=== PATIENT | male | born 1940 | race Caucasian/White ===

== ENCOUNTER 2018-11-14 01:22 | Outpatient (CLI) | payer MEDICARE, SELFPAY ==
--- NOTE | 2018-11-14 09:01 | DI.RAD_ITS ---
EXAM: XR SHOULDER RT COMPLETE 2+V INDICATION: PAIN M25.511. COMPARISON: No exams were available for comparison TECHNIQUE: 2D digital imaging was performed. FINDINGS: Images of the right shoulder reveal mild DJD involving the glenohumeral joint and moderate DJD involv ing the AC joint. There is no evidence of a fracture or dislocation. IMPRESSION:
--- NOTE | 2018-11-14 09:02 | DI.RAD_ITS ---
EXAM: XR SHOULDER LT COMPLETE 2+V INDICATION: PAIN M25.512. COMPARISON: XR SHOULDER RT COMPLETE 2+V from 11/14/2018 TECHNIQUE: 2D digital imaging was performed. FINDINGS: Bony structures are normally mineralized. There are mild degenerative changes involving the glenohume ral joint and moderate DJD involving the AC joint.
== END 2018-11-14 01:42 ==
PROVIDERS: PCP Family Medicine; Visit Provider Family Medicine
DX: M25.512 Pain in left shoulder (principal); M19.012 Primary osteoarthritis, left shoulder; M25.511 Pain in right shoulder; M19.011 Primary osteoarthritis, right shoulder
CPT/HCPCS: 73030

== ENCOUNTER → 2018-11-16 10:32 | Outpatient (BNVA) | payer MEDICARE, SELFPAY | PROVIDERS: PCP Family Medicine; Referring Provider Family Medicine; Visit Provider Student in an Organized Health Care Education/Training Program | DX: M75.51 Bursitis of right shoulder (principal); M75.52 Bursitis of left shoulder; M75.01 Adhesive capsulitis of right shoulder; M75.02 Adhesive capsulitis of left shoulder; M75.41 Impingement syndrome of right shoulder; M75.42 Impingement syndrome of left shoulder; M75.21 Bicipital tendinitis, right shoulder; M75.22 Bicipital tendinitis, left shoulder; M75.101 Unspecified rotator cuff tear or rupture of right shoulder, not specified as traumatic; M75.102 Unspecified rotator cuff tear or rupture of left shoulder, not specified as traumatic; G25.89 Other specified extrapyramidal and movement disorders | CPT/HCPCS: 20610; 99204; J1040 ==

== ENCOUNTER 2018-11-21 10:59 | Outpatient (REF) | payer MEDICARE, SELFPAY ==
[2018-11-21 21:47] LABS: BUN 37 mg/dL (7-18); CREATININE 1.35 mg/dL (0.70-1.30); Calcium 9.6 mg/dL (8.5-10.1); Chloride 102 mmol/L (98-107); Estimated GFR 50.98 (mL/min/1.73m2); Glucose 95 mg/dL (70-100); Magnesium 2.2 mg/dL (1.8-2.4); Potassium 5.3 mmol/L (3.5-5.1); Sodium 137 mmol/L (136-145); TSH (W/Ref FT4) 0.94 uIU/mL (0.36-3.74); Vitamin B12 357 pg/mL (193-986)
[2018-11-24 17:11] LABS: Anaplasma phagocytophilum Negative (Negative); B. miyamotoi PCR Negative (Negative); Babesia divergens/MO-1 Negative (Negative); Babesia duncani Negative (Negative); Babesia microti Negative (Negative); Ehrlichia chaffeensis Negative (Negative); Ehrlichia ewingii/canis Negative (Negative); Ehrlichia muris eauclairensis Negative (Negative)
== END 2018-11-21 11:19 ==
LOC: NCHCN 10:59
PROVIDERS: PCP Family Medicine; Visit Provider Family Medicine
DX: E03.9 Hypothyroidism, unspecified (principal); N28.9 Disorder of kidney and ureter, unspecified; E78.5 Hyperlipidemia, unspecified; G25.81 Restless legs syndrome; R53.83 Other fatigue
CPT/HCPCS: 80048; 87798; 82607; 83735; 84443

== ENCOUNTER 2019-02-28 13:24 | Outpatient (REF) | payer MEDICARE, SELFPAY ==
[2019-03-02 13:26] LABS: Lyme Ab w Rflx to Lyme Confirm Negative (Negative)
[2019-03-03 16:13] LABS: Anaplasma phagocytophilum Negative (Negative); B. miyamotoi PCR Negative (Negative); Babesia divergens/MO-1 Negative (Negative); Babesia duncani Negative (Negative); Babesia microti Negative (Negative); Ehrlichia chaffeensis Negative (Negative); Ehrlichia ewingii/canis Negative (Negative); Ehrlichia muris eauclairensis Negative (Negative)
== END 2019-02-28 13:44 ==
LOC: NCHCN 13:24
PROVIDERS: PCP Family Medicine; Visit Provider Family Medicine
DX: R53.83 Other fatigue (principal); M25.512 Pain in left shoulder; M25.511 Pain in right shoulder
CPT/HCPCS: 87798; 86618

== ENCOUNTER 2019-03-14 08:57 | Outpatient (CLI) | payer MEDICARE, SELFPAY ==
--- NOTE | 2019-03-14 09:00 | DI.RAD_ITS ---
EXAM: XR CERVICAL SPINE 1V INDICATION: PAIN. COMPARISON: No exams were available for comparison TECHNIQUE: 2D digital imaging was performed. FINDINGS: This is a suboptimal examination due to patient positioning. There is 2 millimeters of retrolisthesi s of C3 on C4. There is disc space narrowing at C3-C4 and C5-C6. There are endplate osteophytes at multiple levels of the cervical spine. There are degenerative changes of the facets throughout the c ervical spine. No acute fracture or subluxation is seen on the images provided. Prevertebral soft t issues are unremarkable. IMPRESSION: 1. Limited examination. 2. Moderate degenerative changes in the cervical spine.
--- NOTE | 2019-03-14 09:21 | DI.RAD_ITS ---
EXAM: XR HIP RT 1V INDICATION: PAIN. COMPARISON: No previous for comparison. TECHNIQUE: 2D digital imaging was performed. FINDINGS: The hip joints are well maintained. The bones are intact. No acute fracture or dislocation is prese nt. The sacroiliac joints and symphysis pubis are intact. There are surgical clips overlying the ri ght iliac bone. The soft tissues are otherwise unremarkable. There is atherosclerosis present. IMPRESSION: No acute abnormality.
--- NOTE | 2019-03-14 09:24 | DI.RAD_ITS ---
EXAM: XR LUMBAR SPINE AP, LAT INDICATION: PAIN. COMPARISON: No exams were available for comparison TECHNIQUE: 2D digital imaging was performed. FINDINGS: There is normal alignment. There is disc space narrowing at T12-L1, L1-L2 and L2-L3. Endplate osteo phytes are present at all levels of the lumbar spine. No acute fracture or subluxation is seen. The re is atherosclerosis of the abdominal aorta. IMPRESSION: Moderate degenerative changes of the lumbar spine.
== END 2019-03-14 09:17 ==
PROVIDERS: PCP Family Medicine; Referring Provider Family Medicine; Visit Provider Student in an Organized Health Care Education/Training Program
DX: M25.551 Pain in right hip (principal); M25.552 Pain in left hip; M54.2 Cervicalgia; M50.31 Other cervical disc degeneration, high cervical region; M50.322 Other cervical disc degeneration at C5-C6 level; M54.5 Low back pain; M51.35 Other intervertebral disc degeneration, thoracolumbar region; M75.01 Adhesive capsulitis of right shoulder; M75.02 Adhesive capsulitis of left shoulder; M25.811 Other specified joint disorders, right shoulder; M25.812 Other specified joint disorders, left shoulder; M75.51 Bursitis of right shoulder; M75.52 Bursitis of left shoulder; M75.41 Impingement syndrome of right shoulder; M75.42 Impingement syndrome of left shoulder; M67.813 Other specified disorders of tendon, right shoulder; M67.814 Other specified disorders of tendon, left shoulder; M75.101 Unspecified rotator cuff tear or rupture of right shoulder, not specified as traumatic; M75.102 Unspecified rotator cuff tear or rupture of left shoulder, not specified as traumatic; G56.03 Carpal tunnel syndrome, bilateral upper limbs; M47.12 Other spondylosis with myelopathy, cervical region; G62.9 Polyneuropathy, unspecified; M47.816 Spondylosis without myelopathy or radiculopathy, lumbar region; M16.0 Bilateral primary osteoarthritis of hip
CPT/HCPCS: 20610; 99215; 72020; 72100; 73501; 73502; J1040

== ENCOUNTER 2019-03-21 01:01 | Outpatient (CLI) | payer MEDICARE, SELFPAY ==
--- NOTE | 2019-03-21 14:09 | DI.MRI_ITS ---
EXAM: MR CERVICAL SPINE WO CLINICAL HISTORY: CERVICAL SPONDYLOSIS WITH MYELOPATHY,M47.12. TECHNIQUE: Multiplanar multisequence MRI was performed. COMPARISON: XR CERVICAL SPINE 1V from 03/14/2019 FINDINGS: Exam is mildly limited by patient motion. Calcification around the dens. The C2-3 level is unremark able. There is moderate to severe loss of disc height at C3-4 and broad-based disc osteophytes. The re is narrowing of the AP dimension of the central canal at 8.5 millimeters. There is mild loss of di sc height and smaller endplate osteophytes at C4-5. Moderate broad-based disc osteophytes are seen a t C5-6, causing severe bilateral neural foraminal narrowing. There is also mild narrowing of the AP dimension of the central canal. At C6-7, there are small to moderate broad-based disc osteophytes an d loss of disc height. There is mild neural foraminal narrowing. There is also loss of disc height, endplate osteophytes at C7-T1. There is mild neural foraminal narrowing but no significant central c anal stenosis. T1-2 and T2-3 levels are unremarkable. Facet joint degenerative changes are also see n, which contribute to the neural foraminal narrowing. Marrow signal shows degenerative changes in t he endplates. The cord signal appears normal. IMPRESSION: Degenerative disc changes and facet degenerative changes cause severe bilateral neural foraminal narr owing at C5-6. Neural foraminal narrowing is seen to a lesser extent at the other levels. There is also narrowing of the AP dimension of the central canal, greatest at C3-4 and C5-6.
== END 2019-03-21 01:21 ==
PROVIDERS: PCP Family Medicine; Visit Provider Student in an Organized Health Care Education/Training Program
DX: M47.12 Other spondylosis with myelopathy, cervical region (principal); M50.222 Other cervical disc displacement at C5-C6 level; M50.022 Cervical disc disorder at C5-C6 level with myelopathy
CPT/HCPCS: 72141

== ENCOUNTER → 2019-04-04 13:50 | Outpatient (BNVA) | payer MEDICARE, SELFPAY | PROVIDERS: PCP Family Medicine; Referring Provider Family Medicine; Visit Provider Student in an Organized Health Care Education/Training Program | DX: G25.89 Other specified extrapyramidal and movement disorders (principal); M75.101 Unspecified rotator cuff tear or rupture of right shoulder, not specified as traumatic; M75.102 Unspecified rotator cuff tear or rupture of left shoulder, not specified as traumatic; M75.21 Bicipital tendinitis, right shoulder; M75.22 Bicipital tendinitis, left shoulder; M75.01 Adhesive capsulitis of right shoulder; M75.02 Adhesive capsulitis of left shoulder; M75.41 Impingement syndrome of right shoulder; M75.42 Impingement syndrome of left shoulder; M75.51 Bursitis of right shoulder; M75.52 Bursitis of left shoulder; G56.03 Carpal tunnel syndrome, bilateral upper limbs; G62.9 Polyneuropathy, unspecified; M47.12 Other spondylosis with myelopathy, cervical region | CPT/HCPCS: 99213 ==

== ENCOUNTER → 2019-04-06 09:43 | Outpatient (BNVA) | payer MEDICARE, SELFPAY | PROVIDERS: PCP Family Medicine; Referring Provider Family Medicine; Visit Provider Student in an Organized Health Care Education/Training Program | DX: G56.01 Carpal tunnel syndrome, right upper limb (principal) | CPT/HCPCS: 99213 ==

== ENCOUNTER 2019-04-18 10:04 | Outpatient (REF) | payer MEDICARE, SELFPAY ==
[2019-04-18 21:00] LABS: Calcium 9.1 mg/dL (8.5-10.1); Chloride 102 mmol/L (98-107); Glucose 105 mg/dL (74-106); Potassium 4.9 mmol/L (3.5-5.1); Sodium 137 mmol/L (136-145)
[2019-04-18 21:43] LABS: Anion Gap 10.3 mmol/L (3-11); BUN 30 mg/dL (7-18); CO2 24.7 mmol/L (21.0-32.0); CREATININE 1.42 mg/dL (0.70-1.30); Estimated GFR 48.09 (mL/min/1.73m2); TSH (W/Ref FT4) 0.56 uIU/mL (0.36-3.74); Vitamin B12 696 pg/mL (193-986)
[2019-04-19 17:43] LABS: Rheumatoid Factor <8.6 IU/mL (<12.0)
[2019-04-20 14:22] LABS: ANA Interpretation Positive (Negative); ANA Titer Pattern 1:320 Homogeneous
== END 2019-04-18 10:24 ==
LOC: NCHCN 10:04
PROVIDERS: PCP Family Medicine; Visit Provider Family Medicine
DX: R53.83 Other fatigue (principal); N28.9 Disorder of kidney and ureter, unspecified; I10 Essential (primary) hypertension; G25.81 Restless legs syndrome; G62.9 Polyneuropathy, unspecified
CPT/HCPCS: 80048; 82607; 84443; 86038; 86431

== ENCOUNTER 2019-06-20 10:49 | Outpatient (REF) | payer MEDICARE, SELFPAY ==
[2019-06-20 23:09] LABS: ESR 45 mm/hr (1-20)
[2019-06-21 16:31] LABS: CRP, High Sensitivity 9.69 mg/L (See Note)
[2019-06-27 13:13] LABS: dsDNA Ab, IgG <12.3 IU/mL (<30.0)
[2019-06-27 15:09] LABS: RNP Ab, IgG 2.1 Units (<20.0); SS-A Antibody 1.7 Units (<20.0); SS-B (La) Ab, IgG 4.3 Units (<20.0)
== END 2019-06-20 11:09 ==
LOC: NCHCN 10:49
PROVIDERS: PCP Family Medicine; Visit Provider Family Medicine
DX: R76.0 Raised antibody titer (principal)
CPT/HCPCS: 85652; 86141; 86225; 86235

== ENCOUNTER → 2019-07-25 08:06 | Outpatient (BNVA) | payer MEDICARE, SELFPAY | PROVIDERS: PCP Family Medicine; Visit Provider Student in an Organized Health Care Education/Training Program | DX: M75.51 Bursitis of right shoulder (principal); M75.52 Bursitis of left shoulder; M75.101 Unspecified rotator cuff tear or rupture of right shoulder, not specified as traumatic; M75.102 Unspecified rotator cuff tear or rupture of left shoulder, not specified as traumatic; M75.21 Bicipital tendinitis, right shoulder; M75.22 Bicipital tendinitis, left shoulder; M75.01 Adhesive capsulitis of right shoulder; M75.02 Adhesive capsulitis of left shoulder; M75.41 Impingement syndrome of right shoulder; M75.42 Impingement syndrome of left shoulder; G56.03 Carpal tunnel syndrome, bilateral upper limbs; G62.9 Polyneuropathy, unspecified; M16.0 Bilateral primary osteoarthritis of hip | CPT/HCPCS: 99214 ==

== ENCOUNTER → 2019-08-17 09:44 | Outpatient (BNVA) | payer MEDICARE, SELFPAY | PROVIDERS: PCP Family Medicine; Referring Provider Family Medicine; Visit Provider Student in an Organized Health Care Education/Training Program | DX: G56.01 Carpal tunnel syndrome, right upper limb (principal) | CPT/HCPCS: 99213 ==

== ENCOUNTER 2019-09-01 08:03 | Outpatient (CLI) | payer MEDICARE, SELFPAY ==
[2019-09-02 23:43] LABS: COVID-19 RT-PCR Result NEGATIVE (Negative)
== END 2019-09-01 08:23 ==
PROVIDERS: PCP Family Medicine; Visit Provider Student in an Organized Health Care Education/Training Program
DX: G56.01 Carpal tunnel syndrome, right upper limb (principal)
CPT/HCPCS: U0003

== ENCOUNTER 2019-09-05 06:06 | Day surgery (SDC) | payer MEDICARE, SELFPAY ==
[2019-09-05 06:35] VITALS: BP 147/80; PULSE 74; RESP 18; TEMP 36.6; O2SAT 97
[2019-09-05] MEDS: Lactated Ringers 1,000 ML 80 ML IV (07:00)
--- NOTE | 2019-09-05 07:12 | PDOC.DSDIS_ITS ---
Discharge Plan Disposition Patient Disposition: HOME Condition: Good Discharge Details Reason For Visit: R CTS Attending Provider: Scar Zhou Primary Care Provider: Khadijah Henriquez V Home Meds and New Rx's Prescriptions: New acetaminophen 500 mg tablet 1,000 mg PO Q8H PRN (Reason: pain) Qty: 30 RF: 3 ibuprofen 600 mg tablet 600 mg PO TID PRNQty: 30 RF: 3 Continued gemfibrozil [Lopid] 600 mg tablet 600 mg PO BID RF: 0 lisinopril 10 mg tablet 10 mg PO DAILY RF: 0 levothyroxine 125 mcg capsule 125 mcg PO DAILY RF: 0 diltiazem HCl [DILT-XR] 240 mg capsule,ext.rel 24h degradable 240 mg PO DAILY RF: 0 aspirin [Adult Aspirin Regimen] 81 mg tablet,delayed release (DR/EC) 81 mg PO DAILY RF: 0 metoprolol succinate 100 mg tablet extended release 24 hr 100 mg PO DAILY RF: 0 prednisone 10 mg tablet 10 mg PO DAILY RF: 0 cyanocobalamin (vitamin B-12) [Vitamin B-12] 1,000 mcg Tablet 1,000 mcg PO DAILY RF: 0 tramadol 50 mg Tablet 50 mg PO BID PRNRF: 0 ibuprofen-diphenhydramine cit [Advil PM] 200-38 mg Tablet 3 cap PO QHS RF: 0 oxycodone-acetaminophen [Percocet] 5-325 mg Tablet 1 tab PO Q4H PRNRF: 0 Discharge Instructions Stand Alone Forms: Abelardo Barboza Tunnel Release Referrals: Scar Zhou MD [ [facility] STAFF PHYSICIAN] - Activity:: Elevate Remove Dressings/Wound Care:: 48 hours Shower/Bathe:: 48 hours Diet:: As Tolerated Discharge Orders Discharge Orders: Discharge Order (Routine); Ordered 09/05/19 Ordered By: Scar Zhou DS: Diagnosis Discharge Diagnosis (1) Right carpal tunnel syndrome: Status: Acute
[2019-09-05] MEDS: ceFAZolin 2 GM/50 ML BAG IVPB (07:23)
--- NOTE | 2019-09-05 07:49 | ROE_ITS ---
Date of service: 09/05/19 Time of Service: 07:49 Operative Note Operative Note DATE OF PROCEDURE: 09/05/19 PRE-OP DIAGNOSIS: Right Carpal Tunnel Syndrome POST-OP DIAGNOSIS: same PROCEDURE: Right Endoscopic Carpal Tunnel Release SURGEON: Scar Zhou ANESTHESIA: GETGustavo ESTIMATED BLOOD LOSS: 0 PATHOLOGY: none sent TOURNIQUET TIME: 4 COMPLICATIONS: None Patient was transported to: same day Patient's condition: stable Indications: I have seen Lance in clinic for symptoms of carpal tunnel syndrome. The numbness, tingling, and pain limited function. Clinical exam findings confirmed the diagnosis of carpal tunnel syndrome, although complicated by peripheral neuropathy and likely cervical impingement. Nonoperative measures such as bracing, time, activity modifications had been tried but disability and pain persisted. I discussed carpal tunnel release with the patient. I reviewed the risks of the procedure to include, but not limited to, bleeding, infection, pain, stiffness, incomplete release, damage to nerves or vessels, persistent numbness, recurrence. Despite these risks, the patient elected to proceed. Findings: There was tightened carpal tunnel. This was dilated and released successfully with the endoscopic with increased space within the tunnel. The antebrachial fascia was released proximally freeing the median nerve at the wrist. Procedure Description: Lance was greeted in the preoperative holding area where the correct side was identified and marked. The consent was reviewed with the patient and signed. The history and physical was updated. All questions were answered. He was taken back to the operating room. The patient was placed into the supine position on the operating room table with the right arm on an arm board. A nonsterile tourniquet was placed high onto the arm. All bony prominences were w ell padded. Prophylactic antibiotics in the form of Cefazolin were administered. The right arm was then prepped with Chloraprep and draped in a standard fashion with stockinette and extremity drape. A timeout to confirm correct identity, side and site, procedure, allergies, anesthesia, and medical concerns was performed. The surgical site was marked in the volar wrist creases in line with the radial border of the fourth ray. This area was anesthetized with approximately 6cc of 1% Lidocaine. The limb was then exsanguinated with an Esmarch. The skin was incised with a 15 blade, approximately 1cm. The skin only was cut and the deeper tissue was dissected bluntly with a tenotomy scissor, avoiding passing nerve and venous structures. The fascia was penetrated and opened bluntly. A two-prong skin hook was placed under this proximal fascial edge. A series of hamate finders were used to identify and dilate the carpal tunnel. Synovial elevator was used to free synovial attachments to the underside of the transverse carpal ligament. My thumb was kept in the palm to janina the distal extent of the carpal tunnel and correctly position the hand. The Microaire endoscope was inserted without difficulty and without resistance. Excellent visualization showed horizontally running fibers of the transverse carpal ligament (TCL). The distal extent of the TCL was visualized and the end of the scope palpated with the thumb. The blade was elevated and withdrawn from distal to proximal. The TCL was split into two flaps. The endoscope was reinserted to confirm complete release and any remnant ligament was incised. The scope was withdrawn and the proximal aspect of the carpal tunnel was grossly inspected and appeared release with the median nerve visible. The antebrachial fascia at the level of the wrist was then freed from the overlying skin and then the underlying median nerve with blunt dissection. This was transected longitudinally for about 3cm proximal to the wrist incision. The wound was then irrigated with easy flow of irrigant distally and proximally. The incision was closed with a single 4-0 Nylon suture. The wound was dressed with Xeroform, Gauze, Kerlix and Jewel. The tourniquet was deflated with the initial dressing and held with some pressure. Blood flow returned easily to all digits with capillary refill less than 2 seconds. The patient tolerated the procedure well and was returned to the Same Day Surgery area in a stable condition suffering no known complication.
[2019-09-05] MEDS: Sodium Bicarbonate 50 MEQ/50 ML VIAL (07:50)
[2019-09-05 08:25] VITALS: BP 143/77; PULSE 75; RESP 18; TEMP 36.3; O2SAT 95
== END 2019-09-05 08:55 | disposition home or self-care (01) ==
PROVIDERS: PCP Family Medicine; Visit Provider Student in an Organized Health Care Education/Training Program
PROC: 01N54ZZ Release Median Nerve, Percutaneous Endoscopic Approach (ICD-10-PCS; CPT 29848; principal; 2019-09-05 07:30)
DX: G56.01 Carpal tunnel syndrome, right upper limb (principal)
CPT/HCPCS: 29848; J0690; J2704; L3650

== ENCOUNTER → 2019-10-31 07:51 | Outpatient (BNVA) | payer MEDICARE, SELFPAY | PROVIDERS: PCP Family Medicine; Visit Provider Student in an Organized Health Care Education/Training Program | DX: M75.51 Bursitis of right shoulder (principal); M75.52 Bursitis of left shoulder; G25.89 Other specified extrapyramidal and movement disorders; M75.101 Unspecified rotator cuff tear or rupture of right shoulder, not specified as traumatic; M75.102 Unspecified rotator cuff tear or rupture of left shoulder, not specified as traumatic; M75.21 Bicipital tendinitis, right shoulder; M75.22 Bicipital tendinitis, left shoulder; M75.01 Adhesive capsulitis of right shoulder; M75.02 Adhesive capsulitis of left shoulder; M75.41 Impingement syndrome of right shoulder; M75.42 Impingement syndrome of left shoulder; G62.9 Polyneuropathy, unspecified; M54.16 Radiculopathy, lumbar region; M16.0 Bilateral primary osteoarthritis of hip; M47.12 Other spondylosis with myelopathy, cervical region; Z47.89 Encounter for other orthopedic aftercare | CPT/HCPCS: 99213 ==

== ENCOUNTER 2019-11-21 21:00 | Outpatient (REF) | payer MEDICARE, SELFPAY ==
[2019-11-21 19:34] LABS: HCT 32.1 % (40.0-50.0); HGB 9.9 g/dL (13.5-17.5); MCHC 30.8 % (32.0-36.0); MCV 97.3 fL (80-95); MPV 9.9 fL (8.0-11.0); Platelet Count 332 10^3/uL (130-400); RDW 16.8 % (11.8-14.1); RDW-SD 59.4 fL; WBC 6.83 10^3/uL (4.4-10.8)
[2019-11-21 19:51] LABS: ALT 10 U/L (16-63); AST 9 U/L (15-37); Albumin 3.4 g/dL (3.4-5.0); Alkaline Phosphatase 96 U/L (46-116); BUN 23 mg/dL (7-18); Bilirubin, Total 0.5 mg/dL (0.2-1.0); CREATININE 1.33 mg/dL (0.70-1.30); Calcium 9.5 mg/dL (8.5-10.1); Chloride 100 mmol/L (98-107); Estimated GFR 51.73 (mL/min/1.73m2); Glucose 109 mg/dL (74-106); Potassium 5.2 mmol/L (3.5-5.1); Sodium 135 mmol/L (136-145); TSH (W/Ref FT4) 1.37 uIU/mL (0.36-3.74); Total Protein 7.4 g/dL (6.4-8.2)
[2019-11-22 11:26] LABS: C-Reactive Protein 11.82 mg/dL (0.0-0.3)
[2019-11-22 17:29] LABS: Vitamin B12 651 pg/mL (211-911)
[2019-11-22 17:38] LABS: Folate >24.0 ng/mL (See Note)
== END 2019-11-21 21:20 ==
LOC: NCHCN 21:00
PROVIDERS: PCP Family Medicine; Visit Provider Family Medicine
DX: E03.9 Hypothyroidism, unspecified (principal); I10 Essential (primary) hypertension; N28.9 Disorder of kidney and ureter, unspecified; M25.561 Pain in right knee; R76.0 Raised antibody titer; R53.83 Other fatigue
CPT/HCPCS: 80053; 85027; 82607; 82746; 84443; 86140

== ENCOUNTER 2019-12-19 13:05 | Outpatient (REF) | payer MEDICARE, SELFPAY ==
[2019-12-19 19:46] LABS: Abs Immature Grans 0.01 10^3/uL (0.0-0.06); Absolute Basophil Count 0.05 10^3/uL (0.0-0.2); Absolute Eosinophil Count 0.08 10^3/uL (0.0-0.7); Absolute Lymphocyte Count 0.67 10^3/uL (1.2-3.4); Absolute Monocyte Count 0.23 10^3/uL (0.1-0.8); Absolute Neutrophil Count 3.04 10^3/uL (1.2-6.7); Basophils % 1.2; HCT 31.5 % (40.0-50.0); HGB 9.9 g/dL (13.5-17.5); Immature Grans % 0.2; Lymphocytes % 16.4; MCH 30.9 pg (27.0-33.0); MCHC 31.4 % (32.0-36.0); MCV 98.4 fL (80-95); Monocytes % 5.6; Neutrophils % 74.6; Nucleated RBC 0 %; Platelet Count 306 10^3/uL (130-400); RDW 16.6 % (11.8-14.1); RDW-SD 60.7 fL; WBC 4.08 10^3/uL (4.4-10.8)
[2019-12-19 19:56] LABS: C-Reactive Protein 4.73 mg/dL (0.0-0.3)
[2019-12-19 20:15] LABS: Iron 68 ug/dL (65-175)
[2019-12-19 20:28] LABS: Ferritin 212 ng/mL (26-388)
[2019-12-19 20:35] LABS: ESR 85 mm/hr (1-20)
[2019-12-22 16:09] LABS: PSA, Screening 3.6 ng/mL (0-6.5)
== END 2019-12-19 13:25 ==
LOC: NCHCN 13:05
PROVIDERS: PCP Family Medicine; Visit Provider Family Medicine
DX: R53.83 Other fatigue (principal); M25.561 Pain in right knee
CPT/HCPCS: 84153; 85652; 82728; 83540; 85025; 86140

== ENCOUNTER 2019-12-19 15:28 | Outpatient (CLI) | payer MEDICARE, SELFPAY ==
--- NOTE | 2019-12-19 14:10 | DI.RAD_ITS ---
EXAM: XR KNEE RT 3V AP,LAT,STEFANIA CLINICAL HISTORY: Right knee pain. TECHNIQUE: 2D digital imaging was performed. COMPARISON: None. FINDINGS: BONES: No acute fracture is present. No bony destructive lesion is seen. Enthesophyte is seen at the superior patella. JOINTS: The knee is normally aligned. There is a small joint effusion. Small spurs are seen at the p osterior patella. SOFT TISSUE: Vascular calcifications are present. IMPRESSION: Mild degenerative changes of the knee. DATA REPOSITORY: RADIATION DOSE DELIVERED:
== END 2019-12-19 15:48 ==
PROVIDERS: PCP Family Medicine; Referring Provider Family Medicine; Visit Provider Student in an Organized Health Care Education/Training Program
DX: M17.11 Unilateral primary osteoarthritis, right knee (principal); M25.561 Pain in right knee; M25.551 Pain in right hip
CPT/HCPCS: 20610; 73562; 99213; J1030

== ENCOUNTER 2019-12-28 01:14 | Outpatient (CLI) | payer MEDICARE, SELFPAY ==
--- NOTE | 2019-12-28 09:00 | DI.RAD_ITS ---
EXAM: RF JOINT INJECTION FLUORO GUID CLINICAL HISTORY: R HIP INJ UNDER FLUORO,RT HIP PAIN,M25.551 TECHNIQUE: 2D and realtime digital imaging was performed. CONTRAST MATERIAL: Water soluble contrast was administered. COMPARISON: No exams were available for comparison FINDINGS: Fluoroscopy was provided for Dr. Zhou during the performance of a right hip injection. Please r efer to the procedure report for complete details. Fluoro time: 7 seconds
--- NOTE | 2019-12-28 15:07 | W.PROCNOTE ---
Date of service: 12/28/19 Time of Service: 15:08 Procedure Note Date of procedure: 12/28/19 Procedure: Right Hip Injection with Fluoroscopic Guidance Surgeon/Proceduralist/Physician: Scar Zhou Procedure Diagnosis: Right Hip Pain Procedure Indications: Lance has had persistent pain of the RIGHT hip and groin. Noninvasive measures have been tried. To serve as both diagnostic and therapeutic, an injection under fluoroscopy was recommended. I had discussed the risks of the procedure and the patient elected to proceed. Procedure Description: Lance was greeted in the flouroscopy room. The correct side was identified and the consent was reviewed with the patient and signed. The patient was then placed in the supine position on the fluoroscopy table. The RIGHT hip was then prepped with Chloraprep. The anterolateral injection starting point was identiifed by bony landmarks and fluoroscopy. The skin and soft tissue in the tract of the injection was anesthetized with 1% Lidocaine. A spinal needle was then inserted deep into the hip joint at the level of the lateral femoral neck under fluoroscopic guidance. A small amount of Omnipaque solution was injected to confirm intraarticular placement. Once confirmed, the hip was injected with 6cc of 0.5% Bupivicaine and 80mg of Depo-Medrol. A bandaid was placed on the injection site. The patient tolerated the procedure well and noted improvement in pre-injection pain.
[2019-12-28] MEDS: Omnipaque 300 MG/ML 10 ML BTL IJ (15:43)
[2019-12-28] MEDS: methylPREDNISolone ACETATE 80 MG/ML VIAL IM (15:44)
[2019-12-28] MEDS: Bupivacaine 0.5% Pres-Free 10 ML VIAL 5 ML IJ (15:44)
== END 2019-12-28 01:34 ==
PROVIDERS: PCP Family Medicine; Visit Provider Student in an Organized Health Care Education/Training Program
DX: M25.551 Pain in right hip (principal)
CPT/HCPCS: 20610; 77002; J1040

== ENCOUNTER → 2020-03-05 13:04 | Outpatient (BNVA) | payer MEDICARE, SELFPAY | PROVIDERS: PCP Family Medicine; Referring Provider Family Medicine; Visit Provider Student in an Organized Health Care Education/Training Program | DX: M25.561 Pain in right knee (principal); M17.11 Unilateral primary osteoarthritis, right knee; M75.51 Bursitis of right shoulder; M75.52 Bursitis of left shoulder; M75.41 Impingement syndrome of right shoulder; M75.42 Impingement syndrome of left shoulder; M75.01 Adhesive capsulitis of right shoulder; M75.02 Adhesive capsulitis of left shoulder; M75.21 Bicipital tendinitis, right shoulder; M75.22 Bicipital tendinitis, left shoulder | CPT/HCPCS: 99212 ==

== ENCOUNTER 2020-03-08 16:01 | Outpatient (REF) | payer MEDICARE, SELFPAY ==
[2020-03-09 15:15] LABS: COVID-19 RT-PCR UVMMC Result Positive (Negative)
== END 2020-03-08 16:21 ==
LOC: NCHCN 16:01
PROVIDERS: PCP Family Medicine; Visit Provider Family Medicine
DX: Z20.822 Contact with and (suspected) exposure to COVID-19 (principal)
CPT/HCPCS: U0003

== ENCOUNTER 2020-03-11 16:23 | Outpatient (CLI) | payer MEDICARE, SELFPAY ==
[2020-03-12 10:46] VITALS: BP 130/82; PULSE 74; RESP 22; TEMP 37.3; O2SAT 99
[2020-03-12] MEDS: Normal Saline Flush 10 ML SYR IVP (10:55)
[2020-03-12] MEDS: Normal Saline 500 ML 30 ML IV (10:55)
[2020-03-12 11:01] VITALS: BP 129/78; PULSE 73; RESP 20; TEMP 36.9; O2SAT 98
[2020-03-12 11:19] VITALS: BP 130/82; PULSE 74; RESP 22; TEMP 37.3; O2SAT 99
[2020-03-12 11:48] VITALS: BP 105/65; PULSE 68; RESP 20; TEMP 36.9; O2SAT 96
[2020-03-12 12:20] VITALS: BP 118/66; PULSE 83; RESP 18; TEMP 36.8; O2SAT 94
== END 2020-03-11 16:43 ==
PROVIDERS: PCP Family Medicine; Visit Provider Family Medicine
DX: U07.1 COVID-19 (principal)
CPT/HCPCS: 96365

== ENCOUNTER 2020-04-16 15:37 | Outpatient (REF) | payer MEDICARE, SELFPAY ==
[2020-04-16 16:32] LABS: Abs Immature Grans 0.03 10^3/uL (0.0-0.06); Absolute Basophil Count 0.06 10^3/uL (0.0-0.2); Absolute Eosinophil Count 0.21 10^3/uL (0.0-0.7); Absolute Lymphocyte Count 1.16 10^3/uL (1.2-3.4); Absolute Monocyte Count 0.35 10^3/uL (0.1-0.8); Absolute Neutrophil Count 5.32 10^3/uL (1.2-6.7); Basophils % 0.8; Eosinophils % 2.9; HCT 34.1 % (40.0-50.0); Immature Grans % 0.4; Lymphocytes % 16.3; MCH 30.1 pg (27.0-33.0); MCHC 32.3 % (32.0-36.0); MCV 93.2 fL (80-95); MPV 10.9 fL (8.0-11.0); Monocytes % 4.9; Neutrophils % 74.7; Nucleated RBC 0 %; Platelet Count 257 10^3/uL (130-400); RBC 3.66 10^6/uL (4.36-5.78); RDW 14.8 % (11.8-14.1); RDW-SD 50.6 fL; WBC 7.13 10^3/uL (4.4-10.8)
[2020-04-16 17:02] LABS: ALT 19 U/L (16-63); AST 16 U/L (15-37); Albumin 3.1 g/dL (3.4-5.0); Alkaline Phosphatase 124 U/L (46-116); Anion Gap 10.5 mmol/L (3-11); BUN 19 mg/dL (7-18); Bilirubin, Total 0.4 mg/dL (0.2-1.0); C-Reactive Protein 11.24 mg/dL (0.0-0.3); CO2 24.5 mmol/L (21.0-32.0); CREATININE 1.3 mg/dL (0.70-1.30); Chloride 101 mmol/L (98-107); Creatine Kinase 66 U/L (39-308); Estimated GFR 53.12 (mL/min/1.73m2); Glucose 122 mg/dL (74-106); Potassium 4.6 mmol/L (3.5-5.1); Sodium 136 mmol/L (136-145); TSH (W/Ref FT4) 2.28 uIU/mL (0.36-3.74); Total Protein 7.3 g/dL (6.4-8.2)
[2020-04-16 17:26] LABS: Hemoglobin A1C 5.8 % (<5.7)
[2020-04-17 09:27] LABS: ESR 96 mm/hr (<or=20)
== END 2020-04-16 15:38 | disposition home or self-care (01) ==
LOC: NCHCN 15:37
PROVIDERS: PCP Family Medicine; Visit Provider Family Medicine
DX: E03.9 Hypothyroidism, unspecified (principal); D64.9 Anemia, unspecified; R73.03 Prediabetes; R79.82 Elevated C-reactive protein (CRP); N28.9 Disorder of kidney and ureter, unspecified
CPT/HCPCS: 80053; 82550; 85652; 83036; 84443; 85025; 86140

== ENCOUNTER 2020-07-02 14:51 | Outpatient (REF) | payer MEDICARE, SELFPAY ==
[2020-07-02 16:01] LABS: ESR 46 mm/hr (0-20)
[2020-07-02 16:12] LABS: C-Reactive Protein 3.87 mg/dL (0.0-0.3)
== END 2020-07-02 14:52 | disposition home or self-care (01) ==
LOC: NCHCN 14:51
PROVIDERS: PCP Family Medicine; Visit Provider Family Medicine
DX: M35.3 Polymyalgia rheumatica (principal)
CPT/HCPCS: 85652; 86140

== ENCOUNTER 2020-11-29 09:16 | Outpatient (REF) | payer MEDICARE, SELFPAY ==
[2020-11-29 14:18] LABS: HCT 38.9 % (40.0-50.0); HGB 12.5 g/dL (13.5-17.5); MCHC 32.1 % (32.0-36.0); MCV 96.5 fL (80-95); MPV 10.6 fL (8.0-11.0); Platelet Count 224 10^3/uL (130-400); RBC 4.03 10^6/uL (4.36-5.78); RDW 13.5 % (11.8-14.1); RDW-SD 48.1 fL; WBC 9.82 10^3/uL (4.4-10.8)
[2020-11-29 14:29] LABS: ALT 24 U/L (16-63); AST 16 U/L (15-37); Albumin 3.5 g/dL (3.4-5.0); Alkaline Phosphatase 94 U/L (46-116); Anion Gap 9.3 mmol/L (3-11); BUN 26 mg/dL (7-18); Bilirubin, Total 0.3 mg/dL (0.2-1.0); C-Reactive Protein 2.94 mg/dL (0.0-0.3); CO2 26.7 mmol/L (21.0-32.0); CREATININE 1.4 mg/dL (0.70-1.30); Calcium 9.4 mg/dL (8.5-10.1); Chloride 104 mmol/L (98-107); Estimated GFR 48.64 (mL/min/1.73m2); Glucose 120 mg/dL (74-106); Sodium 140 mmol/L (136-145)
[2020-11-29 16:13] LABS: ESR 36 mm/hr (0-20)
[2020-11-29 17:15] LABS: Hemoglobin A1C 5.6 % (<5.7)
== END 2020-11-29 09:17 | disposition home or self-care (01) ==
LOC: NCHCN 09:16
PROVIDERS: PCP Family Medicine; Visit Provider Family Medicine
DX: M25.561 Pain in right knee (principal); D64.9 Anemia, unspecified; I10 Essential (primary) hypertension; E03.9 Hypothyroidism, unspecified
CPT/HCPCS: 80053; 85027; 85652; 83036; 84443; 86140

== ENCOUNTER 2021-03-28 03:57 | Outpatient (CLI) | payer MEDICARE, SELFPAY ==
[2021-03-28 12:39] LABS: HCT 39.9 % (40.0-50.0); MCH 32.1 pg (27.0-33.0); MCHC 32.6 % (32.0-36.0); MCV 98.5 fL (80-95); MPV 9.7 fL (8.0-11.0); Platelet Count 198 10^3/uL (130-400); RBC 4.05 10^6/uL (4.36-5.78); RDW 13.5 % (11.8-14.1); RDW-SD 49.1 fL; WBC 7.07 10^3/uL (4.4-10.8)
[2021-03-28 12:48] LABS: ESR 25 mm/hr (0-20)
[2021-03-28 13:23] LABS: D-Dimer 2051 ng/mlFEU (<500)
[2021-03-28 13:49] LABS: Anion Gap 7.5 mmol/L (3-11); BUN 22 mg/dL (7-18); C-Reactive Protein 2.81 mg/dL (0.0-0.3); CO2 26.5 mmol/L (21.0-32.0); CREATININE 1.4 mg/dL (0.70-1.30); Calcium 9.3 mg/dL (8.5-10.1); Chloride 102 mmol/L (98-107); Estimated GFR 48.64 (mL/min/1.73m2); Glucose 104 mg/dL (74-106); Potassium 4.3 mmol/L (3.5-5.1); Sodium 136 mmol/L (136-145); TSH (W/Ref FT4) 2.91 uIU/mL (0.36-3.74)
== END 2021-03-28 03:58 | disposition home or self-care (01) ==
PROVIDERS: PCP Family Medicine; Visit Provider Family Medicine
DX: E03.9 Hypothyroidism, unspecified (principal); M35.3 Polymyalgia rheumatica; M25.562 Pain in left knee; D64.9 Anemia, unspecified
CPT/HCPCS: 36415; 80048; 85027; 85652; 83880; 84443; 85379; 86140; 93970

== ENCOUNTER 2021-04-17 10:14 | Outpatient (CLI) | payer MEDICARE, SELFPAY ==
--- NOTE | 2021-04-17 09:45 | DI.RAD_ITS ---
Exam(s) XR KNEE LT 3V AP,LAT,STEFANIA EXAM: XR KNEE LT 3V AP,LAT,STEFANIA CLINICAL HISTORY: left knee pain TECHNIQUE: COMPARISON: CR XR KNEE RT 3V AP,LAT,STEFANIA from 12/19/2019 FINDINGS: Three views were obtained. There appears to be mild narrowing of medial tibiofemoral cartilaginous j oint space. Otherwise cartilaginous joint spaces appear well maintained. There may be a small joint effusion. There is a small enthesophyte of the superior patella. No other significant bony abnormality seen. IMPRESSION: Mild DJD of the knee. RADIATION DOSE DELIVERED: Total DLP
== END 2021-04-17 10:15 | disposition home or self-care (01) ==
LOC: DIORS 10:14
PROVIDERS: PCP Family Medicine; Referring Provider Family Medicine; Visit Provider Student in an Organized Health Care Education/Training Program
DX: M25.562 Pain in left knee (principal); M17.12 Unilateral primary osteoarthritis, left knee; M23.92 Unspecified internal derangement of left knee
CPT/HCPCS: 20610; 73562; 99213; J1040

== ENCOUNTER → 2021-05-19 08:48 | Outpatient (BNVA) | payer MEDICARE, SELFPAY | PROVIDERS: PCP Family Medicine; Referring Provider Family Medicine; Visit Provider Student in an Organized Health Care Education/Training Program | DX: M23.92 Unspecified internal derangement of left knee (principal) | CPT/HCPCS: 99212 ==

== ENCOUNTER 2021-12-11 15:35 | Outpatient (REF) | payer MEDICARE, SELFPAY ==
[2021-12-11 15:13] LABS: HGB 13.8 g/dL (13.5-17.5); MCH 32.6 pg (27.0-33.0); MCHC 32.9 % (32.0-36.0); MCV 99 fL (80-95); MPV 10.5 fL (8.0-11.0); Platelet Count 220 10^3/uL (130-400); RBC 4.23 10^6/uL (4.36-5.78); RDW 13.3 % (11.8-14.1); RDW-SD 49.1 fL; WBC 9.29 10^3/uL (4.4-10.8)
[2021-12-11 15:22] LABS: ESR 31 mm/hr (0-20)
--- OUTSIDE RECORDS SUMMARY | 2021-12-11 15:37 | XMS_ITS | Encounter Summary ---
:1940 Author Organization [facility] Address [address] [place] [address] Care Team Providers Name Role Phone Unknown, Provider Primary Care Provider Encounter Details Date Type Department Care Team Description 11/22/2019 Lab Requisition [facility] Outr Resulting Lab, Pathology & Laboratory Provider [facility] [address], [place] [id number] Social History Tobacco Use Types Packs/Day Years Used Date Never Assessed Sex Assigned at Date Recorded Not on file documented as of this encounter Plan of Treatment Not on filedocumented as of this encounter Procedures Procedure Name Priority Date/Time Associated Diagnosis Comme nts FOLATE Routine 11/21/2019 11:15 EDT Results for this procedure are i n the results section . VITAMIN B12 Routine 11/21/2019 11:15 EDT Results for this procedure are i n the results section . documented in this encounter Results FOLATE (11/21/2019 11:15 EDT) Folate >24.0 See Note ng/mL [facility] Comment: LABORATORY SERVICES Reference Ranges for Folate: Deficient: ?< 3.4 ng/mL Indeterminate: ??3.4 - 5.4 ng/mL Normal: ? > 5.4 ng/mL The results of this assay ca n be falsely elevated due to the consumption of Biotin. Specimen Blood - Venous blood (substance) Performing Organization Address City/State/ZIP Code Phon e Number [facility] [address] [place] [address] SERVICES VITAMIN B12 (11/21/2019 11:15 EDT) Pathologist [facility] nature Vitamin B12 [phone] 441 pg/mL [facility] TORY SERVICES Specimen Blood - Venous blood (substance) Performing Organization Address City/State/ZIP Code Phon e Number [facility] [address] [place] [address] SERVICES documented in this encounter Visit Diagnoses Not on filedocumented in this encounter Additional Health Concerns Infection Onset Date Last Indicated Resolved Time COVID-19 03/08/2020 03/08/2020 04/07/2020 22:15 EST documented as of this encounter Care Teams Bundle Helper Relationship Specialty Start Date End Date Unknown, Provider, PCP - General 12/17/14 documented as of this encounter
--- OUTSIDE RECORDS SUMMARY | 2021-12-11 15:37 | XMS_ITS | Encounter Summary ---
:1940 Author Organization [facility] Address [address] [place] [address] Care Team Providers Name Role Phone Unknown, Provider Primary Care Provider Encounter Details Date Type Department Care Team Description 03/01/2019 Lab Requisition [facility] Unknown, Provider, Pathology & Laboratory [facility] [address] [facility] [place] [address] Social History Tobacco Use Types Packs/Day Years Used Date Never Assessed Sex Assigned at Date Recorded Not on file documented as of this encounter Plan of Treatment Not on filedocumented as of this encounter Procedures Procedure Name Priority Date/Time Associated Diagnosis Comme nts LYME AB Routine 02/28/2019 14:23 EST Results for this procedure are i n the results section . documented in this encounter Results LYME AB (02/28/2019 14:23 EST) Pathologist Sig nature Lyme Ab Negative Negative [facility] Specimen Blood - Venous blood (substance) Performing Organization Address City/State/ZIP Code Phon e Number [facility] [address] [place] [address] SERVICES documented in this encounter Visit Diagnoses Not on filedocumented in this encounter Additional Health Concerns Infection Onset Date Last Indicated Resolved Time COVID-19 03/08/2020 03/08/2020 04/07/2020 22:15 EST documented as of this encounter Care Teams Dairy Farm Operator Relationship Specialty Start Date End Date Unknown, Provider, PCP - General 12/17/14 documented as of this encounter
--- OUTSIDE RECORDS SUMMARY | 2021-12-11 15:37 | XMS_ITS | Encounter Summary ---
:1940 Author Organization [facility] Address [address] [place] [address] Care Team Providers Name Role Phone Unavailable Primary Care Provider Unavailable Encounter Details Date Type Department Care Team Description 03/01/2006 Results Only [facility] Silvino Cutler MD conversion [address] [place] [address] [place] [address] [phone] Social History Tobacco Use Types Packs/Day Years Used Date Never Assessed Sex Assigned at Date Recorded Not on file documented as of this encounter Plan of Treatment Not on filedocumented as of this encounter Procedures Procedure Name Priority Date/Time Associated Diagnosis Comme [facility] SURGICAL PATHOLOGY Routine 03/01/2006 0:00 EST Re sults for this procedure are i n the results section. documented in this encounter Results SURGICAL PATHOLOGY (03/01/2006 0:00 EST) Pathology Report: SURGICAL PATHOLOGY REPORT [facility] Reports generated via electronic interface contain isela ginal data; LAB however they are lacking the format of the original re port. Caution should be taken when reading/interpreting unfo rmatted reports. Name: ? MOHAN SMITH ? Accession #: ? [id number] ? : ? 1940 (Age: 65) ??M ? Collect Date: ? 03/01/2006 ? Location: ? [facility] ? Receive Date: ? 007 ? Provider: SILVINO STORM MD Copy to: STELLA PYLE MD ? Final Pathologic Diagnosis: ? A. ??Sigmoid, 35 cm, biopsy: ?1. ??No significant pathologic features, surface hyperplastic changes. B. ??Colon, 25 cm, biopsy: ? 1. ?? Features consistent with pseudopneumatosi s intestinalis. Document reviewed and electronically signed by: TERI GOODMAN MD Report ??Date: 03/04/2006 12:54 By the signature above, the attending physician certif ies that he/she has personally conducted a gross and/or microscopic examin ation of the described specimens and rendered or confirmed the above diagnosi s. Specimen(s) Received: A. ?Sigmoid bx mucosa 35 cm B. ? lipoma @ 25 cm Clinical History: ? Polypectomy 1 yr ago Gross Description: ? Received in [facility] fixative labelled Lew and bx sigmoid mucosa 35 cm is an irregular 0.3 x 0.3 x 0.1 cm portion of foreman-pink soft tissue. ??The specimen is submitted intact as (A). Received in [facility]e's fixat martin labelled Lew and ? lipoma at 25 cm is an irregular 0.3 x 0.3 x 0.2 cm portion of foreman-pink soft tissue. ??The specimen is submitted intact as (B). ??(Dimitri Traore)/keegan End of Report Specimen Performing Organization Address City/State/ZIP Code Phon e Number [facility] [address] [place] [address] SERVICES [facility] [address] [place] [address] documented in this encounter Visit Diagnoses Not on filedocumented in this encounter
--- OUTSIDE RECORDS SUMMARY | 2021-12-11 15:37 | XMS_ITS | Encounter Summary ---
:1940 Author Organization [facility] Address [address] [place] [address] Care Team Providers Name Role Phone Unknown, Provider Primary Care Provider Encounter Details Date Type Department Care Team Description 09/01/2019 Lab Requisition [facility] Outr Resulting Lab, Pathology & Laboratory Provider [facility] [address], [place] [id number] Social History Tobacco Use Types Packs/Day Years Used Date Never Assessed Sex Assigned at Date Recorded Not on file documented as of this encounter Plan of Treatment Not on filedocumented as of this encounter Procedures Procedure Name Priority Date/Time Associated Comments Diagnosis DO NOT ORDER Today 09/01/2019 10:08 Results for this STANDALONE - BROAD EDT procedure are in COVID TEST the results section. COVID-19 TESTING Routine 09/01/2019 10:08 Results for this EDT procedure are i n the results section. documented in this encounter Results DO NOT ORDER STANDALONE - BROAD COVID TEST (09/01/2019 10:08 EDT) COVID-19 rt-PCR NEGATIVE Negative [facility] Result Comment: LABORATORY 2019-novel Coronavirus (2019 -nCoV) not detected by the qRT-PCR assay. Consider testing for other respiratory viruses or re-collecting for 2019-nCoV testing. Note: Optimum timing for peak viral levels du ring infections caused by 20 -nCoV have not been determined. Collection of multiple specimens from the same patient may be necessary to detect the virus. Limitations Positive results are indicat martin of active infection with SARS-CoV-2 but do not rule out bacterial infection or co-infection with other viruses. The agent detected may not be the definite cause of diseas e. In addition, detection of viral RNA may not indicate the presence of infectious virus or that SARS-CoV-2 is the causative agent for clinical symptoms. Negative results do not prec lude SARS-CoV-2 infection and should not be used as the sole basis for patient management decisions. Negative results must be combined with clinical observations, patient his tory, and epidemiological in formation. False negative results may also occur if amplification inhibitors are present in the specimen or if inadequate numbers of organisms are present in the specimen. Op timum specimen types and nigel ing for peak viral levels during infections caused by SARS-CoV-2 have not been fully determined. Collection of multiple specimens (types and time points) from the same patient may be necessary to detect the virus. The test was validated for u se with upper respiratory specimens obtained via nasopharyngeal or oropharyngeal swabs in VTM, UTM, M4, M5, M6, saline, and MTM media. The performance of this test has not be en established for other spe cimens. Specimens collected using other FDA recommended Specimen Collection Materials listed in the FDA COVID-19 [employer] communication (May 04, 2019) are pr ocessed with the caveat that they were not all validated for use with this test and the result must be interpreted in this context. Furthermore, a false negative results may occur if a specimen is improperly collected, transported or handled. If the virus mutates in the RT-PCR target region, SARS-CoV-2 may not be detected or may be detected less predictably. Inhibitors or other types of interference may produce a false negative result. An interference study evaluating the effect of common cold medications was not performed. This test is not FDA-cleared but its performance characteristics were established by our CLIA-certified, CAP-accredited, high complexity laboratory in accordance with CLIA regulations, [employer] (CAP) guidel marcos (Apr 27, 2019), and FDA guidance (Apr 08, 2019). This test is only for use un marilyn the Food and Drug Administration's Emergency Use Authorization. Specimen Swab - Entire nasopharynx (body structur e) Performing Organization Address City/State/ZIP Code Phon e Number [employer] [facility] [place] [place] COVID-19 TESTING (09/01/2019 10:08 EDT) COVID-19 rt-PCR NEGATIVE Negative [facility] Result Comment: LABORATORY 2019-novel Coronavirus (2019 -nCoV) not detected by the qRT-PCR assay. Consider testing for other respiratory viruses or re-collecting for 2019-nCoV testing. Note: Optimum timing for peak viral levels du ring infections caused by 20 -nCoV have not been determined. Collection of multiple specimens from the same patient may be necessary to detect the virus. Limitations Positive results are indicat martin of active infection with SARS-CoV-2 but do not rule out bacterial infection or co-infection with other viruses. The agent detected may not be the definite cause of diseas e. In addition, detection of viral RNA may not indicate the presence of infectious virus or that SARS-CoV-2 is the causative agent for clinical symptoms. Negative results do not prec lude SARS-CoV-2 infection and should not be used as the sole basis for patient management decisions. Negative results must be combined with clinical observations, patient his tory, and epidemiological in formation. False negative results may also occur if amplification inhibitors are present in the specimen or if inadequate numbers of organisms are present in the specimen. Op timum specimen types and nigel ing for peak viral levels during infections caused by SARS-CoV-2 have not been fully determined. Collection of multiple specimens (types and time points) from the same patient may be necessary to detect the virus. The test was validated for u with upper respiratory specimens obtained via nasopharyngeal or oropharyngeal swabs in VTM, UTM, M4, M5, M6, saline, and MTM media. The performance of this test has not be en established for other spe cimens. Specimens collected using other FDA recommended Specimen Collection Materials listed in the FDA COVID-19 [employer] communication (May 04, 2019) are pr ocessed with the caveat that they were not all validated for use with this test and the result must be interpreted in this context. Furthermore, a false negative results may occur if a specimen is improperly collected, transported or handled. If the virus mutates in the RT-PCR target region, SARS-CoV-2 may not be detected or may be detected less predictably. Inhibitors or other types of interference may produce a false negative result. An interference study evaluating the effect of common cold medications was not performed. This test is not FDA-cleared but its performance characteristics were established by our CLIA-certified, CAP-accredited, high complexity laboratory in accordance with CLIA regulations, [employer] of [employer] (CAP) guidel marcos (Apr 27, 2019), and FDA guidance (Apr 08, 2019). This test is only for use un marilyn the Food and Drug Administration's Emergency Use Authorization. Performing Lab [facility] LABORATORY SERVICES Specimen Swab Performing Organization Address City/State/ZIP Code Phon e Number [facility] [address] [place] [address] SERVICES [facility] [place], [place] documented in this encounter Visit Diagnoses Not on filedocumented in this encounter Additional Health Concerns Infection Onset Date Last Indicated Resolved Time COVID-19 03/08/2020 03/08/2020 04/07/2020 22:15 EST documented as of this encounter Care Teams Sweet Potato Disintegrator Relationship Specialty Start Date End Date Unknown, Provider, PCP - General 12/17/14 documented as of this encounter
--- OUTSIDE RECORDS SUMMARY | 2021-12-11 15:37 | XMS_ITS | Encounter Summary ---
:[address] [facility] Address [address] [place] [address] Care Team Providers Name Role Phone Unavailable Primary Care Provider Unavailable Encounter Details Date Type Department Care Team Description 02/11/2005 Results Only [facility] Lonnie aCstañeda MD conversion [address] [place] [id number] Social History Tobacco Use Types Packs/Day Years Used Date Never Assessed Sex Assigned at Date Recorded Not on file documented as of this encounter Plan of Treatment Not on filedocumented as of this encounter Procedures Procedure Name Priority Date/Time Associated Diagnosis Comme nts SURGICAL PATHOLOGY Routine 02/11/2005 0:00 EST Re sults for this procedure are i n the results section. documented in this encounter Results SURGICAL PATHOLOGY (02/11/2005 0:00 EST) Pathology Report: SURGICAL PATHOLOGY REPORT SALAZAR A YENYCLARA Reports generated via electronic interface contain isela ginal data; LAB however they are lacking the format of the original re port. Caution should be taken when reading/interpreting unfo rmatted reports. Name: ? MOHAN SMITH ? Accession #: ? [id number] ? : ? 1940 (Age: 64) ??M ? Collect Date: ? 02/11/2005 ? Location: ? [facility] ? Receive Date: ? 006 ? Provider: RADHA LOPEZ MD Copy to: ANGEL LI ? Final Pathologic Diagnosis: A. ?Colon, 33 cm, polypectomy: 1. 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 ??See comment. 2. ?Cauterized resection margin negative for dysplasia. B. ?Colon, ascending, polyp, biopsy: ? 1. ??Tubular adenoma. Comment: ? Dr. Sampson Navarro has reviewed (A) in consulta tion. (Dr. Faith) Document reviewed and electronically signed by: SILVIO FAITH MD Report ??Date: 02/13/2005 10:32 By the signature above, the attending physician certif ies that he/she has personally conducted a gross and/or microscopic examin ation of the described specimens and rendered or confirmed the above diagnosi s. Specimen(s) Received: A. ?Polyp @ 33 cm B. ?Polyp ascending colon Clinical History: ? Screening, polyp at 33 cm, asc colon Gross Description: ? Received in Hollande' s fixative labeled Lew and polyp at 33 cm is a 1.2 x 0.6 x 0.5 cm polyp. ??The specimen is serially s ectioned into seven sections with four sections submitted as (A1) and the remaining three sections as (A2). Received in Hollande's fixat martin labeled Lew and polyp ascending colon is a 0.4 x 0.3 x 0.3 cm tissue fragment. ??The specimen is bisected and is entirely submitted as (B). ??(Delia Mar)/[facility] End of Report Specimen Performing Organization Address City/State/ZIP Code Phon e Number [facility] [address] [place] [id number] SERVICES [facility] [address] [place] [address] documented in this encounter Visit Diagnoses Not on filedocumented in this encounter
--- OUTSIDE RECORDS SUMMARY | 2021-12-11 15:37 | XMS_ITS | Encounter Summary ---
:1940 Author Organization [facility] Address [address] [place] [address] Care Team Providers Name Role Phone Unknown, Provider Primary Care Provider Encounter Details Date Type Department Care Team Description 03/08/2020 Lab Requisition [facility] Outr Resulting Lab, Pathology & Laboratory Provider [facility] [address] [place], [place] [id number] Social History Tobacco Use Types Packs/Day Years Used Date Never Assessed Sex Assigned at Date Recorded Not on file documented as of this encounter Plan of Treatment Not on filedocumented as of this encounter Procedures Procedure Name Priority Date/Time Associated Diagnosis Comme nts COVID-19 TEST [facility] Today 03/08/2020 11:00 LAB PCR EST COVID-19 TESTING Routine 03/08/2020 11:00 Results for this EST procedure are i n the results section. documented in this encounter Results COVID-19 TEST [facility] LAB PCR (03/08/2020 11:00 EST) Specimen Swab - Entire nasopharynx (body structur e) Performing Organization Address City/State/ZIP Code Phon e Number [facility] [address] [place] [address] SERVICES (ABNORMAL) COVID-19 TESTING (03/08/2020 11:00 EST) COVID-19 rt-PCR Positive (AA) Negative [facility] Result Comment: LABORATORY This test has not been FDA c leared or approved. This test has been authorized by FDA under an EUA for use by authorized laboratories. This test has been authorized only for detection of nucleic acid fro SERVICES m 2019-nCoV, not for any oth er viruses or pathogens. This test is only authorized for the duration of the declaration that circumstances exist justifying the authorization of emergency use of in vitro d iagnostic tests for detectio n and/or diagnosis of 2019-nCoV under section 564(b)(1) of Act, 21 U.S.C ?? 360bbb-3(b) (1), unless the authorization is terminated or revoked sooner. Performed on the [employer] Fusion instrument Performing Lab [facility] Lab [facility] LABORATORY SERVICES Specimen Swab Performing Organization Address City/State/[facility] Code Phon e Number [facility] [address] [place] [address] SERVICES documented in this encounter Visit Diagnoses Not on filedocumented in this encounter Additional Health Concerns Infection Onset Date Last Indicated Resolved Time COVID-19 03/08/2020 03/08/2020 04/07/2020 22:15 EST documented as of this encounter Care Teams Engineering Secretary Relationship Specialty Start Date End Date Unknown, Provider, PCP - General 12/17/14 documented as of this encounter
--- OUTSIDE RECORDS SUMMARY | 2021-12-11 15:37 | XMS_ITS | Clinical Summary ---
:1940 Author Organization [facility] Address [address] [place] [address] Care Team Providers Name Role Phone Unknown, Provider Primary Care Provider Social History Tobacco Use Types Packs/Day Years Used Date Never Assessed Sex Assigned at Date Recorded Not on file Plan of Treatment Health Maintenance Due Date Last Done Comments COVID-19 Vaccine (1) 11/07/1945 Fall Risk Screening 11/07/2004 Insurance Payer Benefit Plan / Subscriber ID Effective Dates Phone Addre ss Type Group MEDICARE MEDICARE A/B [id number] 2004-Present [id number] [place] [phone] Care Teams Resident Associate Relationship Specialty Start Date End Date Unknown, Provider, PCP - General 12/17/14
--- OUTSIDE RECORDS SUMMARY | 2021-12-11 15:37 | XMS_ITS | Encounter Summary ---
:1940 Author Organization [facility] Address [address] [place] [address] Care Team Providers Name Role Phone Unavailable Primary Care Provider Unavailable Encounter Details Date Type Department Care Team Description 02/03/2007 Results Only [facility] - Jackie Zamora, Chr istopher, conversion DO [address] [facility] [address] [facility] MERYL HUBER [address] [place] [address] [place] [address] (Wo rk) Social History Tobacco Use Types Packs/Day Years Used Date Never Assessed Sex Assigned at Date Recorded Not on file documented as of this encounter Plan of Treatment Not on filedocumented as of this encounter Procedures Procedure Name Priority Date/Time Associated Diagnosis Comme [facility] SURGICAL PATHOLOGY Routine 02/03/2007 0:00 EST Re sults for this procedure are i n the results section. documented in this encounter Results SURGICAL PATHOLOGY (02/03/2007 0:00 EST) Pathology Report: SURGICAL PATHOLOGY REPORT [facility] Reports generated via electronic interface contain isela ginal data; LAB however they are lacking the format of the original re port. Caution should be taken when reading/interpreting unfo rmatted reports. Name: ? MOHAN SMITH ? Accession #: ? [id number] ? : ? 1940 (Age: 66) ??M ? Collect Date: ? 02/03/2007 ? Location: ? [facility] ? Receive Date: ? 007 ? Provider: SLY ZAMORA DO Copy to: STELLA PYLE MD ? Final Pathologic Diagnosis: A. ?Portion of sigmoid colon, resection: 1. ?Diverticulo sis with acute diverticulitis and pericolic abscess formation. 2. ? Acute and organizing serositis. 3. ? Margins of resection appear viable. B. ?Appendix, appendectomy: 1. ?Focal surface hyperplastic changes. 2. ?Acute and organizing serositis. Document reviewed and electronically signed by: Hilda Valdez MD Report ??Date: 02/07/2007 10:52 By the signature above, the attending physician certif ies that he/she has personally conducted a gross and/or microscopic examin ation of the described specimens and rendered or confirmed the above diagnosi s. Specimen(s) Received: A. ?Sigmoid colon opened for formalin cov erage per surgeon B. ? Appendix Clinical History: ? Recurrent severe diverticulitis episodes over p ast few years, now for resection Gross Description: ? Received in formalin labelled Lew and sigmoid colon is a partially incised 12.0 cm in length segment of colon received cl osed with two stapled ends. ??The luminal circumfe rence averages 3.5 cm. ??Located 4.0 cm from one end is a 3.5 cm in greatest dime nsion area of serosal exudate. ??The cut surfaces in this region are remarkable f or a diverticulum that traverses the thickened wall and extends into the mesentery, walled of thin fibrous tissue. ??A current communication is not identified. ??The r emaining cut surfaces are comprised of intact diverticula, many of which contain fecal material and abscess formation. These diverticula extend nearly the entire segment isabel gth. ??The bowel wall ranges from 0.5 to 1.6 cm in thickness. ??Oil Well Driller sections are submitted as follows: BLOCK KIM A1 ?Representat martin section of each end (one inked blue, the other black, and en face) A2, A3 ?Full-th ickness section to include diverticulum in region of serosal exudate A4 ?Additional section of diverticulum in region of exudate A5 ?Diverticulum to include abscess forma tion Received in formalin bertha Smith and appendix is a 5.5 cm in length by 0.8 cm in diameter vermiform appendix. ??Hemorrhagic r ed fibrous tissue is adherent to the proximal ser larry. ??The lumen contains a moderate amount of fecal material. ??The mucosa is ta n-pink and the intact wall averages 0.1 cm thick. ??A minimal amount of hemorrhage is identified within the wall. ??Oil Well Driller sections to include the distal tip, proximal cross sec tion of adherent hemorrhagic fibrous tissue, and proximal margin (inked and en face) are submitted as (B). ??(Dimitri Traore)/[facility] End of Report Specimen Performing Organization Address City/State/ZIP Code Phon e Number [facility] [address] [place] [phone] SERVICES [facility] [address] [place] [address] documented in this encounter Visit Diagnoses Not on filedocumented in this encounter
--- OUTSIDE RECORDS SUMMARY | 2021-12-11 15:37 | XMS_ITS | Encounter Summary ---
:[address] [facility] Address [address] [place] [address] Care Team Providers Name Role Phone Unknown, Provider Primary Care Provider Encounter Details Date Type Department Care Team Description 06/21/2019 Lab Requisition [facility] Outr Resulting Lab, Pathology & Laboratory Provider [facility] [address] [place] [address] Social History Tobacco Use Types Packs/Day Years Used Date Never Assessed Sex Assigned at Date Recorded Not on file documented as of this encounter Plan of Treatment Not on filedocumented as of this encounter Procedures Procedure Name Priority Date/Time Associated Comments Diagnosis EXTRACTABLE NUCLEAR Routine 06/20/2019 9:20 Resul ts for this ANTIGEN PANEL EDT procedure are in the results section. ANTI DNA (DOUBLE Routine 06/20/2019 9:20 Results for this STRANDED) EDT procedure are i n the results section. HIGH SENSITIVITY Routine 06/20/2019 9:20 Results for this C-REACTIVE PROTEIN EDT procedure are in (CARDIOVASCULAR the results DISEASE) section. documented in this encounter Results ANTI DNA (DOUBLE STRANDED) (06/20/2019 9:20 EDT) Anti-DNA (Double <12.3 <30.0 IU/mL [facility] Stranded) Comment: LABORATORY ? SERV ICES ? Negative: ??<30.0 IU/mL ? Borderline Positive: ??30.0 - 75.0 IU/mL ? Positive: ??>75.0 IU/mL Results were obtained with [employer] dsDNA SC BRANDY assay on the Tradyo DSX. Specimen Blood - Venous blood (substance) Performing Organization Address City/State/ZIP Code Phon e Nik [facility] [address] [place] [address] SERVICES EXTRACTABLE NUCLEAR ANTIGEN PANEL (06/20/2019 9:20 EDT) SSA Antibody 1.7 <20.0 Units [facility] Comment: LABORATORY SERVICES ? Negative: <20.0 Units ? Weak Positive: 20.0 - 39.9 Units ? Moderate Positive: 40.0 - 80.0 Unit s ? Strong Positive: >80.0 Units Results were obtained with [employer] QUANTA Lite SS-A BRNADY. ??SS-A values obtained with different manufacturers' assay methods may not be used interchangeably. ??The magnitude of the reported IgG levels cannot be correlated to an endpoint titer. SSB Antibody 4.3 <20.0 Units [facility] Comment: LABORATORY ? Negative: <20.0 Units SERVICES ? Weak Positive: 20.0 - 39.9 Units ? Moderate Positive: 40.0 - 80.0 Unit s ? Strong Positive: >80.0 Units Results were obtained with [employer] QUANTA Lite SS-B BRANDY. ??SS-B values obtained with different manufacturers' assay methods may not be used interchangeably. ??The magnitude of the reported IgG levels cannot be correlated to an endpoint titer. SM (Reynolds) 2.0 <20.0 Units [facility] Antibody Comment: LABORATORY ? Negative: <20.0 Units SERVICES ? Weak Positive: 20.0 - 39.9 Units ? Moderate Positive: 40.0 - 80.0 Unit s ? Strong Positive: >80.0 Units Results were obtained with [employer] Sm BRANDY. ??Sm values obtained with different manufacturers' assay methods may not be used interchangeably. ??The magnitude of the reported IgG levels cannot be correlated to an endpoint titer. CIGAR BRANDER Antibody 2.1 <20.0 Units [facility] Comment: LABORATORY SERVICES ? Negative: <20.0 Units ? Weak Positive: 20.0 - 39.9 Units ? Moderate Positive: 40.0 - 80.0 Unit s ? Strong Positive: >80.0 Units Results were obtained with [employer] MDa Lite CIGAR BRANDER BRANDY. CIGAR BRANDER values obtained with different sound tester's assay methods may not be used interchangeaby. ??The magnitude of the reported IgG levels cannot be be correlated to an endpoint titer. A positive result in the Bill Master Route Lite CIGAR BRANDER BRANDY indicates the presence of antibodies reactive with the CIGAR BRANDER/Sm complex but cannot distinguish between anti- Sm and anti-CIGAR BRANDER activity. Specimen Blood - Venous blood (substance) Performing Organization Address City/[facility]/ZIP Code Phon e Number [facility] [address] [place] [address] SERVICES HIGH SENSITIVITY C-REACTIVE PROTEIN (CARDIOVASCULAR DISEASE) (06/20/2019 9:20 EDT) [facility] High Sensitivity 9.69 See Note [facility] CRP Comment: mg/L [facility] LAB[facility]ATORY SERVICES Reference Range: ??Source: [employer] Clinical Practice Recommendations, 2003 ??Low Risk: ? <1.0 mg/L ??Average Risk: ?? 1.0 - 3.0 mg/L ??High Risk: ?>3.0 mg/L ??Indeterminate*: >10.0 mg/L ??*May be an indication of another source of inflamma tion or infection Specimen Blood - Venous blood (substance) Performing Organization Address City/[facility]/ZIP Code Phon e Number [facility] [address] [place] [address] SERVICES documented in this encounter Visit Diagnoses Not on filedocumented in this encounter Additional Health Concerns Infection Onset Date Last Indicated Resolved Time COVID-19 03/08/2020 03/08/2020 04/07/2020 22:15 EST documented as of this encounter Care Teams Trial Management Associate Relationship Specialty Start Date End Date Unknown, Provider, PCP - General 12/17/14 documented as of this encounter
[2021-12-11 15:41] LABS: Hemoglobin A1C 5.7 % (<5.7)
[2021-12-11 15:42] LABS: ALT 20 U/L (16-63); AST 19 U/L (15-37); Albumin 3.8 g/dL (3.4-5.0); Alkaline Phosphatase 98 U/L (46-116); Anion Gap 10.4 mmol/L (3-11); BUN 31 mg/dL (7-18); Bilirubin, Total 0.6 mg/dL (0.2-1.0); C-Reactive Protein 1.39 mg/dL (0.0-0.3); CO2 24.6 mmol/L (21.0-32.0); CREATININE 1.5 mg/dL (0.70-1.30); Calcium 9.4 mg/dL (8.5-10.1); Chloride 102 mmol/L (98-107); Estimated GFR 46.19 (mL/min/1.73m2); Glucose 129 mg/dL (74-106); Potassium 4.8 mmol/L (3.5-5.1); Sodium 137 mmol/L (136-145); TSH (W/Ref FT4) 5.33 uIU/mL (0.36-3.74); Total Protein 7.6 g/dL (6.4-8.2)
[2021-12-11 16:02] LABS: FREE T4 1.33 ng/dL (0.76-1.46)
== END 2021-12-11 15:36 | disposition home or self-care (01) ==
LOC: NCHCN 15:35
PROVIDERS: PCP Family Medicine; Visit Provider Family Medicine
DX: R73.03 Prediabetes (principal); M79.10 Myalgia, unspecified site; M35.3 Polymyalgia rheumatica; D64.9 Anemia, unspecified; R79.82 Elevated C-reactive protein (CRP); E03.9 Hypothyroidism, unspecified; I10 Essential (primary) hypertension; E78.5 Hyperlipidemia, unspecified
CPT/HCPCS: 80053; 85027; 85652; 83036; 84439; 84443; 86140

== ENCOUNTER 2022-01-22 16:25 | Outpatient (REF) | payer MEDICARE, SELFPAY ==
[2022-01-22 19:28] LABS: ALT 20 U/L (16-63); AST 18 U/L (15-37); Albumin 3.4 g/dL (3.4-5.0); Alkaline Phosphatase 112 U/L (46-116); Anion Gap 5.8 mmol/L (3-11); BUN 32 mg/dL (7-18); Bilirubin, Total 0.3 mg/dL (0.2-1.0); CO2 28.2 mmol/L (21.0-32.0); CREATININE 1.5 mg/dL (0.70-1.30); Calcium 9.5 mg/dL (8.5-10.1); Chloride 101 mmol/L (98-107); Estimated GFR 46.19 (mL/min/1.73m2); Glucose 109 mg/dL (74-106); Potassium 5.3 mmol/L (3.5-5.1); Sodium 135 mmol/L (136-145); Total Protein 7.3 g/dL (6.4-8.2)
== END 2022-01-22 16:26 | disposition home or self-care (01) ==
LOC: NCHCN 16:25
PROVIDERS: PCP Family Medicine; Visit Provider Nurse Practitioner Family
DX: R10.11 Right upper quadrant pain (principal)
CPT/HCPCS: 80053

== ENCOUNTER 2022-01-27 02:24 | Outpatient (CLI) | payer MEDICARE, SELFPAY ==
[2022-01-27] MEDS: Albuterol HFA 18 GM 200 PUFF INH IH (09:18)
[2022-01-27] MEDS: Inhaler, Assist Device 1 EACH MC (09:19)
--- NOTE | 2022-02-10 10:36 | W.PFT ---
Date of service: 01/27/22 Time of Service: 08:01 Pulmonary Function Test Result Requesting Provider Vonda Rivero Indications: MARISCAL Interpretation Spirometry: There is mild airflow limitation. There is no significant bronchodilator effect. Lung Volumes: There is evidence of air trapping. Diffusion Capacity: Diffusion is normal. Airway Pressure: There is increased airway resistance. Impression Mild airflow obstruction with air trapping and a normal diffusion. In the correct clinical setting this could represent chronic bronchitis (COPD) or uncontrolled asthma. Clinical Correlation therefore is recommended.
== END 2022-01-27 02:25 | disposition home or self-care (01) ==
LOC: RT 02:24
PROVIDERS: PCP Family Medicine; Visit Provider Nurse Practitioner Family
DX: R06.09 Other forms of dyspnea (principal); R06.2 Wheezing; Z77.090 Contact with and (suspected) exposure to asbestos; Z87.891 Personal history of nicotine dependence; R94.2 Abnormal results of pulmonary function studies
CPT/HCPCS: 94060; 94726; 94729

== ENCOUNTER 2022-02-11 03:36 | Outpatient (CLI) | payer MEDICARE, SELFPAY ==
--- NOTE | 2022-02-11 | DI.US_ITS ---
Exam(s) US ABDOMEN LIMITED EXAM: US ABDOMEN LIMITED CLINICAL HISTORY: RUQ PAIN, R10.11 TECHNIQUE: Ultrasound abdomen performed using standard protocol. COMPARISON: No exams were available for comparison FINDINGS: LIVER: Normal size and echogenicity. Several liver cysts are seen, the largest measuring 4.2 cm. No suspicious mass is visible... GALLBLADDER: Multiple stones. No evidence of wall thickening. No pericholecystic fluid identified. ZULUAGA'S SIGN: Negative. BILIARY SYSTEM: No intrahepatic or extrahepatic biliary ductal dilation. KIDNEYS: Kidneys are symmetric in size. No evidence of renal calculi. No evidence of hydronephrosis. No renal mass or cyst identified. PANCREAS: Normal where visualized. SPLEEN: Not enlarged. ABDOMINAL AORTA AND IVC: Visualized portions normal caliber. ASCITES: None seen. IMPRESSION: Cholelithiasis and liver cysts. DATA REPOSITORY:
--- NOTE | 2022-02-11 07:31 | DI.CT_ITS ---
Exam(s) CT CHEST HIGH RESOLUTION EXAM: CT CHEST HIGH RESOLUTION CLINICAL HISTORY: ASBESTOS EXPOSURE, Z77.090,DYSPNEA ON EXERTION, R06.09. TECHNIQUE: Imaging protocol: Axial computed tomography images were obtained and coronal and sagittal reformatted images were created and reviewed. 1 millimeter high-resolution images were performed at 10 millimeter intervals during inspiration and expiration. CONTRAST MATERIAL: Noncontrast COMPARISON: No exams were available for comparison FINDINGS: The exam is somewhat limited by respiratory motion on all series.. Pulmonary parenchyma: No consolidation. No nodules. Emphysema: None visible. Tracheobronchial tree: No mucous plugging. No bronchiectasis . Interstitial changes: None visible. Pleura: No effusion or pneumothorax. No visible pleural plaques. Heart: The heart is mildly dilated. The coronary arteries show mildcalcifications. Aorta: Thoracic aorta non-dilated. Mildatherosclerotic changes. Lymph nodes: No enlarged lymph nodes. Bones: Degenerative changes are seen. Mild T9 compression fracture. Upper abdomen: Low-density lesions in liver seen on ultrasound to represent cysts. Cholelithiasis n oted. IMPRESSION: No acute abnormality. RADIATION DOSE DELIVERED: 706.38mGy.cm Total DLP 706.38mGy.cm Total DLP DATA REPOSITORY: All CT scans at this facility are submitted to the National Radiology Data Registry (NRDR) Dose Index Registry (DIR) with the [employer] (ACR). RADIATION OPTIMIZATION: All CT scans at this facility use at least one of these dose optimization te chniques: automated exposure control; mA and/or kV adjustment per patient size (includes targeted exa ms where dose is matched to clinical indication); or iterative reconstruction.
== END 2022-02-11 03:56 ==
LOC: DI 03:36
PROVIDERS: PCP Family Medicine; Visit Provider Nurse Practitioner Family
DX: R06.09 Other forms of dyspnea (principal); Z77.090 Contact with and (suspected) exposure to asbestos; R10.11 Right upper quadrant pain; K76.89 Other specified diseases of liver; K80.20 Calculus of gallbladder without cholecystitis without obstruction
CPT/HCPCS: 71250; 76705

== ENCOUNTER 2022-04-02 10:47 | Outpatient (REF) | payer MEDICARE, SELFPAY ==
[2022-04-02 15:12] LABS: HCT 38.8 % (40.0-50.0); HGB 12.4 g/dL (13.5-17.5); MCH 30.3 pg (27.0-33.0); MCV 95 fL (80-95); MPV 10.1 fL (8.0-11.0); Platelet Count 245 10^3/uL (130-400); RBC 4.09 10^6/uL (4.36-5.78); RDW 14.6 % (11.8-14.1); WBC 8.35 10^3/uL (4.4-10.8)
[2022-04-02 15:15] LABS: ESR 58 mm/hr (0-20)
[2022-04-02 15:22] LABS: Anion Gap 7.6 mmol/L (3-11); BUN 30 mg/dL (7-18); C-Reactive Protein 2.13 mg/dL (0.0-0.3); CO2 26.4 mmol/L (21.0-32.0); CREATININE 1.5 mg/dL (0.70-1.30); Calcium 9.5 mg/dL (8.5-10.1); Chloride 101 mmol/L (98-107); Creatine Kinase 94 U/L (39-308); Estimated GFR 46.19 (mL/min/1.73m2); Glucose 104 mg/dL (74-106); Sodium 135 mmol/L (136-145)
[2022-04-02 15:56] LABS: Hemoglobin A1C 5.6 % (<5.7)
== END 2022-04-02 10:48 | disposition home or self-care (01) ==
LOC: NCHCN 10:47
PROVIDERS: PCP Family Medicine; Visit Provider Family Medicine
DX: R73.03 Prediabetes (principal); M35.3 Polymyalgia rheumatica; I10 Essential (primary) hypertension; D64.9 Anemia, unspecified
CPT/HCPCS: 80048; 82550; 85027; 85652; 83036; 86140

== ENCOUNTER 2022-05-19 00:42 | Outpatient (CLI) | payer MEDICARE, SELFPAY ==
--- NOTE | 2022-05-19 07:30 | DI.US_ITS ---
APPROVED REPORT EXAM: Comprehensive 2D, Doppler, and color-flow Echocardiogram Patient Location: Out-Patient Indications: systolic heart murmur Other Information Study Quality: Adequate. Technically limited study due to body habitus, subcostal imaging.. Conclusion Normal left ventricular wall thickness and chamber size. Estimated ejection fraction is 55%. There are no segmental wall motion abnormalities Normal right ventricular size and systolic function Both atria are normal in size Aortic valve is calcified. Number of aortic valve leaflets could not be accurately determined. Ther e is moderate aortic stenosis. Peak gradient is 57, mean 33. Calculated aortic valve area is 1.15 c m??. There is no aortic regurgitation Mild mitral annular calcification, trace mitral regurgitation Wall motion Left Ventricle The left ventricle is normal size. The left ventricular systolic function is normal. The left ventric ular ejection fraction is within the normal range. There is normal left ventricular wall thickness. T here are no segmental wall motion abnormalities There is no ventricular septal defect visualized. LVE F is 55%. Right Ventricle The right ventricle is normal size. Right ventricular systolic function is grossly normal. The RVSP i s 31.1 mmHg. Atria The left atrium size is normal. The right atrium size is normal. The interatrial septum is intact wit h no evidence for an atrial septal defect. Aortic Valve Aortic valve is calcified. Number of aortic valve leaflets could not be assessed. Moderate aortic justin nosis. Peak aortic valve gradient is 57.6 mmHg. Highest mean aortic valve gradient is 32.6 mmHg. Calc ulated CHUY by the continuity equation is 1.15 cm2. No aortic regurgitation is present. Mitral Valve Mild mitral annular calcification. No evidence of mitral valve stenosis. Trivial mitral regurgitatio n. Tricuspid Valve The tricuspid valve is normal in structure. There is no tricuspid valve stenosis. Trace tricuspid reg urgitation. Pulmonic Valve The pulmonary valve is normal in structure. There is no pulmonic valvular stenosis. There is no pulmo charles valvular regurgitation. Great Vessels The aortic root is normal in size. Ascending aorta is normal in caliber. Aortic arch is not well visu alized. IVC is normal in size and collapses >50% with inspiration. Pericardium There is no pericardial effusion. Subcostal imaging technically limited due to body habitus. 2D Dimensions IVSD d PLAX 0.70 cm M: 0.6-1.2 LV Vol A2C d MOD 92.5 mL LVPW d PLAX 0.72 cm M: 0.6 - 1.2 LV Vol A4C d MOD 121.5 mL LVID d PLAX 4.28 cm M: 4.2 - 5.8 LA vol/ BSA A4C s A-L 17.8 mL/m2 LVDs 2.65 cm M: 2.5 - 4.0 LA Area A4C s MOD 14.84 cm2 Ao Root d 3.26 cm M: 3.1 - 3.7 LV EF A4C MOD 52.0 % Ao Asc Diam d 3.25 cm M: 2.6 - 3.4 LV EF A2C MOD 50.9 % LV EF Teichholz 67.9 % LV EF Biplane MOD 50.6 % LVEF (Cerna's) 50.65 % M: 52 - 72 SV 55.77 mL LV Volume 79.69 mL M: 62 - 150 SV Index 24.95 mL/m2 LV Volume Index 35.57 mL/m2 M: 34 - 74 LV Vol Biplane MOD 110.1 mL FS 37.50 % M-Mode TAPSE 2.19 cm (M/F) >1.7 LV Diastology MV E' medial 0.081 (>0.07 m/s) E/A Ratio 0.7 LV E/e MED 8.85 (<14) MV E Vmax 0.72 (0.4-1.3 m/s) MV E' lateral 0.092 (>0.1 m/s) MV A Vmax 1.10 (0.4-1.3 m/s) LV E/e LAT 7.80 (<14) MV E/A Ratio 0.64 MV E/E' medial 8.86 MV E/E' lateral 7.80 Aortic Valve LVOT Area 3.86 cm2 AoV Area Vmax 1.15 cm2 LVOT Vmax 1.13 m/s AoV Area/ BSA (Vmax) 0.51 cm2/m2 LVOT Mean Eber. 0.84 m/s CHUY Mean Eber. 1.19 cm2 LVOT Peak Grad 5.1 mmHg CHUY Mean Eber. Index 0.53 cm2/m2 LVOT Mean Grad 3.1 mmHg LVOT VTI 0.253 m LVOT Diam s 2.20 cm AoV Vmax 3.79 m/s Velocity Ratio 0.30 AoV Mean Eber. 2.71 m/s AoV Peak Grad 57.6 mmHg LVOT SV 97.72 mL AoV Mean Grad 32.6 mmHg AoV VTI 0.852 m AoV Area VTI 1.15 cm2 AoV Area/ BSA (VTI) 0.51 cm/m2 Mitral Valve MV DT 257 (160-240 msec) MV PHT 74 msec MV Area PHT 2.96 cm2 MV VTI 0.343 m MV Area VTI 2.85 (4.0-6.0 cm2) Pulmonary Valve PV Vmax 1.22 (0.5-1.5 m/s) RVOT Peak Gr. 1.55 mmHg PV Peak Grad 6.0 mmHg RVOT Mean Gr. 1.05 mmHg PV Mean Grad 4.6 mmHg RVOT VTI 0.104 m PV VTI 0.243 m RVOT Vmax 0.62 m/s Tricuspid Valve TR Peak Grad 28.1 mmHg TR Vmax 2.65 m/s RA Pressure 3.00 mmHg RVSP (TR) 31.1 mmHg
== END 2022-05-19 01:02 ==
LOC: DI 00:42
PROVIDERS: PCP Family Medicine; Visit Provider Family Medicine
DX: R01.1 Cardiac murmur, unspecified (principal)
CPT/HCPCS: 93306

== ENCOUNTER 2022-06-17 15:11 | Inpatient (IN) | payer MEDICARE, SELFPAY ==
[2022-06-17] VITALS (38 sets, daily range): BP systolic 106–182; BP diastolic 45–161; PULSE 65–111; RESP 14–28; TEMP 36.3–36.4; O2SAT 95–100
--- NOTE | 2022-06-17 15:15 | RT.EKG_ITS ---
APPROVED REPORT Exam: Resting ECG Reason for Exam: syncope Patient Location: E HR:64 bpm ECG Measurements Heart Rate 64 AXIS ID 229 P 44 QRSd 78 QRS -22 QT 395 T 25 QTc 407 Conclusion Sinus rhythm...normal P axis, V-rate 60- 99 Atrial premature complex...SV complex w/ short R-R interval Prolonged ID interval...ID >220, V-rate 50- 90
--- NOTE | 2022-06-17 15:30 | DI.RAD_ITS ---
Exam(s) XR PORTABLE CHEST AP EXAM: XR PORTABLE CHEST AP CLINICAL HISTORY: shortness of breath TECHNIQUE: 2D digital imaging was performed. COMPARISON: CT CT CHEST HIGH RESOLUTION from 02/11/2022 FINDINGS: LUNGS: Clear. No pleural abnormality seen. HEART: Normal size. AORTA: Normal diameter. BONES: Unremarkable for age. Soft tissues: Unremarkable. IMPRESSION: No acute findings. DATA REPOSITORY: RADIATION DOSE DELIVERED:
[2022-06-17 15:40] LABS: Abs Immature Grans 0.05 10^3/uL (0.0-0.06); Absolute Basophil Count 0.03 10^3/uL (0.0-0.2); Absolute Eosinophil Count 0.02 10^3/uL (0.0-0.7); Absolute Lymphocyte Count 0.76 10^3/uL (1.2-3.4); Absolute Monocyte Count 0.39 10^3/uL (0.1-0.8); Absolute Neutrophil Count 7.28 10^3/uL (1.2-6.7); Basophils % 0.4; Eosinophils % 0.2; HCT 36.9 % (40.0-50.0); HGB 12.4 g/dL (13.5-17.5); Immature Grans % 0.6; Lymphocytes % 8.9; MCH 32.3 pg (27.0-33.0); MCHC 33.6 % (32.0-36.0); MCV 96 fL (80-95); MPV 9.4 fL (8.0-11.0); Monocytes % 4.6; Neutrophils % 85.3; Platelet Count 175 10^3/uL (130-400); RBC 3.84 10^6/uL (4.36-5.78); RDW 14.7 % (11.8-14.1); RDW-SD 52.1 fL; WBC 8.53 10^3/uL (4.4-10.8)
--- NOTE | 2022-06-17 15:45 | ED.GENADUL_ITS ---
Discharge Plan Disposition Condition: Stable Discharge Details Chief Complaint: [id number] Clinical Impression: Syncope, Dyspnea on exertion, [id number] kidney injury Admit Date/Time: 06/17/22 17:23 Admit Provider: Ca Alcantara Attending Provider: Ca Alcantara Primary Care Provider: Khadijah Henriquez V ED Provider: Juan Alberto Tomas Discharge Instructions Activity:: Activity as Tolerated Equipment/Supplies:: No Equipment Needed Diet:: As Tolerated Discharge Data Discharge Date/Time-TO BE ENTERED AT DEPARTURE: 06/17/22 18:45 Medical Decision Making 06/17/2022 1545 --81-year-old male with history of paroxysmal supraventricular tachycardia, on metoprolol, renal insufficiency, hypertension, hyperlipidemia, here with dizziness for the past few days, worse today with syncopal episode and associated shortness of breath. Consider atypical presentation of ACS. EKG was reviewed and interpreted by me: Please report, first-degree AV block with WV interval of 229, otherwise nondiagnostic. Plan to check troponin. Consider acute CHF. Plan to check BNP and chest x-ray. 1700 -- Considered acute pulmonary embolism -patient does have tachypnea, saturating well in no respiratory distress. He has no chest pain. Unable to obtain CT of the chest given KIA and poor GFR. Labs reviewed and mild hyperkalemia noted. Creatinine is elevated at 2.3 from baseline 1.5. BUN is also elevated. Suspect prerenal. BNP is mildly elevated. Chest x-ray interpreted by radiology as no acute process. -- I spoke with the hospitalist, we discussed ED presentation and course. She requests anticoagulant not be initiated at this time. She will evaluate patient and make determination regarding anticoagulant. Impression: shortness of breath, dyspnea on exertion, KIA, syncope Dispo: admit to hospitalist service Condition: serious Lab Data Lab results reviewed: Yes I reviewed the patient's lab results. Labs: Laboratory Tests Range/Units 06/17/22 06/17/22 06/17/22 15:32 15:32 15:32 WBC (4.4-10.8) 10^3/uL 8.53 RBC (4.36-5.78) 10^6/uL 3.84 L Hgb (13.5-17.5) g/dL 12.4 L Hct (40.0-50.0) % 36.9 L MCV (80-95) fL 96 H MCH (27.0-33.0) pg 32.3 MCHC (32.0-36.0) % 33.6 RDW (11.8-14.1) % 14.7 H Plt Count (130-400) 10^3/uL 175 MPV (8.0-11.0) fL 9.4 Immature Gran % 0.6 Neutrophils % 85.3 Lymphocytes % 8.9 Monocytes % 4.6 Eosinophils % 0.2 Basophils % 0.4 Nucleated RBC % (0.0-0.3) % 0.0 Absolute Neutrophils (1.2-6.7) 10^3/uL 7.28 H Absolute Lymphocytes (1.2-3.4) 10^3/uL 0.76 L Absolute Monocytes (0.1-0.8) 10^3/uL 0.39 Absolute Eosinophils (0.0-0.7) 10^3/uL 0.02 Absolute Basophils (0.0-0.2) 10^3/uL 0.03 Sodium (136-145) mmol/L 138 Potassium (3.5-5.1) mmol/L 5.2 H Chloride (98-107) mmol/L 104 Carbon Dioxide (21.0-32.0) mmol/L 24.9 Anion Gap (3-11) mmol/L 9.1 BUN (7-18) mg/dL 44 H Creatinine (0.70-1.30) mg/dL 2.3 H Est GFR (CKD-EPI 2020) (mL/min/1.73m2) 27.66 Glucose (74-106) mg/dL 152 H Calcium (8.5-10.1) mg/dL 10.3 H Magnesium (1.8-2.4) mg/dL 2.2 Total Bilirubin (0.2-1.0) mg/dL 0.6 AST (15-37) U/L 14 L ALT (16-63) U/L 26 Alkaline Phosphatase (46-116) U/L 77 Troponin I (<or=60) ng/L < 50 NT-Pro-B Natriuret Pep (<300) pg/mL Total Protein (6.4-8.2) g/dL 7.3 Albumin (3.4-5.0) g/dL 3.6 TSH (0.36-3.74) uIU/mL 1.47 Range/Units 06/17/22 15:32 WBC (4.4-10.8) 10^3/uL RBC (4.36-5.78) 10^6/uL Hgb (13.5-17.5) g/dL Hct (40.0-50.0) % MCV (80-95) fL MCH (27.0-33.0) pg MCHC (32.0-36.0) % RDW (11.8-14.1) % Plt Count (130-400) 10^3/uL MPV (8.0-11.0) fL Immature Gran % Neutrophils % Lymphocytes % Monocytes % Eosinophils % Basophils % Nucleated RBC % (0.0-0.3) % Absolute Neutrophils (1.2-6.7) 10^3/uL Absolute Lymphocytes (1.2-3.4) 10^3/uL Absolute Monocytes (0.1-0.8) 10^3/uL Absolute Eosinophils (0.0-0.7) 10^3/uL Absolute Basophils (0.0-0.2) 10^3/uL Sodium (136-145) mmol/L Potassium (3.5-5.1) mmol/L Chloride (98-107) mmol/L Carbon Dioxide (21.0-32.0) mmol/L Anion Gap (3-11) mmol/L BUN (7-18) mg/dL Creatinine (0.70-1.30) mg/dL Est GFR (CKD-EPI 2020) (mL/min/1.73m2) Glucose (74-106) mg/dL Calcium (8.5-10.1) mg/dL Magnesium (1.8-2.4) mg/dL Total Bilirubin (0.2-1.0) mg/dL AST (15-37) U/L ALT (16-63) U/L Alkaline Phosphatase (46-116) U/L Troponin I (<or=60) ng/L NT-Pro-B Natriuret Pep (<300) pg/mL 583 H Total Protein (6.4-8.2) g/dL Albumin (3.4-5.0) g/dL TSH (0.36-3.74) uIU/mL HPI General Mode of arrival: ambulatory . Date/Time Provider Initiated Documentation: 06/17/22 15:19 . Limitations to Documentation: no limitations . Information obtained by: patient . HPI Narrative: 81-year-old male with history of arthritis, on chronic prednisone, peripheral neuropathy, hypothyroidism, renal insufficiency, hypertension, hyperlipidemia, paroxysmal SVT, presents today after syncopal episode. Patient notes over the past 3 to 4 days he has been feeling generally unwell. He notes initially he was having dizziness anytime he bent over. Symptoms would improve after sitting down. Dizziness has become more frequent and severe and today symptoms occurring with even minimal exertion. He has associated shortness of breath. He did have an episode of vomiting here on arrival to the emergency department. He denies associated chest pain. No leg pain but does note chronic peripheral neuropathy. He does have chronic bilateral lower extremity edema. Related Data Home Medications Medication Instructions Recorded Confirmed aspirin 81 mg tablet,delayed 81 mg PO DAILY 11/16/18 06/17/22 release (Adult Aspirin Regimen) diltiazem HCl 240 mg 240 mg PO DAILY 11/16/18 06/17/22 capsule,extended release 24 hr, controlled (DILT-XR) levothyroxine 125 mcg capsule 125 mcg PO DAILY 11/16/18 06/17/22 lisinopril 10 mg tablet 10 mg PO DAILY 11/16/18 06/17/22 metoprolol succinate 100 mg 100 mg PO DAILY 11/16/18 06/17/22 tablet,extended release 24 hr cyanocobalamin (vitamin B-12) 1,000 mcg PO DAILY 09/04/19 06/17/22 1,000 mcg tablet (Vitamin B-12) ibuprofen-diphenhydramine citrate 3 cap PO QHS 09/05/19 05/19/21 200 mg-38 mg tablet (Advil PM) methotrexate sodium 2.5 mg tablet 10 mg PO QWEEK 12/19/19 05/19/21 tamsulosin 0.4 mg capsule 0.4 mg PO DAILY 12/19/19 06/17/22 docusate sodium 100 mg capsule 100 mg PO DAILY 03/18/21 05/19/21 (Colace) prednisone 5 mg tablet 5 mg PO DAILY 03/18/21 06/17/22 Allergies Allergy/AdvReac Type Severity Reaction Status Date / Time No Known Allergies Allergy Verified 06/17/22 15:25 General Stated Complaint: [id number] SANDRA: 3 Review of Systems All systems reviewed & are unremarkable except as noted in HPI and below Constitutional Constitutional: Denies fever(s) Cardiovascular Cardiovascular: Denies chest pain and Reports dyspnea Respiratory Respiratory: Reports dyspnea Gastrointestinal Gastrointestinal: Reports as per HPI and Denies abdominal pain PFSH All Active Problems (Updated 06/22/22 @ 14:14 by Juan Alberto Tomas MD) Urinary tract infection (Acute) Errrr-vu-blelliw kidney injury (Acute) Syncope (Chronic) Internal derangement of left knee (Acute) Depo-Medrol: 04/17/21 Osteoarthritis of right knee (Acute) Steroid injection: 12/19/2019 (40mg) Bilateral shoulder bursitis (Acute) Impingement syndrome of both shoulders (Acute) Adhesive capsulitis of both shoulders (Acute) Tendinitis of long head of biceps brachii of both shoulders (Acute) Nontraumatic tear of muscle or tendon of rotator cuff of both shoulders (Acute) Scapular dyskinesis (Acute) Peripheral neuropathy (Acute) Cervical spondylosis with myelopathy (Acute) Bilateral hip joint arthritis (Acute) Renal insufficiency (Chronic) Hypothyroidism (Chronic) Restless leg (Acute) Dyspnea on exertion (Acute) Asbestos exposure (Acute) Diverticulitis (Chronic) Cholelithiasis (Acute) Hyperlipidemia (Acute) Hypertension (Chronic) PSVT (paroxysmal supraventricular tachycardia) (Acute) Right carpal tunnel syndrome (Acute) S/P ECTR: 09/05/2019 Spondylolisthesis, cervical region (Acute) Surgical History History of back surgery History of bowel resection sigmoid resection Hx of colonoscopy S/P appendectomy Social History Smoking/Tobacco Use Status: Former Tobacco Use Smoking risk assessment performed?: Yes Alcohol Intake: current Alcohol Intake frequency: a few times a month Alcohol type: beer Drug use: Never Substance use type: does not use Details: ALCOHOL: T-2, BEER. PT. STATES HE DOES NOT REMEMBER WHEN HE QUIT SMOKING, 40 YEARS AGO Current gender identity: male Do you feel safe at home: Yes Do you feel safe in your relationship?: Yes Exam Const General: cooperative and no acute distress HENMT Head: normocephalic and atraumatic Mouth: moist mucous membranes Eyes Conjunctivae: normal conjunctivae Sclera: normal sclerae Neck Neck: trachea midline and supple Resp Auscultation: clear to auscultation bilaterally, no rales, no rhonchi and no wheezes Cardio Rate: regular rate and not tachycardic Rhythm: regular rhythm Heart Sounds: murmur systolic III/ GI Palpation: soft, not firm, no guarding, no masses, not rigid and nontender Skin General skin exam: no rashes or lesions noted Neuro General: patient alert, patient awake, patient oriented x3 and tone normal Cognition: normal cognition Other: Diminished sensation bilateral lower extremities the patient notes is chronic and unchanged Extrem General: edema (Trace edema bilateral lower extremities distal to the knees) Psych Appearance: grossly normal Mental Status: mental status grossly normal Speech and Movement: speech and movement normal Course Vital Signs Vital signs: Vital Signs Temperature 36.4 C L 06/17/22 15:14 Pulse 70 06/17/22 15:14 Respiratory Rate 16 06/17/22 15:14 Blood Pressure 106/64 06/17/22 15:14 Pulse Oximetry 96 06/17/22 15:14 Temperature 36.4 C L 06/17/22 15:14 Temperature Source Temporal Artery Scan 06/17/22 15:14 Pulse 70 06/17/22 15:14 Respiratory Rate 16 06/17/22 15:14 Respiratory Effort Normal 06/17/22 15:20 Blood Pressure 106/64 06/17/22 15:14 Blood Pressure Position Sitting 06/17/22 15:14 Pulse Oximetry 96 06/17/22 15:14 Oxygen Delivery Method Room Air 06/17/22 15:14 Oxygen Flow Rate 0 06/17/22 15:14 Pain Level 0 06/17/22 15:14 Lab/Test Results Lab/Test Results: Laboratory Tests Range/Units 06/17/22 15:32 WBC (4.4-10.8) 10^3/uL 8.53 RBC (4.36-5.78) 10^6/uL 3.84 L Hgb (13.5-17.5) g/dL 12.4 L Hct (40.0-50.0) % 36.9 L MCV (80-95) fL 96 H MCH (27.0-33.0) pg 32.3 MCHC (32.0-36.0) % 33.6 RDW (11.8-14.1) % 14.7 H Plt Count (130-400) 10^3/uL 175 MPV (8.0-11.0) fL 9.4 Immature Gran % 0.6 Neutrophils % 85.3 Lymphocytes % 8.9 Monocytes % 4.6 Eosinophils % 0.2 Basophils % 0.4 Nucleated RBC % (0.0-0.3) % 0.0 Absolute Neutrophils (1.2-6.7) 10^3/uL 7.28 H Absolute Lymphocytes (1.2-3.4) 10^3/uL 0.76 L Absolute Monocytes (0.1-0.8) 10^3/uL 0.39 Absolute Eosinophils (0.0-0.7) 10^3/uL 0.02 Absolute Basophils (0.0-0.2) 10^3/uL 0.03
[2022-06-17 15:57] LABS: ALT 26 U/L (16-63); AST 14 U/L (15-37); Albumin 3.6 g/dL (3.4-5.0); Alkaline Phosphatase 77 U/L (46-116); Anion Gap 9.1 mmol/L (3-11); BUN 44 mg/dL (7-18); Bilirubin, Total 0.6 mg/dL (0.2-1.0); CO2 24.9 mmol/L (21.0-32.0); CREATININE 2.3 mg/dL (0.70-1.30); Calcium 10.3 mg/dL (8.5-10.1); Chloride 104 mmol/L (98-107); Estimated GFR 27.66 (mL/min/1.73m2); Glucose 152 mg/dL (74-106); Magnesium 2.2 mg/dL (1.8-2.4); Potassium 5.2 mmol/L (3.5-5.1); Sodium 138 mmol/L (136-145); Total Protein 7.3 g/dL (6.4-8.2); Troponin I < 50 ng/L (<or=60)
[2022-06-17 16:18] LABS: NT-proBNP 583 pg/mL (<300)
[2022-06-17 16:19] LABS: TSH (W/Ref FT4) 1.47 uIU/mL (0.36-3.74)
--- NOTE | 2022-06-17 17:42 | HPE_ITS ---
Date of service: 06/17/22 Time of Service: 17:42 Assessment and Plan Assessment and plan (1) Syncope: Status: Chronic Assessment and plan: admit to med/surg on telemetry unable to r/o PE by CT scan in setting of Acute on chronic renal failure plan on echo, dopplers bilateral lower Extremities, VQ scan in a.m. (2) Cyymf-zi-frtentw kidney injury: Status: Acute Assessment and plan: FENA 0.45, suggesting pre-renal hold lisinopril gentle fluids overnight avoid nephrotoxic drugs (3) PSVT (paroxysmal supraventricular tachycardia): Status: Acute Assessment and plan: rate controlled continue diltiazem (4) Hypothyroidism: Status: Chronic Assessment and plan: tsh 1.47 continue levothyroxine discussed with DR Alcantara History of Present Illness History of Present Illness Chief Complaint: syncope Narrative: This is an 81-year-old male patient with past medical history of PSVT hypothyroidism chronic kidney disease known murmur who presents to the emergency department after a syncopal episode. He states that over the past several months has been experiencing more shortness of breath with activity. He denies any chest pain or pressure. He states that he has been needing to rest more frequently. Over the previous few days he states that he has noticed that in addition to the increased shortness of breath and fatigue with activity that he has been experiencing dizziness and today actually lost consciousness. There was no injury. Review of Systems All systems reviewed & are unremarkable except as noted in HPI and below Constitutional Constitutional: Denies fever(s) Cardiovascular Cardiovascular: Denies chest pain and Reports dyspnea Respiratory Respiratory: Reports dyspnea Gastrointestinal Gastrointestinal: Reports as per HPI and Denies abdominal pain PFSH All Active Problems (Updated 06/18/22 @ 11:01 by Neetu Mcfadden NP) Urinary tract infection (Acute) Mtqbi-lm-qodgloc kidney injury (Acute) Syncope (Chronic) Internal derangement of left knee (Acute) Depo-Medrol: 04/17/21 Osteoarthritis of right knee (Acute) Steroid injection: 12/19/2019 (40mg) Bilateral shoulder bursitis (Acute) Impingement syndrome of both shoulders (Acute) Adhesive capsulitis of both shoulders (Acute) Tendinitis of long head of biceps brachii of both shoulders (Acute) Nontraumatic tear of muscle or tendon of rotator cuff of both shoulders (Acute) Scapular dyskinesis (Acute) Peripheral neuropathy (Acute) Cervical spondylosis with myelopathy (Acute) Bilateral hip joint arthritis (Acute) Renal insufficiency (Chronic) Hypothyroidism (Chronic) Restless leg (Acute) Dyspnea on exertion (Acute) Asbestos exposure (Acute) Diverticulitis (Chronic) Cholelithiasis (Acute) Hyperlipidemia (Acute) Hypertension (Chronic) PSVT (paroxysmal supraventricular tachycardia) (Acute) Right carpal tunnel syndrome (Acute) S/P ECTR: 09/05/2019 Spondylolisthesis, cervical region (Acute) Surgical History History of back surgery History of bowel resection sigmoid resection Hx of colonoscopy S/P appendectomy Social History Smoking/Tobacco Use Status: Former Tobacco Use Smoking risk assessment performed?: Yes Alcohol Intake: current Alcohol Intake frequency: a few times a month Alcohol type: beer Drug use: Never Substance use type: does not use Details: ALCOHOL: T-2, BEER. PT. STATES HE DOES NOT REMEMBER WHEN HE QUIT SMOKING, 40 YEARS AGO Current gender identity: male Do you feel safe at home: Yes Do you feel safe in your relationship?: Yes Meds Allergies and Home Medications Allergies Allergy/AdvReac Type Severity Reaction Status Date / Time No Known Allergies Allergy Verified 06/17/22 15:25 Home Medications Medication Instructions Recorded Confirmed Type aspirin 81 mg tablet,delayed 81 mg PO DAILY 11/16/18 06/17/22 History release (Adult Aspirin Regimen) diltiazem HCl 240 mg 240 mg PO DAILY 11/16/18 06/17/22 History capsule,extended release 24 hr, controlled (DILT-XR) levothyroxine 125 mcg capsule 125 mcg PO DAILY 11/16/18 06/17/22 History lisinopril 10 mg tablet 10 mg PO DAILY 11/16/18 06/17/22 History metoprolol succinate 100 mg 100 mg PO DAILY 11/16/18 06/17/22 History tablet,extended release 24 hr cyanocobalamin (vitamin B-12) 1,000 mcg PO DAILY 09/04/19 06/17/22 History 1,000 mcg tablet (Vitamin B-12) ibuprofen-diphenhydramine citrate 3 cap PO QHS 09/05/19 05/19/21 History 200 mg-38 mg tablet (Advil PM) methotrexate sodium 2.5 mg tablet 10 mg PO QWEEK 12/19/19 05/19/21 History tamsulosin 0.4 mg capsule 0.4 mg PO DAILY 12/19/19 06/17/22 History docusate sodium 100 mg capsule 100 mg PO DAILY 03/18/21 05/19/21 History (Colace) prednisone 5 mg tablet 5 mg PO DAILY 03/18/21 06/17/22 History Exam Const General: cooperative, healthy appearing, comfortable and no acute distress Nutritional Appearance: average body habitus Orientation: alert, awake and oriented x3 HENMT Head: normal to inspection, normocephalic and atraumatic Mouth: oral mucosae normal and moist mucous membranes Eyes Conjunctivae: normal conjunctivae Sclera: normal sclerae Neck Neck: trachea midline and supple Chest Chest: normal inspection of the chest Resp Effort & Inspection: normal respiratory effort Auscultation: clear to auscultation bilaterally, no rales, no rhonchi and no wheezes Cardio Rate: regular rate Rhythm: regular rhythm Heart Sounds: murmur systolic IV/ GI Inspection: normal to inspection Palpation: soft and nontender Auscultation: normal bowel sounds Skin General skin exam: no rashes or lesions noted Neuro General: patient alert, patient awake and patient oriented x3 Cognition: normal cognition Other: Diminished sensation bilateral lower extremities the patient notes is chronic and unchanged Extrem General: edema (Trace edema bilateral lower extremities distal to the knees) Psych Appearance: grossly normal Mental Status: mental status grossly normal Speech and Movement: speech and movement normal Results Labs 06/18/22 06:25 06/18/22 06:25 Labs: Laboratory Results - last 24 hr 06/17/22 06/17/22 06/17/22 15:32 15:32 15:32 WBC 8.53 RBC 3.84 L Hgb 12.4 L Hct 36.9 L MCV 96 H MCH 32.3 MCHC 33.6 RDW 14.7 H Plt Count 175 MPV 9.4 Immature Gran % 0.6 Neutrophils % 85.3 Lymphocytes % 8.9 Monocytes % 4.6 Eosinophils % 0.2 Basophils % 0.4 Nucleated RBC % 0.0 Absolute Neutrophils 7.28 H Absolute Lymphocytes 0.76 L Absolute Monocytes 0.39 Absolute Eosinophils 0.02 Absolute Basophils 0.03 Sodium 138 Potassium 5.2 H Chloride 104 Carbon Dioxide 24.9 Anion Gap 9.1 BUN 44 H Creatinine 2.3 H Est GFR (CKD-EPI 2020) 27.66 Glucose 152 H Calcium 10.3 H Magnesium 2.2 Total Bilirubin 0.6 AST 14 L ALT 26 Alkaline Phosphatase 77 Troponin I < 50 NT-Pro-B Natriuret Pep Total Protein 7.3 Albumin 3.6 TSH 1.47 06/17/22 15:32 WBC RBC Hgb Hct MCV MCH MCHC RDW Plt Count MPV Immature Gran % Neutrophils % Lymphocytes % Monocytes % Eosinophils % Basophils % Nucleated RBC % Absolute Neutrophils Absolute Lymphocytes Absolute Monocytes Absolute Eosinophils Absolute Basophils Sodium Potassium Chloride Carbon Dioxide Anion Gap BUN Creatinine Est GFR (CKD-EPI 2020) Glucose Calcium Magnesium Total Bilirubin AST ALT Alkaline Phosphatase Troponin I NT-Pro-B Natriuret Pep 583 H Total Protein Albumin TSH Last Vital Signs Temp 36.4 C L 06/17/22 15:14 Pulse 71 06/17/22 16:32 Resp 17 06/17/22 16:32 BP 117/67 06/17/22 16:32 Pulse Ox 99 06/17/22 16:32 Time Spent Time spent with Patient: 40-54 minutes Time was spent: preparing to see the patient(eg.review tests), obtaining and/or reviewing separately otained hiistory, ordering medications,tests, procedures, referring, communicating with other health progressive care unit registered nurse, indepentently interpreting results and counseling the patient
[2022-06-17 18:13] LABS: D-Dimer 2044 ng/mlFEU (<500)
[2022-06-17 18:51] LABS: Troponin I < 50 ng/L (<or=60)
[2022-06-17] MEDS: Normal Saline 1,000 ML 100 ML IV (19:53)
[2022-06-17] MEDS: Normal Saline Flush 10 ML SYR IVP (19:54)
[2022-06-17 20:20] LABS: Creatinine,Urine 221.52 mg/dL; Sodium, Urine 60 mmol/L
--- NOTE | 2022-06-18 | DI.US_ITS ---
Exam(s) US RENAL EXAM: US RENAL CLINICAL HISTORY: KIA on CKD, UTI TECHNIQUE: Ultrasound of both kidneys performed using standard protocol. COMPARISON: FINDINGS: KIDNEYS: Both kidneys measure approximately 10 cm length both kidneys exhibit normal cortical thickne ss and corticomedullary differentiation. No significant focal findings in the right kidney. In the left kidney appears to be abnormal density in the region of the superior infundibulum-pelvis. Difficult to determine if this is a hemorrhagic parapelvic cysts or possible significant mass at this level. URINARY BLADDER: Prevoid volume is 760 cc Postvoid volume is 208 cc No evidence of obvious bladder mass nor diverticuli. Ureterovesical jets: Not identified on this study IMPRESSION: 1. Subtle suggestion of possible abnormal finding in the left kidney renal pelvis upper infundibulum . Difficult to determine whether this is related to mass at this level or hemorrhagic parapelvic cyst s. Recommend follow-up CT urogram if clinically feasible. 2. Significant postvoid residual urine in the bladder of 208 cc Prostate was not able to be identified on this study. DATA REPOSITORY:
[2022-06-18 00:34] VITALS: BP 94/63; PULSE 73; RESP 18; TEMP 37; O2SAT 96
[2022-06-18 00:53] LABS: Bilirubin Small (Negative); Blood Trace-intact (Negative); Clarity Sl Cloudy (Clear); Glucose Negative (Negative); Ketones 15 mg/dL (Negative); Leukocyte Esterase Moderate (Negative); Nitrite Negative (Negative); Specific Gravity 1.025 (1.005-1.025)
[2022-06-18 01:02] LABS: Bacteria Moderate HPF (Negative); C & S Indicated? Yes; Crystals Negative HPF (Negative); Epithelial Cells Rare HPF (Negative); Mucus Negative (Negative); Other Cells Rare Transitional (Negative); WBC >50 HPF (0-5)
[2022-06-18 04:24] VITALS: BP 101/63; PULSE 78; RESP 18; TEMP 37; O2SAT 96
[2022-06-18] MEDS: Levothyroxine 125 MCG TAB PO (06:04)
[2022-06-18] MEDS: Normal Saline 1,000 ML 100 ML IV (06:07)
[2022-06-18 06:15] VITALS: BP 119/74; PULSE 78; RESP 18; TEMP 36.6; O2SAT 96
[2022-06-18 06:52] LABS: Abs Immature Grans 0.02 10^3/uL (0.0-0.06); Absolute Basophil Count 0.04 10^3/uL (0.0-0.2); Absolute Eosinophil Count 0.12 10^3/uL (0.0-0.7); Absolute Lymphocyte Count 0.82 10^3/uL (1.2-3.4); Absolute Monocyte Count 0.39 10^3/uL (0.1-0.8); Absolute Neutrophil Count 4.41 10^3/uL (1.2-6.7); Basophils % 0.7; Eosinophils % 2.1; HCT 33.4 % (40.0-50.0); HGB 11.1 g/dL (13.5-17.5); Immature Grans % 0.3; Lymphocytes % 14.1; MCH 32.2 pg (27.0-33.0); MCHC 33.2 % (32.0-36.0); MCV 97 fL (80-95); MPV 9.6 fL (8.0-11.0); Monocytes % 6.7; Neutrophils % 76.1; Platelet Count 155 10^3/uL (130-400); RBC 3.45 10^6/uL (4.36-5.78); RDW 14.9 % (11.8-14.1); RDW-SD 52.7 fL
[2022-06-18 07:00] VITALS: PULSE 82
[2022-06-18 07:12] LABS: Anion Gap 8.5 mmol/L (3-11); BUN 40 mg/dL (7-18); CO2 22.5 mmol/L (21.0-32.0); CREATININE 1.7 mg/dL (0.70-1.30); Calcium 9.4 mg/dL (8.5-10.1); Chloride 108 mmol/L (98-107); Estimated GFR 39.75 (mL/min/1.73m2); Glucose 94 mg/dL (74-106); Potassium 4.5 mmol/L (3.5-5.1); Sodium 139 mmol/L (136-145)
--- NOTE | 2022-06-18 08:00 | DI.US_ITS ---
APPROVED REPORT EXAM: Comprehensive 2D, Doppler, and color-flow Echocardiogram Patient Location: In-Patient Room/Bed: 211 Executive Consultant: Gianni Billingsley RDMS, RVT Indications: syncope Other Information Study Quality: Adequate Conclusion Normal left ventricular wall thickness and chamber size. Ejection fraction is 55%. Wall motion is n ormal Right ventricle is grossly normal in size and function Both atria are normal in size Aortic valve is sclerotic. There is moderate to severe aortic stenosis. Peak gradient is 55, mean i s 30 mmHg. Calculated aortic valve area 0.94 cm??. There is no aortic regurgitation Mild mitral annular calcification, mild mitral regurgitation Normal tricuspid valve with mild regurgitation. Estimated right ventricular systolic pressure is 30 mmHg Wall motion Left Ventricle The left ventricle is normal size. The left ventricular systolic function is normal. The left ventric ular ejection fraction is within the normal range. There is normal left ventricular wall thickness. T here is normal LV segmental wall motion. There is no ventricular septal defect visualized. LVEF is 55 %. Right Ventricle The right ventricle is normal size. Right ventricular systolic function is grossly normal. The RVSP i s 29.8 mmHg. Atria The left atrium size is normal. The right atrium size is normal. The interatrial septum is intact wit h no evidence for an atrial septal defect. Aortic Valve The Aortic valve is sclerotic. Aortic valve is calcified. Number of aortic valve leaflets could not b e assessed. Moderate to severe aortic stenosis. Peak aortic valve gradient is 55.7 mmHg. Highest mean aortic valve gradient is 30 mmHg. Calculated CHUY by the continuity equation is .94cm2. No aortic reg urgitation is present. Mitral Valve Mild mitral annular calcification. No evidence of mitral valve stenosis. Mild mitral regurgitation. Tricuspid Valve The tricuspid valve is normal in structure. There is no tricuspid valve stenosis. Mild tricuspid regu rgitation. Pulmonic Valve The pulmonary valve is normal in structure. There is no pulmonic valvular stenosis. There is no pulmo charles valvular regurgitation. Great Vessels The aortic root is normal in size. The ascending aorta is normal in size. IVC is normal in size and c ollapses >50% with inspiration. Pericardium There is no pericardial effusion. 2D Dimensions IVSD d PLAX 0.69 cm M: 0.6-1.2 LV Vol A2C d MOD 96.5 mL LVPW d PLAX 0.70 cm M: 0.6 - 1.2 LV Vol A4C d MOD 149.5 mL LVID d PLAX 5.30 cm M: 4.2 - 5.8 LA vol/ BSA A2C s A-L 18.2 mL/m2 LVDs 3.75 cm M: 2.5 - 4.0 LA vol/ BSA A4C s A-L 25.5 mL/m2 Ao Root d 2.78 cm M: 3.1 - 3.7 LA Vol/ BSA Biplane s A-L 22.3 mL/m2 Ao Asc Diam d 3.22 cm M: 2.6 - 3.4 LA Area A4C s MOD 18.20 cm2 LV EF Teichholz 54.7 % LA Area A2C s MOD 15.60 cm2 LVEF (Cerna's) 52.68 % M: 52 - 72 LV EF A4C MOD 55.0 % LV Volume 91.01 mL M: 62 - 150 LV EF A2C MOD 52.8 % LV Volume Index 41.36 mL/m2 M: 34 - 74 LV EF Biplane MOD 52.7 % LV Vol Biplane MOD 125.1 mL SV 65.92 mL FS 28.60 % SV Index 29.98 mL/m2 M-Mode TAPSE 1.89 cm (M/F) >1.7 LV Diastology MV E' medial 0.073 (>0.07 m/s) E/A Ratio 0.6 LV E/e MED 9.65 (<14) MV E Vmax 0.71 (0.4-1.3 m/s) MV E' lateral 0.086 (>0.1 m/s) MV A Vmax 1.10 (0.4-1.3 m/s) LV E/e LAT 8.25 (<14) MV E/A Ratio 0.62 MV E/E' medial 9.67 MV E/E' lateral 8.29 Aortic Valve LVOT Area 3.39 cm2 AoV Area Vmax 0.94 cm2 LVOT Vmax 1.04 m/s AoV Area/ BSA (Vmax) 0.43 cm2/m2 LVOT Mean Eber. 0.68 m/s CHUY Mean Eber. 1.09 cm2 LVOT Peak Grad 4.3 mmHg CHUY Mean Eber. Index 0.50 cm2/m2 LVOT Mean Grad 2.2 mmHg LVOT VTI 0.193 m LVOT Diam s 2.05 cm AoV Vmax 3.32 m/s Velocity Ratio 0.31 AoV Mean Eber. 2.10 m/s AoV Peak Grad 44.9 mmHg LVOT SV 65.52 mL AoV Mean Grad 22.7 mmHg AoV VTI 0.534 m AoV Area VTI 1.23 cm2 AoV Area/ BSA (VTI) 0.56 cm/m2 Mitral Valve MV DT 249 (160-240 msec) MV PHT 72 msec MV Area PHT 3.05 cm2 Pulmonary Valve PV Vmax 1.03 (0.5-1.5 m/s) RVOT Peak Gr. 1.20 mmHg PV Peak Grad 4.2 mmHg RVOT Mean Gr. 0.60 mmHg PV Mean Grad 2.0 mmHg RVOT VTI 0.099 m PV VTI 0.143 m RVOT Vmax 0.55 m/s Tricuspid Valve TR Peak Grad 26.6 mmHg TR Vmax 2.58 m/s RA Pressure 3.00 mmHg RVSP (TR) 29.8 mmHg
--- NOTE | 2022-06-18 08:00 | DI.NM_ITS ---
Exam(s) NM LUNG SCAN VENT PERF AEROS EXAM: NM LUNG SCAN VENT PERF AEROS CLINICAL HISTORY: syncope. TECHNIQUE: Performed with IV 4.6 millicuries technetium 99 MAA and aerosol DTPA 26.5 millicuries COMPARISON: CR XR PORTABLE CHEST AP from 06/17/2022 FINDINGS: Yesterday's chest x-ray reveals clear lung corrales bilaterally. Today's nuclear scan reveals no prominent segmental perfusion defects and no significant V/Q mismatch es IMPRESSION: By the PIOPED criteria this scan is low probability for the presence of recent hemodynamically signif icant pulmonary emboli. Modified PIOPED II criteria Probability Criteria High Two or more segments of V/Q mismatch Low Normal Perfusion, Non segmental perfusion abnormalitie s, pleural effusion in at least 1/3 of pleural cavity with no other defect Radiograph/perfusion matched defect in mid to upper lung confined to segment, one to three small segmental perfusion defects (<25% of segment) Perfusion defect smaller than corresponding radiogra phic lesion. Intermediate All other findings DATA REPOSITORY:
--- NOTE | 2022-06-18 08:00 | DI.US_ITS ---
Exam(s) US EXTREMITY VENOUS BI EXAM: US EXTREMITY VENOUS BI CLINICAL HISTORY: syncope, TECHNIQUE: Grayscale, color, and doppler imaging of the deep venous system of both lower extremities was performed. COMPARISON: No exams were available for comparison FINDINGS: There is no evidence of intraluminal thrombus and there is normal compression and augmentation demons trated within the common femoral veins, femoral veins, and popliteal veins of both lower extremities. In the calves the interrogated veins also exhibit normal compression/ augmentation properties. The greater saphenous veins also appear patent as do the saphenofemoral junctions bilaterally.. IMPRESSION: 1. No ultrasound evidence of DVT in either lower extremity. DATA REPOSITORY:
[2022-06-18] MEDS: predniSONE 5 MG TAB PO (08:23)
[2022-06-18] MEDS: cefTRIAXone 1 GM/50 ML BAG IVPB (08:23)
[2022-06-18] MEDS: dilTIAZem CD 120 MG CAPCR 240 MG PO (08:23)
[2022-06-18] MEDS: Tamsulosin 0.4 MG CAPCR PO (08:23)
[2022-06-18] MEDS: Cyanocobalamin 500 MCG TAB 1000 MCG PO (08:23)
[2022-06-18] MEDS: Aspirin E.C. 81 MG TABEC PO (08:23)
[2022-06-18] MEDS: Metoprolol CR 100 MG TABCR PO (08:23)
--- NOTE | 2022-06-18 11:01 | PGE_ITS ---
Date of Service Date of service: 06/18/22 Time of Service: 11:01 Assessment and Plan Assessment and plan (1) Syncope: Status: Chronic Assessment and plan: admit to med/surg on telemetry unable to r/o PE by CT scan in setting of Acute on chronic renal failure plan on echo, dopplers bilateral lower Extremities, VQ scan in a.m. (2) Umaag-ar-xfjhojc kidney injury: Status: Acute Assessment and plan: FENA 0.45, suggesting pre-renal hold lisinopril gentle fluids overnight avoid nephrotoxic drugs (3) PSVT (paroxysmal supraventricular tachycardia): Status: Acute Assessment and plan: rate controlled continue diltiazem (4) Hypothyroidism: Status: Chronic Assessment and plan: tsh 1.47 continue levothyroxine (5) Urinary tract infection: Status: Acute Assessment and plan: awaiting culture started on ceftriaxone discussed with DR Alcantara Subjective Subjective Patient reports: no new complaints, feels better, tolerating liquids well, tolerating a regular diet, voiding w/o difficulty and afebrile Exam Const General: cooperative, healthy appearing, comfortable and no acute distress Nutritional Appearance: average body habitus Orientation: alert, awake and oriented x3 HENCT Head: normal to inspection, normocephalic and atraumatic Mouth: oral mucosae normal and moist mucous membranes Eyes Conjunctivae: normal conjunctivae Sclera: normal sclerae Neck Neck: trachea midline and supple Chest Chest: normal inspection of the chest Resp Effort & Inspection: normal respiratory effort Auscultation: clear to auscultation bilaterally, no rales, no rhonchi and no wheezes Cardio Rate: regular rate Rhythm: regular rhythm Heart Sounds: murmur systolic IV/ GI Inspection: normal to inspection Palpation: soft and nontender Auscultation: normal bowel sounds Skin General skin exam: no rashes or lesions noted Neuro General: patient alert, patient awake and patient oriented x3 Cognition: normal cognition Other: Diminished sensation bilateral lower extremities the patient notes is chronic and unchanged Extrem General: edema (Trace edema bilateral lower extremities distal to the knees) Psych Appearance: grossly normal Mental Status: mental status grossly normal Speech and Movement: speech and movement normal Objective Last Vital Signs Temp 36.6 C 06/18/22 06:15 Pulse 82 06/18/22 07:00 Resp 18 06/18/22 06:15 BP 119/74 06/18/22 06:15 Pulse Ox 96 06/18/22 06:15 Laboratory Results - last 24 hr 06/17/22 06/17/22 06/17/22 15:32 15:32 15:32 WBC 8.53 RBC 3.84 L Hgb 12.4 L Hct 36.9 L MCV 96 H MCH 32.3 MCHC 33.6 RDW 14.7 H Plt Count 175 MPV 9.4 Immature Gran % 0.6 Neutrophils % 85.3 Lymphocytes % 8.9 Monocytes % 4.6 Eosinophils % 0.2 Basophils % 0.4 Nucleated RBC % 0.0 Absolute Neutrophils 7.28 H Absolute Lymphocytes 0.76 L Absolute Monocytes 0.39 Absolute Eosinophils 0.02 Absolute Basophils 0.03 D-Dimer Sodium 138 Potassium 5.2 H Chloride 104 Carbon Dioxide 24.9 Anion Gap 9.1 BUN 44 H Creatinine 2.3 H Est GFR (CKD-EPI 2020) 27.66 Glucose 152 H Calcium 10.3 H Magnesium 2.2 Total Bilirubin 0.6 AST 14 L ALT 26 Alkaline Phosphatase 77 Troponin I < 50 NT-Pro-B Natriuret Pep Total Protein 7.3 Albumin 3.6 TSH 1.47 Urine Color Urine Clarity Urine pH Ur Specific [place] Urine Protein Urine Ketones Urine Blood Urine Nitrite Urine Bilirubin Urine Urobilinogen Ur Leukocyte Esterase Urine RBC Urine WBC Ur Epithelial Cells Urine Crystals Urine Bacteria Urine Mucus Urine Other Ur Culture Indicated? Ur Random Creatinine Ur Random Sodium Urine Glucose 06/17/22 06/17/22 06/17/22 15:32 17:18 18:20 WBC RBC Hgb Hct MCV MCH MCHC RDW Plt Count MPV Immature Gran % Neutrophils % Lymphocytes % Monocytes % Eosinophils % Basophils % Nucleated RBC % Absolute Neutrophils Absolute Lymphocytes Absolute Monocytes Absolute Eosinophils Absolute Basophils D-Dimer 2044 H Sodium Potassium Chloride Carbon Dioxide Anion Gap BUN Creatinine Est GFR (CKD-EPI 2020) Glucose Calcium Magnesium Total Bilirubin AST ALT Alkaline Phosphatase Troponin I < 50 NT-Pro-B Natriuret Pep 583 H Total Protein Albumin TSH Urine Color Urine Clarity Urine pH Ur Specific [place] Urine Protein Urine Ketones Urine Blood Urine Nitrite Urine Bilirubin Urine Urobilinogen Ur Leukocyte Esterase Urine RBC Urine WBC Ur Epithelial Cells Urine Crystals Urine Bacteria Urine Mucus Urine Other Ur Culture Indicated? Ur Random Creatinine Ur Random Sodium Urine Glucose 06/17/22 06/17/22 06/18/22 20:00 20:00 06:25 WBC RBC Hgb Hct MCV MCH MCHC RDW Plt Count MPV Immature Gran % Neutrophils % Lymphocytes % Monocytes % Eosinophils % Basophils % Nucleated RBC % Absolute Neutrophils Absolute Lymphocytes Absolute Monocytes Absolute Eosinophils Absolute Basophils D-Dimer Sodium 139 Potassium 4.5 Chloride 108 H Carbon Dioxide 22.5 Anion Gap 8.5 BUN 40 H Creatinine 1.7 H Est GFR (CKD-EPI 2020) 39.75 Glucose 94 Calcium 9.4 Magnesium Total Bilirubin AST ALT Alkaline Phosphatase Troponin I NT-Pro-B Natriuret Pep Total Protein Albumin TSH Urine Color Yellow Urine Clarity Sl Cloudy Urine pH 5.0 Ur Specific [place] 1.025 Urine Protein Negative Urine Ketones 15 H Urine Blood Trace-intact H Urine Nitrite Negative Urine Bilirubin Small H Urine Urobilinogen 1.0 H Ur Leukocyte Esterase Moderate H Urine RBC 3-5 H Urine WBC >50 H Ur Epithelial Cells Rare Urine Crystals Negative Urine Bacteria Moderate Urine Mucus Negative Urine Other Rare Transitional Ur Culture Indicated? Yes Ur Random Creatinine 221.52 Ur Random Sodium 60 Urine Glucose Negative 06/18/22 06:25 WBC 5.80 RBC 3.45 L Hgb 11.1 L Hct 33.4 L MCV 97 H MCH 32.2 MCHC 33.2 RDW 14.9 H Plt Count 155 MPV 9.6 Immature Gran % 0.3 Neutrophils % 76.1 Lymphocytes % 14.1 Monocytes % 6.7 Eosinophils % 2.1 Basophils % 0.7 Nucleated RBC % 0.0 Absolute Neutrophils 4.41 Absolute Lymphocytes 0.82 L Absolute Monocytes 0.39 Absolute Eosinophils 0.12 Absolute Basophils 0.04 D-Dimer Sodium Potassium Chloride Carbon Dioxide Anion Gap BUN Creatinine Est GFR (CKD-EPI 2020) Glucose Calcium Magnesium Total Bilirubin AST ALT Alkaline Phosphatase Troponin I NT-Pro-B Natriuret Pep Total Protein Albumin TSH Urine Color Urine Clarity Urine pH Ur Specific [place] Urine Protein Urine Ketones Urine Blood Urine Nitrite Urine Bilirubin Urine Urobilinogen Ur Leukocyte Esterase Urine RBC Urine WBC Ur Epithelial Cells Urine Crystals Urine Bacteria Urine Mucus Urine Other Ur Culture Indicated? Ur Random Creatinine Ur Random Sodium Urine Glucose PAWSS Have you Been Recently Intoxicated or Drunk Within the Last 30 days?: No Have you Ever Experienced Previous Episodes of Alcohol Withdrawal?: No Have you ever Experienced Withdrawal Seizures?: No Have you ever Experienced Delirium Tremens(DT)s?: No Have you ever undergone Alcohol Rehabilitation Treatment (i.e, inpt ot outpatient treatment programs)?: No Have you ever Experienced Blackouts?: No Have you ever Combined Alcohol with other Downers within the last 90 days?: No Have you ever Combined Alcohol with any other Substance of Abuse during the last 90 days?: No Positive Blood Alcohol level on Presentation? [PCS.BAL]: No Evidence of Increased Autonomic Activity (i.e. HR>120, tremor, sweating, agitation, nausea)?: No Result: 0 Time Spent with Patient Time Spent with Patient: 35-49 minutes Time was spent: preparing to see the patient(eg.review tests), obtaining and/or reviewing separately otained hiistory, ordering medications,tests, procedures, referring, communicating with other health associate director career services, indepentently interpreting results and counseling the patient
[2022-06-18 14:59] VITALS: PULSE 68
--- NOTE | 2022-06-18 15:21 | PDOC.CMIN ---
Date of service: 06/18/22 Time of Service: 15:21 Care Management Initial Assmt Initial Assessment REASON FOR HOSPITALIZATION:: Syncope PREVIOUS FUNCTIONAL STATUS/SOCIAL/FAMILY SUPPORTS:: Resides in [place], his son and daughter reside nearby. Independent at baseline. CURRENT FUNCTIONAL STATUS:: Pleasant in interaction, no concerns noted at this time. ADVANCE DIRECTIVES:: None on file. Has patient been provided with info about the portal/API?: No Did the patient sign up for the portal?: No CODE STATUS:: DNR/DNI INSURANCE COVERAGE / FINANCIAL ISSUES:: Medicare PRIMARY CARE PHYSICIAN:: Khadijah Henriquez POTENTIAL DISCHARGE NEEDS:: ECHO, follow up appointments PATIENT/FAMILY EDUCATION NEEDS:: Review discharge instructions, discuss Ask Me Three. ANTICIPATED BARRIERS TO DISCHARGE:: None identified. TRANSPORTATION:: Via private vehicle with family. PLAN:: Undetermined plan at this time. CM continues to follow. PFSH All Active Problems (Updated 06/18/22 @ 11:01 by Neetu Mcfadden NP) Urinary tract infection (Acute) Kltkn-xc-uapjokj kidney injury (Acute) Syncope (Chronic) Internal derangement of left knee (Acute) Depo-Medrol: 04/17/21 Osteoarthritis of right knee (Acute) Steroid injection: 12/19/2019 (40mg) Bilateral shoulder bursitis (Acute) Impingement syndrome of both shoulders (Acute) Adhesive capsulitis of both shoulders (Acute) Tendinitis of long head of biceps brachii of both shoulders (Acute) Nontraumatic tear of muscle or tendon of rotator cuff of both shoulders (Acute) Scapular dyskinesis (Acute) Peripheral neuropathy (Acute) Cervical spondylosis with myelopathy (Acute) Bilateral hip joint arthritis (Acute) Renal insufficiency (Chronic) Hypothyroidism (Chronic) Restless leg (Acute) Dyspnea on exertion (Acute) Asbestos exposure (Acute) Diverticulitis (Chronic) Cholelithiasis (Acute) Hyperlipidemia (Acute) Hypertension (Chronic) PSVT (paroxysmal supraventricular tachycardia) (Acute) Right carpal tunnel syndrome (Acute) S/P ECTR: 09/05/2019 Spondylolisthesis, cervical region (Acute) Surgical History History of back surgery History of bowel resection sigmoid resection Hx of colonoscopy S/P appendectomy Social History Smoking/Tobacco Use Status: Former Tobacco Use Smoking risk assessment performed?: Yes Alcohol Intake: current Alcohol Intake frequency: a few times a month Alcohol type: beer Drug use: Never Substance use type: does not use Details: ALCOHOL: T-2, BEER. PT. STATES HE DOES NOT REMEMBER WHEN HE QUIT SMOKING, 40 YEARS AGO Current gender identity: male Do you feel safe at home: Yes Do you feel safe in your relationship?: Yes
--- NOTE | 2022-06-18 16:27 | PT.INIE ---
Date of service: 06/18/22 Time of Service: 15:17 PT Notes Visit Reasons: Syncope Physical Therapy Inpatient Initial Evaluation Date: 06/18/2022 Referring Doctor: Neetu Mcfadden NP PT Orders: PT CONSULT: Eval/treat Precautions: Fall. Standard. Activity as tolerated. Patient Profile/Admitting Diagnosis: Lance is an 81-year-old male who presented to the ED on 06/17/2022 due to shortness of breath and a syncopal episode. Patient was admitted to the ED for management of syncope, acute on chronic kidney injury, PSVT, and hypothyroidism. PMHX: All Active Problems?(Updated 06/17/22 @ 17:44 by Neetu Mcfadden NP) Ytgnz-jk-rcifgxa kidney injury (Acute) Syncope (Chronic) Internal derangement of left knee (Acute) Depo-Medrol: 04/17/21 Osteoarthritis of right knee (Acute) Steroid injection: 12/19/2019 (40mg) Bilateral shoulder bursitis (Acute) Impingement syndrome of both shoulders (Acute) Adhesive capsulitis of both shoulders (Acute) Tendinitis of long head of biceps brachii of both shoulders (Acute) Nontraumatic tear of muscle or tendon of rotator cuff of both shoulders (Acute) Scapular dyskinesis (Acute) Peripheral neuropathy (Acute) Cervical spondylosis with myelopathy (Acute) Bilateral hip joint arthritis (Acute) Renal insufficiency (Chronic) Hypothyroidism (Chronic) Restless leg (Acute) Dyspnea on exertion (Acute) Asbestos exposure (Acute) Diverticulitis (Chronic) Cholelithiasis (Acute) Hyperlipidemia (Acute) Hypertension (Chronic) PSVT (paroxysmal supraventricular tachycardia) (Acute) Right carpal tunnel syndrome (Acute) S/P ECTR: 09/05/2019 Spondylolisthesis, cervical region (Acute) Surgical History? History of back surgery History of bowel resection sigmoid resection Hx of colonoscopy S/P appendectomy Social History/Home Situation: Lives alone in a private home with 3-4 steps to enter. Son and daughter live close by and has been very good support. Equipment Owned/DME: FWW, SPC Subjective: Feels much improved since yesterday. Denies headache, chest pain, and lightheadedness throughout session. Moderately out of ambulation activity but oxygen saturation stayed above 92% on room air. Objective: General Observation: Seated at edge of bed. Son Edmund present during evaluation. Telemetry monitoring in place. Mental Status: Alert and oriented as to person, place, time, and purpose. Able to pay attention, focus, and respond appropriately. Pain: Denies Vital Signs: BP before ambulation 131/71 mmHg with oxygen saturation at 92% on room air. ROM: Right Upper Extremity: Shoulder Flexion lacks the last 25% of AROM. Shoulder abduction lacks the last 25% of AROM. Elbow flexion WFL. Wrist flexion WFL. Functional opening and closing of hand WFL. Left Upper Extremity: Shoulder Flexion lacks the last 25% of AROM. Shoulder abduction lacks the last 25% of AROM. Elbow flexion WFL. Wrist flexion WFL. Functional opening and closing of hand WFL. Right Lower Extremity: Hip flexion lacks the last 25% of AROM. Hip abduction lacks the last 25% of AROM. Knee flexion WFL. Ankle dorsiflexion to neutral only. Ankle plantarflexion WFL. Left Lower Extremity: Hip flexion lacks the last 25% of AROM. Hip abduction lacks the last 25% of AROM. Knee flexion WFL. Ankle dorsiflexion to neutral only. Ankle plantarflexion WFL. Strength: Right Upper Extremity: Shoulder flexors 3-/5. Shoulder abductors 3-/5. Elbow flexors 4-/5. Elbow extensors 4-/5. Accounting Reconciliation Clerk strong. Left Upper Extremity: Shoulder flexors 3-/5. Shoulder abductors 3-/5. Elbow flexors 4-/5. Elbow extensors 4-/5. Accounting Reconciliation Clerk strong. Right Lower Extremity: Hip flexors 3-/5. Hip abductors 3_/5. Knee flexors 4-/5. Knee extensors 4-/5. Ankle dorsiflexors 3-/5. Ankle plantarflexors 4-/5. Left Lower Extremity: Hip flexors 3-/5. Hip abductors 3_/5. Knee flexors 4-/5. Knee extensors 4-/5. Ankle dorsiflexors 3-/5. Ankle plantarflexors 4-/5. Bed Mobility/Transfers: Supine to sit with standby assist Sit to stand with standby assist Stand to sit with standby assist Bed to reclining chair with standby assist Reclining chair to bed with standby assist Gait: Instructed patient with level surface ambulation of 250 feet requiring stand by assist using FWW. Moderate shortness of breath with oxygen saturation staying above 90% on room air. BP up to 130/100 mmHg but has been asymptomatic. Balance: Static Sitting: Normal Dynamic Sitting: Normal Static Standing: Good Dynamic Standing: Fair Special Tests: Mobility Limitations Standardized Measure [facility] AM-PAC 6 clicks Basic Mobility Inpatient Short Form: Raw Score: 23 CMS Score: 11%% deficit 4-stage balance test: Able to maintain feet together for 10 seconds but is unable to maintain semi-tandem, full tandem, and one-legged stance. Informed Consent/Education: Patient was instructed in purpose of PT consult and plan of care. Agreeable to proceed with established PT POC to achieve personal goals. Assessment: Patient presents with clinical signs and symptoms consistent with current/admitting diagnoses that have resulted to mobility limitations, gait instability, generalized weakness, and overall ADL decline as demonstrated by the following impairment level findings: 1. Decreased strength to [] [] major muscle groups 2. Impaired standing balance 3. Impaired activity tolerance 4. Limitation of joint range of motion in B shoudlers, hips, china ankles (chroinic) 5. Shortness of breath Impairments are contributing to the following functional limitations: 1. Difficulty with ambulation without assistive device 2. Increased completion time for mobility ADL performance 3. Increased risk for falls 4. Difficulty with managing steps alone safely Patient is assessed as a 37797 moderate complexity based on the following: History: 81-year-old male with past medical history as indicated above Examination: Demonstrable impairment in strength, balance, and mobility level with underlying impairments and functional limitations as exhibited above as well as deficit score of 11% utilizing the [facility] Mobility Inpatient Short Form Presentation: Evolving Decision Makin moderate complexity Goals: Goals X1 week 1. Supine-Sit independent 2. Sit-Supine independent 3. Sit-Stand independent 4. Stand-Sit independent with FWW 5. Bed-Chair independent with FWW 6. Chair-Bed independent with FWW 7. Independent gait on level surface with use of FWW for at least 300 feet without report of pain nor dyspnea 8. Independent stair negotiation while holding onto B rails for at least 5 steps without report of pain nor dyspnea 9. Independent with home exercise program 10. Good static and dynamic standing balance/tolerance PLAN OF CARE/TREATMENT PLAN: 1-2x/day, 7 days/week x 1 week. Plan of care has been reviewed with the PRIVATE EQU[employer] ASSOCIATE providing the service under Physical Therapy direction. Monitor vital signs during and after session. Initiate Physical Therapy intervention for pain management as needed, strengthening, bed mobility, transfers, gait, stairs, balance training, and use of assistive device. DISCHARGE RECOMMENDATIONS: [] Home with no services [] [X] Home with services. Patient will benefit from home health PT services in order to progress mobility level using least restrictive assistive ambulatory device, assess home safety, identify additional equipment needs, and establish a functional maintenance program that will increase ability of patient to remain at home. [] Home with outpatient PT [] [] SNF for continued rehabilitation [] [] [facility] [] [] SNF versus LTC based on ability to participate and progress [] TREATMENT CODE/TIME: 50801 x 24 minutes beginning at 15:17 PM. Thank you for the opportunity to participate in the care of this patient. Odilia Jones PT, DPT, CLT [facility] [place], [place]
[2022-06-18 21:49] VITALS: BP 128/56; PULSE 68; RESP 18; TEMP 36.6; O2SAT 95
[2022-06-19 00:30] VITALS: BP 127/63; PULSE 58; RESP 18; TEMP 36.5; O2SAT 100
[2022-06-19 00:32] VITALS: PULSE 53
[2022-06-19] MEDS: Normal Saline 1,000 ML 100 ML IV ×2 (01:37→11:46)
[2022-06-19] MEDS: Levothyroxine 125 MCG TAB PO (05:17)
[2022-06-19 08:13] VITALS: PULSE 58
[2022-06-19] MEDS: cefTRIAXone 1 GM/50 ML BAG IVPB (08:33)
[2022-06-19] MEDS: predniSONE 5 MG TAB PO (08:34)
[2022-06-19] MEDS: Cyanocobalamin 500 MCG TAB 1000 MCG PO (08:34)
[2022-06-19] MEDS: Aspirin E.C. 81 MG TABEC PO (08:34)
[2022-06-19] MEDS: Tamsulosin 0.4 MG CAPCR PO (08:34)
[2022-06-19] MEDS: Metoprolol CR 100 MG TABCR PO (08:34)
[2022-06-19] MEDS: dilTIAZem CD 120 MG CAPCR 240 MG PO (08:34)
--- NOTE | 2022-06-19 10:42 | CHAPLAIN ---
Lance was resting in bed when I visited. He was pleasant and engaged in a conversation telling me that he needs a valve repaired and he's waiting to find out if he's going to [facility] for that. He said there's no wong involved, that he's needed this done for a while. His son will be coming in later today. Both his son and daughter live within a few miles of him in [place], [place].
--- NOTE | 2022-06-19 11:40 | DSE_ITS ---
Date of service: 06/19/22 Time of Service: 11:40 DS: Diagnosis Discharge Diagnosis (1) Syncope: Status: Chronic (2) Pgcrm-ce-yjbuwcl kidney injury: Status: Acute (3) PSVT (paroxysmal supraventricular tachycardia): Status: Acute (4) Hypothyroidism: Status: Chronic (5) Urinary tract infection: Status: Acute Discharge Plan Disposition Patient Disposition: Transfer-Acute Inpatient Care Specific Acute Inpt Facility: [facility] Condition: Stable Discharge Details Reason For Visit: Syncope Admit Date/Time: 06/17/22 17:23 Admit Provider: Ca Alcantara Attending Provider: Ca Alcantara Primary Care Provider: Khadijah Henriquez V Hospital Course Hospital Course: This is an 81-year-old male patient with past medical history of PSVT hypothyroidism chronic kidney disease known murmur who presents to the emergency department after a syncopal episode.? He states that over the past several months has been experiencing more shortness of breath with activity.? He denies any chest pain or pressure.? He states that he has been needing to rest more frequently.? Over the previous few days he states that he has noticed that in addition to the increased shortness of breath and fatigue with activity that he has been experiencing dizziness and actually lost consciousness.? There was no injury. He was admitted to the medical surgical unit for further monitoring and evaluation. He did undergo a VQ scan which ruled out a PE bilateral lower extremity Dopplers with no evidence of DVT, and echo however did show worsening aortic stenosis with documented moderate aortic stenosis a month ago and now moderate to severe. He remained on telemetry with no dysrhythmia. He received fluids for dehydration with improvement in his creatinine. His case was discussed with CT surgery at [facility] nurse practitioner Fawad who accepts the patient on behalf of Dr. Johnson. He is being transported by EMS ground to [facility] for further cardiac evaluation and management. discussed with DR Alcantara Home Meds and New Rx's Prescriptions: No Action lisinopril 10 mg tablet 10 mg PO DAILY levothyroxine 125 mcg capsule 125 mcg PO DAILY diltiazem HCl [DILT-XR] 240 mg capsule,ext.rel 24h degradable 240 mg PO DAILY aspirin [Adult Aspirin Regimen] 81 mg tablet,delayed release (DR/EC) 81 mg PO DAILY metoprolol succinate 100 mg tablet extended release 24 hr 100 mg PO DAILY methotrexate sodium 2.5 mg tablet 10 mg PO QWEEK Patient Comments: not on med list tamsulosin 0.4 mg capsule 0.4 mg PO DAILY prednisone 5 mg tablet 5 mg PO DAILY docusate sodium [Colace] 100 mg capsule 100 mg PO DAILY Patient Comments: not on PT med list cyanocobalamin (vitamin B-12) [Vitamin B-12] 1,000 mcg Tablet 1,000 mcg PO DAILY Advil PM 200-38 mg Tablet 3 cap PO QHS Patient Comments: not on med list Discharge Instructions Instructions: Aortic Stenosis (DC), Syncope (DC) Activity:: Activity as Tolerated Equipment/Supplies:: No Equipment Needed Diet:: As Tolerated DS: Summary Time Spent with Patient providing and/or coordinating discharge services: Greater than 30 minutes Status at Discharge Functional status at discharge: independent ambulation Overall status at discharge: patient is not back to baseline Mental Status: mental status grossly normal Speech and Movement: speech and movement normal Mood: congruent mood Affect: normal affect Exam Const General: cooperative, healthy appearing, comfortable and no acute distress Nutritional Appearance: average body habitus Orientation: alert, awake and oriented x3 HENMT Head: normal to inspection, normocephalic and atraumatic Mouth: oral mucosae normal and moist mucous membranes Eyes Conjunctivae: normal conjunctivae Sclera: normal sclerae Neck Neck: supple Chest Chest: normal inspection of the chest Resp Effort & Inspection: normal respiratory effort Auscultation: clear to auscultation bilaterally Cardio Rate: regular rate Rhythm: regular rhythm Heart Sounds: murmur systolic IV/ GI Inspection: normal to inspection Palpation: soft and nontender Auscultation: normal bowel sounds Skin General skin exam: no rashes or lesions noted Neuro General: patient alert, patient awake and patient oriented x3 Cognition: normal cognition Extrem General: edema (Trace edema bilateral lower extremities distal to the knees) Psych Appearance: grossly normal Mental Status: mental status grossly normal Speech and Movement: speech and movement normal Mood: congruent mood Affect: normal affect DS: Data Vitals/I&O Vitals and I&O: Vital Signs Temperature 36.5 C 06/19/22 00:30 Temperature Source Tympanic 06/19/22 00:30 Pulse 58 L 06/19/22 08:13 Pulse Rhythm Regular 06/19/22 00:30 Pulse 80 06/17/22 18:10 Respiratory Rate 18 06/19/22 00:30 Respiratory Effort Normal, Non-Labored 06/19/22 00:30 Respiratory Depth Normal 06/19/22 00:30 Respiratory Pattern Normal 06/19/22 00:30 Blood Pressure 127/63 06/19/22 00:30 Blood Pressure Mean 82 06/17/22 18:01 Blood Pressure Position Sitting 06/17/22 15:14 Pulse Oximetry 100 06/19/22 00:30 Oxygen Delivery Method Room Air 06/19/22 00:30 Oxygen Flow Rate 0 06/19/22 00:30 Pain Level 0 06/19/22 00:30 Intake & Output 06/18/22 06/18/22 06/19/22 11:59 23:59 11:59 Intake Total 1050 / 1410 360 / 1410 1000 / 1000 Output Total 475 / 875 400 / 875 700 / 700 Balance 575 / 535 -40 / 535 300 / 300 Weight 102.6 kg Intake: IV 1050 / 1050 0 / 1050 1000 / 1000 Oral 360 / 360 Output: Urine 475 / 875 400 / 875 700 / 700 Other: Urine Color Pale Yellow Yellow Urine Appearance Clear Clear Cloudy Urine Odor Normal Normal Comment pt states thst he does not want a straight cath. Pt was encouraged to stand to attempt urinating which he did with nil results PVR 200 after voiding 250ml in urinal Voiding Methods Urinal Urinal Data Completed and Pending Labs on day of discharge: 06/17/22 20:00 Urine - Reflex from Ua Urine Culture - Pending Preliminary micro results at discharge 06/17/22 20:00 Urine Culture - Pending Urine - Reflex from Ua [facility] All Active Problems (Updated 06/18/22 @ 11:01 by Neetu Mcfadden NP) Urinary tract infection (Acute) Zvbyx-mh-oatgkye kidney injury (Acute) Syncope (Chronic) Internal derangement of left knee (Acute) Depo-Medrol: 04/17/21 Osteoarthritis of right knee (Acute) Steroid injection: 12/19/2019 (40mg) Bilateral shoulder bursitis (Acute) Impingement syndrome of both shoulders (Acute) Adhesive capsulitis of both shoulders (Acute) Tendinitis of long head of biceps brachii of both shoulders (Acute) Nontraumatic tear of muscle or tendon of rotator cuff of both shoulders (Acute) Scapular dyskinesis (Acute) Peripheral neuropathy (Acute) Cervical spondylosis with myelopathy (Acute) Bilateral hip joint arthritis (Acute) Renal insufficiency (Chronic) Hypothyroidism (Chronic) Restless leg (Acute) Dyspnea on exertion (Acute) Asbestos exposure (Acute) Diverticulitis (Chronic) Cholelithiasis (Acute) Hyperlipidemia (Acute) Hypertension (Chronic) PSVT (paroxysmal supraventricular tachycardia) (Acute) Right carpal tunnel syndrome (Acute) S/P ECTR: 09/05/2019 Spondylolisthesis, cervical region (Acute) Surgical History History of back surgery History of bowel resection sigmoid resection Hx of colonoscopy S/P appendectomy Social History Smoking/Tobacco Use Status: Former Tobacco Use Smoking risk assessment performed?: Yes Alcohol Intake: current Alcohol Intake frequency: a few times a month Alcohol type: beer Drug use: Never Substance use type: does not use Details: ALCOHOL: T-2, BEER. PT. STATES HE DOES NOT REMEMBER WHEN HE QUIT SMOKING, 40 YEARS AGO Current gender identity: male Do you feel safe at home: Yes Do you feel safe in your relationship?: Yes Time Spent with Patient Time Spent with Patient: 45-69 minutes Time was spent: preparing to see the patient(eg.review tests), obtaining and/or reviewing separately otained hiistory, ordering medications,tests, procedures, referring, communicating with other health care process manager, indepentently interpreting results, counseling the patient and care coordination
--- NOTE | 2022-06-19 12:46 | INDS_ITS ---
PT Notes Visit Reasons: Syncope Patient seen for initial evaluation only. No additional treatment provided, as patient was discharged to [facility] for further care. Please see initial evaluation dated 06/18/22 for most current functional status. Discharge from PT services in acute care setting. Alexa Stevens, PT, DPT [facility]
[2022-06-19 14:34] VITALS: BP 104/47; PULSE 78; RESP 16; TEMP 37; O2SAT 94
[2022-06-19 14:42] VITALS: PULSE 63
[2022-06-19 14:49] VITALS: O2SAT 98
--- NOTE | 2022-06-19 15:36 | NUR.NOTE ---
[facility] called x3 to give report, last call was @ 1530 ; was informed pt not going to [address] , got transfer to another unit, transfer occured , waiting to give report, phone got hung up. Informed evening charge account authorizerBERRY Benitez Note:
== END 2022-06-19 15:11 | disposition short-term general hospital (02) | DRG 309 ==
LOC: ER 17:41 → MS 18:22
PROVIDERS: Nurse Practitioner Acute Care; Admitting Provider Internal Medicine; Emergency Provider Student in an Organized Health Care Education/Training Program; PCP Family Medicine; Visit Provider Internal Medicine
DX: I47.1 Supraventricular tachycardia (principal); M47.12 Other spondylosis with myelopathy, cervical region; N39.0 Urinary tract infection, site not specified; N17.9 Acute kidney failure, unspecified; R55 Syncope and collapse; R47.1 Dysarthria and anarthria; E03.9 Hypothyroidism, unspecified; N18.9 Chronic kidney disease, unspecified; I35.0 Nonrheumatic aortic (valve) stenosis; E86.0 Dehydration; M17.11 Unilateral primary osteoarthritis, right knee; G62.9 Polyneuropathy, unspecified; M16.0 Bilateral primary osteoarthritis of hip; E78.5 Hyperlipidemia, unspecified; Z87.891 Personal history of nicotine dependence; Z90.49 Acquired absence of other specified parts of digestive tract; I12.9 Hypertensive chronic kidney disease with stage 1 through stage 4 chronic kidney disease, or unspecified chronic kidney disease
CPT/HCPCS: 36415; 76770; 80048; 80053; 93005; 93306; 97162; 99285; 71045; 78582; 81003; 81015; 82565; 83735; 83880; 84300; 84443; 84484; 85025; 85379; 87086; 93010; 93970; 99223; 99233; 99239; J0696; J7512

== ENCOUNTER 2022-07-03 10:28 | Outpatient (REF) | payer MEDICARE, SELFPAY ==
[2022-07-03 15:33] LABS: HCT 34.2 % (40.0-50.0); HGB 11.4 g/dL (13.5-17.5)
[2022-07-03 15:40] LABS: ESR 33 mm/hr (0-20)
[2022-07-03 17:04] LABS: Calculated LDL 69 mg/dL (<100); Cholesterol 145 mg/dL (<200); HDL Cholesterol 57 mg/dL (40-60); Triglyceride 98 mg/dL (<150); Vitamin B12 819 pg/mL (193-986)
[2022-07-03 18:31] LABS: Hemoglobin A1C 5.3 % (<5.7)
[2022-07-04 21:39] LABS: CRP, High Sensitivity >15.00 mg/L (See Note)
== END 2022-07-03 10:29 | disposition home or self-care (01) ==
LOC: NCHCN 10:28
PROVIDERS: PCP Family Medicine; Visit Provider Family Medicine
DX: M35.3 Polymyalgia rheumatica (principal); I35.0 Nonrheumatic aortic (valve) stenosis; D64.9 Anemia, unspecified; I10 Essential (primary) hypertension; Z79.899 Other long term (current) drug therapy
CPT/HCPCS: 80061; 85652; 86141; 82607; 83036; 85014; 85018

== ENCOUNTER 2022-08-07 12:14 | Outpatient (REF) | payer MEDICARE, SELFPAY ==
[2022-08-07 16:03] LABS: HCT 37.8 % (40.0-50.0); HGB 12.3 g/dL (13.5-17.5)
[2022-08-07 16:06] LABS: ESR 45 mm/hr (0-20)
[2022-08-07 16:25] LABS: Anion Gap 11.7 mmol/L (3-11); BUN 24 mg/dL (7-18); C-Reactive Protein 3.18 mg/dL (0.0-0.3); CO2 24.3 mmol/L (21.0-32.0); CREATININE 1.2 mg/dL (0.70-1.30); Calcium 9.4 mg/dL (8.5-10.1); Chloride 101 mmol/L (98-107); Estimated GFR 60.38 (mL/min/1.73m2); Glucose 116 mg/dL (74-106); Potassium 4.2 mmol/L (3.5-5.1); Sodium 137 mmol/L (136-145)
== END 2022-08-07 12:15 | disposition home or self-care (01) ==
LOC: NCHCN 12:14
PROVIDERS: PCP Family Medicine; Visit Provider Family Medicine
DX: D64.9 Anemia, unspecified (principal); Z00.00 Encounter for general adult medical examination without abnormal findings; M35.3 Polymyalgia rheumatica; M79.10 Myalgia, unspecified site; N28.9 Disorder of kidney and ureter, unspecified; I10 Essential (primary) hypertension
CPT/HCPCS: 80048; 85652; 85014; 85018; 86140

== ENCOUNTER 2022-09-25 08:55 | Outpatient (REF) | payer MEDICARE, SELFPAY ==
[2022-09-25 15:58] LABS: ESR 49 mm/hr (0-20)
[2022-09-25 16:00] LABS: HCT 40.6 % (40.0-50.0)
[2022-09-25 16:34] LABS: C-Reactive Protein 2.66 mg/dL (0.0-0.3)
== END 2022-09-25 08:56 | disposition home or self-care (01) ==
LOC: NCHCN 08:55
PROVIDERS: PCP Family Medicine; Visit Provider Family Medicine
DX: D64.9 Anemia, unspecified (principal); M35.3 Polymyalgia rheumatica
CPT/HCPCS: 85652; 85014; 85018; 86140

== ENCOUNTER 2022-10-23 10:26 | Outpatient (REF) | payer MEDICARE, SELFPAY ==
[2022-10-23 15:27] LABS: HCT 39.2 % (40.0-50.0); HGB 12.5 g/dL (13.5-17.5); MCH 30.1 pg (27.0-33.0); MCHC 31.9 % (32.0-36.0); MCV 95 fL (80-95); MPV 10.5 fL (8.0-11.0); Platelet Count 189 10^3/uL (130-400); RBC 4.15 10^6/uL (4.36-5.78); RDW-SD 51.9 fL; WBC 6.12 10^3/uL (4.4-10.8)
[2022-10-23 15:37] LABS: ESR 37 mm/hr (0-20)
[2022-10-23 16:00] LABS: ALT 25 U/L (16-63); AST 18 U/L (15-37); Albumin 3.4 g/dL (3.4-5.0); Alkaline Phosphatase 93 U/L (46-116); Anion Gap 8.9 mmol/L (3-11); BUN 16 mg/dL (7-18); Bilirubin, Total 0.4 mg/dL (0.2-1.0); C-Reactive Protein 4.54 mg/dL (0.0-0.3); CO2 26.1 mmol/L (21.0-32.0); CREATININE 1.1 mg/dL (0.70-1.30); Calcium 9.4 mg/dL (8.5-10.1); Chloride 103 mmol/L (98-107); Estimated GFR 67.02 (mL/min/1.73m2); Glucose 98 mg/dL (74-106); Potassium 4.3 mmol/L (3.5-5.1); Sodium 138 mmol/L (136-145); TSH (W/Ref FT4) 0.85 uIU/mL (0.36-3.74)
[2022-10-23 16:04] LABS: Vitamin D 25 Total 32.3 ng/mL (30-100)
== END 2022-10-23 10:27 | disposition home or self-care (01) ==
LOC: NCHCN 10:26
PROVIDERS: PCP Family Medicine; Visit Provider Family Medicine
DX: I10 Essential (primary) hypertension (principal); M35.3 Polymyalgia rheumatica; D64.9 Anemia, unspecified; M79.10 Myalgia, unspecified site; E03.9 Hypothyroidism, unspecified; R79.82 Elevated C-reactive protein (CRP); N18.4 Chronic kidney disease, stage 4 (severe)
CPT/HCPCS: 80053; 82306; 85027; 85652; 84443; 86140

== ENCOUNTER 2023-02-19 10:56 | Outpatient (REF) | payer MEDICARE, SELFPAY ==
[2023-02-19 16:25] LABS: ESR 20 mm/hr (0-20)
[2023-02-19 16:28] LABS: HCT 41.2 % (40.0-50.0); HGB 13.3 g/dL (13.5-17.5)
[2023-02-19 16:44] LABS: Anion Gap 5.3 mmol/L (3-11); BUN 22 mg/dL (7-18); C-Reactive Protein 0.92 mg/dL (0.0-0.3); CO2 27.7 mmol/L (21.0-32.0); CREATININE 1.2 mg/dL (0.70-1.30); Calcium 9.5 mg/dL (8.5-10.1); Chloride 104 mmol/L (98-107); Glucose 114 mg/dL (74-106); Potassium 4.9 mmol/L (3.5-5.1); Sodium 137 mmol/L (136-145)
== END 2023-02-19 10:57 | disposition home or self-care (01) ==
LOC: NCHCN 10:56
PROVIDERS: PCP Family Medicine; Visit Provider Family Medicine
DX: M35.3 Polymyalgia rheumatica (principal); I10 Essential (primary) hypertension; D64.9 Anemia, unspecified; R79.82 Elevated C-reactive protein (CRP)
CPT/HCPCS: 80048; 85652; 85014; 85018; 86140

== ENCOUNTER 2023-03-09 08:30 | Outpatient (CLI) | payer MEDICARE, SELFPAY ==
--- NOTE | 2023-03-09 08:30 | RT.EKG_ITS ---
APPROVED REPORT Exam: Resting ECG Reason for Exam: , syncope Patient Location: O HR:72 bpm ECG Measurements Heart Rate 72 AXIS [place] [id number] P [id number] QRSd 84 QRS -25 QT 405 T 14 QTc 444 Conclusion Atrial fibrillation...? atrial activity Ventricular premature complex...V complex w/ short R-R interval Left ventricular hypertrophy...multiple voltage criteria Baseline wander in lead(s) V3,V4,V5,V6 SINUS ARRHYTHMIA, VARIED RATE OCCASIONAL PREMATURE VENTRICULAR CONTRACTIONS
== END 2023-03-09 08:31 | disposition home or self-care (01) ==
LOC: DI.CARD 08:30
PROVIDERS: PCP Family Medicine; Visit Provider Internal Medicine Interventional Cardiology
DX: I35.0 Nonrheumatic aortic (valve) stenosis (principal); R55 Syncope and collapse
CPT/HCPCS: 93010

== ENCOUNTER → 2023-03-09 13:21 | Outpatient (BNVA) | payer MEDICARE, SELFPAY | PROVIDERS: PCP Family Medicine; Referring Provider Family Medicine; Visit Provider Internal Medicine Interventional Cardiology | DX: I50.33 Acute on chronic diastolic (congestive) heart failure (principal); I10 Essential (primary) hypertension; R55 Syncope and collapse; I35.0 Nonrheumatic aortic (valve) stenosis | CPT/HCPCS: 93005; 99213 ==

== ENCOUNTER → 2023-04-06 09:14 | Outpatient (BNVA) | payer MEDICARE, SELFPAY | PROVIDERS: PCP Family Medicine; Referring Provider Family Medicine; Visit Provider Internal Medicine Cardiovascular Disease ==

== ENCOUNTER 2023-04-06 10:47 | Outpatient (CLI) | payer MEDICARE, SELFPAY ==
[2023-04-06 11:04] LABS: HCT 40.9 % (40.0-50.0); HGB 13.8 g/dL (13.5-17.5); MCH 32.3 pg (27.0-33.0); MCHC 33.7 % (32.0-36.0); MCV 96 fL (80-95); MPV 9.9 fL (8.0-11.0); Platelet Count 173 10^3/uL (130-400); RBC 4.27 10^6/uL (4.36-5.78); RDW 13.3 % (11.8-14.1); RDW-SD 47.2 fL; WBC 8.42 10^3/uL (4.4-10.8)
[2023-04-06 11:18] LABS: PTT Activated 26.3 sec (23.6-32.8); Prothrombin Time 10.1 sec (9.1-11.1)
[2023-04-06 11:41] LABS: Anion Gap 10.1 mmol/L (3-11); BUN 35 mg/dL (7-18); CO2 27.9 mmol/L (21.0-32.0); CREATININE 1.6 mg/dL (0.70-1.30); Calcium 9.6 mg/dL (8.5-10.1); Chloride 102 mmol/L (98-107); Estimated GFR 42.49 (mL/min/1.73m2); Glucose 115 mg/dL (74-106); Potassium 4.5 mmol/L (3.5-5.1); Sodium 140 mmol/L (136-145)
== END 2023-04-06 10:48 | disposition home or self-care (01) ==
PROVIDERS: PCP Family Medicine; Visit Provider Internal Medicine Cardiovascular Disease
DX: I35.0 Nonrheumatic aortic (valve) stenosis (principal); I50.33 Acute on chronic diastolic (congestive) heart failure
CPT/HCPCS: 36415; 80048; 85027; 99214; 85610; 85730

== ENCOUNTER → 2023-04-08 04:37 | Outpatient (CLI) | payer MEDICARE, SELFPAY ==
--- NOTE | 2023-04-08 15:40 | DI.US_ITS ---
APPROVED REPORT EXAM: Comprehensive 2D, Doppler, and color-flow Echocardiogram Patient Location: Out-Patient Sealing Machine Operator: Donna Clarke RDCS (AE) Indications: Severe Aortic stenosis, TAVR evaluation Other Information Study Quality: Adequate. Technically limited study due to body habitus subcostal imaging is limited.. Conclusion Left ventricular wall thickness and chamber size appear within the range of normal. Ejection fracti on is 55 to60%. Wall motion appears normal. Diastolic function is normal for age Normal right ventricular size and function Both atria are normal in size Aortic valve is calcified and probably trileaflet. There is moderate to severe aortic stenosis. Pea k gradient is 52, mean is 30. Calculated aortic valve area 0.9 cm2. There is no aortic regurgitatio n Mildly dilated ascending aorta 3.54 cm Wall motion Left Ventricle The left ventricle is normal size. The left ventricular systolic function is normal. The left ventric ular ejection fraction is within the normal range. There is normal left ventricular wall thickness. T here is normal LV segmental wall motion. Technically limited imaging. LVEF is 56%. Right Ventricle The right ventricle is normal size. The right ventricular systolic function is normal. Atria The left atrium size is normal. The right atrium size is normal. Technically limited imaging. Aortic Valve Aortic valve is calcified. Aortic valve is probably trileaflet. Moderate aortic stenosis. Peak aortic valve gradient is 52.05mmHg. Highest mean aortic valve gradient is 35.16 Calculated CHUY by the nancy nuity equation is .9cm2.mmHg. No aortic regurgitation is present. Mitral Valve Mild mitral annular calcification. No evidence of mitral valve stenosis. Trace mitral regurgitation. Tricuspid Valve The tricuspid valve is normal in structure. There is no tricuspid valve stenosis. Trace tricuspid reg urgitation. Pulmonic Valve The pulmonary valve is normal in structure. There is no pulmonic valvular stenosis. Trace pulmonic re gurgitation. Great Vessels The aortic root is normal in size. The ascending aorta is mildly dilated. Aortic arch is not well vis ualized. The IVC was not visualized, technically limited subcostal imaging. Pericardium Technically limited subcostal imaging 2D Dimensions IVSD d PLAX 0.87 cm M: 0.6-1.2 Ao Root d 3.52 cm M: 3.1 - 3.7 LVPW d PLAX 0.91 cm M: 0.6 - 1.2 Ao Asc Diam d 3.54 cm M: 2.6 - 3.4 LVID d PLAX 5.06 cm M: 4.2 - 5.8 LVDs 3.57 cm M: 2.5 - 4.0 LV EF Teichholz 56.0 % FS 29.39 % LV EDV (Teich) 121.4 mL LV ESV (Teich) 53.4 mL M-Mode TAPSE 2.70 cm (M/F) >1.7 Auto EF LV EDV A4C 109.2 mL LV EDV A2C 146.6 mL LV EDV BP 126.5 mL LV ESV A4C 52.8 mL LV ESV A2C 64.1 mL LV ESV BP 58.0 mL LVEF(%) A4C 51.7 % LVEF(%) A2C 56.3 % LVEF(%) BP 54.1 % LV SV A4C 56.5 ml LV SV A2C 82.5 ml LV SV BP 68.4 ml LV CO A4C 3.2 L/min LV CO A2C 4.7 L/min LV CO BP 4.0 L/min HR A4C 57.14 BPM HR A2C 56.68 BPM LV EDV Index (BP) LV Strain Long Pk Overal Avg (s) 15.99 LA Volume LA Length A4C 4.8 cm LA Length A2C 5.2 cm LA Area A4C s 17.31 cm2 LA Area A2C s 17.78 cm2 LA Vol A4C A-L 52.99 mL LA Vol A2C A-L 51.90 mL LA Vol Biplane A-L 54.4 mL LA Vol/BSA A4C A-L LA Vol/BSA A2C A-L LA Vol/BSA BP A-L 24.0 mL/m2 LA Vol A4C MOD 49.5 mL LA Vol A2C MOD 47.0 mL LA Vol BP MOD 49.7 mL RA Volume RA Area A4C 11.7 cm2 RA ESV A4C (A-L) 25.3mL RA Vol/BSA A4C A-L RA Length A4C 4.5 cm RA ESV A4C (MOD) 24.5mL LV Diastology MV E' medial 0.043 (>0.07 m/s) MV E Vmax 0.75 (0.4-1.3 m/s) MV E/E' MED 17.36 (<14) MV A Vmax 1.00 (0.4-1.3 m/s) MV E' lateral 0.072 (>0.1 m/s) E/A Ratio 0.8 MV E/E' LAT 10.46 (<14) MV E' Average 0.058 m/s MV E/E'(average) 13.05 Aortic Valve AoV Vmax 3.61 m/s LVOT Vmax 0.95 m/s AoV Peak Grad 52.0 mmHg LVOT Peak Grad 3.6 mmHg AoV Area (Vmax) 0.91 cm2 LVOT VTI 0.255 m AoV VTI 0.942 m LVOT Mean Grad 2.0 mmHg AoV Mean Eber. 2.81 m/s LVOT SV 87.57 mL AoV Mean Grad 35.2 mmHg LVOT Diam s 2.05 cm AoV Area (VTI) 0.93 cm2 Velocity Ratio 0.26 Mitral Valve MV DT 248 (160-240 msec) MV Vmax TIPS 0.93 m/s MV Mean Grad 1.1 (<2mmHg) MV VTI 0.371 m Pulmonary Valve PV Vmax 0.89 (0.5-1.5 m/s) RVOT Vmax 0.66 m/s PV Peak Grad 3.2 mmHg RVOT Peak Gr. 1.7 mmHg PV Mean Eber 0.59 m/s RVOT VTI 0.145 m PV Mean Grad 1.6 mmHg RVOT Mean Gr. 1.0 mmHg Tricuspid Valve TV S' 0.14 m/s TR Vmax 2.52 m/s TR Peak Grad 25.4 mmHg
== END ==
PROVIDERS: PCP Family Medicine; Visit Provider Internal Medicine Cardiovascular Disease
DX: I35.0 Nonrheumatic aortic (valve) stenosis (principal)
CPT/HCPCS: 93306

== ENCOUNTER → 2023-06-15 08:01 | Outpatient (BNVA) | payer MEDICARE, SELFPAY | PROVIDERS: PCP Family Medicine; Referring Provider Family Medicine; Visit Provider Podiatrist | DX: L60.0 Ingrowing nail (principal); I70.203 Unspecified atherosclerosis of native arteries of extremities, bilateral legs; G62.9 Polyneuropathy, unspecified; B35.1 Tinea unguium; L60.3 Nail dystrophy; M79.672 Pain in left foot; M79.671 Pain in right foot | CPT/HCPCS: 11721; 99214 ==

== ENCOUNTER 2023-09-07 13:14 | Outpatient (REF) | payer MEDICARE, SELFPAY ==
[2023-09-07 15:18] LABS: HCT 31.8 % (40.0-50.0); HGB 10.2 g/dL (13.5-17.5)
[2023-09-07 15:41] LABS: Anion Gap 6.8 mmol/L (3-11); BUN 32 mg/dL (7-18); CO2 29.2 mmol/L (21.0-32.0); CREATININE 1.7 mg/dL (0.70-1.30); Calcium 8.9 mg/dL (8.5-10.1); Chloride 102 mmol/L (98-107); Estimated GFR 39.51 (mL/min/1.73m2); Glucose 149 mg/dL (74-106); Potassium 4.4 mmol/L (3.5-5.1); Sodium 138 mmol/L (136-145); TSH (W/Ref FT4) 1.68 uIU/mL (0.36-3.74)
== END 2023-09-07 13:15 | disposition home or self-care (01) ==
LOC: NCHCN 13:14
PROVIDERS: PCP Family Medicine; Visit Provider Family Medicine
DX: I10 Essential (primary) hypertension (principal); E03.9 Hypothyroidism, unspecified; K92.89 Other specified diseases of the digestive system
CPT/HCPCS: 80048; 84443; 85014; 85018

== ENCOUNTER 2023-11-09 14:42 | Outpatient (REF) | payer MEDICARE, SELFPAY ==
[2023-11-09 15:47] LABS: HCT 34.1 % (40.0-50.0); HGB 11.2 g/dL (13.5-17.5); MCH 32.2 pg (27.0-33.0); MCHC 32.8 % (32.0-36.0); MCV 98 fL (80-95); MPV 11.1 fL (8.0-11.0); Platelet Count 136 10^3/uL (130-400); RBC 3.48 10^6/uL (4.36-5.78); RDW 13.6 % (11.8-14.1); RDW-SD 48.4 fL
[2023-11-09 16:04] LABS: ALT 38 U/L (16-63); AST 22 U/L (15-37); Albumin 3.6 g/dL (3.4-5.0); Alkaline Phosphatase 109 U/L (46-116); Anion Gap 6.2 mmol/L (3-11); BUN 29 mg/dL (7-18); Bilirubin, Total 0.36 mg/dL (0.2-1.0); C-Reactive Protein 1.23 mg/dL (<or=0.5); CO2 28.8 mmol/L (21.0-32.0); CREATININE 1.5 mg/dL (0.70-1.30); Calcium 9.1 mg/dL (8.5-10.1); Chloride 101 mmol/L (98-107); Estimated GFR 45.62 (mL/min/1.73m2); Glucose 109 mg/dL (74-106); Potassium 4.4 mmol/L (3.5-5.1); Sodium 136 mmol/L (136-145)
[2023-11-09 16:18] LABS: ESR 17 mm/hr (0-20)
[2023-11-10 09:58] LABS: Vitamin B12 1080 pg/mL (193-986)
[2023-11-10 19:26] LABS: Folate 9.9 ng/mL (See Note)
== END 2023-11-09 14:43 | disposition home or self-care (01) ==
LOC: NCHCN 14:42
PROVIDERS: PCP Family Medicine; Visit Provider Family Medicine
DX: I10 Essential (primary) hypertension (principal); M79.18 Myalgia, other site
CPT/HCPCS: 80053; 85027; 85652; 82607; 82746; 86140

== ENCOUNTER 2023-12-16 08:54 | Outpatient (REF) | payer MEDICARE, SELFPAY ==
[2023-12-16 15:33] LABS: HCT 36.3 % (40.0-50.0); HGB 11.7 g/dL (13.5-17.5)
[2023-12-16 15:50] LABS: Anion Gap 10.6 mmol/L (3-11); BUN 29 mg/dL (7-18); C-Reactive Protein 2.29 mg/dL (<or=0.5); CO2 27.4 mmol/L (21.0-32.0); CREATININE 1.6 mg/dL (0.70-1.30); Calcium 9.4 mg/dL (8.5-10.1); Chloride 104 mmol/L (98-107); Estimated GFR 42.22 (mL/min/1.73m2); Glucose 99 mg/dL (74-106); Potassium 4.4 mmol/L (3.5-5.1); Sodium 142 mmol/L (136-145)
[2023-12-17 17:02] LABS: Iron 75 ug/dL (65-175)
== END 2023-12-16 08:55 | disposition home or self-care (01) ==
LOC: NCHCN 08:54
PROVIDERS: PCP Family Medicine; Visit Provider Family Medicine
DX: N28.9 Disorder of kidney and ureter, unspecified (principal)
CPT/HCPCS: 80048; 83540; 85014; 85018; 86140

== ENCOUNTER 2024-03-14 10:37 | Outpatient (REF) | payer MEDICARE, SELFPAY ==
[2024-03-14 15:27] LABS: HCT 32.8 % (40.0-50.0); HGB 10.3 g/dL (13.5-17.5); MCH 30.3 pg (27.0-33.0); MCHC 31.4 % (32.0-36.0); MCV 97 fL (80-95); MPV 10.8 fL (8.0-11.0); Platelet Count 155 10^3/uL (130-400); RDW 14.2 % (11.8-14.1); WBC 7.31 10^3/uL (4.4-10.8)
[2024-03-14 15:39] LABS: ESR 30 mm/hr (0-20)
[2024-03-14 16:18] LABS: ALT 20 U/L (16-63); AST 14 U/L (15-37); Albumin 3.2 g/dL (3.4-5.0); Alkaline Phosphatase 99 U/L (46-116); BUN 17 mg/dL (7-18); Bilirubin, Total 0.39 mg/dL (0.2-1.0); C-Reactive Protein 3.28 mg/dL (<or=0.5); CREATININE 1.2 mg/dL (0.70-1.30); Calcium 9.4 mg/dL (8.5-10.1); Chloride 107 mmol/L (98-107); Creatine Kinase 65 U/L (39-308); Estimated GFR 59.63 (mL/min/1.73m2); Glucose 106 mg/dL (74-106); Potassium 4.4 mmol/L (3.5-5.1); Sodium 141 mmol/L (136-145); TSH (W/Ref FT4) 0.64 uIU/mL (0.36-3.74)
[2024-03-14 20:11] LABS: Hemoglobin A1C 5.9 % (<5.7)
[2024-03-16 10:16] LABS: IgA 194 mg/dL (85-499); IgG 1188 mg/dL (610-1616); IgM 93 mg/dL (35-242)
[2024-03-16 11:45] LABS: Albumin 52.2 % (55.8-66.1); Albumin g/dL 3.4 g/dL (3.6-5.2); Total Protein 6.6 g/dL (6.3-8.2)
== END 2024-03-14 10:38 | disposition home or self-care (01) ==
LOC: NCHCN 10:37
PROVIDERS: PCP Family Medicine; Visit Provider Family Medicine
DX: R73.03 Prediabetes (principal); I10 Essential (primary) hypertension
CPT/HCPCS: 80053; 82550; 82784; 85027; 85652; 83036; 84165; 84443; 86140

== ENCOUNTER 2024-05-23 14:06 | Outpatient (REF) | payer MEDICARE, SELFPAY ==
[2024-05-23 15:06] LABS: Abs Immature Grans 0.07 10^3/uL (0.0-0.06); Absolute Basophil Count 0.02 10^3/uL (0.0-0.2); Absolute Eosinophil Count 0.01 10^3/uL (0.0-0.7); Absolute Lymphocyte Count 0.47 10^3/uL (1.2-3.4); Absolute Monocyte Count 0.27 10^3/uL (0.1-0.8); Absolute Neutrophil Count 6.63 10^3/uL (1.2-6.7); Basophils % 0.3 %; Eosinophils % 0.1 %; HCT 40.9 % (40.0-50.0); Immature Grans % 0.9 %; Lymphocytes % 6.3 %; MCH 31.9 pg (27.0-33.0); MCHC 31.8 % (32.0-36.0); MCV 100 fL (80-95); MPV 11.1 fL (8.0-11.0); Monocytes % 3.6 %; Neutrophils % 88.8 %; Platelet Count 119 10^3/uL (130-400); RBC 4.08 10^6/uL (4.36-5.78); RDW 15.4 % (11.8-14.1); RDW-SD 56.6 fL; WBC 7.47 10^3/uL (4.4-10.8)
[2024-05-23 15:38] LABS: Vitamin B12 1223 pg/mL (193-986)
[2024-05-23 16:03] LABS: Diff Comment RBC Morph Reviewed; Macrocytosis 1+
[2024-05-23 16:08] LABS: C-Reactive Protein < 0.50 mg/dL (<or=0.5)
== END 2024-05-23 14:07 | disposition home or self-care (01) ==
LOC: NCHCN 14:06
PROVIDERS: PCP Family Medicine; Visit Provider Family Medicine
DX: D64.9 Anemia, unspecified (principal); R79.82 Elevated C-reactive protein (CRP)
CPT/HCPCS: 82607; 85025; 86140

== ENCOUNTER 2024-08-29 08:33 | Emergency (ER) | payer MEDICARE, SELFPAY ==
[2024-08-29] VITALS (29 sets, daily range): BP systolic 105–153; BP diastolic 43–76; PULSE 67–102; RESP 10–27; TEMP 36.4–36.9; O2SAT 88–100
--- NOTE | 2024-08-29 08:45 | DI.RAD_ITS ---
Exam(s) XR PORTABLE CHEST AP EXAM: XR PORTABLE CHEST AP CLINICAL HISTORY: SOB TECHNIQUE: 2D digital imaging was performed. COMPARISON: CR XR PORTABLE CHEST AP from 06/17/2022 FINDINGS: LUNGS: Clear. No pleural abnormality seen. HEART: mildly enlarged. AORTA: Mildly tortuous. Calcification at arch. BONES: Unremarkable for age. Soft tissues: Unremarkable. IMPRESSION: No acute findings. DATA REPOSITORY: RADIATION DOSE DELIVERED:
--- NOTE | 2024-08-29 08:45 | RT.EKG_ITS ---
APPROVED REPORT Exam: Resting ECG Reason for Exam: SOB Patient Location: E HR:82 bpm ECG Measurements Heart Rate 82 AXIS ME 237 P 70 QRSd 139 QRS 39 QT 409 T 38 QTc 478 Conclusion Sinus rhythm 82 1st degree block LBBB
--- NOTE | 2024-08-29 09:06 | W.ED.GENAD ---
Discharge Plan Disposition Patient Disposition: Home Condition: Stable Discharge Details Clinical Impression: Acute exacerbation of chronic obstructive pulmonary disease Primary Care Provider: Khadijah Henriquez V ED Provider: Anastacia Barrow Home Meds and New Rx's Prescriptions: New prednisone 20 mg tablet 60 mg PO DAILY 12 Days Qty: 14 0RF Rx Instructions: Take 3 tabs daily x 3 days, Take 2 tabs daily x 3 days, Take one tab daily x 6 days. No Action levothyroxine 125 mcg capsule 125 mcg PO DAILY aspirin [Adult Aspirin Regimen] 81 mg tablet,delayed release (DR/EC) 81 mg PO DAILY metoprolol succinate 100 mg tablet extended release 24 hr 100 mg PO DAILY tamsulosin 0.4 mg capsule 0.4 mg PO DAILY rosuvastatin 5 mg tablet 5 mg PO DAILY albuterol sulfate [Ventolin HFA] 90 mcg/actuation HFA aerosol inhaler 2 inh inhalation Q4H PRN cholecalciferol (vitamin D3) 50 mcg (2,000 unit) capsule 50 mcg PO DAILY furosemide [Lasix] 40 mg tablet 40 mg PO DAILY Qty: 90 3RF cyanocobalamin (vitamin B-12) 1,000 mcg tablet 1,000 mcg PO DAILY furosemide [Lasix] 40 mg tablet 40 mg PO DAILY lisinopril 20 mg tablet 20 mg PO DAILY cyanocobalamin (vitamin B-12) [Vitamin B-12] 1,000 mcg Tablet 1,000 mcg PO DAILY Discharge Instructions Instructions: Risk Factors for COPD, COPD Exacerbation, Adult ED, How to Use a Metered Dose Inhaler ED Additional Instructions: Please call the pulmonology clinic for a follow-up. You are also placed on the care management list to assist you with getting a appointment within the next 3 to 5 days if possible. Please use your albuterol inhaler 1 or 2 puffs every 4-6 hours as needed for shortness of breath or wheezing. No evidence of heart attack today. No evidence of pneumonia no evidence of COVID flu or RSV. You were given an additional dose of 20 mg of furosemide or Lasix today. Please follow-up closely with pulmonology and your PCP. If you begin to have any chest pain please follow-up with cardiology or return to the emergency department. Thank you for allowing us to care for you today. Referrals: [facility] [Provider Group] - 3 days Referral Note: ER follow up/ new patient Clinical Impression: Acute exacerbation of chronic obstructive pulmonary disease Khadijah Henriquez MD [Primary Care Provider, Medicine] - 1 week HPI General Mode of arrival: wheelchair. Date/Time Provider Initiated Documentation: 08/29/24 08:41. Limitations to Documentation: physical limitation (Hard of hearing). Information obtained by: patient, family, RN notes reviewed and old records reviewed. HPI Narrative: 83-year-old male presents to the ER with increased shortness of breath worsening over the last 3 to 4 days. This has been an ongoing problem and was recently taken off of a prednisone taper per his family's report and patient's report 2 to 3 weeks ago. He states that last night he did have some chest discomfort along with the increased shortness of breath worse with his exertion. He does have chronic edema to his bilateral lower extremities, 1+ pitting edema noted to his calves and shins. He does have a history of peripheral vascular disease. Other past medical history include aortic stenosis, valve replacement at [facility], diastolic heart failure, acute on chronic kidney injury, PSVT, hypertension hyperlipidemia polymyalgia rheumatica atherosclerosis of both lower extremities. Former smoker quit 40 years ago occasional alcohol Related Data Home Medications ?Medication ?Instructions ?Recorded ?Confirmed aspirin 81 mg tablet,delayed 81 mg PO DAILY 11/16/18 08/29/24 release (Adult Aspirin Regimen) levothyroxine 125 mcg capsule 125 mcg PO DAILY 11/16/18 08/29/24 metoprolol succinate 100 mg 100 mg PO DAILY 11/16/18 08/29/24 tablet,extended release 24 hr Held on 08/29/24. Instructions: Pt Stopped/Never Started cyanocobalamin (vitamin B-12) 1,000 mcg PO DAILY 09/04/19 08/29/24 1,000 mcg tablet (Vitamin B-12) tamsulosin 0.4 mg capsule 0.4 mg PO DAILY 12/19/19 08/29/24 albuterol sulfate 90 mcg/actuation 2 inh inhalation Q4H PRN 03/09/23 08/29/24 aerosol inhaler (Ventolin HFA) cholecalciferol (vitamin D3) 50 50 mcg PO DAILY 03/09/23 08/29/24 mcg (2,000 unit) capsule furosemide 40 mg tablet (Lasix) 40 mg PO DAILY #90 tabs 03/09/23 08/29/24 rosuvastatin 5 mg tablet 5 mg PO DAILY 03/09/23 08/29/24 cyanocobalamin (vitamin B-12) 1,000 mcg PO DAILY 06/11/23 08/29/24 1,000 mcg tablet furosemide 40 mg tablet (Lasix) 40 mg PO DAILY 06/11/23 08/29/24 Held on 08/29/24. Instructions: Pt Stopped/Never Started lisinopril 20 mg tablet 20 mg PO DAILY 06/11/23 08/29/24 prednisone 20 mg tablet 60 mg (3 x 20 mg) PO DAILY COPD 08/29/24 exacerbation 12 days #14 tabs Previous Rx's ?Medication ?Instructions ?Recorded furosemide 40 mg tablet (Lasix) 40 mg PO DAILY #90 tabs 03/09/23 prednisone 20 mg tablet 60 mg (3 x 20 mg) PO DAILY COPD 08/29/24 exacerbation 12 days #14 tabs Allergies Allergy/AdvReac Type Severity Reaction Status Date / Time No Known Allergies Allergy Verified 04/06/23 09:45 General Stated Complaint: SOB SANDRA: 3 Review of Systems All systems reviewed & are unremarkable except as noted in HPI and below Cardiovascular Cardiovascular: Denies chest pain, Reports dyspnea and Reports dyspnea on exertion Respiratory Respiratory: Reports as per HPI, Reports dyspnea, Reports dyspnea on exertion and Reports wheezing Allergic/Immunologic Allergic/Immunologic: Reports wheezing Exam Narrative Exam Narrative: Constitutional: Alert and oriented x3. Appears stated age. Obese. Appears chronically ill. Head: Normocephalic, no trauma. Eyes: Pupils PERRL, Red reflex noted, EOM's intact. Eyelids symmetrical without lesions, discharge, or swelling. ENT: Bilateral TM's WNL, External ear normal to inspection, no mastoid TTP, swelling, or erythema, Nasal turbinates WNL, no nasal discharge. Normal dentition, Posterior pharynx WNL, no exudate. Chest: RRR, Normal S1, S2, distal pulses intact. Resp: Expiratory wheezes noted bilaterally, Increased work of breathing. Abdomen: Soft, non-distended, Normoactive bowel sounds all 4 quads. Musculoskeletal: Unable to assess gait, Moves all 4 extremities without difficulty. Skin: No suspicious rashes or lesions. Capillary refill less than 2 sec. Neurologic: Cranial nerves II-XII intact. Alert and oriented x 3. Motor: No deficits noted. Hematologic/Lymphatic: No ecchymosis, no lymphadenopathy. Course Reevaluation(s) Reevaluation: On reevaluation patient has received his first albuterol/ipratropium nebulizer he reports feeling better wheezing has decreased. He still has some expiratory wheezes noted in the upper lobes. Denies any chest pain. He does have frequent PVCs on the monitor irregular wide-complex QRS left bundle branch block probably, and additional DuoNeb ordered. Time: 09:46 Vital Signs Vital signs: Vital Signs Temperature 36.4 C L 08/29/24 08:48 Pulse 87 08/29/24 08:48 Respiratory Rate 22 08/29/24 08:48 Blood Pressure 140/67 08/29/24 08:48 Pulse Oximetry 88 L 08/29/24 08:48 Temperature 36.4 C L 08/29/24 08:48 Pulse 87 08/29/24 08:48 Respiratory Rate 22 08/29/24 08:48 Blood Pressure 140/67 08/29/24 08:48 Pulse Oximetry 88 L 08/29/24 08:48 Oxygen Delivery Method Room Air 08/29/24 08:48 Oxygen Flow Rate 0 08/29/24 08:48 Medical Decision Making 83-year-old male presents to the ER with increased shortness of breath worsening over the last 3 to 4 days. This has been an ongoing problem and was recently taken off of a prednisone taper per his family's report and patient's report 2 to 3 weeks ago. He states that last night he did have some chest discomfort along with the increased shortness of breath worse with his exertion. He does have chronic edema to his bilateral lower extremities, 1+ pitting edema noted to his calves and shins. He does have a history of peripheral vascular disease. Other past medical history include aortic stenosis, valve replacement at [facility], diastolic heart failure, acute on chronic kidney injury, PSVT, hypertension hyperlipidemia polymyalgia rheumatica atherosclerosis of both lower extremities. Former smoker quit 40 years ago occasional alcohol EKG was reviewed by Dr. Harrell ER attending, old EKG available for review. Please see official report. Cardiopulmonary workup ordered including CBC CMP proBNP, D-dimer, VBG serial troponins EKG Fluvid chest x-ray DuoNeb and 125 mg of Solu-Medrol IV. Differential diagnosis includes but not limited to COPD exacerbation, CO, CAD, CHF exacerbation, PE, pneumonia, viral illness. Bedside echocardiogram ordered, will consider furosemide pending echocardiogram results. No leukocytosis hemoglobin 10.8 hematocrit 34.0 which is at patient's baseline, VBG shows no CO2 21 which is low base excess -3, BUN 20 creatinine 1.4 GFR is 49 which is slightly lower than his previous visits but at his baseline. Glucose 115 proBNP is elevated at 1013 in 2022 was 583, albumin 3.1 Fluvid is pending. Patient reevaluated echocardiogram in progress, he is satting 100% on 2 L, oxygen turned off he is currently satting 97% at rest. Will give 20 mg of Lasix IV and recheck a O2 sat with exertion. And after Lasix. Wheezing is less in the upper lobes. Pending serial troponins. Patient is now in a sinus rhythm. Troponins are downtrending, canceled the 3-hour troponin at this time the patient has no complaints of chest pain. Echocardiogram does not show any significant change from previous last year. Do suspect that this is more respiratory in COPD exacerbation. After speaking with medical staff coordinator patient was having difficulty standing up and walking, not due to the shortness of breath but to weakness. He has maintained an oxygen saturations above 93% this entire time on room air. The wheezing has decreased. I will place him back on the prednisone taper and refer him to pulmonology and have him follow-up with cardiology. Patient discharged in hemodynamically stable condition O2 sat 96% on room air. Patient discharged into the care of his family. Placed on the care management list for close follow-up. This text was generated using [employer] system, please disregard any oddities of phrase or misspellings. Medical Records Medical records reviewed: Yes I reviewed the patient's medical records. Lab Data Lab results reviewed: Yes I reviewed the patient's lab results. Labs: Laboratory Tests Range/Units 08/29/24 08/29/24 08/29/24 09:07 09:49 10:30 WBC (4.4-10.8) 10^3/uL 6.24 RBC (4.36-5.78) 10^6/uL 3.52 L Hgb (13.5-17.5) g/dL 10.8 L Hct (40.0-50.0) % 34.0 L MCV (80-95) fL 97 H MCH (27.0-33.0) pg 30.7 MCHC (32.0-36.0) % 31.8 L RDW (11.8-14.1) % 13.7 Plt Count (130-400) 10^3/uL 224 MPV (8.0-11.0) fL 9.6 Immature Gran % % 0.3 Neutrophils % % 70.0 Lymphocytes % % 15.7 Monocytes % % 7.4 Eosinophils % % 5.3 Basophils % % 1.3 Nucleated RBC % (0.0-0.3) % 0.0 Absolute Neutrophils (1.2-6.7) 10^3/uL 4.37 Absolute Lymphocytes (1.2-3.4) 10^3/uL 0.98 L Absolute Monocytes (0.1-0.8) 10^3/uL 0.46 Absolute Eosinophils (0.0-0.7) 10^3/uL 0.33 Absolute Basophils (0.0-0.2) 10^3/uL 0.08 PT (9.1-11.1) sec 10.8 INR (0.9-1.1) 1.1 APTT (20.6-30.2) sec 30.4 H VBG pH (7.31-7.41) 7.35 VBG pCO2 (41-51) mmHg 41 VBG pO2 mmHg 26 VBG HCO3 (23-28) mmol/L 23 VBG Total CO2 (24-29) mmol/L 21 L VBG O2 Saturation % 44 VBG Base Excess (-2-3) mmol/L -3 L Sodium (136-145) mmol/L 138 Potassium (3.5-5.1) mmol/L 4.6 Chloride (98-107) mmol/L 103 Carbon Dioxide (21.0-32.0) mmol/L 23.9 Anion Gap (3-11) mmol/L 11.1 H BUN (7-18) mg/dL 20 H Creatinine (0.70-1.30) mg/dL 1.4 H Est GFR (CKD-EPI 2020) (mL/min/1.73m2) 49.56 Glucose (74-106) mg/dL 115 H Calcium (8.5-10.1) mg/dL 9.3 Magnesium (1.8-2.4) mg/dL 2.1 Total Bilirubin (0.2-1.0) mg/dL 0.5 AST (15-37) U/L 14 L ALT (16-63) U/L 17 Alkaline Phosphatase (46-116) U/L 94 Troponin I (<or=76) ng/L 21 18 NT-Pro-B Natriuret Pep (<300) pg/mL 1013 H Total Protein (6.4-8.2) g/dL 7.1 Albumin (3.4-5.0) g/dL 3.1 L COVID-19 Source Nasopharynx SARS-CoV-2 (PCR) (Negative) Negative Influenza Type A (PCR) (Negative) Negative Influenza Type B (PCR) (Negative) Negative RSV (PCR) (Negative) Negative Range/Units 08/29/24 11:58 WBC (4.4-10.8) 10^3/uL RBC (4.36-5.78) 10^6/uL Hgb (13.5-17.5) g/dL Hct (40.0-50.0) % MCV (80-95) fL MCH (27.0-33.0) pg MCHC (32.0-36.0) % RDW (11.8-14.1) % Plt Count (130-400) 10^3/uL MPV (8.0-11.0) fL Immature Gran % % Neutrophils % % Lymphocytes % % Monocytes % % Eosinophils % % Basophils % % Nucleated RBC % (0.0-0.3) % Absolute Neutrophils (1.2-6.7) 10^3/uL Absolute Lymphocytes (1.2-3.4) 10^3/uL Absolute Monocytes (0.1-0.8) 10^3/uL Absolute Eosinophils (0.0-0.7) 10^3/uL Absolute Basophils (0.0-0.2) 10^3/uL PT (9.1-11.1) sec INR (0.9-1.1) APTT (20.6-30.2) sec VBG pH (7.31-7.41) VBG pCO2 (41-51) mmHg VBG pO2 mmHg VBG HCO3 (23-28) mmol/L VBG Total CO2 (24-29) mmol/L VBG O2 Saturation % VBG Base Excess (-2-3) mmol/L Sodium (136-145) mmol/L Potassium (3.5-5.1) mmol/L Chloride (98-107) mmol/L Carbon Dioxide (21.0-32.0) mmol/L Anion Gap (3-11) mmol/L BUN (7-18) mg/dL Creatinine (0.70-1.30) mg/dL Est GFR (CKD-EPI 2020) (mL/min/1.73m2) Glucose (74-106) mg/dL Calcium (8.5-10.1) mg/dL Magnesium (1.8-2.4) mg/dL Total Bilirubin (0.2-1.0) mg/dL AST (15-37) U/L ALT (16-63) U/L Alkaline Phosphatase (46-116) U/L Troponin I (<or=76) ng/L Cancelled NT-Pro-B Natriuret Pep (<300) pg/mL Total Protein (6.4-8.2) g/dL Albumin (3.4-5.0) g/dL COVID-19 Source SARS-CoV-2 (PCR) (Negative) Influenza Type A (PCR) (Negative) Influenza Type B (PCR) (Negative) RSV (PCR) (Negative) PFSH All Active Problems (Updated 08/29/24 @ 12:44 by Anastacia Barrow NP) Acute exacerbation of chronic obstructive pulmonary disease (Acute) Pain in right foot (Acute) Pain in left foot (Acute) Dystrophy of nail due to trauma (Acute) Onychomycosis (Acute) Neuropathy (Acute) Atherosclerosis of artery of both lower extremities (Acute) Disorder of kidney (Acute) Polyneuropathy (Acute) (HFpEF) heart failure with preserved ejection fraction (Acute) Aortic stenosis (Chronic) PMR (polymyalgia rheumatica) (Acute) 03/01/23 on chronic prednisone RH Urinary tract infection (Acute) Tmpic-af-bbenvdn kidney injury (Acute) Syncope (Chronic) Internal derangement of left knee (Acute) Depo-Medrol: 04/17/21 Osteoarthritis of right knee (Acute) Steroid injection: 12/19/2019 (40mg) Bilateral shoulder bursitis (Acute) Impingement syndrome of both shoulders (Acute) Adhesive capsulitis of both shoulders (Acute) Tendinitis of long head of biceps brachii of both shoulders (Acute) Nontraumatic tear of muscle or tendon of rotator cuff of both shoulders (Acute) Scapular dyskinesis (Acute) Peripheral neuropathy (Acute) Cervical spondylosis with myelopathy (Acute) Bilateral hip joint arthritis (Acute) Renal insufficiency (Chronic) Hypothyroidism (Chronic) Restless leg (Acute) Dyspnea on exertion (Acute) Asbestos exposure (Acute) Diverticulitis (Chronic) Cholelithiasis (Acute) Hyperlipidemia (Acute) Hypertension (Chronic) PSVT (paroxysmal supraventricular tachycardia) (Acute) Right carpal tunnel syndrome (Acute) S/P ECTR: 09/05/2019 Spondylolisthesis, cervical region (Acute) Medical History H/O polymyalgia rheumatica Localized edema Anemia Surgical History Hx of colonoscopy History of back surgery History of bowel resection sigmoid resection S/P appendectomy Social History Smoking/Tobacco Use Status: Former Tobacco Use Smoking risk assessment performed?: Yes Alcohol Intake: current Alcohol Intake frequency: a few times a month Alcohol type: beer Drug use: Never Substance use type: does not use Details: ALCOHOL: T-2, BEER. PT. STATES HE DOES NOT REMEMBER WHEN HE QUIT SMOKING, 40 YEARS AGO Housing: house Current gender identity: male Do you feel safe at home: Yes Do you feel safe in your relationship?: Yes
[2024-08-29 09:14] LABS: BE (Venous) -3 mmol/L (-2-3); HCO3 (Venous) 23 mmol/L (23-28); O2 Sat (Venous) 44 %; TCO2 (Venous) 21 mmol/L (24-29); pCO2 (Venous) 41 mmHg (41-51); pO2 (Venous) 26 mmHg
[2024-08-29 09:15] LABS: Abs Immature Grans 0.02 10^3/uL (0.0-0.06); HCT 34.0 % (40.0-50.0); HGB 10.8 g/dL (13.5-17.5); Immature Grans % 0.3 %; MCH 30.7 pg (27.0-33.0); MCHC 31.8 % (32.0-36.0); MCV 97 fL (80-95); MPV 9.6 fL (8.0-11.0); Platelet Count 224 10^3/uL (130-400); RBC 3.52 10^6/uL (4.36-5.78); RDW 13.7 % (11.8-14.1); RDW-SD 48.7 fL; WBC 6.24 10^3/uL (4.4-10.8)
[2024-08-29] MEDS: methylPREDNISolone SUCC 125 MG VIAL IVP (09:20)
[2024-08-29] MEDS: Albuterol/Ipratropium 3 ML UPD VIAL UPD ×2 (09:20→10:22)
[2024-08-29 09:34] LABS: INR 1.1 (0.9-1.1); PTT Activated 30.4 sec (20.6-30.2); Prothrombin Time 10.8 sec (9.1-11.1)
[2024-08-29 09:55] LABS: ALT 17 U/L (16-63); AST 14 U/L (15-37); Albumin 3.1 g/dL (3.4-5.0); Alkaline Phosphatase 94 U/L (46-116); Anion Gap 11.1 mmol/L (3-11); BUN 20 mg/dL (7-18); Bilirubin, Total 0.5 mg/dL (0.2-1.0); CO2 23.9 mmol/L (21.0-32.0); Calcium 9.3 mg/dL (8.5-10.1); Chloride 103 mmol/L (98-107); Estimated GFR 49.56 (mL/min/1.73m2); Glucose 115 mg/dL (74-106); Magnesium 2.1 mg/dL (1.8-2.4); NT-proBNP 1013 pg/mL (<300); Potassium 4.6 mmol/L (3.5-5.1); Sodium 138 mmol/L (136-145); Total Protein 7.1 g/dL (6.4-8.2); Troponin I 21 ng/L (<or=76)
[2024-08-29] MEDS: Aspirin 81 MG CHEW 243 MG CH (10:21)
[2024-08-29 10:31] LABS: COVID-19 PCR Negative (Negative); RSV PCR Negative (Negative)
--- NOTE | 2024-08-29 10:31 | DI.US_ITS ---
APPROVED REPORT EXAM: Comprehensive 2D, Doppler, and color-flow Echocardiogram Patient Location: ER Room/Bed: 7 Water Pipe Installer: Donna Clarke RDCS (AE) Indications: SOB, TAVR, CHF Other Information Study Quality: Fair. Technically limited study due to body habitus, exam done bedside er, supiine and seated position.. Conclusion Normal left ventricular wall thickness and chamber size. Ejection fraction is 55 to 60%. No segmental wall motion abnormalities are appreciated Normal right ventricular size and function Both atria are normal in size There is a transcatheter aortic valve replacement. Mean gradient is 10 mmHg. There is trace aortic regurgitation Mild mitral annular calcification, trace regurgitation Ascending aorta measures 3.6 cm Wall motion Left Ventricle The left ventricle is normal size. The overall left ventricular systolic function appears normal. There is normal left ventricular wall thickness. Regional wall motion is not well visualized but grossly normal. LVEF is 55%. Right Ventricle The right ventricle is normal size. The right ventricular systolic function is normal. Atria The left atrium size is normal. The right atrium size is normal. Aortic Valve There is no aortic valvular stenosis. Mean gradient is 10 mmHg Trace aortic regurgitation. TAVR aortic valve is present. Mitral Valve Mild mitral annular calcification. No evidence of mitral valve stenosis. Trace mitral regurgitation. Tricuspid Valve The tricuspid valve is normal in structure. There is no tricuspid valve stenosis. Trace tricuspid regurgitation. Pulmonic Valve The pulmonary valve is normal in structure. There is no pulmonic valvular stenosis. There is no pulmonic valvular regurgitation. Great Vessels The aortic root is normal in size. The ascending aorta is mildly dilated. Aortic arch is not well visualized. The IVC was not visualized. Pericardium Technically limited subcostal imaging. 2D Dimensions IVSD d PLAX 1.10 cm M: 0.6-1.2 Ao Root d 3.21 cm M: 3.1 - 3.7 LVPW d PLAX 1.10 cm M: 0.6 - 1.2 Ao Asc Diam d 3.60 cm M: 2.6 - 3.4 LVID d PLAX 4.53 cm M: 4.2 - 5.8 LVDs 3.30 cm M: 2.5 - 4.0 LV EF Teichholz 53.4 % FS 27.40 % LV EDV (Teich) 94.1 mL LV ESV (Teich) 43.9 mL M-Mode TAPSE 2.37 cm (M/F) >1.7 Auto EF LV EDV A4C 168.8 mL LV EDV A2C 117.5 mL LV EDV BP 142.6 mL LV ESV A4C 76.7 mL LV ESV A2C 52.2 mL LV ESV BP 62.6 mL LVEF(%) A4C 54.5 % LVEF(%) A2C 55.6 % LVEF(%) BP 56.1 % LV SV A4C 92.0 ml LV SV A2C 65.3 ml LV SV BP 80.0 ml LV CO A4C 7.9 L/min LV CO A2C 5.2 L/min LV CO BP 6.5 L/min HR A4C 85.47 BPM HR A2C 80.00 BPM LV EDV Index (BP) LA Volume LA Length A4C 6.0 cm LA Length A2C 5.5 cm LA Area A4C s 20.52 cm2 LA Area A2C s 21.31 cm2 LA Vol A4C A-L 59.55 mL LA Vol A2C A-L 69.66 mL LA Vol Biplane A-L 67.1 mL LA Vol/BSA A4C A-L LA Vol/BSA A2C A-L LA Vol/BSA BP A-L 29.4 mL/m2 LA Vol A4C MOD 52.8 mL LA Vol A2C MOD 65.2 mL LA Vol BP MOD 60.8 mL RA Volume RA Area A4C 15.6 cm2 RA ESV A4C (A-L) 39.2mL RA Vol/BSA A4C A-L RA Length A4C 5.3 cm RA ESV A4C (MOD) 36.7mL LV Diastology MV E' medial 0.067 (>0.07 m/s) MV E Vmax 0.92 (0.4-1.3 m/s) MV E/E' MED 13.79 (<14) MV A Vmax 0.90 (0.4-1.3 m/s) MV E' lateral 0.098 (>0.1 m/s) E/A Ratio 1.0 MV E/E' LAT 9.39 (<14) MV E' Average 0.082 m/s MV E/E'(average) 11.17 Aortic Valve AoV Vmax 2.34 m/s LVOT Vmax 1.10 m/s AoV Peak Grad 22.1 mmHg LVOT Peak Grad 4.9 mmHg AoV Area (Vmax) 1.65 cm2 LVOT VTI 0.254 m AoV VTI 0.425 m LVOT Mean Grad 2.9 mmHg AoV Mean Eber. 1.44 m/s LVOT SV 89.29 mL AoV Mean Grad 10.0 mmHg LVOT Diam s 2.10 cm AoV Area (VTI) 2.10 cm2 Velocity Ratio 0.47 Mitral Valve MV DT 278 (160-240 msec) MV Vmax TIPS 0.90 m/s MV Mean Grad 1.4 (<2mmHg) MV VTI 0.285 m Pulmonary Valve PV Vmax 1.01 (0.5-1.5 m/s) RVOT Vmax 0.83 m/s PV Peak Grad 4.1 mmHg RVOT Peak Gr. 2.8 mmHg PV Mean Eber 0.73 m/s RVOT VTI 0.173 m PV Mean Grad 2.4 mmHg RVOT Mean Gr. 1.6 mmHg Tricuspid Valve TV S' 0.20 m/s
[2024-08-29 11:18] LABS: Troponin I 18 ng/L (<or=76)
[2024-08-29] MEDS: Furosemide 20 MG/2 ML VIAL IVP (11:19)
== END 2024-08-29 13:38 | disposition home or self-care (01) ==
PROVIDERS: Emergency Provider Registered Nurse Emergency; PCP Family Medicine
DX: J44.1 Chronic obstructive pulmonary disease with (acute) exacerbation (principal)
CPT/HCPCS: 99284 ×2; 96374; 96375; 94640; 36415; 80053; 82805; 87637; 93005; 93306; 71045; 83735; 83880; 84484; 85025; 85610; 85730; 93010; J1938; J2919; J7620

== ENCOUNTER 2024-09-12 13:02 | Emergency (ER) | payer MEDICARE, SELFPAY ==
[2024-09-12 13:16] VITALS: BP 110/60; PULSE 77; RESP 20; TEMP 36.4; O2SAT 95
--- NOTE | 2024-09-12 13:30 | DI.RAD_ITS ---
Exam(s) XR CHEST 2V PA LATERAL EXAM: XR CHEST 2V PA LATERAL CLINICAL HISTORY: SOB. TECHNIQUE: 2D digital imaging was performed. COMPARISON: CR XR PORTABLE CHEST AP from 08/29/2024 FINDINGS: 2 views: There is an aortic valve TAVR evident. Heart size is normal. The mediastinum is not widened. Lungs are clear. No infiltrates nor pleural effusions. IMPRESSION: No acute pulmonary findings.Aortic valve TAVR. No evidence of pulmonary edema. DATA REPOSITORY: RADIATION DOSE DELIVERED:
--- NOTE | 2024-09-12 13:30 | RT.EKG_ITS ---
APPROVED REPORT Exam: Resting ECG Reason for Exam: shortness of breath Patient Location: E HR:85 bpm ECG Measurements Heart Rate 85 AXIS NC 253 P 29 QRSd 137 QRS 6 QT 418 T 174 QTc 499 Conclusion Unknown rhythm, irregular rate...V-rate 83-125, variation>10% Prolonged NC interval...NC >220, V-rate 50- 90 Left bundle branch block...QRSd>120, broad/notched R No Occlusion WA
--- NOTE | 2024-09-12 13:41 | DI.CT_ITS ---
Exam(s) CT ABDOMEN PELVIS W EXAM: CT ABDOMEN PELVIS W s CLINICAL HISTORY: RLQ tenderness. TECHNIQUE: Imaging Protocol: Axial computed tomography images with coronal and sagittal reformatted images were created and reviewed CONTRAST MATERIAL: Intravenous: Omnipaque-350 100cc Oral: None COMPARISON: CR XR LUMBAR SPINE AP, LAT from 03/14/2019 FINDINGS: VISUALIZED LUNG BASES: No nodules nor pleural effusions evident. There is an aortic valve TAVR. Normal heart size. No pericardial effusion. ABDOMEN: There is no ascites. LIVER: There are multiple benign cysts in both lobes of the liver. The largest measures 5.3 by 4.2 cm. There are no neoplastic appearing liver lesions and there are no dilated intrahepatic ducts. GALLBLADDER/BILIARY: There are multiple gallstones in the gallbladder lumen. Gallbladder is mildly distended but not edematous and there is no pericholecystic fluid. There are no calculi in the cystic duct nor in the nondilated CBD. PANCREAS: No evidence of pancreatic mass nor dilatation of the pancreatic duct. SPLEEN: Spleen is not enlarged. No obvious intrasplenic lesions. Splenic and portal veins are patent. ADRENALS: There are no significant adrenal masses. KIDNEYS:Right kidney unremarkable. Parapelvic cysts noted in left kidney. No other significant left kidney findings. No calculi nor hydronephrosis on either side. No solid renal masses.. ABDOMINAL AORTA: Calcified but not enlarged. Iliac arteries also calcified but not enlarged. LYMPH NODES:There is no retroperitoneal nor paraaortic adenopathy. ABDOMINAL WALL: No evidence of significant anterior abdominal wall nor inguinal hernia. GI: There is no evidence of bowel obstruction, free air, nor abscess. PELVIS: GI: Appendix appears to be surgically absent.There are diverticuli in the descending-left colon and in the sigmoid. No evidence of acute diverticulitis. There has been partial sigmoid resection.There is diverticulum off the medial wall of the colon at the level the anastomosis but no obvious acute in flammatory-type finding seen at this level at this time. LYMPH NODES: There is no intrapelvic nor inguinal adenopathy. REPRODUCTIVE: Prostate size upper normal normal. However, there appears to be an enhancing nodule in the superior aspect of the prostate gland. Seminal vesicles unremarkable. URINARY BLADDER: No calculi nor obvious masses evident OSSEOUS: There is a wedge compression fracture of T12, chronic. There also multilevel Schmorl's node invagination XXXX in endplates of all of the vertebral bodies in the lumbar spine, most prominent at the superior endplate of L4 which is probably an element of nonacute compression fracture at superior endplate level of L4. Also inferior endplate level of L3.. Prior right-sided lumbar laminectomies. No hardware. No significant spinal canal stenosis. No fractures. No significant osseous lesions. IMPRESSION: 1. Cholelithiasis. There multiple gallstones but without gallbladder wall edema nor pericholecystic fluid. CBD is not dilated. 2. Appendix appears to be surgically absent. 3. There has been partial sigmoid resection. 4. There is an enhancing nodule in the upper aspect of the prostate gland. Recommend appropriate testing to rule out of prostate malignancy. There is no intrapelvic adenopathy. 5. Nonacute appearing compression fractures and Schmorl's node invagination as described above. Report called by myself to ER provider on 09/12/2024 at 3:55 p.m. RADIATION DOSE DELIVERED: 783.12mGy.cm Total DLP DATA REPOSITORY: All CT scans at this facility are submitted to the National Radiology Data Registry (NRDR) Dose Index Registry (DIR) with the [employer] (A[employer]). RADIATION OPTIMIZATION: All CT scans at this facility use at least one of these dose optimization techniques: automated exposure control; mA and/or kV adjustment per patient size (includes targeted exams where dose is matched to clinical indication); or iterative reconstruction.
--- NOTE | 2024-09-12 13:44 | W.ED.GENAD ---
Discharge Plan Discharge Details Chief Complaint: GenMedical Primary Care Provider: Khadijah Henriquez V ED Provider: Mike Smyth Home Meds and New Rx's Prescriptions: No Action levothyroxine 125 mcg capsule 125 mcg PO DAILY aspirin [Adult Aspirin Regimen] 81 mg tablet,delayed release (DR/EC) 81 mg PO DAILY metoprolol succinate 100 mg tablet extended release 24 hr 100 mg PO DAILY tamsulosin 0.4 mg capsule 0.4 mg PO DAILY rosuvastatin 5 mg tablet 5 mg PO DAILY albuterol sulfate [Ventolin HFA] 90 mcg/actuation HFA aerosol inhaler 2 inh inhalation Q4H PRN cholecalciferol (vitamin D3) 50 mcg (2,000 unit) capsule 50 mcg PO DAILY furosemide [Lasix] 40 mg tablet 40 mg PO DAILY Qty: 90 3RF cyanocobalamin (vitamin B-12) 1,000 mcg tablet 1,000 mcg PO DAILY furosemide [Lasix] 40 mg tablet 40 mg PO DAILY lisinopril 20 mg tablet 20 mg PO DAILY cyanocobalamin (vitamin B-12) [Vitamin B-12] 1,000 mcg Tablet 1,000 mcg PO DAILY pantoprazole 40 mg tablet,delayed release (DR/EC) 40 mg PO DAILY metoprolol succinate 50 mg tablet extended release 24 hr 50 mg PO DAILY Patient Comments: TAKE ONE TABLET BY MOUTH EVERY DAY HPI General Date/Time Provider Initiated Documentation: 09/12/24 13:32. HPI Narrative: 83 year-old male presents to ED today by POV/ambulating with his family with a chief complaint of weakness, fatigue, shortness of breath, body aches with onset over the past 2 weeks. Patient has chronic RA, and was weaned off of long-term prednisone about a month ago- reporting joint pains. Patients' son also reports he has had ticks on him that the son has removed this summer, wants Lyme/tick-borne illness testing. Quality described as body aches, poor appetite, shortness of breath, no radiation to chest pain, vomiting, black/bloody stools, fever, dysuria, near syncope. Severity is described as severe. Palliating factors include takes pain medicine before bed which improves symptoms. Provoking factors include nothing specific. Events leading up to the incident/Associated Symptoms: Patient has a question of COPD with recent ER visit diagnosing exacerbation of COPD- very poor air quality today. Patient not anticoagulated. Related Data Home Medications ?Medication ?Instructions ?Recorded ?Confirmed aspirin 81 mg tablet,delayed 81 mg PO DAILY 11/16/18 09/12/24 release (Adult Aspirin Regimen) levothyroxine 125 mcg capsule 125 mcg PO DAILY 11/16/18 09/12/24 metoprolol succinate 100 mg 100 mg PO DAILY 11/16/18 09/12/24 tablet,extended release 24 hr Held on 08/29/24. Instructions: Pt Stopped/Never Started cyanocobalamin (vitamin B-12) 1,000 mcg PO DAILY 09/04/19 09/12/24 1,000 mcg tablet (Vitamin B-12) tamsulosin 0.4 mg capsule 0.4 mg PO DAILY 12/19/19 09/12/24 albuterol sulfate 90 mcg/actuation 2 inh inhalation Q4H PRN 03/09/23 09/12/24 aerosol inhaler (Ventolin HFA) cholecalciferol (vitamin D3) 50 50 mcg PO DAILY 03/09/23 09/12/24 mcg (2,000 unit) capsule furosemide 40 mg tablet (Lasix) 40 mg PO DAILY #90 tabs 03/09/23 09/12/24 rosuvastatin 5 mg tablet 5 mg PO DAILY 03/09/23 09/12/24 cyanocobalamin (vitamin B-12) 1,000 mcg PO DAILY 06/11/23 09/12/24 1,000 mcg tablet furosemide 40 mg tablet (Lasix) 40 mg PO DAILY 06/11/23 09/12/24 lisinopril 20 mg tablet 20 mg PO DAILY 06/11/23 09/12/24 metoprolol succinate 50 mg 50 mg PO DAILY 09/12/24 09/12/24 tablet,extended release 24 hr pantoprazole 40 mg tablet,delayed 40 mg PO DAILY 09/12/24 09/12/24 release Previous Rx's ?Medication ?Instructions ?Recorded furosemide 40 mg tablet (Lasix) 40 mg PO DAILY #90 tabs 03/09/23 Allergies Allergy/AdvReac Type Severity Reaction Status Date / Time No Known Allergies Allergy Verified 09/12/24 13:25 General Stated Complaint: GenMedical SANDRA: 3 Review of Systems All systems reviewed & are unremarkable except as noted in HPI and below Exam Narrative Exam Narrative: GENERAL APPEARANCE: Well-nourished, non-toxic, awake and alert, atraumatic, no acute distress. SKIN: Warm, pale, dry, intact, without rashes/lesions/ulcerations. HEAD: Normocephalic, atraumatic, normal hair distribution for gender/age. EYES: Normal conjunctiva, no exudates on lids/lashes. ENT: Nares patent, no circumoral cyanosis, no facial swelling, hoarse voice NECK: Supple, trachea midline, painless cervical ROM. LUNGS/CHEST: Lungs CTA bilaterally- no rhonchi/rales, mild expiratory wheeze L mid-lung, non-labored respirations, normal A/P diameter, symmetrical expansion, no chest wall deformity HEART (CV/PV): Regular rate and rhythm with subtle systolic 1/6 murmur, no peripheral edema/pitting edema of LEs, no JVD. ABDOMEN: Soft, non-distended, no guarding, RLQ tenderness without rebound tenderness, negative Coleman's sign. MSK: Normal ROM, no swelling/deformity to bilateral UEs or LEs, moving all extremities without weakness, no cyanosis, spine midline without tenderness, normal curvature. NEURO: Mental Status AAOx4 - alert to person, place, time, events No facial droop, no forehead involvement. Motor: No focal weakness - strength 5/5 in bilateral UEs and LEs, proximal and distal, symmetric. Sensory: sensation intact to light touch globally. Gait normal: patient ambulated without ataxia into ED room. PSYCH: euthymic, cooperative, pleasant, appropriate speech Course Vital Signs Vital signs: Vital Signs Temperature 36.4 C 09/12/24 13:16 Pulse 77 09/12/24 13:16 Respiratory Rate 20 09/12/24 13:16 Blood Pressure 110/60 09/12/24 13:16 Pulse Oximetry 95 09/12/24 13:16 Temperature 36.4 C 09/12/24 13:16 Temperature Source Oral 09/12/24 13:16 Pulse 77 09/12/24 13:16 Respiratory Rate 20 09/12/24 13:16 Blood Pressure 110/60 09/12/24 13:16 Blood Pressure Position Sitting 09/12/24 13:16 Pulse Oximetry 95 09/12/24 13:16 Oxygen Delivery Method Room Air 09/12/24 13:16 Oxygen Flow Rate 0 09/12/24 13:16 Medical Decision Making This dictation utilizes [id number] dictation software and may contain unedited grammatical errors. 83 year-old male presents to ED today by POV/ambulating with his family with a chief complaint of weakness, fatigue, shortness of breath, body aches with onset over the past 2 weeks. Patient has chronic RA, and was weaned off of long-term prednisone about a month ago- reporting joint pains. Patients' son also reports he has had ticks on him that the son has removed this summer, wants Lyme/tick-borne illness testing. Quality described as body aches, poor appetite, shortness of breath, no radiation to chest pain, vomiting, black/bloody stools, fever, dysuria, near syncope. Severity is described as severe. Palliating factors include takes pain medicine before bed which improves symptoms. Provoking factors include nothing specific. Events leading up to the incident/Associated Symptoms: Patient has a question of COPD with recent ER visit diagnosing exacerbation of COPD- very poor air quality today. Patients' medical history: Aortic stenosis failure with preserved ejection fraction, diverticulitis, dyspnea on exertion, asbestos exposure, hypertension, hyperlipidemia, PSVT polymyalgia rheumatica polyneuropathy, edema. Family and social history: Lives at home with his family. Pertinent exam findings / vital signs include no overt wheezing or rales at the base of lungs, has right lower quadrant tenderness without McBurney's point tenderness, no rebound tenderness, negative Coleman sign, audibly hoarse voice murmur of aortic stenosis, stable vitals nontoxic and afebrile. Differential / pathologies of concern include COPD exacerbation, heart failure, tickborne illness, upper respiratory infection, pneumonia, sepsis, exacerbation of chronic arthritis, gastroenteritis, dehydration. Diagnostic studies of: -CBC, CMP, serial troponin, lipase, magnesium, COVID/flu/RSV PCR, tickborne illness panel, CRP/ESR, VBG, x-ray chest, EKG. - CBC shows chronic stable anemia, no leukocytosis or left shift - ABG shows no acidosis - Lactate negative - CMP shows a mild increase in his creatinine at 1.8, baseline 1.2-1.4 - BNP is significantly elevated at 1710 - Magnesium within normal limits - Troponin negative with reliable onset - CRP significantly elevated at 8, ESR is 37 likely in the setting of his chronic rheumatoid arthritis - Lipase negative - EKG shows irregular rhythm 85 bpm; with some discernible P waves, prolonged NH interval and left bundle branch block without any Sgarbossa criteria -XR/CT pending at sign-out Interventions of: -9mL DuoNeb. ED Course/Assessment/Plan: 83-year-old male presents with generalized fatigue and weakness and poor p.o. intake for the past 2 weeks at home, his son is questioning whether he has a tickborne illness as he has significant body aches and is profoundly fatigued, he is also recently discontinued on prednisone for chronic rheumatoid arthritis. He has a hoarse voice and appears pale and mildly dehydrated which is confirmed on his CMP is within 500 mL of fluid breathing treatment, CRP and ESR are elevated which is likely due to his chronic rheumatoid arthritis. He is pending x-ray chest and CT ABD/pelvis for right lower quadrant tenderness at time of signout, possibly could be exacerbation of undiagnosed COPD with air quality, he may need to go back on prednisone +/- antibiotics. Patient signed out to Radha Becker NP at shift change with imaging pending. Findings not consistent with hypoxic respiratory failure, ACS, profound anemia, fever, meningismus. Disposition of Weakness. Patient verbalized understanding of the plan and return to ED criteria and engaged in shared decision making. Medical Records Medical records reviewed: Yes I reviewed the patient's medical records. Imaging Data Radiologic Study: Imaging: X-Ray My impression: Pending at sign-out Radiologic Study #2: Imaging: CT Scan My impression: Pending at sign-out Lab Data Lab results reviewed: Yes I reviewed the patient's lab results. Labs: Laboratory Tests Range/Units 09/12/24 14:24 WBC (4.4-10.8) 10^3/uL 6.43 RBC (4.36-5.78) 10^6/uL 3.39 L Hgb (13.5-17.5) g/dL 10.6 L Hct (40.0-50.0) % 33.2 L MCV (80-95) fL 98 H MCH (27.0-33.0) pg 31.3 MCHC (32.0-36.0) % 31.9 L RDW (11.8-14.1) % 13.3 Plt Count (130-400) 10^3/uL 215 MPV (8.0-11.0) fL 10.2 Immature Gran % % 0.3 Neutrophils % % 72.9 Lymphocytes % % 13.4 Monocytes % % 5.4 Eosinophils % % 6.8 Basophils % % 1.2 Nucleated RBC % (0.0-0.3) % 0.0 Absolute Neutrophils (1.2-6.7) 10^3/uL 4.68 Absolute Lymphocytes (1.2-3.4) 10^3/uL 0.86 L Absolute Monocytes (0.1-0.8) 10^3/uL 0.35 Absolute Eosinophils (0.0-0.7) 10^3/uL 0.44 Absolute Basophils (0.0-0.2) 10^3/uL 0.08 ESR (0-20) mm/hr 37 H VBG pH (7.31-7.41) 7.33 VBG pCO2 (41-51) mmHg 49 VBG pO2 mmHg 32 VBG HCO3 (23-28) mmol/L 26 VBG Total CO2 (24-29) mmol/L 25 VBG O2 Saturation % 51 VBG Base Excess (-2-3) mmol/L 0 VBG Lactate (<or=2.0) mmol/L 1.7 Sodium (136-145) mmol/L 141 Potassium (3.5-5.1) mmol/L 4.2 Chloride (98-107) mmol/L 106 Carbon Dioxide (21.0-32.0) mmol/L 28.7 Anion Gap (3-11) mmol/L 6.3 BUN (7-18) mg/dL 25 H Creatinine (0.70-1.30) mg/dL 1.8 H Est GFR (CKD-EPI 2020) (mL/min/1.73m2) 36.66 Glucose (74-106) mg/dL 147 H Calcium (8.5-10.1) mg/dL 9.2 Magnesium (1.8-2.4) mg/dL 1.8 Total Bilirubin (0.2-1.0) mg/dL 0.4 AST (15-37) U/L 14 L ALT (16-63) U/L 16 Alkaline Phosphatase (46-116) U/L 99 Troponin I (<or=76) ng/L 20 C-Reactive Protein (<or=0.5) mg/dL 8.04 H NT-Pro-B Natriuret Pep (<300) pg/mL 1710 H Total Protein (6.4-8.2) g/dL 7.1 Albumin (3.4-5.0) g/dL 3.0 L Lipase (<78) U/L 27 PFSH All Active Problems (Updated 08/29/24 @ 12:44 by Anastacia Barrow NP) Acute exacerbation of chronic obstructive pulmonary disease (Acute) Pain in right foot (Acute) Pain in left foot (Acute) Dystrophy of nail due to trauma (Acute) Onychomycosis (Acute) Neuropathy (Acute) Atherosclerosis of artery of both lower extremities (Acute) Disorder of kidney (Acute) Polyneuropathy (Acute) (HFpEF) heart failure with preserved ejection fraction (Acute) Aortic stenosis (Chronic) PMR (polymyalgia rheumatica) (Acute) 03/01/23 on chronic prednisone RH Urinary tract infection (Acute) [id number] kidney injury (Acute) Syncope (Chronic) Internal derangement of left knee (Acute) Depo-Medrol: 04/17/21 Osteoarthritis of right knee (Acute) Steroid injection: 12/19/2019 (40mg) Bilateral shoulder bursitis (Acute) Impingement syndrome of both shoulders (Acute) Adhesive capsulitis of both shoulders (Acute) Tendinitis of long head of biceps brachii of both shoulders (Acute) Nontraumatic tear of muscle or tendon of rotator cuff of both shoulders (Acute) Scapular dyskinesis (Acute) Peripheral neuropathy (Acute) Cervical spondylosis with myelopathy (Acute) Bilateral hip joint arthritis (Acute) Renal insufficiency (Chronic) Hypothyroidism (Chronic) Restless leg (Acute) Dyspnea on exertion (Acute) Asbestos exposure (Acute) Diverticulitis (Chronic) Cholelithiasis (Acute) Hyperlipidemia (Acute) Hypertension (Chronic) PSVT (paroxysmal supraventricular tachycardia) (Acute) Right carpal tunnel syndrome (Acute) S/P ECTR: 09/05/2019 Spondylolisthesis, cervical region (Acute) Medical History H/O polymyalgia rheumatica Localized edema Anemia Surgical History Hx of colonoscopy History of back surgery History of bowel resection sigmoid resection S/P appendectomy Social History Smoking/Tobacco Use Status: Former Tobacco Use Smoking risk assessment performed?: Yes Alcohol Intake: current Alcohol Intake frequency: a few times a month Alcohol type: beer Drug use: Never Substance use type: does not use Details: ALCOHOL: T-2, BEER. PT. STATES HE DOES NOT REMEMBER WHEN HE QUIT SMOKING, 40 YEARS AGO Housing: house Current gender identity: male Do you feel safe at home: Yes Do you feel safe in your relationship?: Yes
[2024-09-12] MEDS: Albuterol/Ipratropium 3 ML UPD VIAL 9 ML UPD (14:11)
[2024-09-12 14:34] LABS: BE (Venous) 0 mmol/L (-2-3); HCO3 (Venous) 26 mmol/L (23-28); O2 Sat (Venous) 51 %; TCO2 (Venous) 25 mmol/L (24-29); pCO2 (Venous) 49 mmHg (41-51); pO2 (Venous) 32 mmHg
[2024-09-12 14:36] LABS: Abs Immature Grans 0.02 10^3/uL (0.0-0.06); HCT 33.2 % (40.0-50.0); HGB 10.6 g/dL (13.5-17.5); Immature Grans % 0.3 %; MCH 31.3 pg (27.0-33.0); MCHC 31.9 % (32.0-36.0); MCV 98 fL (80-95); MPV 10.2 fL (8.0-11.0); Platelet Count 215 10^3/uL (130-400); RBC 3.39 10^6/uL (4.36-5.78); RDW 13.3 % (11.8-14.1); RDW-SD 47.8 fL; WBC 6.43 10^3/uL (4.4-10.8)
[2024-09-12 14:37] LABS: ESR 37 mm/hr (0-20)
[2024-09-12 14:59] LABS: ALT 16 U/L (16-63); AST 14 U/L (15-37); Albumin 3.0 g/dL (3.4-5.0); Alkaline Phosphatase 99 U/L (46-116); Anion Gap 6.3 mmol/L (3-11); BUN 25 mg/dL (7-18); Bilirubin, Total 0.4 mg/dL (0.2-1.0); C-Reactive Protein 8.04 mg/dL (<or=0.5); CO2 28.7 mmol/L (21.0-32.0); Calcium 9.2 mg/dL (8.5-10.1); Chloride 106 mmol/L (98-107); Estimated GFR 36.66 (mL/min/1.73m2); Glucose 147 mg/dL (74-106); Lipase 27 U/L (<78); Magnesium 1.8 mg/dL (1.8-2.4); NT-proBNP 1710 pg/mL (<300); Potassium 4.2 mmol/L (3.5-5.1); Sodium 141 mmol/L (136-145); Total Protein 7.1 g/dL (6.4-8.2); Troponin I 20 ng/L (<or=76)
[2024-09-12] MEDS: Normal Saline - Diluent 50 ML VIAL IJ (15:28)
[2024-09-12] MEDS: Omnipaque 350 MG/ML 100 ML BTL IJ (15:29)
[2024-09-12 16:55] LABS: Troponin I 16 ng/L (<or=76)
--- NOTE | 2024-09-12 17:26 | ED.PROG_ITS ---
Date of service: 09/12/24 Time of Service: 17:26 Medical Decision Making Care assumed from provider (GUILLERMO Agosto) Please see their initial HPI, PE, and documentation. Discussed patient details and case and pending workup and disposition. Patient is hemodynamically stable, and alert and oriented. At the time of signout awaiting chest x-ray result, CT abdomen pelvis and 1 hour troponin which is downtrending. In short patient is an 83-year-old male with generalized weakness and decreased appetite. History of rheumatoid arthritis which was recently on prednisone however family is concerned he might have Lyme disease for some recent tick bites. Extensive workup ordered including serial troponins and proBNP which is elevated today at 1710, patient does take Lasix 40 mg daily. Tick and Lyme panel is pending. CT exam does show some incidental findings including an enhancing nodule in the prostate, some gallstones please see official report. No evidence of anaplasmosis noted on labs. On reevaluation, patient is in the bed with his family at bedside. He is slightly hard of hearing, ANO x 3. Discussed labs, CT results with patient and family who verbalized understanding. On further questioning he has been off his Lasix for unknown amount of time and just recently restarted on Wednesday which could explain his elevated BNP. They do present for decreased appetite and generalized weakness. He was also on a prednisone taper in the past and has been off that for approximately a month wh ere the weakness has gotten worse. Patient discharged into the care of his family who are very knowledgeable and felt comfortable taking him home with close follow-up. I do encourage close follow-up with primary care provider. We were unable to obtain a urine specimen here today. Or a Fluvid swab. Tick and Lyme panel is pending. Will place patient on prednisone 40 mg, and doxycycline for possible tick bite and Lyme disease treatment. Instructed to follow-up closely with PCP. This text was generated using [employer] system, please disregard any oddities of phrase or misspellings. Medical Records Medical records reviewed: Yes I reviewed the patient's medical records. Imaging Data Radiologic Study: Imaging: CT Scan Radiologist's impression: IMPRESSION: 1. Cholelithiasis. There multiple gallstones but without gallbladder wall edema nor pericholecystic fluid. CBD is not dilated. 2. Appendix appears to be surgically absent. 3. There has been partial sigmoid resection. 4. There is an enhancing nodule in the upper aspect of the prostate gland. Recommend appropriate testing to rule out of prostate malignancy. There is no intrapelvic adenopathy. 5. Nonacute appearing compression fractures and Schmorl's node invagination as described above. Lab Data Lab results reviewed: Yes I reviewed the patient's lab results. Labs: Laboratory Tests Range/Units 09/12/24 09/12/24 14:24 15:53 WBC (4.4-10.8) 10^3/uL 6.43 RBC (4.36-5.78) 10^6/uL 3.39 L Hgb (13.5-17.5) g/dL 10.6 L Hct (40.0-50.0) % 33.2 L MCV (80-95) fL 98 H MCH (27.0-33.0) pg 31.3 MCHC (32.0-36.0) % 31.9 L RDW (11.8-14.1) % 13.3 Plt Count (130-400) 10^3/uL 215 MPV (8.0-11.0) fL 10.2 Immature Gran % % 0.3 Neutrophils % % 72.9 Lymphocytes % % 13.4 Monocytes % % 5.4 Eosinophils % % 6.8 Basophils % % 1.2 Nucleated RBC % (0.0-0.3) % 0.0 Absolute Neutrophils (1.2-6.7) 10^3/uL 4.68 Absolute Lymphocytes (1.2-3.4) 10^3/uL 0.86 L Absolute Monocytes (0.1-0.8) 10^3/uL 0.35 Absolute Eosinophils (0.0-0.7) 10^3/uL 0.44 Absolute Basophils (0.0-0.2) 10^3/uL 0.08 ESR (0-20) mm/hr 37 H VBG pH (7.31-7.41) 7.33 VBG pCO2 (41-51) mmHg 49 VBG pO2 mmHg 32 VBG HCO3 (23-28) mmol/L 26 VBG Total CO2 (24-29) mmol/L 25 VBG O2 Saturation % 51 VBG Base Excess (-2-3) mmol/L 0 VBG Lactate (<or=2.0) mmol/L 1.7 Sodium (136-145) mmol/L 141 Potassium (3.5-5.1) mmol/L 4.2 Chloride (98-107) mmol/L 106 Carbon Dioxide (21.0-32.0) mmol/L 28.7 Anion Gap (3-11) mmol/L 6.3 BUN (7-18) mg/dL 25 H Creatinine (0.70-1.30) mg/dL 1.8 H Est GFR (CKD-EPI 2020) (mL/min/1.73m2) 36.66 Glucose (74-106) mg/dL 147 H Calcium (8.5-10.1) mg/dL 9.2 Magnesium (1.8-2.4) mg/dL 1.8 Total Bilirubin (0.2-1.0) mg/dL 0.4 AST (15-37) U/L 14 L ALT (16-63) U/L 16 Alkaline Phosphatase (46-116) U/L 99 Troponin I (<or=76) ng/L 20 16 C-Reactive Protein (<or=0.5) mg/dL 8.04 H NT-Pro-B Natriuret Pep (<300) pg/mL 1710 H Total Protein (6.4-8.2) g/dL 7.1 Albumin (3.4-5.0) g/dL 3.0 L Lipase (<78) U/L 27 Discharge Plan Disposition Patient Disposition: Home Condition: Stable Discharge Details Clinical Impression: Weakness, Tick bite Primary Care Provider: Khadijah Henriquez V ED Provider: Anastacia Barrow [place] Meds and New Rx's Prescriptions: New prednisone 20 mg tablet 40 mg PO DAILY 9 Days Qty: 18 0RF Rx Instructions: Take 3 tabs daily x 3 days, Take 2 tabs daily x 3 days, Take one tab daily x 3 days. doxycycline hyclate 100 mg tablet 100 mg PO BID 10 Days Qty: 20 0RF Rx Instructions: Please take 1 tablet by mouth twice daily for the next 10 days Continued levothyroxine 125 mcg capsule 125 mcg PO DAILY aspirin [Adult Aspirin Regimen] 81 mg tablet,delayed release (DR/EC) 81 mg PO DAILY metoprolol succinate 100 mg tablet extended release 24 hr 100 mg PO DAILY tamsulosin 0.4 mg capsule 0.4 mg PO DAILY rosuvastatin 5 mg tablet 5 mg PO DAILY albuterol sulfate [Ventolin HFA] 90 mcg/actuation HFA aerosol inhaler 2 inh inhalation Q4H PRN cholecalciferol (vitamin D3) 50 mcg (2,000 unit) capsule 50 mcg PO DAILY furosemide [Lasix] 40 mg tablet 40 mg PO DAILY Qty: 90 3RF cyanocobalamin (vitamin B-12) 1,000 mcg tablet 1,000 mcg PO DAILY furosemide [Lasix] 40 mg tablet 40 mg PO DAILY lisinopril 20 mg tablet 20 mg PO DAILY cyanocobalamin (vitamin B-12) [Vitamin B-12] 1,000 mcg Tablet 1,000 mcg PO DAILY pantoprazole 40 mg tablet,delayed release (DR/EC) 40 mg PO DAILY metoprolol succinate 50 mg tablet extended release 24 hr 50 mg PO DAILY Patient Comments: TAKE ONE TABLET BY MOUTH EVERY DAY Discharge Instructions Instructions: Lyme Disease Test, Weakness ED Additional Instructions: At this time your proBNP which is an indication of your heart stretching lab is elevated. This could be because you have been off your Lasix for an unknown amount of time. The tick and Lyme panel is pending at this time. CT scan shows a nodule on your prostate please have this followed up on, You were given prednisone and a taper which was sent to the pharmacy on file and doxycycline to treat for possible tick related disease. Please discuss this with your primary care provider. Please take your previously prescribed medications as directed. We were unable to get a urine sample today please discuss with your primary care provider unable to tell if you may have a urinary tract infection. However the antibiotic can also help with this. Follow up with primary care provider in 3-5 days. Return to ED sooner if any worsening weakness, fever over 100.8, no improvement after the next 2 to 3 days of antibiotics and medications or concerns. Thank you for allowing us to care for you today. Referrals: Khadijah Henriquez MD [Primary Care Provider, Medicine] - 5 days Referral Note: ER follow-up, call for an appointment Clinical Impression: Tick bite; Weakness Discharge Data Discharge Date/Time-TO BE ENTERED AT DEPARTURE: 09/12/24 18:24
[2024-09-12] MEDS: Doxycycline Hyclate 100 MG CAP PO (18:18)
[2024-09-12] MEDS: predniSONE 20 MG TAB 40 MG PO (18:18)
[2024-09-12 18:24] VITALS: BP 110/60; PULSE 77; RESP 15; RESP 20; TEMP 36.4; O2SAT 95
[2024-09-13 09:21] LABS: Lyme Ab w Rflx to Lyme Confirm Negative (Negative)
[2024-09-14 19:19] LABS: PSA, Screening 1.2 ng/mL (<=6.5)
[2024-09-15 14:09] LABS: B. miyamotoi PCR Negative (Negative); Babesia divergens/MO-1 Negative (Negative); Ehrlichia muris eauclairensis Negative (Negative)
== END 2024-09-12 18:24 | disposition home or self-care (01) ==
PROVIDERS: Physician Assistant; Emergency Provider Registered Nurse Emergency; PCP Family Medicine
DX: R53.1 Weakness (principal); I44.7 Left bundle-branch block, unspecified; I11.0 Hypertensive heart disease with heart failure; I50.33 Acute on chronic diastolic (congestive) heart failure; M35.3 Polymyalgia rheumatica; E78.5 Hyperlipidemia, unspecified; Z95.2 Presence of prosthetic heart valve; Z79.82 Long term (current) use of aspirin; Z87.891 Personal history of nicotine dependence
CPT/HCPCS: 00123; 80053; 82805; 83690; 84153; 85652; 87637; 87798; 93005; 94640; 99285; 71046; 74177; 83605; 83735; 83880; 84484; 85025; 86140; 86618; 93010; J3490; J7512; J7620

== ENCOUNTER → 2024-10-12 07:37 | Outpatient (BNVA) | payer MEDICARE, SELFPAY | PROVIDERS: PCP Family Medicine; Referring Provider Family Medicine; Visit Provider Surgery | DX: K80.20 Calculus of gallbladder without cholecystitis without obstruction (principal); J44.9 Chronic obstructive pulmonary disease, unspecified | CPT/HCPCS: 99214 ==

== ENCOUNTER → 2024-10-12 08:27 | Outpatient (BNVA) | payer MEDICARE, SELFPAY | PROVIDERS: PCP Family Medicine; Referring Provider Family Medicine; Visit Provider Internal Medicine Pulmonary Disease | DX: J44.89 Other specified chronic obstructive pulmonary disease (principal); J30.9 Allergic rhinitis, unspecified; Z95.2 Presence of prosthetic heart valve | CPT/HCPCS: 90684; 99214; 99215 ==

== ENCOUNTER 2024-11-16 23:25 | Inpatient (IN) | payer MEDICARE, SELFPAY ==
[2024-11-16 23:29] VITALS: BP 99/48; PULSE 110; RESP 24; TEMP 36.5; O2SAT 98
--- NOTE | 2024-11-16 23:30 | RT.EKG_ITS ---
APPROVED REPORT Exam: Resting ECG Reason for Exam: fall/trauma Patient Location: E HR:106 bpm ECG Measurements Heart Rate 106 AXIS WI [id number] P [id number] QRSd 86 QRS -8 QT 336 T 57 QTc 448 Conclusion Atrial fibrillation...V-rate 78-143, irreg A-activity Narrow complext tachycardia, periods of what appear to be SR interspersed with irregular narrow complex beats questionable for afib no ST segment or T wave abnormalitites to suggest occlusive MS
[2024-11-16 23:50] LABS: BE (Venous) -2 mmol/L (-2-3); HCO3 (Venous) 24 mmol/L (23-28); O2 Sat (Venous) 31 %; TCO2 (Venous) 23 mmol/L (24-29); pCO2 (Venous) 43 mmHg (41-51); pO2 (Venous) 24 mmHg
--- NOTE | 2024-11-16 23:51 | W.ED.GENAD ---
Discharge Plan Disposition Patient Disposition: Admit to [facility] Condition: Serious Discharge Details Clinical Impression: Shock, Sepsis, Shortness of breath, NSTEMI (non-ST elevation myocardial infarction), KIA (acute kidney injury), CKD (chronic kidney disease), Urinary tract infection Primary Care Provider: Khadijah Henriquez V ED Provider: Maya Watters Home Meds and New Rx's Prescriptions: No Action levothyroxine 125 mcg capsule 125 mcg PO DAILY prednisone 5 mg tablet 5 mg PO DAILY PRN prednisone 1 mg tablet 1 mg PO DAILY budesonide-formoterol [Symbicort] 80-4.5 mcg/actuation HFA aerosol inhaler 2 puff inhalation BID PRN tamsulosin 0.4 mg capsule 0.4 mg PO DAILY rosuvastatin 5 mg tablet 5 mg PO DAILY albuterol sulfate [Ventolin HFA] 90 mcg/actuation HFA aerosol inhaler 2 inh inhalation Q4H PRN cyanocobalamin (vitamin B-12) 1,000 mcg tablet 1,000 mcg PO DAILY furosemide [Lasix] 40 mg tablet 40 mg PO DAILY lisinopril 20 mg tablet 20 mg PO DAILY loratadine [Allergy Relief (loratadine)] 10 mg tablet 10 mg PO DAILY budesonide-formoterol [Breyna] 160-4.5 mcg/actuation HFA aerosol inhaler 2 puff inhalation Q12H Qty: 10.2 3RF pantoprazole 40 mg tablet,delayed release (DR/EC) 40 mg PO DAILY metoprolol succinate 50 mg tablet extended release 24 hr 50 mg PO DAILY Patient Comments: TAKE ONE TABLET BY MOUTH EVERY DAY Eliquis 5 mg tablet 5 mg PO ONCE HPI General Mode of arrival: ambulatory. Date/Time Provider Initiated Documentation: 11/16/24 23:27. Limitations to Documentation: no limitations. Information obtained by: patient, family and old records reviewed (pulmonology visit 10/12). HPI Narrative: 84yo M with hx COPD, HTN, HLD, HfpEF, TAVR PMR, CKD, hypothyroid, presenting for a fall. History from patient and family at bedside. Patient fell the day before yesterday while walking up the stairs; did not strike his head or lose consciousness. No pain initially after the fall but today noted left ankle pain and swelling. Noted severe posterior neck pain this evening while trying to sleep, worse with movement. No headache; did have fever at home (do not recall how high) and chills earlier in the day with worsening shortness of breath this evening. Worried that his shortness of breath may be 2/t an allergy as he started inhalers for COPD recently (saw pulmonology on 10/12/24) No chest pain or back pain. No numbness, tingling, weakness, vertigo, or vision changes. No cough or rhinnorhea; has had sore throat. Otherwise in his usual state of health. Related Data Home Medications ?Medication ?Instructions ?Recorded ?Confirmed levothyroxine 125 mcg capsule 125 mcg PO DAILY 11/16/18 11/16/24 tamsulosin 0.4 mg capsule 0.4 mg PO DAILY 12/19/19 11/16/24 albuterol sulfate 90 mcg/actuation 2 inh inhalation Q4H PRN 03/09/23 11/16/24 aerosol inhaler (Ventolin HFA) rosuvastatin 5 mg tablet 5 mg PO DAILY 03/09/23 11/16/24 cyanocobalamin (vitamin B-12) 1,000 mcg PO DAILY 06/11/23 11/16/24 1,000 mcg tablet furosemide 40 mg tablet (Lasix) 40 mg PO DAILY 06/11/23 11/16/24 lisinopril 20 mg tablet 20 mg PO DAILY 06/11/23 11/16/24 metoprolol succinate 50 mg 50 mg PO DAILY 09/12/24 11/16/24 tablet,extended release 24 hr pantoprazole 40 mg tablet,delayed 40 mg PO DAILY 09/12/24 11/16/24 release budesonide-formoterol HFA 160 2 puff inhalation Q12H #10.2 grams 10/12/24 11/16/24 mcg-4.5 mcg/actuation aerosol inhaler (Breyna) budesonide-formoterol HFA 80 2 puff inhalation BID PRN 10/12/24 11/16/24 mcg-4.5 mcg/actuation aerosol inhaler (Symbicort) loratadine 10 mg tablet (Allergy 10 mg PO DAILY 10/12/24 11/16/24 Relief (loratadine)) prednisone 1 mg tablet 1 mg PO DAILY 10/12/24 11/16/24 prednisone 5 mg tablet 5 mg PO DAILY PRN 10/12/24 11/16/24 apixaban 5 mg tablet (Eliquis) 5 mg PO ONCE 11/16/24 11/16/24 Previous Rx's ?Medication ?Instructions ?Recorded budesonide-formoterol HFA 160 2 puff inhalation Q12H #10.2 grams 10/12/24 mcg-4.5 mcg/actuation aerosol inhaler (Breyna) Allergies Allergy/AdvReac Type Severity Reaction Status Date / Time No Known Allergies Allergy Verified 11/16/24 23:44 General Stated Complaint: Fall/Non TraumaCriteria SANDRA: 3 Review of Systems Narrative: see HPI Exam Narrative Exam Narrative: GENERAL: Alert, non-toxic. SKIN: Warm and well perfused. Scattered echymosis on extremitites in various stages of healing HEAD: Atraumatic, normocephalic without edema, discoloration or evidence of trauma. Facial bones without deformities or tenderness. EYES: PERRL. No scleral icterus or conjunctival injection. MOUTH: No malocclusion or trismus. Moist mucus membranes without blood. Posterior pharynx without erythema or exudate. NECK: Trachea midline. Moderate pain with neck flexion, no stiffness. TTP over right occiptal condyle. Negative Kernigs, negative Brudzinskis CV: Irregular, no murmurs appreciated PV: Radial pulses 2+ bilaterally and symmetric. 2+ capillary refill. 1+ pitting edema symmetric BLE CHEST: No abrasions or ecchymosis. Chest symmetric with respirations. No chest wall tenderness. Diffuse wheeze bilaterally. ABDOMEN: No ecchymosis or abrasions. Soft, nondistended, nontender. BACK: No abrasions, skin openings, or ecchymosis. Spine without bony tenderness, no step offs. PELVIC: Pelvis stable, nontender to lateral compression MSK: Left ankle swelling. Pain with passive dorsiflexion, otherwise no pain with passive ROM. Otherwise tolerates full range of motion of all extremities without tenderness. NEURO: ? GCS 15.? PERRL.? EOMI.? Fluent speech, no dysarthria. Motor- 4+/5 strength symmetric bilateral upper and lower extremities Sensation- ?Intact to light touch and symmetric multiple dermatomes including upper and lower extremities Coordination- No dysmetria on finger to nose Reflexes- 2/4 achilles & patellar, no clonus Gait/station: ?Not tested CRANIAL NERVES: II: Pupils equal and reactive, III, IV, : EOM intact, no gaze preference or deviation, no nystagmus. V: normal sensation in V1, V2, and V3 segments bilaterally VII: no asymmetry, no nasolabial fold flattening VIII: normal hearing to speech IX, X: normal palatal elevation, no uvular deviation XI: 5/5 head turn and 5/5 shoulder shrug bilaterally XII: midline tongue protrusion Course Vital Signs Vital signs: Vital Signs Temperature 36.5 C 11/16/24 23:29 Pulse 110 H 11/16/24 23:29 Respiratory Rate 24 11/16/24 23:29 Blood Pressure 99/48 L 11/16/24 23:29 Pulse Oximetry 98 11/16/24 23:29 Temperature 36.5 C 11/16/24 23:29 Temperature Source Oral 11/16/24 23:29 Pulse 110 H 11/16/24 23:29 Respiratory Rate 24 11/16/24 23:29 Blood Pressure 99/48 L 11/16/24 23:29 Pulse Oximetry 98 11/16/24 23:29 Oxygen Delivery Method Room Air 11/16/24 23:29 Oxygen Flow Rate 0 11/16/24 23:29 Pain Level 10 11/16/24 23:29 Procedure Lumbar Puncture Date of Procedure: 11/17/24 Time of procedure: 01:30 Provider that performed the procedure: Maya Watters Indication: Diagnostic Patient Consented: Verbally and Written Standard Time Out Performed: Yes Sterility: Sterile Local anesthetic: Lidocaine 1% Amount of local anesthetic used(mL): 3 Placement Site: L4-L5 Interspace Spinal Needle Type: Ashley 25 Gauge Lumbar Puncture Procedure: Site Prepped, Sterile Drape Placed, 1% Lidocaine to skin and subcutaneous tissue with 25G needle, Introducer Needle Used, Spinal Needle Placed, Negative Heme, Positive CSF Flow, CSF Specimen placed into Tubes in Sequential Order and Specimen Labeled, Sent to Lab Patient Position: Lateral decubitus Number of Attempts(see previous attempts in note section): 1 Opening CSF Pressure(cmH20): 28 Paresthesia: None Ultrasound: Not used Procedure Tolerated: Patient tolerated well Procedure Outcome: Successful Procedure Description/Note: The patient was placed in the left lateral position with help from the nursing staff. The area was cleansed and draped in usual sterile fashion using betadine scrub. Anesthesia was achieved with 1% lidocaine. A 25-gauge 3.5-inch spinal needle was placed in the L4-L5 interspace. On the first attempt with no redirection required, clear cerebral spinal fluid was obtained. The opening pressure was 28cm H20. CSF was collected into 4 tubes. A sterile bandaid was placed over the puncture site. The patient had no immediate complications and tolerated the procedure well. Estimated blood loss was <1ml Medical Decision Making 84yo M with hx COPD, HTN, HLD, HfpEF, TAVR PMR, CKD, hypothyroid, presenting initially for a fall. Fell on stairs yesterday, no injury noted at the time, today with left ankle pain and swelling. Comes to the ED tonight for this as well as new neck pain and worsening shortness of breath from baseline; on ROS notes fever and chills today. Initial eval and resus: Tachycardiac to 110's on arrival, BP on lower side however MAP adequate, afebrile here. Non-toxic on exam, aside from left ankle swelling no significant traumatic findings. Is wheezy and slighty tachypneic. Does have some pain with neck flexion however neck is supple and there are no meningeal signs. Will treat empirically for COPD exacerbation with stacked duonebs and IV methylprednisolone while awaiting results of workup. Not overtly septic, afebrile here with supple neck and no meningeal signs. Difficult to discern primary presenting complaint; pt seems most concerned about his ankle, family about his shortness of breath. I am most concerned about his shortness of breath and tachycardia. ED course: -EKG with questionable paroxysmal afib rate 100's though has periods with clear P waves, no ST segment or T wave abnormalities to suggest occlusive NC. Pt without hx of afib; unknown duration. -Lactate elevated at 3.4; raises level of concern for sepsis/meningitis. Will give IVF, get BP and urine cultures and treat empirically with ceftriazone, vanc, zosyn. Pt in CT; plan for LP upon return (no focal neurologic deficits, would not hold LP for CT result) -Labs reviewed as below, CBC with no leukococytosis (though borderline at 10.75), chronic anemia, and new thrombocytopenia with platelets of 76, CMP with worsening renal function Cr 3.1, Mg normal, VBG with mild compensated metabolic acidosis,, coags slightly elevated INR 1.3 PTT 34.2, BNP 3660 concerning for worsening heart failure though exam is less consistent with this, troponin elevated at 234 (suspect demand; will give 325 of asa now and trend). -CT head independently reviewed, no large ICH or mass, midline shift, or hydrocephalus on my view. -On return from CT pt now with MAP in high 50's; given additional 1L IVFB. -With mild thrombocytopenia and pt on low-dose eliquis, must consider risk of bleeding in setting of LP i.e. spinal epidural hematoma. Last eliquis dose >16 hours ago. Considered reversal however high risk of thromboembolic events if reversed given s/p TAVR and now with afib of uncertain duration. Discussed with patient risks/benefits and he elected to undertake risk of epidural hematoma and possible sequelae including paralysis rather than risk of stroke or undiagnosed [employer] infection. Will plan one attempt with one pass with 25g needle to minimize risk; if requires redirection or multiple attempts plan to abort procedure. -LP performed without difficulty in one smooth pass; opening pressure mildly elevated at 28, brisk flow of clear CSF. Sent for CSF studies CT head and c-spine independently reviewed; no displaced cervical fracture on my view, radiology read with no acute findings. CTA chest independently reviewed; no large saddle embolus or pneumonia or pulmonary edema on my view, radiology read with no acute findings. Plain film ankle independently reviewed; no displaced fracture on my view, radiology read with no acute findings. UA with questionable UTI, 10-20 WBC, negative nitrate. On reassessment BP improved, MAP >65, HR low 100's. Repeat lactate 2.6. Repeat troponin essentially flat at 238, will treat as [id number]. No back pain, good strength and sensation BLE, nothing on exam to suggest evolving spinal epidural hematoma. CSF not overly suggestive of bacterial meningitis with <5 WBCs, normal glucose, mildly elevated protein. Further studies pending. Discussed with [facility] hospitalist Dr. Garnica; pt accepted to medicine service for further workup and management. Awaiting admission orders and transfer upstairs. Lab Data Lab results reviewed: Yes I reviewed the patient's lab results. Labs: 11/17/24 02:58 Urine - Voided Urine Culture - Pending 11/17/24 00:11 Blood Blood Culture - Pending 11/17/24 00:00 Blood Blood Culture - Pending Laboratory Tests Range/Units 11/16/24 11/17/24 11/17/24 23:45 00:07 01:14 WBC (4.4-10.8) 10^3/uL 10.75 RBC (4.36-5.78) 10^6/uL 3.19 L Hgb (13.5-17.5) g/dL 9.8 L Hct (40.0-50.0) % 31.2 L MCV (80-95) fL 98 H MCH (27.0-33.0) pg 30.7 MCHC (32.0-36.0) % 31.4 L RDW (11.8-14.1) % 17.1 H Plt Count (130-400) 10^3/uL 76 L MPV (8.0-11.0) fL 11.5 H Immature Gran % % 0.0 Neutrophils % % 95.0 Band Neutrophils % % 2 Lymphocytes % % 1.0 Monocytes % % 2.0 Eosinophils % % 0.0 Basophils % % 0.0 Nucleated RBC % (0.0-0.3) % 0.0 Absolute Neutrophils (1.2-6.7) 10^3/uL 10.43 H Absolute Lymphocytes (1.2-3.4) 10^3/uL 0.11 L Absolute Monocytes (0.1-0.8) 10^3/uL 0.22 Absolute Eosinophils (0.0-0.7) 10^3/uL 0.00 Absolute Basophils (0.0-0.2) 10^3/uL 0.00 RBC Morphology Normal Xanthochromia PT (9.1-11.1) sec 13.2 H INR (0.9-1.1) 1.3 H APTT (20.6-30.2) sec 34.2 H VBG pH (7.31-7.41) 7.35 VBG pCO2 (41-51) mmHg 43 VBG pO2 mmHg 24 VBG HCO3 (23-28) mmol/L 24 VBG Total CO2 (24-29) mmol/L 23 L VBG O2 Saturation % 31 VBG Base Excess (-2-3) mmol/L -2 VBG Lactate (<or=2.0) mmol/L 3.4 H* Sodium (136-145) mmol/L 136 Potassium (3.5-5.1) mmol/L 4.5 Chloride (98-107) mmol/L 99 Carbon Dioxide (21.0-32.0) mmol/L 25.3 Anion Gap (3-11) mmol/L 11.7 H BUN (7-18) mg/dL 45 H Creatinine (0.70-1.30) mg/dL 3.1 H Est GFR (CKD-EPI 2020) (mL/min/1.73m2) 18.97 Glucose (74-106) mg/dL 133 H Calcium (8.5-10.1) mg/dL 8.3 L Magnesium (1.8-2.4) mg/dL 1.9 Total Bilirubin (0.2-1.0) mg/dL 1.1 H AST (15-37) U/L 18 ALT (16-63) U/L 28 Alkaline Phosphatase (46-116) U/L 82 Troponin I (<or=76) ng/L 234 H* 238 H* NT-Pro-B Natriuret Pep (<300) pg/mL 3660 H Total Protein (6.4-8.2) g/dL 6.2 L Albumin (3.4-5.0) g/dL 2.6 L Urine Color (Yellow) Urine Clarity (Clear) Urine pH (5-8) Ur Specific [place] (1.005-1.025) Urine Protein (Neg-Trace) mg/dL Urine Ketones (Negative) mg/dL Urine Blood (Negative) Urine Nitrite (Negative) Urine Bilirubin (Negative) Urine Urobilinogen (Up to 0.2) mg/dL Ur Leukocyte Esterase (Negative) Urine RBC (0-2) HPF Urine WBC (0-5) HPF Ur Epithelial Cells (Negative) HPF Urine Crystals (Negative) HPF Urine Bacteria (Negative) HPF Urine Casts (Negative) LPF Urine Mucus (Negative) Ur Culture Indicated? Urine Glucose (Negative) mg/dL CSF Tube Number CSF Color CSF Clarity CSF WBC (0-5) /uL CSF RBC (0-5) /mm3 CSF RBC (1) (0-5) /mm3 CSF Diff Comment CSF Glucose (40-70) mg/dL CSF Total Protein (15-45) mg/dL COVID-19 Source Nasopharynx SARS-CoV-2 (PCR) (Negative) Negative Influenza Type A (PCR) (Negative) Negative Influenza Type B (PCR) (Negative) Negative RSV (PCR) (Negative) Negative Range/Units 11/17/24 11/17/24 11/17/24 01:45 02:45 02:58 WBC (4.4-10.8) 10^3/uL RBC (4.36-5.78) 10^6/uL Hgb (13.5-17.5) g/dL Hct (40.0-50.0) % MCV (80-95) fL MCH (27.0-33.0) pg MCHC (32.0-36.0) % RDW (11.8-14.1) % Plt Count (130-400) 10^3/uL MPV (8.0-11.0) fL Immature Gran % % Neutrophils % % Band Neutrophils % % Lymphocytes % % Monocytes % % Eosinophils % % Basophils % % Nucleated RBC % (0.0-0.3) % Absolute Neutrophils (1.2-6.7) 10^3/uL Absolute Lymphocytes (1.2-3.4) 10^3/uL Absolute Monocytes (0.1-0.8) 10^3/uL Absolute Eosinophils (0.0-0.7) 10^3/uL Absolute Basophils (0.0-0.2) 10^3/uL RBC Morphology Xanthochromia Absent PT (9.1-11.1) sec INR (0.9-1.1) APTT (20.6-30.2) sec VBG pH (7.31-7.41) VBG pCO2 (41-51) mmHg VBG pO2 mmHg VBG HCO3 (23-28) mmol/L VBG Total CO2 (24-29) mmol/L VBG O2 Saturation % VBG Base Excess (-2-3) mmol/L VBG Lactate (<or=2.0) mmol/L 2.6 H* Sodium (136-145) mmol/L Potassium (3.5-5.1) mmol/L Chloride (98-107) mmol/L Carbon Dioxide (21.0-32.0) mmol/L Anion Gap (3-11) mmol/L BUN (7-18) mg/dL Creatinine (0.70-1.30) mg/dL Est GFR (CKD-EPI 2020) (mL/min/1.73m2) Glucose (74-106) mg/dL Calcium (8.5-10.1) mg/dL Magnesium (1.8-2.4) mg/dL Total Bilirubin (0.2-1.0) mg/dL AST (15-37) U/L ALT (16-63) U/L Alkaline Phosphatase (46-116) U/L Troponin I (<or=76) ng/L NT-Pro-B Natriuret Pep (<300) pg/mL Total Protein (6.4-8.2) g/dL Albumin (3.4-5.0) g/dL Urine Color (Yellow) Yellow Urine Clarity (Clear) Clear Urine pH (5-8) 5.0 Ur Specific [place] (1.005-1.025) <= 1.005 Urine Protein (Neg-Trace) mg/dL Negative Urine Ketones (Negative) mg/dL Negative Urine Blood (Negative) Negative Urine Nitrite (Negative) Negative Urine Bilirubin (Negative) Negative Urine Urobilinogen (Up to 0.2) mg/dL 0.2 Ur Leukocyte Esterase (Negative) Trace H Urine RBC (0-2) HPF 0-2 Urine WBC (0-5) HPF 10-20 H Ur Epithelial Cells (Negative) HPF Rare Urine Crystals (Negative) HPF Negative Urine Bacteria (Negative) HPF Rare Urine Casts (Negative) LPF Negative Urine Mucus (Negative) Negative Ur Culture Indicated? C&S Done As Ordered Urine Glucose (Negative) mg/dL Negative CSF Tube Number 4 CSF Color Colorless CSF Clarity Clear CSF WBC (0-5) /uL 3 CSF RBC (0-5) /mm3 19 H CSF RBC (1) (0-5) /mm3 21 H CSF Diff Comment CSF Glucose (40-70) mg/dL 72 H CSF Total Protein (15-45) mg/dL 56 H COVID-19 Source SARS-CoV-2 (PCR) (Negative) Influenza Type A (PCR) (Negative) Influenza Type B (PCR) (Negative) RSV (PCR) (Negative) Critical Care Time Critical Care Time Critical Care Time: Yes Total Critical Care Time: 46 Attestation: Due to a high probability of clinically significant, life threatening deterioration, the patient required my highest level of preparedness to intervene emergently and I personally spent this critical care time directly and personally managing the patient. This critical care time included obtaining a history; examining the patient; pulse oximetry; ordering and review of studies; arranging urgent treatment with development of a management plan; evaluation of patient's response to treatment; frequent reassessment; and, discussions with other providers. This critical care time was performed to assess and manage the high probability of imminent, life-threatening deterioration that could result in multi-organ failure. It was exclusive of separately billable procedures and treating other patients PFSH All Active Problems (Updated 11/17/24 @ 05:27 by Maya Watters MD) Urinary tract infection (Acute) CKD (chronic kidney disease) (Chronic) KIA (acute kidney injury) (Acute) NSTEMI (non-ST elevation myocardial infarction) (Acute) Shortness of breath (Acute) Sepsis (Acute) Shock (Acute) Elevated troponin level not due to acute coronary syndrome (Acute) CKD (chronic kidney disease) (Chronic) KIA (acute kidney injury) (Acute) Sepsis (Acute) S/P TAVR (transcatheter aortic valve replacement) (Acute) Allergic rhinitis (Acute) Asthma with COPD (Chronic) Pain in right foot (Acute) Pain in left foot (Acute) Dystrophy of nail due to trauma (Acute) Onychomycosis (Acute) Neuropathy (Acute) Atherosclerosis of artery of both lower extremities (Acute) Disorder of kidney (Acute) Polyneuropathy (Acute) (HFpEF) heart failure with preserved ejection fraction (Chronic) Aortic stenosis (Chronic) PMR (polymyalgia rheumatica) (Acute) 03/01/23 on chronic prednisone RH Urinary tract infection (Acute) Yvanc-mi-bbviumh kidney injury (Acute) Syncope (Chronic) Internal derangement of left knee (Acute) Depo-Medrol: 04/17/21 Osteoarthritis of right knee (Acute) Steroid injection: 12/19/2019 (40mg) Bilateral shoulder bursitis (Acute) Impingement syndrome of both shoulders (Acute) Adhesive capsulitis of both shoulders (Acute) Tendinitis of long head of biceps brachii of both shoulders (Acute) Nontraumatic tear of muscle or tendon of rotator cuff of both shoulders (Acute) Scapular dyskinesis (Acute) Peripheral neuropathy (Acute) Cervical spondylosis with myelopathy (Acute) Bilateral hip joint arthritis (Acute) Renal insufficiency (Chronic) Hypothyroidism (Chronic) Restless leg (Acute) Dyspnea on exertion (Acute) Asbestos exposure (Acute) Diverticulitis (Chronic) Cholelithiasis (Acute) Hyperlipidemia (Acute) Hypertension (Chronic) PSVT (paroxysmal supraventricular tachycardia) (Chronic) Right carpal tunnel syndrome (Acute) S/P ECTR: 09/05/2019 Spondylolisthesis, cervical region (Acute) Medical History H/O polymyalgia rheumatica Localized edema Anemia Surgical History Hx of colonoscopy History of back surgery History of bowel resection sigmoid resection S/P appendectomy Social History Smoking/Tobacco Use Status: Former Tobacco Use Smoking risk assessment performed?: Yes Alcohol Intake: current Alcohol Intake frequency: a few times a month Alcohol type: beer Drug use: Never Substance use type: does not use Details: ALCOHOL: T-2, BEER. PT. STATES HE DOES NOT REMEMBER WHEN HE QUIT SMOKING, 40 YEARS AGO Housing: house Current gender identity: male Do you feel safe at home: Yes Do you feel safe in your relationship?: Yes
[2024-11-16 23:54] LABS: Abs Immature Grans 0.14 10^3/uL (0.0-0.06); HCT 31.2 % (40.0-50.0); HGB 9.8 g/dL (13.5-17.5); MCH 30.7 pg (27.0-33.0); MCHC 31.4 % (32.0-36.0); MCV 98 fL (80-95); MPV 11.5 fL (8.0-11.0); RBC 3.19 10^6/uL (4.36-5.78); RDW 17.1 % (11.8-14.1); RDW-SD 60.8 fL; WBC 10.75 10^3/uL (4.4-10.8)
[2024-11-16] MEDS: Albuterol/Ipratropium 3 ML UPD VIAL UPD ×3 (23:54)
[2024-11-16] MEDS: methylPREDNISolone SUCC 125 MG VIAL IVP (23:54)
[2024-11-17] VITALS (55 sets, daily range): BP systolic 73–145; BP diastolic 11–95; PULSE 51–160; RESP 13–23; TEMP 36.3–37.3; O2SAT 83–99
[2024-11-17 00:05] LABS: Immature Grans % 0.0 %; Platelet Count 76 10^3/uL (130-400); RBC Morphology Normal
[2024-11-17 00:06] LABS: INR 1.3 (0.9-1.1); PTT Activated 34.2 sec (20.6-30.2); Prothrombin Time 13.2 sec (9.1-11.1)
[2024-11-17 00:15] LABS: ALT 28 U/L (16-63); AST 18 U/L (15-37); Albumin 2.6 g/dL (3.4-5.0); Alkaline Phosphatase 82 U/L (46-116); Anion Gap 11.7 mmol/L (3-11); BUN 45 mg/dL (7-18); Bilirubin, Total 1.1 mg/dL (0.2-1.0); CO2 25.3 mmol/L (21.0-32.0); Calcium 8.3 mg/dL (8.5-10.1); Chloride 99 mmol/L (98-107); Estimated GFR 18.97 (mL/min/1.73m2); Glucose 133 mg/dL (74-106); Magnesium 1.9 mg/dL (1.8-2.4); NT-proBNP 3660 pg/mL (<300); Potassium 4.5 mmol/L (3.5-5.1); Sodium 136 mmol/L (136-145); Total Protein 6.2 g/dL (6.4-8.2)
[2024-11-17 00:17] LABS: Troponin I 234 ng/L (<or=76)
[2024-11-17 00:47] LABS: COVID-19 PCR Negative (Negative); RSV PCR Negative (Negative)
[2024-11-17] MEDS: Aspirin 81 MG CHEW 324 MG CH (01:03)
[2024-11-17] MEDS: VANCOMYCIN 2,000 MG in Normal Saline 500 ML 250 MG IVPB (01:03)
[2024-11-17] MEDS: Normal Saline 1,000 ML 1000 ML IV ×3 (01:04→02:42)
[2024-11-17] MEDS: cefTRIAXone 2 GM/50 ML BAG IVPB ×3 (01:04→19:44)
[2024-11-17] MEDS: AMPICILLIN SODIUM 2 GM in Normal Saline 100 ML IVPB (01:20)
[2024-11-17] MEDS: Omnipaque 350 MG/ML 100 ML BTL IJ (01:26)
[2024-11-17] MEDS: Normal Saline - Diluent 50 ML VIAL IJ (01:27)
[2024-11-17] MEDS: Normal Saline Flush 10 ML SYR IVP ×3 (01:27→19:44)
--- NOTE | 2024-11-17 01:27 | DI.CT_ITS ---
Exam(s) CT CHEST PE CTA EXAM: CT CHEST PE CTA CLINICAL HISTORY: shortness of breath concern for PE. TECHNIQUE: Imaging Protocol: Axial CT angiography was performed with multi- slice acquisition and multi-planar and/or 3D reconstructions. Lung Computer Aided Detection (CAD) was utilized. CONTRAST MATERIAL: Intravenous: Omnipaque 350 contrast volume:85 mL COMPARISON: CT CT CHEST HIGH RESOLUTION from 02/11/[address] ABDOMEN PELVIS W from 09/12/2024 CR XR CHEST 2V PA LATERAL from 09/12/2024 FINDINGS: Tracheobronchial tree: Patent where visualized. No bronchiectasis. There is mild bronchial wall thickening throughout. Pulmonary parenchyma: There is no focal consolidation. There are atelectatic changes seen in the dependent portions of the lungs bilaterally. There are no pulmonary nodules. No architectural distortion. Pulmonary Arteries: No evidence of filling defect to suggest pulmonary emboli. Mediastinum and Juli: No dominant adenopathy or fluid collection. The esophagus is unremarkable. Visualized thyroid gland: Unremarkable. Pleura: No effusion or pneumothorax. Heart: The heart is not dilated. There is mild coronary artery calcification. There is an aortic valve replacement. No pericardial effusion. Aorta: Thoracic aorta non-dilated. Atherosclerotic calcification is present. Upper abdomen: There is cholelithiasis. There again seen several hepatic cysts. Soft tissues: Unremarkable. Bones: Within normal limits for the patient's age.There are old thoracic compression deformities. IMPRESSION: 1. There is no evidence of a pulmonary embolism or thoracic aortic aneurysm. 2. There is no acute pulmonary process. 3. Bilateral basilar dependent atelectasis. 4. Gallstones. 5. The preliminary [facility] report was reviewed. RADIATION DOSE DELIVERED: 427.85mGy.cm Total DLP DATA REPOSITORY: All CT scans at this facility are submitted to the National Radiology Data Registry (NRDR) Dose Index Registry (DIR) with the [employer] (ACR). RADIATION OPTIMIZATION: All CT scans at this facility use at least one of these dose optimization techniques: automated exposure control; mA and/or kV adjustment per patient size (includes targeted exams where dose is matched to clinical indication); or iterative reconstruction.
--- NOTE | 2024-11-17 01:29 | DI.CT_ITS ---
Exam(s) CT HEAD CERVICAL SPINE WO EXAM: CT HEAD CERVICAL SPINE WO CLINICAL HISTORY: fall, neck pain, on AC. TECHNIQUE: Imaging Protocol: Axial computed tomography images with coronal and sagittal reformatted images were created and reviewed COMPARISON: No exams were available for comparison FINDINGS: CT Head: Ventricles and Extra axial spaces: Normal in size and morphology for the patient's age. Hemorrhage: There is a thin linear area of increased density in the left occipital lobe (series 3 image 25,series 4, image 21). This may represent a small focus of subarachnoid hemorrhage. Cerebral parenchyma: There is no acute territorial infarct or mass effect. There are subtle areas of decreased attenuation in the white matter most consistent with chronic microvascular ischemic disease. Midline shift: None. Brainstem/Cerebellum: Normal. Calvarium: Normal. Visualized Paranasal sinuses/Mastoids: Clear. Soft Tissues: Unremarkable. CT Cervical Spine: There is patient motion artifact and patient body habitus. Bones: No acute fracture or subluxation. Age-appropriate degenerative changes are present throughout the cervical spine. Soft Tissues: Unremarkable. Lung Apices: Clear. IMPRESSION: 1. Linear hyperdense area in the left occipital lobe suspicious for small subarachnoid hemorrhage. 2. No acute fracture or subluxation in the cervical spine. 3. Findings were discussed with Dr. Watters at 6 a.m. on 11/17/2024. 4. The preliminary [facility] report was reviewed. RADIATION DOSE DELIVERED: 1,397.7mGy.cm Total DLP DATA REPOSITORY: All CT scans at this facility are submitted to the National Radiology Data Registry (NRDR) Dose Index Registry (DIR) with the [employer] ([employer]). RADIATION OPTIMIZATION: All CT scans at this facility use at least one of these dose optimization techniques: automated exposure control; mA and/or kV adjustment per patient size (includes targeted exams where dose is matched to clinical indication); or iterative reconstruction.
--- NOTE | 2024-11-17 01:29 | DI.RAD_ITS ---
Exam(s) XR ANKLE LT COMPLETE EXAM: XR ANKLE LT COMPLETE CLINICAL HISTORY: fall, ankle pain and swelling TECHNIQUE: 2D digital imaging was performed of the left ankle. Three images were obtained. AP, lateral and oblique views were obtained. COMPARISON: No exams were available for comparison FINDINGS: BONES: No acute fracture is present. No bony destructive lesion is seen. JOINTS:The ankle mortise is normally aligned. SOFT TISSUE: Extensive atherosclerotic calcification is seen. There is soft tissue swelling around the ankle. IMPRESSION: 1. There is no acute fracture or dislocation. 2. The preliminary [facility] report was reviewed. DATA REPOSITORY: RADIATION DOSE DELIVERED:
[2024-11-17 01:43] LABS: Troponin I 238 ng/L (<or=76)
--- NOTE | 2024-11-17 01:52 | DI.[facility]_ITS ---
PROCEDURE INFORMATION: Exam: XR Left Ankle Exam date and time: 11/17/2024 1:10 AM Age: 84 years old Clinical indication: Injury or trauma; Blunt trauma; Left; Injury date: 11/16/24; Fall, ankle pain and swelling TECHNIQUE: Imaging protocol: Radiologic exam of the left ankle. Views: 3 or more views. COMPARISON: US EXTREMITY VENOUS BI 06/18/2022 1:27 PM FINDINGS: Bones/joints: Normal. Soft tissues: Soft tissue edema. Vasculature: Vascular calcifications. IMPRESSION: No acute fracture. Dictated and Authenticated by: Dheeraj Evans MD. Orderin Duong Trejo MD
--- NOTE | 2024-11-17 01:53 | DI.[facility]_ITS ---
PROCEDURE INFORMATION: Exam: CTA Chest With Contrast Exam date and time: 11/17/2024 12:52 AM Age: 84 years old Clinical indication: Prior surgery; Surgery date: 6+ months; Surgery type: Stent; Shortness of breath concern for pe TECHNIQUE: Imaging protocol: Computed tomographic angiography of the chest with contrast. Exam focused on the arteries. 3D rendering (Not supervised by radiologist): MIP and/or 3D reconstructed images were created by the technologist. Radiation optimization: All CT scans at this facility use at least one of these dose optimization techniques: automated exposure control; mA and/or kV adjustment per patient size (includes targeted exams where dose is matched to clinical indication); or iterative reconstruction. Contrast material: [id number]; Contrast volume: 85 ml; Contrast route: INTRAVENOUS (IV); COMPARISON: CT CHEST HIGH RESOLUTION 02/11/2022 7:29 AM FINDINGS: Pulmonary arteries: Normal. No pulmonary emboli. Aorta: Unremarkable. No aortic aneurysm. No aortic dissection. Lungs: Bilateral lower lobe subsegmental atelectatic changes. Pleural spaces: Unremarkable. No pneumothorax. No pleural effusion. Heart: Unremarkable. No cardiomegaly. No pericardial effusion. Lymph nodes: Unremarkable. No enlarged lymph nodes. Gallbladder and biliary ducts: Incidental note is made of gallstones. Bones/joints: Unremarkable. No acute fracture. Soft tissues: Unremarkable. IMPRESSION: Normal CTA examination of the chest. There is no evidence for pulmonary embolism. 2. Cholelithiasis. Dictated and Authenticated by: Dheeraj Evans MD. Orderin Duong Trejo MD
[2024-11-17] MEDS: Dexamethasone 10 MG/ML VIAL IVP (02:01)
--- NOTE | 2024-11-17 02:01 | DI.[facility]_ITS ---
PROCEDURE INFORMATION: Exam: CT Head Without Contrast Exam date and time: 11/17/2024 12:38 AM Age: 84 years old Clinical indication: Injury or trauma; Bleeding/hemorrhage; Blunt trauma; Injury date: 11/16/24; Fall, neck pain, on ac TECHNIQUE: Imaging protocol: Computed tomography of the head without contrast. Radiation optimization: All CT scans at this facility use at least one of these dose optimization techniques: automated exposure control; mA and/or kV adjustment per patient size (includes targeted exams where dose is matched to clinical indication); or iterative reconstruction. COMPARISON: No relevant prior studies are available for comparison. FINDINGS: Brain: No intracranial hemorrhage appreciated. No significant focal mass effect or significant midline shift. Generalized parenchymal volume loss. Chronic ischemic changes are noted. Cerebral ventricles: No disproportionate ventriculomegaly. Paranasal sinuses: No air-fluid levels seen. Mastoid air cells: No mastoid effusion. Bones: No acute cranial vault fracture seen. Soft tissues: No acute findings. Vasculature: Arterial calcifications. IMPRESSION: 1. No intracranial sequelae of trauma appreciated. 2. Nonacute findings as outlined above. 3. Additional studies dictated separately. PROCEDURE INFORMATION: Exam: CT Cervical Spine Without Contrast Exam date and time: 11/17/2024 12:38 AM Age: 84 years old Clinical indication: Injury or trauma; Bleeding/hemorrhage; Blunt trauma; Injury date: 11/16/24; Fall, neck pain, on ac TECHNIQUE: Imaging protocol: Computed tomography of the cervical spine without contrast. Radiation optimization: All CT scans at this facility use at least one of these dose optimization techniques: automated exposure control; mA and/or kV adjustment per patient size (includes targeted exams where dose is matched to clinical indication); or iterative reconstruction. COMPARISON: No relevant prior studies are available for comparison. FINDINGS: Limitations: Motion artifact degrades image quality. Bones: No acute cervical spine fracture identified. Extensive degenerative changes with multilevel canal and foraminal narrowing. Spinal canal contents and nerve roots would be better evaluated with MRI. Lungs: No acute findings. Lymph nodes: Bilateral cervical lymph nodes. Soft tissues: No acute findings. IMPRESSION: 1. No acute cervical spine fracture seen. 2. Additional studies dictated separately. Dictated and Authenticated by: Jessica Huynh MD. Orderin Duong Trejo MD
[2024-11-17 02:48] LABS: Glucose (CSF) 72 mg/dL (40-70); Total Protein (CSF) 56 mg/dL (15-45)
[2024-11-17 03:00] LABS: RBC 19 /mm3 (0-5); WBC 3 /uL (0-5); Xanthochromia Absent
[2024-11-17 03:04] LABS: RBC Tube#1 CSF 21 /mm3 (0-5)
[2024-11-17 03:17] LABS: Glucose Negative (Negative)
[2024-11-17 03:21] LABS: RBC 0-2 HPF (0-2)
--- NOTE | 2024-11-17 03:58 | W.PM.HP.N ---
Date of service: 11/17/24 Time of Service: 03:58 Assessment and Plan Assessment and plan (1) Sepsis: Start date: 11/17/24 Status: Acute Assessment and plan: This is an 84-year-old gentleman who has increased weakness after stumbling and fall 2 days prior to presentation. He did injure his left foot with at least a sprain and negative imaging for acute fractures. He also appears to have a UTI with elevated WBC and fever at home. Blood cultures were performed and urine cultures were performed with patient initiated on broad-spectrum antibiotic coverage with continuation of Rocephin 2 g IV every 12 hours and vancomycin. CSF cultures were performed as well. The patient did have an elevated lactate which is improved with fluid resuscitation but we need to watch for fluid overload with a history of right-sided CHF. Furosemide is being held. Blood pressure did respond to IV fluid resuscitation and patient will be placed on MedSurg care as long as he remains stable. If he requires pressor agents we can review this with his son with the patient being a DNR/DNI. (2) Urinary tract infection: Status: Acute Assessment and plan: Urine cultures were performed and patient has adequate coverage with broad-spectrum antibiotic coverage. This may be the source of his sepsis. Follow-up cultures and adjust antibiotic therapy accordingly. (3) KIA (acute kidney injury): Start date: 11/17/24 Status: Acute Assessment and plan: Patient appears to be dry with decreased intake recently. Lasix will be held and he will have gentle IV hydration with patient have a history of right-sided CHF on Lasix chronically. Watch for bladder outlet obstruction. (4) CKD (chronic kidney disease): Status: Chronic Assessment and plan: Slightly exacerbated with acute KIA from decreased intake. Gentle IV hydration. (5) Elevated troponin level not due to acute coronary syndrome: Start date: 11/17/24 Status: Acute Assessment and plan: Patient is troponins elevated after his fall with a stress of sepsis. This does not appear to be a primary cardiac event. He is already on Eliquis. Continue statin and beta-maddie. Continue to trend troponins until plateaued. Consider consultation with [facility] if not improving. He is not having chest pain. He does have shortness of breath which is improving. (6) Asthma with COPD: Status: Chronic Assessment and plan: Stress dose hydrocortisone with patient chronically on prednisone and having received Solu-Medrol in the ED. Patient improved bronchospasm with nebulizer treatments which will be continued. (7) (HFpEF) heart failure with preserved ejection fraction: Status: Chronic Assessment and plan: Hold Lasix for now with IV fluid resuscitation for mild dehydration. Watch for fluid overload. Encourage oral intake. (8) PAF (paroxysmal atrial fibrillation): Status: Chronic Assessment and plan: Continue metoprolol for heart rate control while gentle IV fluid resuscitation continues. Adjust if needed for blood pressure. His tachycardia presently may be secondary to stress of sepsis. Troponins are positive but this does not appear to be an non-STEMI and patient is already on Eliquis which will be continued. (9) Hypertension: Status: Chronic Assessment and plan: Patient is having a low systolic blood pressure intermittently but is respond to IV fluid resuscitation with MAP above 65. Because of potential problem with shock associate with his sepsis, his usual antihypertensives will be held except for metoprolol for rate control. This could be adjusted as well if needed. Patient is asymptomatic. He is a DNR/DNI and if pressor agents are needed this should be reviewed with his son before initiation. (10) Hypothyroidism: Status: Chronic Assessment and plan: Check TSH and continue outpatient therapy. (11) Contusion of left foot: Start date: 11/17/24 Status: Acute Assessment and plan: Negative x-ray for fracture but patient may need physical therapy evaluation if difficulty ambulating once his medical status is stabilizing. Symptomatic care. Elevation for now. History of Present Illness History of Present Illness Chief Complaint: Neck pain status post fall 2 days prior to presentation. Narrative: This is an 84-year-old male patient who is morbidly obese and has a history of asthma COPD on inhalers who tripped going up his stairs and fell outside of his house injuring his left foot and eventually his neck began to hurt. He did not hit his head or lose consciousness. He is a poor historian. He is on anticoagulation for paroxysmal atrial fibrillation but denies any bruising after his fall. His left foot did begin to swell just prior to presentation and his headache with neck pain persisted. He was not confused and had no focal neurological complaints. He was wheezing and having difficulty breathing in the ED with presentation but this responded to nebulizer treatment and IV steroids. He did have a lumbar puncture which did not reveal elevated WBCs and appeared to be slightly traumatic. He did have fever at home with chills but no focalizing symptoms other than his neck pain from his fall and his left foot pain. He had no urinary symptoms. He is on Flomax for BPH. He also is chronically on prednisone because of PMR he does have metoprolol for heart rate control. In the ED he was slightly tachycardic with his discomfort. On cardiac monitoring he did reveal probable paroxysmal atrial fibrillation with tachycardia. Patient was having less dyspnea at the time of my exam but still complaining of left foot pain. He offers no other complaints denying chest pressure or pain. His troponins were elevated and trending slightly upward which will be trended further. He will remain on telemetry. He did not appear to have any ischemic changes on EKG. He is chronically on Lasix for right-sided CHF and this will be help with his low blood pressure and appearing slightly dehydrated with decreased intake recently. He states he is not hungry. He denies any abdominal discomfort or urinary symptoms. He appears to have a UTI by urinalysis with elevated WBC and fever as well as soft blood pressure though he is not significantly hypotensive or in shock. He does meet sepsis criteria. He was initiated on ampicillin, Rocephin and vancomycin with the negative CSF in the ED. He will be continued on high-dose Rocephin for possible meningeal symptoms though CSF was negative until cultures are resulted. He also will be continued on vancomycin. He also will have gentle IV hydration because of decreased intake recently. This may help with blood pressure with patient responding to fluid resuscitation in the ED. He is a DNR/DNI. Review of Systems Narrative: 13 point review of systems otherwise unrevealing or stable. Patient is poor historian. [facility] All Active Problems (Updated 11/17/24 @ 09:47 by Slava Garnica) Contusion of left foot (Acute) PAF (paroxysmal atrial fibrillation) (Chronic) Urinary tract infection (Acute) CKD (chronic kidney disease) (Chronic) KIA (acute kidney injury) (Acute) NSTEMI (non-ST elevation myocardial infarction) (Acute) Shortness of breath (Acute) Sepsis (Acute) Shock (Acute) Elevated troponin level not due to acute coronary syndrome (Acute) CKD (chronic kidney disease) (Chronic) KIA (acute kidney injury) (Acute) Sepsis (Acute) S/P TAVR (transcatheter aortic valve replacement) (Acute) Allergic rhinitis (Acute) Asthma with COPD (Chronic) Pain in right foot (Acute) Pain in left foot (Acute) Dystrophy of nail due to trauma (Acute) Onychomycosis (Acute) Neuropathy (Acute) Atherosclerosis of artery of both lower extremities (Acute) Disorder of kidney (Acute) Polyneuropathy (Acute) (HFpEF) heart failure with preserved ejection fraction (Chronic) Aortic stenosis (Chronic) PMR (polymyalgia rheumatica) (Acute) 03/01/23 on chronic prednisone RH Urinary tract infection (Acute) Qbuyb-zn-youiqey kidney injury (Acute) Syncope (Chronic) Internal derangement of left knee (Acute) Depo-Medrol: 04/17/21 Osteoarthritis of right knee (Acute) Steroid injection: 12/19/2019 (40mg) Bilateral shoulder bursitis (Acute) Impingement syndrome of both shoulders (Acute) Adhesive capsulitis of both shoulders (Acute) Tendinitis of long head of biceps brachii of both shoulders (Acute) Nontraumatic tear of muscle or tendon of rotator cuff of both shoulders (Acute) Scapular dyskinesis (Acute) Peripheral neuropathy (Acute) Cervical spondylosis with myelopathy (Acute) Bilateral hip joint arthritis (Acute) Renal insufficiency (Chronic) Hypothyroidism (Chronic) Restless leg (Acute) Dyspnea on exertion (Acute) Asbestos exposure (Acute) Diverticulitis (Chronic) Cholelithiasis (Acute) Hyperlipidemia (Acute) Hypertension (Chronic) PSVT (paroxysmal supraventricular tachycardia) (Chronic) Right carpal tunnel syndrome (Acute) S/P ECTR: 09/05/2019 Spondylolisthesis, cervical region (Acute) Medical History H/O polymyalgia rheumatica Localized edema Anemia Surgical History Hx of colonoscopy History of back surgery History of bowel resection sigmoid resection S/P appendectomy Social History Smoking/Tobacco Use Status: Former Tobacco Use Smoking risk assessment performed?: Yes Alcohol Intake: current Alcohol Intake frequency: a few times a month Alcohol type: beer Drug use: Never Substance use type: does not use Details: ALCOHOL: T-2, BEER. PT. STATES HE DOES NOT REMEMBER WHEN HE QUIT SMOKING, 40 YEARS AGO Housing: house Current gender identity: male Do you feel safe at home: Yes Do you feel safe in your relationship?: Yes Meds Allergies and Home Medications Allergies Allergy/AdvReac Type Severity Reaction Status Date / Time No Known Allergies Allergy Verified 11/16/24 23:44 Home Medications ?Medication ?Instructions ?Recorded ?Confirmed ?Type levothyroxine 125 mcg capsule 125 mcg PO DAILY 11/16/18 11/16/24 History tamsulosin 0.4 mg capsule 0.4 mg PO DAILY 12/19/19 11/16/24 History albuterol sulfate 90 mcg/actuation 2 inh inhalation Q4H PRN 03/09/23 11/16/24 History aerosol inhaler (Ventolin HFA) rosuvastatin 5 mg tablet 5 mg PO DAILY 03/09/23 11/16/24 History cyanocobalamin (vitamin B-12) 1,000 mcg PO DAILY 06/11/23 11/16/24 History 1,000 mcg tablet furosemide 40 mg tablet (Lasix) 40 mg PO DAILY 06/11/23 11/16/24 History lisinopril 20 mg tablet 20 mg PO DAILY 06/11/23 11/16/24 History metoprolol succinate 50 mg 50 mg PO DAILY 09/12/24 11/16/24 History tablet,extended release 24 hr pantoprazole 40 mg tablet,delayed 40 mg PO DAILY 09/12/24 11/16/24 History release budesonide-formoterol HFA 160 2 puff inhalation Q12H #10.2 grams 10/12/24 11/16/24 Rx mcg-4.5 mcg/actuation aerosol inhaler (Breyna) budesonide-formoterol HFA 80 2 puff inhalation BID PRN 10/12/24 11/16/24 History mcg-4.5 mcg/actuation aerosol inhaler (Symbicort) loratadine 10 mg tablet (Allergy 10 mg PO DAILY 10/12/24 11/16/24 History Relief (loratadine)) prednisone 1 mg tablet 1 mg PO DAILY 10/12/24 11/16/24 History prednisone 5 mg tablet 5 mg PO DAILY PRN 10/12/24 11/16/24 History apixaban 5 mg tablet (Eliquis) 5 mg PO ONCE 11/16/24 11/16/24 History Exam Narrative Exam Narrative: General: Patient appears appropriate for age, morbidly obese, mildly confused and hard of hearing, alert and oriented to person and place at least. He has an moderate distress with his neck pain and left foot pain. HEENT: Normocephalic with atraumatic face. Eyes with pupils equal and reactive light symmetric, extraocular movement intact and sclera anicteric. Oropharynx with dry mucosa. Neck: Supple though there is some discomfort with flexion and no point tenderness to palpation over the spine with negative imaging. Slight increased muscle tone of the paraspinous muscles. No meningismus. Back: Stooped posture without CVA tenderness. Lungs: Bronchovesicular breath sounds diffusely with fair aeration, no expiratory wheeze and no inspiratory rales or rhonchi. Heart: Tachycardic rate with irregular rhythm. No murmurs gallops appreciated. Abdomen: Obese contour with pannus, soft to palpation with no palpable hepatosplenomegaly. No guarding or rebound. Bowel sounds positive in all quadrants. Genitalia/rectal: Exam deferred. Skin: Normal color, warm and dry. Neuro: Cranial nerves II through XII grossly intact, no focalized motor deficits or tremor. Extremities: Swelling of the left foot without bruising but tender to palpation, nonpitting edema over both ankles and right foot. No clubbing or cyanosis. Fair capillary refill. Psych: Normal affect and mood. No abnormal thought processes. Remote memory intact and recent memory less intact. Patient is a poor historian. Results Imaging Imaging Studies: Exam: CT Head Without Contrast Exam date and time: 11/17/2024 12:38 AM Age: 84 years old Clinical indication: Injury or trauma; Bleeding/hemorrhage; Blunt trauma; Injury date: 11/16/24; Fall, neck pain, on ac COMPARISON: No relevant prior studies are available for comparison. FINDINGS: Brain: No intracranial hemorrhage appreciated. No significant focal mass effect or significant midline shift. Generalized parenchymal volume loss. Chronic ischemic changes are noted. Cerebral ventricles: No disproportionate ventriculomegaly. Paranasal sinuses: No air-fluid levels seen. Mastoid air cells: No mastoid effusion. Bones: No acute cranial vault fracture seen. Soft tissues: No acute findings. Vasculature: Arterial calcifications. IMPRESSION: 1. No intracranial sequelae of trauma appreciated. 2. Nonacute findings as outlined above. 3. Additional studies dictated separately. PROCEDURE INFORMATION: Exam: CT Cervical Spine Without Contrast Exam date and time: 11/17/2024 12:38 AM Age: 84 years old Clinical indication: Injury or trauma; Bleeding/hemorrhage; Blunt trauma; Injury date: 11/16/24; Fall, neck pain, on ac COMPARISON: No relevant prior studies are available for comparison. FINDINGS: Limitations: Motion artifact degrades image quality. Bones: No acute cervical spine fracture identified. Extensive degenerative changes with multilevel canal and foraminal narrowing. Spinal canal contents and nerve roots would be better evaluated with MRI. Lungs: No acute findings. Lymph nodes: Bilateral cervical lymph nodes. Soft tissues: No acute findings. IMPRESSION: 1. No acute cervical spine fracture seen. 2. Additional studies dictated separately. Exam: CTA Chest With Contrast Exam date and time: 11/17/2024 12:52 AM Age: 84 years old Clinical indication: Prior surgery; Surgery date: 6+ months; Surgery type: Stent; Shortness of breath concern for pe COMPARISON: CT CHEST HIGH RESOLUTION 02/11/2022 7:29 AM FINDINGS: Pulmonary arteries: Normal. No pulmonary emboli. Aorta: Unremarkable. No aortic aneurysm. No aortic dissection. Lungs: Bilateral lower lobe subsegmental atelectatic changes. Pleural spaces: Unremarkable. No pneumothorax. No pleural effusion. Heart: Unremarkable. No cardiomegaly. No pericardial effusion. Lymph nodes: Unremarkable. No enlarged lymph nodes. Gallbladder and biliary ducts: Incidental note is made of gallstones. Bones/joints: Unremarkable. No acute fracture. Soft tissues: Unremarkable. IMPRESSION: 1. Normal CTA examination of the chest. There is no evidence for pulmonary embolism. 2. Cholelithiasis. Exam: XR Left Ankle Exam date and time: 11/17/2024 1:10 AM Age: 84 years old Clinical indication: Injury or trauma; Blunt trauma; Left; Injury date: 11/16/24; Fall, ankle pain and swelling TECHNIQUE: Imaging protocol: Radiologic exam of the left ankle. Views: 3 or more views. COMPARISON: US EXTREMITY VENOUS BI 06/18/2022 1:27 PM FINDINGS: Bones/joints: Normal. Soft tissues: Soft tissue edema. Vasculature: Vascular calcifications. IMPRESSION: No acute fracture. Labs 11/16/24 23:45 11/16/24 23:45 Labs: Laboratory Results - last 24 hr 11/16/24 11/17/24 11/17/24 23:45 00:07 01:14 WBC 10.75 RBC 3.19 L Hgb 9.8 L Hct 31.2 L MCV 98 H MCH 30.7 MCHC 31.4 L RDW 17.1 H Plt Count 76 L MPV 11.5 H Immature Gran % 0.0 Neutrophils % 95.0 Band Neutrophils % 2 Lymphocytes % 1.0 Monocytes % 2.0 Eosinophils % 0.0 Basophils % 0.0 Nucleated RBC % 0.0 Absolute Neutrophils 10.43 H Absolute Lymphocytes 0.11 L Absolute Monocytes 0.22 Absolute Eosinophils 0.00 Absolute Basophils 0.00 RBC Morphology Normal Xanthochromia PT 13.2 H INR 1.3 H APTT 34.2 H VBG pH 7.35 VBG pCO2 43 VBG pO2 24 VBG HCO3 24 VBG Total CO2 23 L VBG O2 Saturation 31 VBG Base Excess -2 VBG Lactate 3.4 H* Sodium 136 Potassium 4.5 Chloride 99 Carbon Dioxide 25.3 Anion Gap 11.7 H BUN 45 H Creatinine 3.1 H Est GFR (CKD-EPI 2020) 18.97 Glucose 133 H Calcium 8.3 L Magnesium 1.9 Total Bilirubin 1.1 H AST 18 ALT 28 Alkaline Phosphatase 82 Troponin I 234 H* 238 H* NT-Pro-B Natriuret Pep 3660 H Total Protein 6.2 L Albumin 2.6 L Urine Color Urine Clarity Urine pH Ur Specific Bradley Urine Protein Urine Ketones Urine Blood Urine Nitrite Urine Bilirubin Urine Urobilinogen Ur Leukocyte Esterase Urine RBC Urine WBC Ur Epithelial Cells Urine Crystals Urine Bacteria Urine Casts Urine Mucus Ur Culture Indicated? Urine Glucose CSF Tube Number CSF Color CSF Clarity CSF WBC CSF RBC CSF RBC (1) CSF Diff Comment CSF Glucose CSF Total Protein COVID-19 Source Nasopharynx SARS-CoV-2 (PCR) Negative Influenza Type A (PCR) Negative Influenza Type B (PCR) Negative RSV (PCR) Negative 11/17/24 11/17/24 11/17/24 01:45 02:45 02:58 WBC RBC Hgb Hct MCV MCH MCHC RDW Plt Count MPV Immature Gran % Neutrophils % Band Neutrophils % Lymphocytes % Monocytes % Eosinophils % Basophils % Nucleated RBC % Absolute Neutrophils Absolute Lymphocytes Absolute Monocytes Absolute Eosinophils Absolute Basophils RBC Morphology Xanthochromia Absent PT INR APTT VBG pH VBG pCO2 VBG pO2 VBG HCO3 VBG Total CO2 VBG O2 Saturation VBG Base Excess VBG Lactate 2.6 H* Sodium Potassium Chloride Carbon Dioxide Anion Gap BUN Creatinine Est GFR (CKD-EPI 2020) Glucose Calcium Magnesium Total Bilirubin AST ALT Alkaline Phosphatase Troponin I NT-Pro-B Natriuret Pep Total Protein Albumin Urine Color Yellow Urine Clarity Clear Urine pH 5.0 Ur Specific Bradley <= 1.005 Urine Protein Negative Urine Ketones Negative Urine Blood Negative Urine Nitrite Negative Urine Bilirubin Negative Urine Urobilinogen 0.2 Ur Leukocyte Esterase Trace H Urine RBC 0-2 Urine WBC 10-20 H Ur Epithelial Cells Rare Urine Crystals Negative Urine Bacteria Rare Urine Casts Negative Urine Mucus Negative Ur Culture Indicated? C&S Done As Ordered Urine Glucose Negative CSF Tube Number 4 CSF Color Colorless CSF Clarity Clear CSF WBC 3 CSF RBC 19 H CSF RBC (1) 21 H CSF Diff Comment CSF Glucose 72 H CSF Total Protein 56 H COVID-19 Source SARS-CoV-2 (PCR) Influenza Type A (PCR) Influenza Type B (PCR) RSV (PCR) Last Vital Signs Temp 36.9 C 11/17/24 00:05 Pulse 106 H 11/17/24 03:50 Resp 16 11/17/24 03:50 BP 130/55 L 11/17/24 03:45 Pulse Ox 96 11/17/24 03:50 Time Spent Time spent with Patient: >75 minutes Time was spent: preparing to see the patient(eg.review tests), obtaining and/or reviewing separately otained hiistory, ordering medications,tests, procedures, indepentently interpreting results and care coordination
[2024-11-17 04:27] LABS: Troponin I 286 ng/L (<or=76)
--- NOTE | 2024-11-17 05:32 | W.PC.ACHO ---
Registration Status: REG ER Primary Language: Preferred Language: ED Information & Data Chief Complaint Fall/Non TraumaCriteria 11/16/24 23:51 Triage Note 2 days ago PT fell and hurt 11/16/24 23:29 his L big toe. PT has had sore throat, chills, SOB, and fever. PT states that he has neck pain that started tonight Medical / Surgical History (Last Reviewed 11/17/24 @ 03:58 by Slava Garnica) H/O polymyalgia rheumatica Localized edema Anemia (Last Reviewed 11/17/24 @ 03:58 by Slava Garnica) Hx of colonoscopy History of back surgery History of bowel resection S/P appendectomy Most Recent Vital Signs Temperature 36.9 C 11/17/24 00:05 Temperature Source Rectal 11/17/24 00:05 Pulse 51 L 11/17/24 05:10 Pulse 93 H 11/17/24 04:20 Respiratory Rate 17 11/17/24 04:20 Blood Pressure 130/55 L 11/17/24 03:45 Blood Pressure Mean 52 11/17/24 04:16 Pulse Oximetry 92 11/17/24 05:10 Oxygen Delivery Method Room Air 11/16/24 23:29 Oxygen Flow Rate 0 11/16/24 23:29 Pain Level 10 11/16/24 23:29 Allergies No Known Allergies Allergy (Verified 11/16/24 23:44) Active Medications Generic Name Dose Route Start Last Admin Trade Name Freq PRN Reason Stop Dose Admin Iohexol 100 ml 11/17/24 01:30 11/17/24 01:26 Omnipaque 350 Mg/Ml 100 Ml Btl IJ 12/17/24 23:59 85 ml DIRECTED NUSRAT Administration Sodium Chloride 50 ml 11/17/24 01:30 11/17/24 01:27 Normal Saline - Diluent 50 Ml Vial IJ 50 ml DIRECTED NUSRAT Administration Sodium Chloride 0 ml 11/17/24 01:25 11/17/24 01:27 Normal Saline Flush 10 Ml Syr IVP 10 ml PRN PRN Administration IV IV Catheter Type [Left Peripheral IV Antecubital] IV Catheter Type [Right Peripheral IV Antecubital] IV Catheter Gauge [Left 18 Antecubital] IV Catheter Gauge [Right 18 Antecubital] Diagnostics 11/17/24 11/17/24 11/17/24 Range/Units 04:03 02:58 02:45 WBC (4.4-10.8) 10^3/uL RBC (4.36-5.78) 10^6/uL Hgb (13.5-17.5) g/dL Hct (40.0-50.0) % MCV (80-95) fL MCH (27.0-33.0) pg MCHC (32.0-36.0) % RDW (11.8-14.1) % Plt Count (130-400) 10^3/uL MPV (8.0-11.0) fL Immature Gran % % Neutrophils % % Band Neutrophils % % Lymphocytes % % Monocytes % % Eosinophils % % Basophils % % Nucleated RBC % (0.0-0.3) % Absolute Neutrophils (1.2-6.7) 10^3/uL Absolute Lymphocytes (1.2-3.4) 10^3/uL Absolute Monocytes (0.1-0.8) 10^3/uL Absolute Eosinophils (0.0-0.7) 10^3/uL Absolute Basophils (0.0-0.2) 10^3/uL RBC Morphology Xanthochromia PT (9.1-11.1) sec INR (0.9-1.1) APTT (20.6-30.2) sec VBG pH (7.31-7.41) VBG pCO2 (41-51) mmHg VBG pO2 mmHg VBG HCO3 (23-28) mmol/L VBG Total CO2 (24-29) mmol/L VBG O2 Saturation % VBG Base Excess (-2-3) mmol/L VBG Lactate 2.6 H* (<or=2.0) mmol/L Sodium (136-145) mmol/L Potassium (3.5-5.1) mmol/L Chloride (98-107) mmol/L Carbon Dioxide (21.0-32.0) mmol/L Anion Gap (3-11) mmol/L BUN (7-18) mg/dL Creatinine (0.70-1.30) mg/dL Est GFR (CKD-EPI 2020) (mL/min/1.73m2) Glucose (74-106) mg/dL Calcium (8.5-10.1) mg/dL Magnesium (1.8-2.4) mg/dL Total Bilirubin (0.2-1.0) mg/dL AST (15-37) U/L ALT (16-63) U/L Alkaline Phosphatase (46-116) U/L Troponin I 286 H* (<or=76) ng/L NT-Pro-B Natriuret Pep (<300) pg/mL Total Protein (6.4-8.2) g/dL Albumin (3.4-5.0) g/dL Urine Color Yellow (Yellow) Urine Clarity Clear (Clear) Urine pH 5.0 (5-8) Ur Specific [place] <= 1.005 (1.005-1.025) Urine Protein Negative (Neg-Trace) mg/dL Urine Ketones Negative (Negative) mg/dL Urine Blood Negative (Negative) Urine Nitrite Negative (Negative) Urine Bilirubin Negative (Negative) Urine Urobilinogen 0.2 (Up to 0.2) mg/dL Ur Leukocyte Esterase Trace H (Negative) Urine RBC 0-2 (0-2) HPF Urine WBC 10-20 H (0-5) HPF Ur Epithelial Cells Rare (Negative) HPF Urine Crystals Negative (Negative) HPF Urine Bacteria Rare (Negative) HPF Urine Casts Negative (Negative) LPF Urine Mucus Negative (Negative) Ur Culture Indicated? C&S Done As Ordered Urine Glucose Negative (Negative) mg/dL CSF Source CSF Tube Number CSF Color CSF Clarity CSF WBC (0-5) /uL CSF RBC (0-5) /mm3 CSF RBC (1) (0-5) /mm3 CSF Diff Comment CSF Glucose (40-70) mg/dL CSF Total Protein (15-45) mg/dL CSF C.neoform/gat PCR CSF CMV DNA (PCR) CSF Enterovirus (PCR) CSF E. coli K1 (PCR) CSF H. influenzae (PCR) CSF HSV I (PCR) CSF HSV II (PCR) CSF HHV 6 (PCR) CSF L.monocytogenes PCR CSF N. meningitidis PCR CSF Parechovirus (PCR) CSF S. agalactiae (PCR) CSF S. pneumoniae (PCR) CSF VZV (PCR) COVID-19 Source SARS-CoV-2 (PCR) (Negative) Influenza Type A (PCR) (Negative) Influenza Type B (PCR) (Negative) RSV (PCR) (Negative) Ref Test Interpretation 11/17/24 11/17/24 11/17/24 Range/Units 01:45 01:14 00:07 WBC (4.4-10.8) 10^3/uL RBC (4.36-5.78) 10^6/uL Hgb (13.5-17.5) g/dL Hct (40.0-50.0) % MCV (80-95) fL MCH (27.0-33.0) pg MCHC (32.0-36.0) % RDW (11.8-14.1) % Plt Count (130-400) 10^3/uL MPV (8.0-11.0) fL Immature Gran % % Neutrophils % % Band Neutrophils % % Lymphocytes % % Monocytes % % Eosinophils % % Basophils % % Nucleated RBC % (0.0-0.3) % Absolute Neutrophils (1.2-6.7) 10^3/uL Absolute Lymphocytes (1.2-3.4) 10^3/uL Absolute Monocytes (0.1-0.8) 10^3/uL Absolute Eosinophils (0.0-0.7) 10^3/uL Absolute Basophils (0.0-0.2) 10^3/uL RBC Morphology Xanthochromia Absent PT (9.1-11.1) sec INR (0.9-1.1) APTT (20.6-30.2) sec VBG pH (7.31-7.41) VBG pCO2 (41-51) mmHg VBG pO2 mmHg VBG HCO3 (23-28) mmol/L VBG Total CO2 (24-29) mmol/L VBG O2 Saturation % VBG Base Excess (-2-3) mmol/L VBG Lactate (<or=2.0) mmol/L Sodium (136-145) mmol/L Potassium (3.5-5.1) mmol/L Chloride (98-107) mmol/L Carbon Dioxide (21.0-32.0) mmol/L Anion Gap (3-11) mmol/L BUN (7-18) mg/dL Creatinine (0.70-1.30) mg/dL Est GFR (CKD-EPI 2020) (mL/min/1.73m2) Glucose (74-106) mg/dL Calcium (8.5-10.1) mg/dL Magnesium (1.8-2.4) mg/dL Total Bilirubin (0.2-1.0) mg/dL AST (15-37) U/L ALT (16-63) U/L Alkaline Phosphatase (46-116) U/L Troponin I 238 H* (<or=76) ng/L NT-Pro-B Natriuret Pep (<300) pg/mL Total Protein (6.4-8.2) g/dL Albumin (3.4-5.0) g/dL Urine Color (Yellow) Urine Clarity (Clear) Urine pH (5-8) Ur Specific [place] (1.005-1.025) Urine Protein (Neg-Trace) mg/dL Urine Ketones (Negative) mg/dL Urine Blood (Negative) Urine Nitrite (Negative) Urine Bilirubin (Negative) Urine Urobilinogen (Up to 0.2) mg/dL Ur Leukocyte Esterase (Negative) Urine RBC (0-2) HPF Urine WBC (0-5) HPF Ur Epithelial Cells (Negative) HPF Urine Crystals (Negative) HPF Urine Bacteria (Negative) HPF Urine Casts (Negative) LPF Urine Mucus (Negative) Ur Culture Indicated? Urine Glucose (Negative) mg/dL CSF Source Pending CSF Tube Number 4 CSF Color Colorless CSF Clarity Clear CSF WBC 3 (0-5) /uL CSF RBC 19 H (0-5) /mm3 CSF RBC (1) 21 H (0-5) /mm3 CSF Diff Comment CSF Glucose 72 H (40-70) mg/dL CSF Total Protein 56 H (15-45) mg/dL CSF C.neoform/gat PCR Pending CSF CMV DNA (PCR) Pending CSF Enterovirus (PCR) Pending CSF E. coli K1 (PCR) Pending CSF H. influenzae (PCR) Pending CSF HSV I (PCR) Pending CSF HSV II (PCR) Pending CSF HHV 6 (PCR) Pending CSF L.monocytogenes PCR Pending CSF N. meningitidis PCR Pending CSF Parechovirus (PCR) Pending CSF S. agalactiae (PCR) Pending CSF S. pneumoniae (PCR) Pending CSF VZV (PCR) Pending COVID-19 Source Nasopharynx SARS-CoV-2 (PCR) Negative (Negative) Influenza Type A (PCR) Negative (Negative) Influenza Type B (PCR) Negative (Negative) RSV (PCR) Negative (Negative) Ref Test Interpretation Pending 11/16/24 Range/Units 23:45 WBC 10.75 (4.4-10.8) 10^3/uL RBC 3.19 L (4.36-5.78) 10^6/uL Hgb 9.8 L (13.5-17.5) g/dL Hct 31.2 L (40.0-50.0) % MCV 98 H (80-95) fL MCH 30.7 (27.0-33.0) pg MCHC 31.4 L (32.0-36.0) % RDW 17.1 H (11.8-14.1) % Plt Count 76 L (130-400) 10^3/uL MPV 11.5 H (8.0-11.0) fL Immature Gran % 0.0 % Neutrophils % 95.0 % Band Neutrophils % 2 % Lymphocytes % 1.0 % Monocytes % 2.0 % Eosinophils % 0.0 % Basophils % 0.0 % Nucleated RBC % 0.0 (0.0-0.3) % Absolute Neutrophils 10.43 H (1.2-6.7) 10^3/uL Absolute Lymphocytes 0.11 L (1.2-3.4) 10^3/uL Absolute Monocytes 0.22 (0.1-0.8) 10^3/uL Absolute Eosinophils 0.00 (0.0-0.7) 10^3/uL Absolute Basophils 0.00 (0.0-0.2) 10^3/uL RBC Morphology Normal Xanthochromia PT 13.2 H (9.1-11.1) sec INR 1.3 H (0.9-1.1) APTT 34.2 H (20.6-30.2) sec VBG pH 7.35 (7.31-7.41) VBG pCO2 43 (41-51) mmHg VBG pO2 24 mmHg VBG HCO3 24 (23-28) mmol/L VBG Total CO2 23 L (24-29) mmol/L VBG O2 Saturation 31 % VBG Base Excess -2 (-2-3) mmol/L VBG Lactate 3.4 H* (<or=2.0) mmol/L Sodium 136 (136-145) mmol/L Potassium 4.5 (3.5-5.1) mmol/L Chloride 99 (98-107) mmol/L Carbon Dioxide 25.3 (21.0-32.0) mmol/L Anion Gap 11.7 H (3-11) mmol/L BUN 45 H (7-18) mg/dL Creatinine 3.1 H (0.70-1.30) mg/dL Est GFR (CKD-EPI 2020) 18.97 (mL/min/1.73m2) Glucose 133 H (74-106) mg/dL Calcium 8.3 L (8.5-10.1) mg/dL Magnesium 1.9 (1.8-2.4) mg/dL Total Bilirubin 1.1 H (0.2-1.0) mg/dL AST 18 (15-37) U/L ALT 28 (16-63) U/L Alkaline Phosphatase 82 (46-116) U/L Troponin I 234 H* (<or=76) ng/L NT-Pro-B Natriuret Pep 3660 H (<300) pg/mL Total Protein 6.2 L (6.4-8.2) g/dL Albumin 2.6 L (3.4-5.0) g/dL Urine Color (Yellow) Urine Clarity (Clear) Urine pH (5-8) Ur Specific [place] (1.005-1.025) Urine Protein (Neg-Trace) mg/dL Urine Ketones (Negative) mg/dL Urine Blood (Negative) Urine Nitrite (Negative) Urine Bilirubin (Negative) Urine Urobilinogen (Up to 0.2) mg/dL Ur Leukocyte Esterase (Negative) Urine RBC (0-2) HPF Urine WBC (0-5) HPF Ur Epithelial Cells (Negative) HPF Urine Crystals (Negative) HPF Urine Bacteria (Negative) HPF Urine Casts (Negative) LPF Urine Mucus (Negative) Ur Culture Indicated? Urine Glucose (Negative) mg/dL CSF Source CSF Tube Number CSF Color CSF Clarity CSF WBC (0-5) /uL CSF RBC (0-5) /mm3 CSF RBC (1) (0-5) /mm3 CSF Diff Comment CSF Glucose (40-70) mg/dL CSF Total Protein (15-45) mg/dL CSF C.neoform/gat PCR CSF CMV DNA (PCR) CSF Enterovirus (PCR) CSF E. coli K1 (PCR) CSF H. influenzae (PCR) CSF HSV I (PCR) CSF HSV II (PCR) CSF HHV 6 (PCR) CSF L.monocytogenes PCR CSF N. meningitidis PCR CSF Parechovirus (PCR) CSF S. agalactiae (PCR) CSF S. pneumoniae (PCR) CSF VZV (PCR) COVID-19 Source SARS-CoV-2 (PCR) (Negative) Influenza Type A (PCR) (Negative) Influenza Type B (PCR) (Negative) RSV (PCR) (Negative) Ref Test Interpretation 11/17/24 02:58 Urine Culture - Pending Urine - Voided 11/17/24 00:11 Blood Culture - Pending Blood 11/17/24 00:00 Blood Culture - Pending Blood Intake and Output - 24 Hour Total 11/16/24 23:25 thru 11/16/24 23:29 Weight 110.2 kg Falls Risk Assessment History of Falls Admit Due to Fall 11/16/24 23:34 Contributing Factors Impairments 11/16/24 23:34 Ambulatory Aids Uses ambulatory device 11/16/24 23:34 Tubes/Lines None 11/16/24 23:34 Gait Evaluation No gait disturbance 11/16/24 23:34 Cognition No cognitive impairment 11/16/24 23:34 Fall Total Score 43 11/16/24 23:34 Level of Risk Moderate Risk 11/16/24 23:34 Problems (Last Reviewed 11/17/24 @ 03:58 by Slava Garnica) Elevated troponin level not due to acute coronary syndrome (Acute) CKD (chronic kidney disease) (Chronic) KIA (acute kidney injury) (Acute) Sepsis (Acute) Asthma with COPD (Chronic) (HFpEF) heart failure with preserved ejection fraction (Chronic) Urinary tract infection (Acute) Hypothyroidism (Chronic) Hypertension (Chronic) PSVT (paroxysmal supraventricular tachycardia) (Chronic) v v v v v v v v v Sending and/or Receiving Nurses: Please use comment section below to note any information pertinent to the patient hand-off not included above. Information / Comments: No further questions. Report received from: BERRY Montero
[2024-11-17 06:53] LABS: TSH (W/Ref FT4) 0.94 uIU/mL (0.36-3.74)
--- NOTE | 2024-11-17 07:15 | NUR.NOTE ---
Nursing Note: Called pharmacy to verify orders in order to start IV fluid.
[2024-11-17] MEDS: Normal Saline 1,000 ML 125 ML IV ×2 (07:40→17:25)
[2024-11-17 09:16] LABS: Troponin I 431 ng/L (<or=76)
[2024-11-17] MEDS: Loratidine 10 MG TAB PO (09:55)
[2024-11-17] MEDS: Rosuvastatin 5 MG TAB PO (09:55)
[2024-11-17] MEDS: Metoprolol CR 50 MG TABCR PO (09:55)
[2024-11-17] MEDS: Tamsulosin 0.4 MG CAPCR PO (09:55)
[2024-11-17] MEDS: Cyanocobalamin 500 MCG TAB 1000 MCG PO (09:55)
[2024-11-17] MEDS: Hydrocortisone SOD SUC. 100 MG VIAL IVP ×3 (09:56→23:10)
[2024-11-17] MEDS: methylPREDNISolone SUCC 125 MG VIAL 80 MG IVP ×3 (09:56→23:10)
[2024-11-17] MEDS: Acetaminophen 325 MG TAB 650 MG PO ×2 (10:15→17:26)
[2024-11-17] MEDS: VANCOMYCIN/WATER (PEG) 750 MG/150 ML BAG 150 MG IV (11:46)
--- NOTE | 2024-11-17 12:56 | IN_ITS ---
PT Notes Visit Reasons: Sepsis, UTI, KIA with CKD, Elevated troponin Inpatient Physical Therapy Evaluation Date: 11/17/24 Referring Doctor: Dr. Slava Garnica PT Orders: PT CONSULT: Precautions: fall, standard Patient Profile/Admitting Diagnosis: Lance is an 84 year old male admitted for medical management of sepsis and UTI, with fall at home 11/14/24 resulting in left foot pain and edema (x-rays negative for fracture). PMH is significant for COPD, CKK, heart failure, PMR (chronically on prednisone), and afib (anticoagulated). Social History/Home Situation: Lance lives alone in a private home. He walks short distances (estimates ~30') hobbling around with a cane, and uses a power chair for community ambulation. He is able to manage a flight of stairs to his basement independently. Son lives close by, and is present and supportive during evaluation. Equipment Owned/DME: power chair, cane Subjective: Lance states that he continues to have pain in his left foot and his neck. Reports this is improved a bit from yesterday. He's agreeable to getting up to the chair. Objective: General Observation: Resting in bed with telemetry in place, IV to LUE. Mental Status: A&Ox3. Pleasant and cooperative throughout. Pain: left foot, neck ROM: Right Upper Extremity: WFL Left Upper Extremity: WFL Right Lower Extremity: WFL Left Lower Extremity: WFL, with the exception of left foot and ankle. Able to flex toes only minimally due to pain. Ankle DF/PF arc of motion 10* with pain. Strength: Right Upper Extremity: WFL Left Upper Extremity: WFL Right Lower Extremity: Quads 3/5 or greater. Ankle DF 3/5 or greater. Left Lower Extremity: Quads 3/5 or greater Sensation: diminished bilat LEs Bed Mobility/Transfers: supine-sit: mod A x 1 with HOB at 40* sit-stand: min A with bed elevated stand-sit: CGA with cues Gait: Ambulates 8' with FWW, min A, limited WBing to LLE, with heavy reliance on UE support to FWW Balance: Static Sitting: good Dynamic Sitting: good Static Standing: fair Dynamic Standing: poor Special Tests: Mobility Limitations Standardized Measure [facility] 6 clicks Basic Mobility Inpatient Short Form: Raw Score: 15 CMS Score: 58% impairment Informed Consent/Education: Patient instructed in purpose of PT consult and plan of care. Assessment: Patient is an 84 year old male referred to physical therapy services in acute care setting, where he is being medically managed for sepsis. He struggling with left foot pain after falling at home, with x-rays negative for fracture; he does have significant swelling and pain, limiting his tolerance to ambulation. He is limited in his walking tolerance at baseline, walking only household distances and otherwise using motorized wheelchair. He requires skilled PT intervention to maximize mobility and independence. He currently demonstrates the following impairment level findings: 1. decreased activity tolerance 2. gait impairments 3. LLE edema 4. decreased ROM left foot and ankle Impairments are contributing to the following functional limitations: 1. unable to ambulate without assistance 2. unable to transfer independently 3. decreased activity tolerance 4. high risk for falls Patient is assessed as Moderate [id number] complexity based on the following: History: as above Examination: as above Presentation: evolving due to acute medical issues Decision Making: moderate complexity Goals: Goals X1 week 1. Supine-Sit : supervision 2. Sit-Supine : supervision 3. Sit-Stand : supervision 4. Stand-Sit : supervision 5. Bed-Chair : supervision with FWW 6. Chair-Bed : supervision with FWW 7. Gait : supervision with FWW x 25' Plan of Care/Treatment Plan: 1-2x/day, 7 days/week x 1 week. Plan of care has been reviewed with the FLOOR PLAN ADJUSTER providing the service under Physical Therapy direction. Initiate Physical Therapy intervention for strengthening, bed mobility, transfers, gait, stairs, balance training, use of assistive device. DISCHARGE RECOMMENDATIONS: SNF for continued rehabilitation vs home with HH PT based on progress toward established goals TREATMENT CODE/TIME: 9751-8649 (90900) Alexa Stevens, PT, DPT [facility]
[2024-11-17 13:03] LABS: Troponin I 414 ng/L (<or=76)
[2024-11-17] MEDS: Lidocaine 5% Patch 1 PATCH TP (13:50)
--- NOTE | 2024-11-17 16:22 | PDOC.CMIN ---
Date of service: 11/17/24 Time of Service: 16:22 Care Management Initial Assmt Initial Assessment Reason for Hospitalization: Sepsis, UTI, KIA on CKD, elevated troponin Functional Status/Living Situation Patient Presentation: Lance was sitting up on the edge of his bed when CM met with him. He was pleasant and engaged well in conversation. He stated that he is independent at home and does not like to depend on others for help, although his son and daughter live nearby and are just a phone call away. They are very supportive, help with grocery shopping and visit often. 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 They were for almost 65 years. Lance stated that he will consider HH services, as he feels it may benefit him to have help, but he doesn't like to depend on others. He stated that he anticipates he will be here through the weekend. Per report, he is being treated for sepsis with IV antibiotics. PT is following and is recommending SNF vs HH services. CM will continue to follow. [facility] [place] [place] Res[place] with: Alone Significant Other/Family: Local Natural Supports: Two children, a son and a daughter, along with grand children and great grand children; all are local and supportive. Employment Status: Retired (Worked at the [employer] for 40 years) Instrumental Activities of Daily Living (ADLs): Independent Medications Medication Management: No Issues/Barriers identified Physical Functioning/Mobility Assistive Device: cane, motorized w/c Advance Directives Advance Directives: Do you have an Advance Directive: Y 15, 14:12 AD On File at [facility]: N 06/17/22, 17:41 Date Asked 08/29/24 08/29/24, 08:42 AD Date Reviewed COLST On File at [facility] COLST Date Scanned Code Status Resuscitation Status DNR/DNI Insurance Coverage/Financial Issues Insurance: [facility] supplement Care Team Visit Care Team Role Provider Type Mikhail Jiang MD MD [facility] STAFF PHYSICIAN Khadijah Henriquez MD Primary Care Provider [facility] STAFF PHYSICIAN Ruby Nolan Other Providers OTHER Maya Watters MD Emergency Provider [facility] STAFF PHYSICIAN Slava Garnica Admit Provider NON-[facility] STAFF PHYSICIAN Attending Provider Discharge Potential Discharge Needs: PCP F/U Appt Anticipated Barriers to Discharge: None Identified Patient/Family Education Needs: Review discharge instructions, discuss Ask Me Three Transportation: Private vehicle Plan: Anticipate Lance will return home when medically cleared; he will consider HH PT. His son will drive him home via private vehicle when ready. He will follow up with his PCP and discharge plan of care. CM will continue to follow. Social Determinants of Health Screening Will the Patient Participate in the Screening?: Declined to provide Health Related Social Needs Health related social needs details: Patient reports he is ok. PFSH All Active Problems (Updated 11/17/24 @ 09:47 by Slava Garnica) Contusion of left foot (Acute) PAF (paroxysmal atrial fibrillation) (Chronic) Urinary tract infection (Acute) CKD (chronic kidney disease) (Chronic) KIA (acute kidney injury) (Acute) NSTEMI (non-ST elevation myocardial infarction) (Acute) Shortness of breath (Acute) Sepsis (Acute) Shock (Acute) Elevated troponin level not due to acute coronary syndrome (Acute) CKD (chronic kidney disease) (Chronic) KIA (acute kidney injury) (Acute) Sepsis (Acute) S/P TAVR (transcatheter aortic valve replacement) (Acute) Allergic rhinitis (Acute) Asthma with COPD (Chronic) Pain in right foot (Acute) Pain in left foot (Acute) Dystrophy of nail due to trauma (Acute) Onychomycosis (Acute) Neuropathy (Acute) Atherosclerosis of artery of both lower extremities (Acute) Disorder of kidney (Acute) Polyneuropathy (Acute) (HFpEF) heart failure with preserved ejection fraction (Chronic) Aortic stenosis (Chronic) PMR (polymyalgia rheumatica) (Acute) 03/01/23 on chronic prednisone RH Urinary tract infection (Acute) [id number] kidney injury (Acute) Syncope (Chronic) Internal derangement of left knee (Acute) Depo-Medrol: 04/17/21 Osteoarthritis of right knee (Acute) Steroid injection: 12/19/2019 (40mg) Bilateral shoulder bursitis (Acute) Impingement syndrome of both shoulders (Acute) Adhesive capsulitis of both shoulders (Acute) Tendinitis of long head of biceps brachii of both shoulders (Acute) Nontraumatic tear of muscle or tendon of rotator cuff of both shoulders (Acute) Scapular dyskinesis (Acute) Peripheral neuropathy (Acute) Cervical spondylosis with myelopathy (Acute) Bilateral hip joint arthritis (Acute) Renal insufficiency (Chronic) Hypothyroidism (Chronic) Restless leg (Acute) Dyspnea on exertion (Acute) Asbestos exposure (Acute) Diverticulitis (Chronic) Cholelithiasis (Acute) Hyperlipidemia (Acute) Hypertension (Chronic) PSVT (paroxysmal supraventricular tachycardia) (Chronic) Right carpal tunnel syndrome (Acute) S/P ECTR: 09/05/2019 Spondylolisthesis, cervical region (Acute) Medical History H/O polymyalgia rheumatica Localized edema Anemia Surgical History Hx of colonoscopy History of back surgery History of bowel resection sigmoid resection S/P appendectomy Social History Smoking/Tobacco Use Status: Former Tobacco Use Smoking risk assessment performed?: Yes Alcohol Intake: current Alcohol Intake frequency: a few times a month Alcohol type: beer Drug use: Never Substance use type: does not use Details: ALCOHOL: T-2, BEER. PT. STATES HE DOES NOT REMEMBER WHEN HE QUIT SMOKING, 40 YEARS AGO Housing: house Current gender identity: male Do you feel safe at home: Yes Do you feel safe in your relationship?: Yes
[2024-11-18] VITALS (25 sets, daily range): BP systolic 119–150; BP diastolic 56–106; PULSE 78–190; RESP 12–22; TEMP 36–37; O2SAT 93–100
[2024-11-18] MEDS: Normal Saline 1,000 ML 125 ML IV (01:19)
[2024-11-18] MEDS: Furosemide 40 MG TAB PO (03:12)
[2024-11-18] MEDS: Levothyroxine 125 MCG TAB PO (06:10)
[2024-11-18 06:18] LABS: HCT 27.3 % (40.0-50.0); HGB 8.6 g/dL (13.5-17.5); MCH 31.3 pg (27.0-33.0); MCHC 31.5 % (32.0-36.0); MCV 99 fL (80-95); MPV 11.1 fL (8.0-11.0); RBC 2.75 10^6/uL (4.36-5.78); RDW 17.4 % (11.8-14.1); RDW-SD 63.6 fL; WBC 10.51 10^3/uL (4.4-10.8)
[2024-11-18 06:32] LABS: Platelet Count 69 10^3/uL (130-400)
[2024-11-18 06:36] LABS: ALT 37 U/L (16-63); AST 23 U/L (15-37); Albumin 2.2 g/dL (3.4-5.0); Alkaline Phosphatase 75 U/L (46-116); Anion Gap 11.9 mmol/L (3-11); BUN 46 mg/dL (7-18); Bilirubin, Total 0.3 mg/dL (0.2-1.0); CO2 22.1 mmol/L (21.0-32.0); Calcium 8.1 mg/dL (8.5-10.1); Chloride 106 mmol/L (98-107); Estimated GFR 32.10 (mL/min/1.73m2); Glucose 158 mg/dL (74-106); Magnesium 2.2 mg/dL (1.8-2.4); Potassium 4.3 mmol/L (3.5-5.1); Sodium 140 mmol/L (136-145); Total Protein 6.2 g/dL (6.4-8.2)
[2024-11-18 06:37] LABS: Vancomycin, Random 14.2 ug/mL
[2024-11-18] MEDS: cefTRIAXone 2 GM/50 ML BAG IVPB ×2 (08:05→20:02)
[2024-11-18] MEDS: methylPREDNISolone SUCC 125 MG VIAL 80 MG IVP (08:06)
[2024-11-18] MEDS: Hydrocortisone SOD SUC. 100 MG VIAL IVP (08:06)
[2024-11-18] MEDS: Cyanocobalamin 500 MCG TAB 1000 MCG PO (08:07)
[2024-11-18] MEDS: Normal Saline Flush 10 ML SYR IVP ×2 (08:07→20:02)
[2024-11-18] MEDS: Rosuvastatin 5 MG TAB PO (08:07)
[2024-11-18] MEDS: Metoprolol CR 50 MG TABCR PO (08:08)
[2024-11-18] MEDS: Tamsulosin 0.4 MG CAPCR PO (08:08)
[2024-11-18] MEDS: Pantoprazole 40 MG TABCR PO (08:08)
[2024-11-18] MEDS: Loratidine 10 MG TAB PO (08:08)
[2024-11-18] MEDS: Budesonide/Formoterol 160/4.5 6 GM 60 PUFF INH IH ×2 (08:27→20:01)
[2024-11-18] MEDS: Metoprolol 5 MG/5 ML VIAL IVP (08:30)
[2024-11-18] MEDS: Levalbuterol 1.25 MG/3 ML UPD VIAL UPD (08:49)
[2024-11-18] MEDS: Ipratropium 0.5 MG/2.5 ML UPD VIAL 0.25 MG UPD (08:50)
[2024-11-18] MEDS: VANCOMYCIN/WATER (PEG) 750 MG/150 ML BAG 150 MG IV (09:57)
--- NOTE | 2024-11-18 11:59 | PT.INTREAT ---
PT Notes Visit Reasons: Sepsis, UTI, KIA with CKD, Elevated troponin Inpatient Physical Therapy Treatment Note [facility] Date: 11/18/24 PRECAUTIONS:fall, standard SUBJECTIVE: Alerted by nursing that patient would like to transition to use of cane vs walker. Patient reports difficulty navigating in the bathroom with FWW, and would prefer to use cane; states that he would prefer to transfer and walk in the room with support to muro and rolling table. OBJECTIVE: ? PAIN: denies VITALS: ? Pre-Treatment: SOB at rest, but SaO2 at 96%, HR 76. ? Post-Treatment: Remains SOB, SaO2 at 95% on room air, HR 70. ? Therapeutic Activities (98626j8): Direct one-on-one instruction in dynamic activities to improve functional performance. ? BED MOBILITY/TRANSFERS? Sit-stand: SBA, with heavy reliance on UE support. Cues for hand placement to chair rails or handrails (in bathroom) vs FWW? Stand-sit: SBA, cues for hand placement ? Static Standin minute with CGA, wide GIOVANY, with multi-directional sway GAIT? Assistive Device: FWW, with heavy reliance on UE support? Weight bearing: AT Assist: SBA, with cues for equipment management and technique ? Distance:? 20'x2 ? Deviation: Patient education on equipment management. Able to navigate in bathroom effectively with cues. Modified door placement to open out to give more clearance. ? Therapeutic Exercises (91624y6): Direct one-on-one instruction in therapeutic exercises to develop strength, endurance, range of motion and flexibility. ? Exercises ? LAQ 10x2 Ankle Pumps 10x2 ASSESSMENT:? Continued need for use of FWW due to limitations in balance and proprioception. Had long discussion today regarding avoidance of holding onto furniture due to increased fall risk. Lance remains at high risk for falls given his limitation in activity tolerance and diminished sensation below the knee bilaterally. He declines issuance of FWW, stating he would prefer a 4WW. These are unfortunately not available at this facility, and recommend he reach out to his son to obtain in the community. He verbalizes understanding of recommendation for use of FWW or 4WW for all ambulation. This was also verbalized to nursing and provided in writing on white board in room. PLAN: Continue PT intervention to maximize safety and activity tolerance. TREATMENT CODE/TIME: 11020n4 DISCHARGE RECOMMENDATION: Home with HH PT
[2024-11-18] MEDS: Lidocaine 5% Patch 1 PATCH TP (14:02)
--- NOTE | 2024-11-18 16:26 | W.PM.PROGNOT ---
Date of Service Date of service: 11/18/24 Time of Service: 15:00 Assessment and Plan Assessment and plan (1) Sepsis: Start date: 11/17/24 Status: Resolved Assessment and plan: This is an 84-year-old gentleman who has increased weakness after stumbling and fall 2 days prior to presentation. He did injure his left foot with at least a sprain and negative imaging for acute fractures. He also appears to have a UTI with elevated WBC and fever at home. Blood cultures were performed and urine cultures were performed with patient initiated on broad-spectrum antibiotic coverage with continuation of Rocephin 2 g IV every 12 hours and vancomycin. CSF cultures were performed as well. The patient did have an elevated lactate which is improved with fluid resuscitation but we need to watch for fluid overload with a history of right-sided CHF. Furosemide is being held. Blood pressure did respond to IV fluid resuscitation and patient will be placed on MedSurg care as long as he remains stable. If he requires pressor agents we can review this with his son with the patient being a DNR/DNI. Nov 18: no longer septic, now with gram positive bacteremia (2) Gram-positive bacteremia: Status: Acute Assessment and plan: November 17 blood cultures with Gram positive cocci in 2 bottles Continue vancomycin, monitor cultures for species and sensitivity (3) Urinary tract infection: Status: Acute Assessment and plan: Urine cultures were performed and patient has adequate coverage with broad-spectrum antibiotic coverage. This may be the source of his sepsis. Follow-up cultures and adjust antibiotic therapy accordingly. Nov 18: urine culture with mixed ke, unlikely UTI. Continue ceftriaxone pending culture results (4) KIA (acute kidney injury): Start date: 11/17/24 Status: Acute Assessment and plan: Patient appears to be dry with decreased intake recently. Lasix will be held and he will have gentle IV hydration with patient have a history of right-sided CHF on Lasix chronically. Watch for bladder outlet obstruction. Nov 18: improved, creatinine 3.1 -> 2.0 (5) CKD (chronic kidney disease): Status: Chronic Assessment and plan: Slightly exacerbated with acute KIA from decreased intake. Gentle IV hydration. (6) Elevated troponin level not due to acute coronary syndrome: Start date: 11/17/24 Status: Acute Assessment and plan: Patient is troponins elevated after his fall with a stress of sepsis. This does not appear to be a primary cardiac event. He is already on Eliquis. Continue statin and beta-maddie. Continue to trend troponins until plateaued. Consider consultation with [facility] cardiology if not improving. He is not having chest pain. He does have shortness of breath which is improving. Nov 18: troponin trended down on Nov 10, no further testing (7) Asthma with COPD: Status: Chronic Assessment and plan: Stress dose hydrocortisone with patient chronically on prednisone and having received Solu-Medrol in the ED. Patient improved bronchospasm with nebulizer treatments which will be continued. Nov 18: patient received solumedrol and hydrocortisone on Nov 18 in the morning, resulting in tachycardia. Holding steroids overnight. (8) (HFpEF) heart failure with preserved ejection fraction: Status: Chronic Assessment and plan: Hold Lasix for now with IV fluid resuscitation for mild dehydration. Watch for fluid overload. Encourage oral intake. (9) PAF (paroxysmal atrial fibrillation): Status: Chronic Assessment and plan: Continue metoprolol for heart rate control while gentle IV fluid resuscitation continues. Adjust if needed for blood pressure. His tachycardia presently may be secondary to stress of sepsis. Troponins are positive but this does not appear to be an non-STEMI and patient is already on Eliquis which will be continued. (10) Hypertension: Status: Chronic Assessment and plan: Patient is having a low systolic blood pressure intermittently but is respond to IV fluid resuscitation with MAP above 65. Because of potential problem with shock associate with his sepsis, his usual antihypertensives will be held except for metoprolol for rate control. This could be adjusted as well if needed. Patient is asymptomatic. He is a DNR/DNI and if pressor agents are needed this should be reviewed with his son before initiation. (11) Hypothyroidism: Status: Chronic Assessment and plan: Check TSH and continue outpatient therapy. (12) Contusion of left foot: Start date: 11/17/24 Status: Acute Assessment and plan: Negative x-ray for fracture but patient may need physical therapy evaluation if difficulty ambulating once his medical status is stabilizing. Symptomatic care. Elevation for now. Subjective Subjective Interval history since last seen: Mr. Hackett is feeling better today and his neck pain is substantially improved. He is sitting up in a chair watching the game. He has been concerned about weakness when standing and ambulating. He does not want to be confined to wheelchair. His son is bringing him a new walker with brakes and a seat. Patient had heavy dose of steroids this morning, with resulting tachycardia during ambulation. Improved throughout the day. Exam Narrative Exam Narrative: General: This is a pleasant, obese man in no distress HEENT: Normocephalic, atraumatic. Edentulous. Neck supple, improved ROM CV: tachycardia, irregular rhythm. Mild distal edema Resp: CTAB Abd: soft, NTND MSK: voluntary motion x4 Neuro: awake, alert, no focal deficits Objective Last Vital Signs Temp 36.7 C 11/18/24 15:11 Pulse 100 H 11/18/24 15:11 Resp 17 11/18/24 15:11 BP 137/83 11/18/24 15:11 Pulse Ox 97 11/18/24 15:11 Laboratory Results - last 24 hr 11/18/24 06:10 WBC 10.51 RBC 2.75 L Hgb 8.6 L Hct 27.3 L MCV 99 H MCH 31.3 MCHC 31.5 L RDW 17.4 H Plt Count 69 L MPV 11.1 H VBG Lactate 2.1 Sodium 140 Potassium 4.3 Chloride 106 Carbon Dioxide 22.1 Anion Gap 11.9 H BUN 46 H Creatinine 2.0 H D Est GFR (CKD-EPI 2020) 32.10 Glucose 158 H Calcium 8.1 L Magnesium 2.2 Total Bilirubin 0.3 AST 23 ALT 37 Alkaline Phosphatase 75 Total Protein 6.2 L Albumin 2.2 L Random Vancomycin 14.2 Time Spent with Patient Time Spent with Patient: 25-34 minutes Time was spent: preparing to see the patient(eg.review tests), obtaining and/or reviewing separately otained hiistory, ordering medications,tests, procedures, referring, communicating with other health health care marketing specialist, indepentently interpreting results, counseling the patient and care coordination
[2024-11-18 18:41] LABS: Specimen Source CEREBROSPINAL FLUID
[2024-11-19] VITALS (19 sets, daily range): BP systolic 111–152; BP diastolic 65–98; PULSE 60–156; RESP 16–22; TEMP 36.2–36.8; O2SAT 90–99
[2024-11-19] MEDS: Levothyroxine 125 MCG TAB PO (05:06)
[2024-11-19 07:02] LABS: HCT 24.2 % (40.0-50.0); HGB 7.6 g/dL (13.5-17.5); MCH 30.8 pg (27.0-33.0); MCHC 31.4 % (32.0-36.0); MCV 98 fL (80-95); MPV 12.3 fL (8.0-11.0); RBC 2.47 10^6/uL (4.36-5.78); RDW 17.0 % (11.8-14.1); RDW-SD 61.5 fL; WBC 9.14 10^3/uL (4.4-10.8)
[2024-11-19 07:22] LABS: Platelet Count 63 10^3/uL (130-400)
[2024-11-19 07:25] LABS: ALT 33 U/L (16-63); AST 17 U/L (15-37); Albumin 2.1 g/dL (3.4-5.0); Alkaline Phosphatase 68 U/L (46-116); Anion Gap 11.7 mmol/L (3-11); BUN 50 mg/dL (7-18); Bilirubin, Total 0.3 mg/dL (0.2-1.0); CO2 22.3 mmol/L (21.0-32.0); Calcium 8.4 mg/dL (8.5-10.1); Chloride 109 mmol/L (98-107); Estimated GFR 36.43 (mL/min/1.73m2); Glucose 165 mg/dL (74-106); Magnesium 2.4 mg/dL (1.8-2.4); Potassium 3.6 mmol/L (3.5-5.1); Sodium 143 mmol/L (136-145); Total Protein 5.8 g/dL (6.4-8.2)
[2024-11-19] MEDS: Budesonide/Formoterol 160/4.5 6 GM 60 PUFF INH IH ×2 (08:16→19:45)
[2024-11-19] MEDS: ceFAZolin 2 GM/50 ML BAG IVPB ×2 (08:40→17:29)
[2024-11-19] MEDS: Metoprolol CR 50 MG TABCR PO (08:42)
[2024-11-19] MEDS: Rosuvastatin 5 MG TAB PO (08:42)
[2024-11-19] MEDS: Normal Saline Flush 10 ML SYR IVP ×2 (08:42→19:46)
[2024-11-19] MEDS: Tamsulosin 0.4 MG CAPCR PO (08:42)
[2024-11-19] MEDS: Cyanocobalamin 500 MCG TAB 1000 MCG PO (08:42)
[2024-11-19] MEDS: Pantoprazole 40 MG TABCR PO (08:42)
[2024-11-19] MEDS: Loratidine 10 MG TAB PO (08:42)
[2024-11-19] MEDS: Furosemide 40 MG TAB PO (08:42)
[2024-11-19 09:22] LABS: Iron 58 ug/dL (65-175); Total Iron Binding Capacity 154 ug/dL (250-450); Transferrin Sat 38 % (20-55)
[2024-11-19 10:21] LABS: Ferritin 429 ng/mL (26-388); Folate 12.8 ng/mL (8.6-20.0); Vitamin B12 1639 pg/mL (193-986)
--- NOTE | 2024-11-19 12:10 | PT.INTREAT ---
PT Notes Visit Reasons: Sepsis, UTI, KIA with CKD, Elevated Troponin Inpatient Physical Therapy Treatment Note [facility] Date: 11/19/24 PRECAUTIONS:fall, standard SUBJECTIVE: Tadeo states that he's feeling well. He spoke with his son about obtaining a 4WW, and he's working on it. OBJECTIVE: ? PAIN: denies VITALS: ? Pre-Treatment: SOB at rest, but SaO2 at 96%, HR 59 per pulse oximeter. ? Post-Treatment: Remains SOB, SaO2 at 95% on room air, HR 113 per telemetry. ? Therapeutic Activities (45229y0): Direct one-on-one instruction in dynamic activities to improve functional performance. ? BED MOBILITY/TRANSFERS? Sit-stand: SBA, with heavy reliance on UE support. Cues for hand placement to chair rails vs FWW? Stand-sit: SBA, cues for hand placement ? Static Standin minute with CGA, wide GIOVANY GAIT? Assistive Device: FWW, with heavy reliance on UE support? Weight bearing: AT Assist: SBA, with cues for equipment management and technique ? Distance:? 75' ? Deviation: Patient education on equipment management. ? Therapeutic Exercises (88784y5): Direct one-on-one instruction in therapeutic exercises to develop strength, endurance, range of motion and flexibility. ? Exercises ? LAQ 10x2 Ankle Pumps 10x2 ASSESSMENT:? Continued need for use of FWW due to limitations in balance and proprioception. He declines issuance of FWW, stating he would prefer a 4WW. These are unfortunately not available at this facility, and recommend he reach out to his son to obtain in the community. He verbalizes understanding of recommendation for use of FWW or 4WW for all ambulation. PLAN: Continue PT intervention to maximize safety and activity tolerance. TREATMENT CODE/TIME: 72617m4 DISCHARGE RECOMMENDATION: Home with HH PT
--- NOTE | 2024-11-19 14:18 | PGE_ITS ---
Date of Service Date of service: 11/19/24 Time of Service: 13:00 Assessment and Plan Assessment and plan (1) MSSA bacteremia: Status: Acute Assessment and plan: MSSA bacteremia, started cefazolin. Stopped vanc. Will have PICC placed Wednesday. Will have echocardiogram when available. (2) Pancytopenia: Status: Acute Assessment and plan: Anemic, thrombocytopenia, likely due to chemotherapy Macrocytic anemia, checking B12 and folate (3) Sepsis: Start date: 11/17/24 Status: Resolved Assessment and plan: This is an 84-year-old gentleman who has increased weakness after stumbling and fall 2 days prior to presentation. He did injure his left foot with at least a sprain and negative imaging for acute fractures. He also appears to have a UTI with elevated WBC and fever at home. Blood cultures were performed and urine cultures were performed with patient initiated on broad-spectrum antibiotic coverage with continuation of Rocephin 2 g IV every 12 hours and vancomycin. CSF cultures were performed as well. The patient did have an elevated lactate which is improved with fluid resuscitation but we need to watch for fluid overload with a history of right-sided CHF. Furosemide is being held. Blood pressure did respond to IV fluid resuscitation and patient will be placed on MedSur care as long as he remains stable. If he requires pressor agents we can review this with his son with the patient being a DNR/DNI. Nov 18: no longer septic, now with gram positive bacteremia Nov 12: MSSA bacteremia, started cefazolin. Will have PICC placed Wednesday. Will have echocardiogram when available. (4) Urinary tract infection: Status: Acute Assessment and plan: Urine cultures were performed and patient has adequate coverage with broad- spectrum antibiotic coverage. This may be the source of his sepsis. Follow-up cultures and adjust antibiotic therapy accordingly. Nov 18: urine culture with mixed ke, unlikely UTI. Nov 12: stopped ceftriaxone (5) KIA (acute kidney injury): Start date: 11/17/24 Status: Acute Assessment and plan: Patient appears to be dry with decreased intake recently. Lasix will be held and he will have gentle IV hydration with patient have a history of right-sided CHF on Lasix chronically. Watch for bladder outlet obstruction. Nov 18: improved, creatinine 3.1 -> 2.0 Nov 12: continuing to improve (6) CKD (chronic kidney disease): Status: Chronic Assessment and plan: Slightly exacerbated with acute KIA from decreased intake. Gentle IV hydration. (7) Elevated troponin level not due to acute coronary syndrome: Start date: 11/17/24 Status: Acute Assessment and plan: Patient is troponins elevated after his fall with a stress of sepsis. This does not appear to be a primary cardiac event. He is already on Eliquis. Continue statin and beta-maddie. Continue to trend troponins until plateaued. Consider consultation with [facility] cardiology if not improving. He is not having chest pain. He does have shortness of breath which is improving. Nov 18: troponin trended down on Nov 10, no further testing (8) Asthma with COPD: Status: Chronic Assessment and plan: Stress dose hydrocortisone with patient chronically on prednisone and having received Solu-Medrol in the ED. Patient improved bronchospasm with nebulizer treatments which will be continued. Nov 18: patient received solumedrol and hydrocortisone on Nov 11 in the morning, resulting in tachycardia. Holding steroids overnight. (9) (HFpEF) heart failure with preserved ejection fraction: Status: Chronic Assessment and plan: Hold Lasix for now with IV fluid resuscitation for mild dehydration. Watch for fluid overload. Encourage oral intake. (10) PAF (paroxysmal atrial fibrillation): Status: Chronic Assessment and plan: Continue metoprolol for heart rate control while gentle IV fluid resuscitation continues. Adjust if needed for blood pressure. His tachycardia presently may be secondary to stress of sepsis. Troponins are positive but this does not appear to be an non-STEMI and patient is already on Eliquis which will be continued. (11) Hypertension: Status: Chronic Assessment and plan: Patient is having a low systolic blood pressure intermittently but is respond to IV fluid resuscitation with MAP above 65. Because of potential problem with shock associate with his sepsis, his usual antihypertensives will be held except for metoprolol for rate control. This could be adjusted as well if needed. Patient is asymptomatic. He is a DNR/DNI and if pressor agents are needed this should be reviewed with his son before initiation. (12) Hypothyroidism: Status: Chronic Assessment and plan: Check TSH and continue outpatient therapy. (13) Contusion of left foot: Start date: 11/17/24 Status: Acute Assessment and plan: Negative x-ray for fracture but patient may need physical therapy evaluation if difficulty ambulating once his medical status is stabilizing. Symptomatic care. Elevation for now. Subjective Subjective Interval history since last seen: Mr. Hackett is up in a chair after brief ambulation. He is short of breath with exertion; elevated heart rates preclude nebulizer treatment and his symptoms resolve on their own. He understands that he may need intermediate antibiotics for a blood infection. Exam Narrative Exam Narrative: General: This is a pleasant, obese man in no distress HEENT: Normocephalic, atraumatic. Edentulous. Neck supple, improved ROM CV: tachycardia, irregular rhythm. Mild distal edema Resp: CTAB Abd: soft, NTND MSK: voluntary motion x4 Neuro: awake, alert, no focal deficits Objective Last Vital Signs Temp 36.6 C 11/19/24 11:43 Pulse 64 11/19/24 11:43 Resp 20 11/19/24 11:43 BP 111/71 11/19/24 11:43 Pulse Ox 90 L 11/19/24 11:43 Laboratory Results - last 24 hr 11/19/24 06:40 WBC 9.14 RBC 2.47 L Hgb 7.6 L Hct 24.2 L MCV 98 H MCH 30.8 MCHC 31.4 L RDW 17.0 H Plt Count 63 L MPV 12.3 H Sodium 143 Potassium 3.6 Chloride 109 H Carbon Dioxide 22.3 Anion Gap 11.7 H BUN 50 H Creatinine 1.8 H Est GFR (CKD-EPI 2020) 36.43 Glucose 165 H Calcium 8.4 L Magnesium 2.4 Iron 58 L TIBC 154 L Transferrin % Sat 38 Ferritin 429 H Total Bilirubin 0.3 AST 17 ALT 33 Alkaline Phosphatase 68 Total Protein 5.8 L Albumin 2.1 L Vitamin B12 1639 H Folate 12.8 Time Spent with Patient Time Spent with Patient: 25-34 minutes Time was spent: preparing to see the patient(eg.review tests), obtaining and/or reviewing separately otained hiistory, ordering medications,tests, procedures, referring, communicating with other health rn transitional care, indepentently interpreting results, counseling the patient and care coordination
[2024-11-19] MEDS: Lidocaine 5% Patch 1 PATCH TP (14:46)
[2024-11-20] VITALS (45 sets, daily range): BP systolic 110–159; BP diastolic 55–135; PULSE 54–175; RESP 12–32; TEMP 36.3–37; O2SAT 91–100
--- NOTE | 2024-11-20 | DI.RAD_ITS ---
Exam(s) XR TOE LT GREAT XR FOOT LT LIMITED EXAM: XR FOOT LT LIMITED CLINICAL HISTORY: pain left first metarsasl/toe area. TECHNIQUE: 2D digital imaging was performed. Three views of the great toe. Two views of the foot. COMPARISON: CR XR TOE LT GREAT from 11/20/2024 FINDINGS: BONES: No acute fracture is present. No bony destructive lesion is seen. JOINTS: No dislocation present. Mild degenerative changes. SOFT TISSUE: Swelling over the dorsum of the foot and adjacent to 1st metatarsal head. Vascular calcifications. IMPRESSION: Soft tissue swelling. No evidence of fracture or bony destruction. DATA REPOSITORY: RADIATION DOSE DELIVERED:
--- NOTE | 2024-11-20 | DI.CT_ITS ---
Exam(s) CT HEAD WO EXAM: CT HEAD WO CLINICAL HISTORY: status possible SA[facility] seen Oct 10. TECHNIQUE: Imaging Protocol: Axial computed tomography images with coronal and sagittal reformatted images were created and reviewed COMPARISON: CT CT HEAD CERVICAL SPINE WO from 11/17/2024 FINDINGS: Ventricles and Extra axial spaces: Normal in size and morphology for the patient's age. Hemorrhage: None. The linear area of increased attenuation in the posterior right parietal occipital regions no longer seen. Cerebral parenchyma: No evidence of acute infarct or mass. Stable white matter changes of small vessel disease. Atrophy. Midline shift: None. Brainstem/Cerebellum: Normal. Bones: No skull or facial fractures. Visualized Paranasal sinuses:Clear. Mastoids: Clear. Soft Tissues: Unremarkable. ORBITS: Unremarkable. PITUITARY: Not enlarged. IMPRESSION: No acute intracranial process. No evidence of subarachnoid hemorrhage. RADIATION DOSE DELIVERED: 909.37mGy.cm Total DLP DATA REPOSITORY: All CT scans at this facility are submitted to the National Radiology Data Registry (NRDR) Dose Index Registry (DIR) with the [employer] (A[employer]). RADIATION OPTIMIZATION: All CT scans at this facility use at least one of these dose optimization techniques: automated exposure control; mA and/or kV adjustment per patient size (includes targeted exams where dose is matched to clinical indication); or iterative reconstruction.
[2024-11-20] MEDS: ceFAZolin 2 GM/50 ML BAG IVPB ×3 (00:06→17:27)
[2024-11-20] MEDS: Levothyroxine 125 MCG TAB PO (05:52)
[2024-11-20] MEDS: Albuterol/Ipratropium 3 ML UPD VIAL UPD (06:06)
[2024-11-20 06:22] LABS: HCT 26.7 % (40.0-50.0); HGB 8.3 g/dL (13.5-17.5); MCH 30.9 pg (27.0-33.0); MCHC 31.1 % (32.0-36.0); MCV 99 fL (80-95); MPV 12.2 fL (8.0-11.0); RBC 2.69 10^6/uL (4.36-5.78); RDW 16.9 % (11.8-14.1); RDW-SD 61.9 fL; WBC 9.57 10^3/uL (4.4-10.8)
[2024-11-20 06:38] LABS: ALT 36 U/L (16-63); AST 21 U/L (15-37); Albumin 2.2 g/dL (3.4-5.0); Alkaline Phosphatase 80 U/L (46-116); Anion Gap 12.0 mmol/L (3-11); BUN 51 mg/dL (7-18); Bilirubin, Total 0.3 mg/dL (0.2-1.0); CO2 23.0 mmol/L (21.0-32.0); Calcium 8.4 mg/dL (8.5-10.1); Chloride 109 mmol/L (98-107); Estimated GFR 34.14 (mL/min/1.73m2); Glucose 135 mg/dL (74-106); Magnesium 2.4 mg/dL (1.8-2.4); Potassium 3.7 mmol/L (3.5-5.1); Sodium 144 mmol/L (136-145); Total Protein 6.0 g/dL (6.4-8.2)
[2024-11-20 06:40] LABS: Platelet Count 75 10^3/uL (130-400)
--- NOTE | 2024-11-20 06:44 | CE_ITS ---
Date of service: 11/20/24 Time of Service: 06:45 Event Note: Rapid response was called on this 84-year-old gentleman who got up from his bed to be weighed and did go to the of the bathroom when he began to have severe pain in his left toe which caused him to go into acute respiratory distress. His telemetry showed a prolonged episode of wide-complex tachycardia which he had been doing intermittently with activity prior to this event. He does have chronic atrial fibrillation and is on Eliquis. Dr. Mcconnell was at the bedside at the time I approached the patient and had discontinued the initial plan for IV amiodarone bolus to treat V. tach which appeared to be symptomatic. The patient does not remember the peak of his episode but does remember that his left large toe was severely painful causing spasm up to his back. He also remembers being short of breath with wheezing which she had done with previous episodes requiring nebulizer treatment. The nebulizer did improve his wheezing and the patient was comfortable and talking at the time I examined him. He never had chest pain, was not diaphoretic and always had a pulse. As stated, he has been having these runs of tachycardia with underlying left bundle branch block but shorter episodes on previous days and always responding to nebulizer treatments for his acute onset of wheezing which accompanied these episodes.. EKG showed no acute changes with his left bundle branch block and atrial fibrillation. Physical exam revealed no change in his heart exam status post TAVR with irregularly irregular rhythm and normal rate, and quite systolic murmur. Lungs were clear with bronchovesicular breath sound diffusely. Left foot did reveal more focalized swelling from his admission but now with erythema and tenderness over the dorsal foot at the 2nd and 1st metatarsal heads with some puffiness but no fluctuation and no pointing. Similar erythema over his entire left large toe with tenderness to palpation. Capillary refill was fair and slightly slowed over this area. It was warm to touch but not hot. Assessment/plan: -Atrial fibrillation with left bundle branch block and runs of tachycardia which are slightly irregular but appear to be V. tach. He has a more prolonged episode with increased symptoms of bronchospasm but no true syncope. Patient did not have full memory of the event. Lab will be expanded to troponin which has been elevated upon admission and chronically elevated, lactic acid with patient now having a diagnosis of MSSA on treatment and his usual morning labs. EKG did not reveal any ischemic changes. Continue close observation on telemetry. If troponins is markedly elevated, reconsult [facility] cardiology. If episodes continue also consider follow-up with cardiology. Echocardiogram will be performed as available. Antiarrhythmics may be indicated but need to be reviewed with patient and specialty care. Patient most likely should not live alone at home though he wishes to continue his present living situation. -The patient also has increasing pain in his left foot and toe with imaging originally upon admission negative but magdaleno-ray right foot and right great toe. Continue treatment for MSSA. If the fluctuance over his dorsal foot worsens, consider ultrasound and possible I&D if there is abscess. Patient will continue physical therapy rehabilitation and treatment of his other medical problems as before. He is a DNR/DNI. Time Spent with Patient Time spent in critical care(minutes): 30 Time Spent Included: Chart review, Documenting critically ill care, Time at immediate bedside and Discussing critically ill care with other medical staff
[2024-11-20 06:59] LABS: Troponin I 204 ng/L (<or=76)
--- NOTE | 2024-11-20 07:12 | CE_ITS ---
Date of service: 11/20/24 Time of Service: 07:13 Event Note: Rapid response was called to the floor. Myself, nursing geothermal powerplant supervisor, nurse and steam plant records clerk went to the floor. Upon arrival we received report, allegedly the patient was gotten up to be moved, and subsequently had a notable elevation in his heart rate, and became altered and potentially had syncope(although it is not totally clear) after which rapid response was called, and pads were applied as well as monitor. There was concern for potential V. tach. However the patient was able to speak, and blood pressure was normal suggesting stable V. tach. Patient is DNR/DNI. We elected to move forward with amiodarone and 300 mg of IV amiodarone were drawn up, however an EKG was performed during this time which showed evidence of left bundle branch block at a rapid rate likely secondary to A-fib. During this time his rate resolved/improved on its own, and since it was clear that there was no V. tach, and his A-fib with a rapid ventricular response improved on its own there was no indication for further medications. Second line was established by nursing geothermal powerplant supervisor. Repeat blood was drawn. And patient returned to hemodynamic stability. Patient was given 1 DuoNeb as he did have wheezing. He tolerated this well. Dr. Garnica arrived shortly thereafter and case was handed off to him for continued floor management. Time Spent with Patient Time spent in critical care(minutes): 30 Time Spent Included: Chart review, Documenting critically ill care, Time at immediate bedside and Discussing critically ill care with other medical staff
--- NOTE | 2024-11-20 07:40 | CMPROGNOTE_ITS ---
Date of service: 11/20/24 Time of Service: 13:18 Care Management Progress Note Progress Note Text Progress Note Text: CM met with Lance while he was awake and lying in bed. Per report, the patient experienced two rapid response events earlier this morning and has since been transferred from the medical-surgical unit to the ICU. Lance is scheduled to undergo an echo today. Per report, consults with ID and Cardiology at [facility] [place] have been requested. Per report,, a PICC line will be placed, and IV antibiotics will be continued. CM discussed home health services with the patient. At this time, he does not feel these services would be beneficial but is open to reconsidering in a month or two. Lance reports that his home is handicap accessible and states he anticipates being independent at the time of discharge. CM will continue to follow. Discharge Potential Discharge Needs: PCP F/U Appt Anticipated Barriers to Discharge: None Identified Patient/Family Education Needs: Review discharge instructions, discuss Ask Me Three Transportation: Private vehicle Plan: Anticipate Lance will return home when medically cleared; he will consider HH PT. His son will drive him home via private vehicle when ready. He will follow up with his PCP and discharge plan of care. CM will continue to follow. Social Determinants of Health Screening Will the Patient Participate in the Screening?: Declined to provide Health Related Social Needs Health related social needs details: Patient reports he is ok.
[2024-11-20] MEDS: Budesonide/Formoterol 160/4.5 6 GM 60 PUFF INH IH ×2 (07:57→20:05)
--- NOTE | 2024-11-20 09:15 | RT.EKG_ITS ---
APPROVED REPORT Exam: Resting ECG Reason for Exam: V-tach Patient Location: I HR:104 bpm ECG Measurements Heart Rate 104 [place] [id number] P [id number] QRSd 142 QRS -8 QT 352 T 124 QTc 463 Conclusion Atrial fibrillation...? atrial activity Left bundle branch block...QRSd>120, broad/notched R
[2024-11-20] MEDS: Metoprolol 5 MG/5 ML VIAL (09:29)
[2024-11-20] MEDS: Furosemide 40 MG TAB PO (09:52)
[2024-11-20] MEDS: Cyanocobalamin 500 MCG TAB 1000 MCG PO (09:52)
[2024-11-20] MEDS: Pantoprazole 40 MG TABCR PO (09:52)
[2024-11-20] MEDS: Loratidine 10 MG TAB PO (09:52)
[2024-11-20] MEDS: Metoprolol CR 50 MG TABCR PO (09:52)
[2024-11-20] MEDS: Tamsulosin 0.4 MG CAPCR PO (09:52)
[2024-11-20] MEDS: Rosuvastatin 5 MG TAB PO (09:52)
[2024-11-20 11:13] LABS: Troponin I 193 ng/L (<or=76)
[2024-11-20] MEDS: Normal Saline Flush 10 ML SYR IVP ×2 (12:13→20:26)
--- NOTE | 2024-11-20 13:16 | W.PC.ACHO ---
Registration Status: ADM IN Primary Language: Preferred Language: ED Information & Data Chief Complaint Fall/Non TraumaCriteria 11/16/24 23:51 Triage Note 2 days ago PT fell and hurt 11/16/24 23:29 his L big toe. PT has had sore throat, chills, SOB, and fever. PT states that he has neck pain that started tonight Medical / Surgical History (Last Reviewed 11/17/24 @ 09:33 by Slava Garnica) H/O polymyalgia rheumatica Localized edema Anemia (Last Reviewed 11/17/24 @ 09:33 by Slava Garinca) Hx of colonoscopy History of back surgery History of bowel resection S/P appendectomy Most Recent Vital Signs Temperature 36.5 C 11/20/24 08:52 Temperature Source Temporal Artery Scan 11/20/24 08:52 Pulse 54 L 11/20/24 13:02 Pulse Rhythm Irregular 11/17/24 05:55 Pulse 93 H 11/20/24 13:02 Respiratory Rate 18 11/20/24 13:02 Respiratory Effort Normal 11/20/24 09:25 Respiratory Depth Normal 11/17/24 05:55 Blood Pressure 157/55 H 11/20/24 13:02 Blood Pressure Mean 86 11/20/24 13:02 Pulse Oximetry 98 11/20/24 13:02 Oxygen Delivery Method Room Air 11/20/24 09:28 Oxygen Flow Rate 0 11/20/24 09:28 Pain Level 0 11/20/24 09:25 Comment rn notified 11/19/24 07:55 Allergies No Known Allergies Allergy (Verified 11/16/24 23:44) Active Medications Generic Name Dose Route Start Last Admin Trade Name Freq PRN Reason Stop Dose Admin Acetaminophen 650 mg 11/17/24 05:57 11/17/24 17:26 Acetaminophen 325 Mg Tab PO 650 mg Q4H PRN PRN Administration Budesonide/Formoterol Fumarate 2 puff 11/17/24 08:00 11/20/24 07:57 Budesonide/Formoterol 160/4.5 6 Gm 60 Puff Inh IH 2 inh Q12H NUSRAT Administration Cyanocobalamin 1,000 mcg 11/17/24 08:30 11/20/24 09:52 Cyanocobalamin 500 Mcg Tab PO 1,000 mcg DAILY NUSRAT Administration Furosemide 40 mg 11/19/24 08:30 11/20/24 09:52 Furosemide 40 Mg Tab PO 40 mg DAILY NUSRAT Administration Cefazolin Sodium/Dextrose 2 gm in 50 mls @ 100 mls/hr 11/19/24 08:30 11/20/24 12:13 Ancef Duplex IVPB Infused Q8H NUSRAT Infusion Ipratropium [place] 0.25 mg 11/18/24 08:40 11/18/24 08:50 Ipratropium 0.5 Mg/2.5 Ml Upd Vial UPD 0.25 mg Q4H PRN PRN Administration Wheezing, Shortness of Breath Levalbuterol HCl 1.25 mg 11/18/24 08:29 11/18/24 08:49 Levalbuterol 1.25 Mg/3 Ml Upd Vial UPD 1.25 mg Q4H PRN PRN Administration Levothyroxine Sodium 125 mcg 11/18/24 06:00 11/20/24 05:52 Levothyroxine 125 Mcg Tab PO 125 mcg DAILY@0600 NUSRAT Administration Lidocaine 1 patch 11/17/24 14:00 11/19/24 14:46 Lidocaine 5% Patch TP 1 patch Q24H NUSRAT Administration Loratadine 10 mg 11/17/24 08:30 11/20/24 09:52 Loratidine 10 Mg Tab PO 10 mg DAILY NUSRAT Administration Miscellaneous 1 each 11/18/24 02:00 11/20/24 03:28 Patch Removal TP Not Given DAILY@0200 NUSRAT Pantoprazole Sodium 40 mg 11/18/24 07:30 11/20/24 09:52 Pantoprazole 40 Mg Tabcr PO 40 mg DAILY@0730 NUSRAT Administration Prednisone 5 mg 11/20/24 10:00 11/20/24 12:12 Prednisone 5 Mg Tab PO 5 mg BID NUSRAT Administration Rosuvastatin Calcium 5 mg 11/17/24 08:30 11/20/24 09:52 Rosuvastatin 5 Mg Tab PO 5 mg DAILY NUSRAT Administration Sodium Chloride 0 ml 11/17/24 01:25 11/17/24 01:27 Normal Saline Flush 10 Ml Syr IVP 10 ml PRN PRN Administration Sodium Chloride 0 ml 11/17/24 08:30 11/20/24 12:13 Normal Saline Flush 10 Ml Syr IVP 10 ml BID NUSRAT Administration Tamsulosin HCl 0.4 mg 11/17/24 08:30 11/20/24 09:52 Tamsulosin 0.4 Mg Capcr PO 0.4 mg DAILY NUSRAT Administration IV IV Catheter Type [] Peripheral IV IV Catheter Type [Left Peripheral IV Antecubital] IV Catheter Type [Right Peripheral IV Antecubital] IV Catheter Gauge [Left 18 Antecubital] IV Catheter Gauge [Right 18 Antecubital] Diagnostics 11/20/24 11/20/24 11/20/24 Range/Units 10:10 06:49 06:13 WBC 9.57 (4.4-10.8) 10^3/uL RBC 2.69 L (4.36-5.78) 10^6/uL Hgb 8.3 L (13.5-17.5) g/dL Hct 26.7 L (40.0-50.0) % MCV 99 H (80-95) fL MCH 30.9 (27.0-33.0) pg MCHC 31.1 L (32.0-36.0) % RDW 16.9 H (11.8-14.1) % Plt Count 75 L (130-400) 10^3/uL MPV 12.2 H (8.0-11.0) fL VBG Lactate 1.8 (<or=2.0) mmol/L Sodium 144 (136-145) mmol/L Potassium 3.7 (3.5-5.1) mmol/L Chloride 109 H (98-107) mmol/L Carbon Dioxide 23.0 (21.0-32.0) mmol/L Anion Gap 12.0 H (3-11) mmol/L BUN 51 H (7-18) mg/dL Creatinine 1.9 H (0.70-1.30) mg/dL Est GFR (CKD-EPI 2020) 34.14 (mL/min/1.73m2) Glucose 135 H (74-106) mg/dL Calcium 8.4 L (8.5-10.1) mg/dL Magnesium 2.4 (1.8-2.4) mg/dL Total Bilirubin 0.3 (0.2-1.0) mg/dL AST 21 (15-37) U/L ALT 36 (16-63) U/L Alkaline Phosphatase 80 (46-116) U/L Troponin I 193 H* 204 H* (<or=76) ng/L Total Protein 6.0 L (6.4-8.2) g/dL Albumin 2.2 L (3.4-5.0) g/dL CSF Source CSF C.neoform/gat PCR (Negative) CSF CMV DNA (PCR) (Negative) CSF Enterovirus (PCR) (Negative) CSF E. coli K1 (PCR) (Negative) CSF H. influenzae (PCR) (Negative) CSF HSV I (PCR) (Negative) CSF HSV II (PCR) (Negative) CSF HHV 6 (PCR) (Negative) CSF L.monocytogenes PCR (Negative) CSF N. meningitidis PCR (Negative) CSF Parechovirus (PCR) (Negative) CSF S. agalactiae (PCR) (Negative) CSF S. pneumoniae (PCR) (Negative) CSF VZV (PCR) (Negative) Ref Test Interpretation 11/17/24 Range/Units 01:45 WBC (4.4-10.8) 10^3/uL RBC (4.36-5.78) 10^6/uL Hgb (13.5-17.5) g/dL Hct (40.0-50.0) % MCV (80-95) fL MCH (27.0-33.0) pg MCHC (32.0-36.0) % RDW (11.8-14.1) % Plt Count (130-400) 10^3/uL MPV (8.0-11.0) fL VBG Lactate (<or=2.0) mmol/L Sodium (136-145) mmol/L Potassium (3.5-5.1) mmol/L Chloride (98-107) mmol/L Carbon Dioxide (21.0-32.0) mmol/L Anion Gap (3-11) mmol/L BUN (7-18) mg/dL Creatinine (0.70-1.30) mg/dL Est GFR (CKD-EPI 2020) (mL/min/1.73m2) Glucose (74-106) mg/dL Calcium (8.5-10.1) mg/dL Magnesium (1.8-2.4) mg/dL Total Bilirubin (0.2-1.0) mg/dL AST (15-37) U/L ALT (16-63) U/L Alkaline Phosphatase (46-116) U/L Troponin I (<or=76) ng/L Total Protein (6.4-8.2) g/dL Albumin (3.4-5.0) g/dL CSF Source CEREBROSPINAL FLUID CSF C.neoform/gat PCR Negative (Negative) CSF CMV DNA (PCR) Negative (Negative) CSF Enterovirus (PCR) Negative (Negative) CSF E. coli K1 (PCR) Negative (Negative) CSF H. influenzae (PCR) Negative (Negative) CSF HSV I (PCR) Negative (Negative) CSF HSV II (PCR) Negative (Negative) CSF HHV 6 (PCR) Negative (Negative) CSF L.monocytogenes PCR Negative (Negative) CSF N. meningitidis PCR Negative (Negative) CSF Parechovirus (PCR) Negative (Negative) CSF S. agalactiae (PCR) Negative (Negative) CSF S. pneumoniae (PCR) Negative (Negative) CSF VZV (PCR) Negative (Negative) Ref Test Interpretation Not Applicable 11/17/24 01:45 Body Fluid Culture - Preliminary Cerebrospinal Fluid Gram Stain - Final [id number] Documentation Fingerstick Glucose Start: 11/20/24 09:23 Freq: Status: Active Protocol: Activity Type Activity Date Activity User E-sign Co-sign Detail Recorded Client Recorded Date Recorded By Document 11/20/24 09:22 BKG DAEMON(10) [id number] 11/20/24 09:23 BKG DAEMON(10) Intake and Output - 24 Hour Total 11/16/24 23:25 thru 11/20/24 12:13 Intake Total 4917.5 Output Total 2325 Balance 2592.5 Weight 109.6 kg Intake: IV 3037.5 Oral 1880 Output: Urine 2325 Other: Urine Color Light Corrine Urine Appearance Clear Urine Odor None Comment pt changed Stool Size Moderate Stool Characteristics Formed Falls Risk Assessment History of Falls Admit Due to Fall 11/17/24 05:55 Contributing Factors Impairments 11/17/24 05:55 Ambulatory Aids Uses ambulatory device 11/16/24 23:34 Tubes/Lines None 11/16/24 23:34 Gait Evaluation No gait disturbance 11/16/24 23:34 Cognition No cognitive impairment 11/16/24 23:34 Fall Total Score 28 11/17/24 05:55 Level of Risk Moderate Risk 11/17/24 05:55 Problems (Last Reviewed 11/17/24 @ 09:33 by Slava Garnica) Pancytopenia (Acute) MSSA bacteremia (Acute) Gram-positive bacteremia (Acute) Contusion of left foot (Acute) PAF (paroxysmal atrial fibrillation) (Chronic) Elevated troponin level not due to acute coronary syndrome (Acute) CKD (chronic kidney disease) (Chronic) KIA (acute kidney injury) (Acute) Asthma with COPD (Chronic) (HFpEF) heart failure with preserved ejection fraction (Chronic) Urinary tract infection (Acute) Hypothyroidism (Chronic) Hypertension (Chronic) Notes 11/17/24 07:15 Nursing Notes by Bina Zaldivar Nursing Note: Called pharmacy to verify orders in order to start IV fluid. Initialized on 11/17/24 07:15 - END OF NOTE v v v v v v v v v Sending and/or Receiving Nurses: Please use comment section below to note any information pertinent to the patient hand-off not included above. Information / Comments: Report received from: Alexa Burnett RN @ 10:05am
--- NOTE | 2024-11-20 14:43 | POCOE_ITS ---
Date of service: 11/20/24 Time of Service: 14:00 Assessment and Plan Assessment and plan (1) Contusion of left foot: Status: Acute (2) Pain in left foot: Status: Acute (3) Gout: Status: Chronic (4) PAD (peripheral artery disease): Status: Acute (5) Localized edema: Assessment and plan: Patient was seen bedside. X-rays were reviewed. It appears patient had an injury to the left lower extremity. He does have severe pain concerning for gout versus cellulitis to the left lower extremity. X-rays reviewed and were negative for a fracture or gas. I do recommend MRI to rule out abscess. Patient has arterial calcifications and nonpalpable pulses, the pulses are not dopplerable as well. There is a component of vascular disease to the pain as well. If there is an abscess, this will be challenging to coordinate here as he does need vascular service. I recommend uric acid levels to rule out gout. I recommend ESR, CRP. White count noted to be within normal limits therefore low index for suspicion for an infectious process. Recommend keeping the left lower extremity elevated. Will continue to follow. History of Present Illness Narrative: Patient was seen bedside today. Consulted for left foot swelling, redness, pain. Patient states that about 1 week ago he may have dropped something or stubbed his toe and has had pain to the left great toe as well as left first MPJ since. Denies ulceration. Does report left lower extremity swelling baseline not resolved with compression stockings. Denies rest pain or calf pain. Denies intermittent claudication. Denies restlessness in the legs Review of Systems Cardiovascular Comments: Absent pulses bilateral lower extremity Musculoskeletal Comments: Pain to the left foot Integumentary/Breasts Comments: Erythema to the left great toe and first MPJ [facility] All Active Problems (Updated 11/20/24 @ 14:47 by Alexa Brizuela DPM) PAD (peripheral artery disease) (Acute) Gout (Chronic) Pancytopenia (Acute) MSSA bacteremia (Acute) Gram-positive bacteremia (Acute) Contusion of left foot (Acute) PAF (paroxysmal atrial fibrillation) (Chronic) Urinary tract infection (Acute) CKD (chronic kidney disease) (Chronic) KIA (acute kidney injury) (Acute) NSTEMI (non-ST elevation myocardial infarction) (Acute) Shortness of breath (Acute) Sepsis (Acute) Shock (Acute) Elevated troponin level not due to acute coronary syndrome (Acute) CKD (chronic kidney disease) (Chronic) KIA (acute kidney injury) (Acute) S/P TAVR (transcatheter aortic valve replacement) (Acute) Allergic rhinitis (Acute) Asthma with COPD (Chronic) Pain in right foot (Acute) Pain in left foot (Acute) Dystrophy of nail due to trauma (Acute) Onychomycosis (Acute) Neuropathy (Acute) Atherosclerosis of artery of both lower extremities (Acute) Disorder of kidney (Acute) Polyneuropathy (Acute) (HFpEF) heart failure with preserved ejection fraction (Chronic) Aortic stenosis (Chronic) PMR (polymyalgia rheumatica) (Acute) 03/01/23 on chronic prednisone RH Urinary tract infection (Acute) [id number] kidney injury (Acute) Syncope (Chronic) Internal derangement of left knee (Acute) Depo-Medrol: 04/17/21 Osteoarthritis of right knee (Acute) Steroid injection: 12/19/2019 (40mg) Right carpal tunnel syndrome (Acute) S/P ECTR: 09/05/2019 PSVT (paroxysmal supraventricular tachycardia) (Chronic) Hypertension (Chronic) Hyperlipidemia (Acute) Cholelithiasis (Acute) Diverticulitis (Chronic) Asbestos exposure (Acute) Dyspnea on exertion (Acute) Restless leg (Acute) Hypothyroidism (Chronic) Renal insufficiency (Chronic) Bilateral hip joint arthritis (Acute) Cervical spondylosis with myelopathy (Acute) Spondylolisthesis, cervical region (Acute) Peripheral neuropathy (Acute) Scapular dyskinesis (Acute) Nontraumatic tear of muscle or tendon of rotator cuff of both shoulders (Acute) Tendinitis of long head of biceps brachii of both shoulders (Acute) Adhesive capsulitis of both shoulders (Acute) Impingement syndrome of both shoulders (Acute) Bilateral shoulder bursitis (Acute) Medical History H/O polymyalgia rheumatica Localized edema Anemia Surgical History Hx of colonoscopy History of back surgery History of bowel resection sigmoid resection S/P appendectomy Social History Smoking/Tobacco Use Status: Former Tobacco Use Smoking risk assessment performed?: Yes Alcohol Intake: current Alcohol Intake frequency: a few times a month Alcohol type: beer Drug use: Never Substance use type: does not use Details: ALCOHOL: T-2, BEER. PT. STATES HE DOES NOT REMEMBER WHEN HE QUIT SMOKING, 40 YEARS AGO Housing: house Current gender identity: male Do you feel safe at home: Yes Do you feel safe in your relationship?: Yes Exam Extrem Other: Bilateral lower extremities plan: Derm: Erythema, edema, pain noted to the left great toe as well as left first MPJ. No crepitus no fluctuance no bogginess no open lesion no ulceration, slight white appearance noted to the medial eminence concerning for gouty tophi versus occlusive disease. Nails are thickened, elongated with heavy subungual debris. MSK: Pain on palpation noted to the left great toe as well as left first MPJ. Prominent medial eminence to the left. Vascular: DP, PT pulses are nonpalpable nondopplerable to bilateral lower extremity. Significant pitting edema noted to the left lower extremity. Feet are cold distally. Varicosities and telangiectasias bilaterally. Hair growth is absent bilaterally. Results Last Vital Signs Temp 98.6 F 11/20/24 10:20 Pulse 57 L 11/20/24 14:01 Resp 17 11/20/24 14:01 BP 130/70 11/20/24 14:01 Pulse Ox 98 11/20/24 14:01 Labs 11/20/24 06:13 11/20/24 06:13 Labs: Laboratory Results - last 24 hr 11/17/24 11/20/24 11/20/24 01:45 06:13 06:49 WBC 9.57 RBC 2.69 L Hgb 8.3 L Hct 26.7 L MCV 99 H MCH 30.9 MCHC 31.1 L RDW 16.9 H Plt Count 75 L MPV 12.2 H VBG Lactate 1.8 Sodium 144 Potassium 3.7 Chloride 109 H Carbon Dioxide 23.0 Anion Gap 12.0 H BUN 51 H Creatinine 1.9 H Est GFR (CKD-EPI 2020) 34.14 Glucose 135 H Calcium 8.4 L Magnesium 2.4 Total Bilirubin 0.3 AST 21 ALT 36 Alkaline Phosphatase 80 Troponin I 204 H* Total Protein 6.0 L Albumin 2.2 L CSF Source CEREBROSPINAL FLUID CSF C.neoform/gat PCR Negative CSF CMV DNA (PCR) Negative CSF Enterovirus (PCR) Negative CSF E. coli K1 (PCR) Negative CSF H. influenzae (PCR) Negative CSF HSV I (PCR) Negative CSF HSV II (PCR) Negative CSF HHV 6 (PCR) Negative CSF L.monocytogenes PCR Negative CSF N. meningitidis PCR Negative CSF Parechovirus (PCR) Negative CSF S. agalactiae (PCR) Negative CSF S. pneumoniae (PCR) Negative CSF VZV (PCR) Negative Ref Test Interpretation Not Applicable 11/20/24 10:10 WBC RBC Hgb Hct MCV MCH MCHC RDW Plt Count MPV VBG Lactate Sodium Potassium Chloride Carbon Dioxide Anion Gap BUN Creatinine Est GFR (CKD-EPI 2020) Glucose Calcium Magnesium Total Bilirubin AST ALT Alkaline Phosphatase Troponin I 193 H* Total Protein Albumin CSF Source CSF C.neoform/gat PCR CSF CMV DNA (PCR) CSF Enterovirus (PCR) CSF E. coli K1 (PCR) CSF H. influenzae (PCR) CSF HSV I (PCR) CSF HSV II (PCR) CSF HHV 6 (PCR) CSF L.monocytogenes PCR CSF N. meningitidis PCR CSF Parechovirus (PCR) CSF S. agalactiae (PCR) CSF S. pneumoniae (PCR) CSF VZV (PCR) Ref Test Interpretation
[2024-11-20] MEDS: Levalbuterol 1.25 MG/3 ML UPD VIAL UPD (16:08)
[2024-11-20] MEDS: Acetaminophen 325 MG TAB 650 MG PO (17:31)
[2024-11-20] MEDS: Lidocaine 5% Patch 1 PATCH TP (17:32)
--- NOTE | 2024-11-20 18:36 | PGE_ITS ---
Date of Service Date of service: 11/20/24 Time of Service: 08:30 Assessment and Plan Assessment and plan (1) PAF (paroxysmal atrial fibrillation): Status: Chronic Assessment and plan: Metoprolol ER dosing likely exposing tachycardia when levels are low, may partially explain frequent falls/weakness Discussed with [facility] cardiology Dosing short-acting metoprolol q6h, currently metoprolol tartrate 12.5 PO q6h. No additional tachycardia episodes throughout the day Can transition back to metoprolol succinate BID dosing for discharge (2) MSSA bacteremia: Status: Acute Assessment and plan: MSSA bacteremia, started cefazolin. Stopped vanc. Midline placed Nov 20. Echocardiogram Nov 20 Recommend ID consult to confirm treatment course Anticipate swing bed placement. (3) Pancytopenia: Status: Acute Assessment and plan: Anemic, thrombocytopenia, likely due to chemotherapy Macrocytic anemia, consider checking B12 and folate (4) Sepsis: Start date: 11/17/24 Status: Resolved Assessment and plan: This is an 84-year-old gentleman who has increased weakness after stumbling and fall 2 days prior to presentation. He did injure his left foot with at least a sprain and negative imaging for acute fractures. He also appears to have a UTI with elevated WBC and fever at home. Blood cultures were performed and urine cultures were performed with patient initiated on broad-spectrum antibiotic coverage with continuation of Rocephin 2 g IV every 12 hours and vancomycin. CSF cultures were performed as well. The patient did have an elevated lactate which is improved with fluid resuscitation but we need to watch for fluid overload with a history of right-sided CHF. Furosemide is being held. Blood pressure did respond to IV fluid resuscitation and patient will be placed on MedSurg care as long as he remains stable. If he requires pressor agents we can review this with his son with the patient being a DNR/DNI. No longer septic as of November 18, now with gram positive bacteremia (5) Urinary tract infection: Status: Resolved Assessment and plan: Urine cultures were performed and patient has adequate coverage with broad- spectrum antibiotic coverage. This may be the source of his sepsis. Follow-up cultures and adjust antibiotic therapy accordingly. Nov 18: urine culture with mixed ke, unlikely UTI. Nov 19: stopped ceftriaxone (6) KIA (acute kidney injury): Start date: 11/17/24 Status: Acute Assessment and plan: Patient appears to be dry with decreased intake recently. Lasix will be held and he will have gentle IV hydration with patient have a history of right-sided CHF on Lasix chronically. Watch for bladder outlet obstruction. Nov 18: improved, creatinine 3.1 -> 2.0 Nov 19: continuing to improve, Cr 1.8 Nov 20: about the same today, Cr 1.9. Furosemide was restarted Nov 19. (7) CKD (chronic kidney disease): Status: Chronic Assessment and plan: Slightly exacerbated with acute KIA from decreased intake. Gentle IV hydration. (8) Elevated troponin level not due to acute coronary syndrome: Start date: 11/17/24 Status: Acute Assessment and plan: Patient is troponins elevated after his fall with a stress of sepsis. This does not appear to be a primary cardiac event. He is already on Eliquis. Continue statin and beta-maddie. Continue to trend troponins until plateaued. Consider consultation with [facility] cardiology if not improving. He is not having chest pain. He does have shortness of breath which is improving. Nov 18: troponin trended down on Nov 17, no further testing (9) Asthma with COPD: Status: Chronic Assessment and plan: Stress dose hydrocortisone with patient chronically on prednisone and having received Solu-Medrol in the ED. Patient improved bronchospasm with nebulizer treatments which will be continued. Nov 18: patient received solumedrol and hydrocortisone on Nov 18 in the morning, resulting in tachycardia. Holding steroids overnight. (10) (HFpEF) heart failure with preserved ejection fraction: Status: Chronic Assessment and plan: Held furosemide for IV fluid resuscitation for mild dehydration on arrival Back on furosemide as of Nov 19 (11) Hypertension: Status: Chronic Assessment and plan: Patient is having a low systolic blood pressure intermittently but is respond to IV fluid resuscitation with MAP above 65. Because of potential problem with shock associate with his sepsis, his usual antihypertensives will be held except for metoprolol for rate control. This could be adjusted as well if needed. Patient is asymptomatic. He is a DNR/DNI and if pressor agents are needed this should be reviewed with his son before initiation. (12) Hypothyroidism: Status: Chronic Assessment and plan: Check TSH and continue outpatient therapy. (13) Contusion of left foot: Start date: 11/17/24 Status: Acute Assessment and plan: Negative x-ray for fracture but patient may need physical therapy evaluation if difficulty ambulating once his medical status is stabilizing. Symptomatic care. Elevation for now. Appreciate podiatry consult, no acute injury, vasculopathy Subjective Subjective Interval history since last seen: Mr. Hackett had [id number] rapid response for tachycardia with poor responsiveness. He had another rapid after shift change for the same and was transferred to the ICU. He is comfortable without complaints. Exam Narrative Exam Narrative: General: This is a pleasant, obese man in no distress HEENT: Normocephalic, atraumatic. Edentulous. Neck supple, improved ROM CV: tachycardia, irregular rhythm. Mild distal edema Resp: CTAB Abd: soft, NTND MSK: voluntary motion x4 Neuro: awake, alert, no focal deficits Objective Last Vital Signs Temp 36.7 C 11/20/24 16:00 Pulse 99 H 11/20/24 18:04 Resp 18 11/20/24 18:04 BP 150/75 H 11/20/24 18:04 Pulse Ox 98 11/20/24 18:04 Laboratory Results - last 24 hr 11/17/24 11/20/24 11/20/24 01:45 06:13 06:49 WBC 9.57 RBC 2.69 L Hgb 8.3 L Hct 26.7 L MCV 99 H MCH 30.9 MCHC 31.1 L RDW 16.9 H Plt Count 75 L MPV 12.2 H VBG Lactate 1.8 Sodium 144 Potassium 3.7 Chloride 109 H Carbon Dioxide 23.0 Anion Gap 12.0 H BUN 51 H Creatinine 1.9 H Est GFR (CKD-EPI 2020) 34.14 Glucose 135 H Calcium 8.4 L Magnesium 2.4 Total Bilirubin 0.3 AST 21 ALT 36 Alkaline Phosphatase 80 Troponin I 204 H* Total Protein 6.0 L Albumin 2.2 L CSF Source CEREBROSPINAL FLUID CSF C.neoform/gat PCR Negative CSF CMV DNA (PCR) Negative CSF Enterovirus (PCR) Negative CSF E. coli K1 (PCR) Negative CSF H. influenzae (PCR) Negative CSF HSV I (PCR) Negative CSF HSV II (PCR) Negative CSF HHV 6 (PCR) Negative CSF L.monocytogenes PCR Negative CSF N. meningitidis PCR Negative CSF Parechovirus (PCR) Negative CSF S. agalactiae (PCR) Negative CSF S. pneumoniae (PCR) Negative CSF VZV (PCR) Negative Ref Test Interpretation Not Applicable 11/20/24 10:10 WBC RBC Hgb Hct MCV MCH MCHC RDW Plt Count MPV VBG Lactate Sodium Potassium Chloride Carbon Dioxide Anion Gap BUN Creatinine Est GFR (CKD-EPI 2020) Glucose Calcium Magnesium Total Bilirubin AST ALT Alkaline Phosphatase Troponin I 193 H* Total Protein Albumin CSF Source CSF C.neoform/gat PCR CSF CMV DNA (PCR) CSF Enterovirus (PCR) CSF E. coli K1 (PCR) CSF H. influenzae (PCR) CSF HSV I (PCR) CSF HSV II (PCR) CSF HHV 6 (PCR) CSF L.monocytogenes PCR CSF N. meningitidis PCR CSF Parechovirus (PCR) CSF S. agalactiae (PCR) CSF S. pneumoniae (PCR) CSF VZV (PCR) Ref Test Interpretation Time Spent with Patient Time Spent with Patient: 35-49 minutes Time was spent: preparing to see the patient(eg.review tests), obtaining and/or reviewing separately otained hiistory, ordering medications,tests, procedures, referring, communicating with other health post acute care nurse practitioner, indepentently interpreting results, counseling the patient and care coordination
[2024-11-20] MEDS: Apixaban 5 MG TAB PO (20:27)
[2024-11-20] MEDS: Metoprolol 12.5 MG TAB PO (21:46)
[2024-11-21] VITALS (38 sets, daily range): BP systolic 116–170; BP diastolic 69–98; PULSE 55–169; RESP 13–28; TEMP 36.1–36.5; O2SAT 89–98
--- NOTE | 2024-11-21 | DI.MRI_ITS ---
Exam(s) MR LOWER EXTREMITY LT WO/W EXAM: MR LOWER EXTREMITY LT WO/W CLINICAL HISTORY: abscess? gout? contusion?. TECHNIQUE: Multiplanar multisequence MRI was performed. CONTRAST MATERIAL: IV Contrast: 20 mL of Dotarem contrast administered. COMPARISON: CR XR TOE LT GREAT from 11/20/2024 FINDINGS: The examination is limited due to patient motion artifact. BONES/JOINTS: No evidence of fracture. There is a bipartite medial sesamoid. There is mild hyperintense T2 signal and hypointense T1 signal in the base of the proximal 1st phalanx, the head of the 1st metatarsal in the medial sesamoid. There is no resultant enhancement following contrast administration. There is a large joint effusion at the 1st MTP joint. LIGAMENTS: The medial and lateral collateral ligaments are intact. MUSCULOTENDINOUS STRUCTURES: Visualized portion of the planar fascia is unremarkable. There is fluid seen around the flexor and extensor tendons to the great toe and the 2nd toe. The findings are concerning for a tenosynovitis. SOFT TISSUES: There is diffuse edema seen in the soft tissues of the foot. There is skin thickening also noted. This may represent a cellulitis. ENHANCEMENT: There is no enhancing focal fluid collection to suggest an abscess. OTHER FINDINGS: None. IMPRESSION: 1. At the 1st metatarsophalangeal joint, there is a joint effusion. This may be secondary to an arthropathy such as gout. There is no enhancement present. Infection is considered less likely. 2. Tenosynovitis involving the flexor and extensor tendons of the 1st and 2nd toes. 3. Mild nonspecific edema seen in the medial sesamoid, base of the proximal phalanx of the 1st toe and the head of the 1st metatarsal. There is no enhancement to suggest osteomyelitis. 4. Diffuse edema seen in the soft tissues of the foot without evidence of a focal fluid collection to suggest an abscess. 5. The preliminary [facility] report was reviewed. DATA REPOSITORY:
[2024-11-21] MEDS: ceFAZolin 2 GM/50 ML BAG IVPB ×3 (00:23→17:36)
[2024-11-21] MEDS: Normal Saline Flush 10 ML SYR IVP ×6 (00:28→20:28)
[2024-11-21] MEDS: Patch Removal 1 EACH TP ×2 (01:57→23:30)
[2024-11-21] MEDS: Levalbuterol 1.25 MG/3 ML UPD VIAL UPD (03:32)
[2024-11-21] MEDS: Metoprolol 12.5 MG TAB PO (04:04)
[2024-11-21] MEDS: Levothyroxine 125 MCG TAB PO (05:20)
[2024-11-21 06:59] LABS: Abs Immature Grans 0.15 10^3/uL (0.0-0.06); HCT 27.9 % (40.0-50.0); HGB 8.9 g/dL (13.5-17.5); Immature Grans % 2.1 %; MCH 32.1 pg (27.0-33.0); MCHC 31.9 % (32.0-36.0); MCV 101 fL (80-95); MPV 11.9 fL (8.0-11.0); Platelet Count 84 10^3/uL (130-400); RBC 2.77 10^6/uL (4.36-5.78); RDW 16.9 % (11.8-14.1); RDW-SD 62.4 fL; WBC 7.05 10^3/uL (4.4-10.8)
[2024-11-21 07:30] LABS: ALT 30 U/L (16-63); AST 23 U/L (15-37); Albumin 2.1 g/dL (3.4-5.0); Alkaline Phosphatase 86 U/L (46-116); Anion Gap 9.0 mmol/L (3-11); BUN 40 mg/dL (7-18); Bilirubin, Total 0.3 mg/dL (0.2-1.0); CO2 27.0 mmol/L (21.0-32.0); Calcium 8.7 mg/dL (8.5-10.1); Chloride 109 mmol/L (98-107); Estimated GFR 49.25 (mL/min/1.73m2); Glucose 130 mg/dL (74-106); Magnesium 2.4 mg/dL (1.8-2.4); Potassium 3.9 mmol/L (3.5-5.1); Sodium 145 mmol/L (136-145); Total Protein 6.0 g/dL (6.4-8.2)
[2024-11-21] MEDS: Budesonide/Formoterol 160/4.5 6 GM 60 PUFF INH IH ×2 (07:58→19:30)
[2024-11-21 07:59] LABS: Hypochromasia 1+; Polychromasia Present
[2024-11-21] MEDS: Cyanocobalamin 500 MCG TAB 1000 MCG PO (08:30)
[2024-11-21] MEDS: Loratidine 10 MG TAB PO (08:30)
[2024-11-21] MEDS: Apixaban 5 MG TAB PO ×2 (08:30→20:28)
[2024-11-21] MEDS: Tamsulosin 0.4 MG CAPCR PO (08:30)
[2024-11-21] MEDS: Pantoprazole 40 MG TABCR PO (08:30)
[2024-11-21] MEDS: Furosemide 40 MG TAB PO (08:30)
[2024-11-21] MEDS: Rosuvastatin 5 MG TAB PO (08:30)
--- NOTE | 2024-11-21 08:41 | PDOC.CMPRO ---
Date of service: 11/21/24 Time of Service: 15:57 Care Management Progress Note Progress Note Text Progress Note Text: Initial attempt to meet with Lance was unsuccessful as he was en route to MRI. Per report, Lance underwent an echo yesterday, which showed no evidence of vegetation. It is anticipated that he will require several weeks of antibiotics, as well as a TEMI for further evaluation. CM was able to meet with Lance later in the day. He was observed lying in bed, covered with a blanket he shared was a gift from his prior to her passing. Lance was pleasant, cooperative, and engaged in light conversation with staff, noting that his MRI went well and he had a good concrete mixer truck driver. At this time, Lance continues to decline home health services upon discharge. CM will continue to monitor and support discharge planning as appropriate. Discharge Potential Discharge Needs: PCP F/U Appt Anticipated Barriers to Discharge: None Identified Patient/Family Education Needs: Review discharge instructions, discuss Ask Me Three Transportation: Private vehicle Plan: Anticipate Lance will return home when medically cleared; HH PT is recommended. His son will drive him home via private vehicle when ready. He will follow up with his PCP and discharge plan of care. CM will continue to follow. Social Determinants of Health Screening Will the Patient Participate in the Screening?: Declined to provide Health Related Social Needs Health related social needs details: Patient reports he is ok.
[2024-11-21] MEDS: Acetaminophen 325 MG TAB 650 MG PO (09:13)
--- NOTE | 2024-11-21 09:22 | W.NUTRFU ---
Date of service: 11/24/24 Time of Service: 12:22 Nutrition Note NOTE: Lance in ICU being treated for chronic PAF, acute MSSA bacteremia, acute Pancytopenia, Sepsis (current resolved), UTI (currently resolved), KIA, elevated troponin. Also has chronic COPD, HF, HTN, Hypothyroidism, Gout, CKD. Last A1C was 5.9% in Mar 2024. Current BMI of 34.2 congruent with stage I obesity. FPG 130 this morning, has finger stick 11/20 morning at 201. (pt currently on prednisone) Labs reflect low Hgb/Hct today. Electrolytes wnl, BUN/Cr 30/1.4. low iron, TIBC and Ferritin labs. Total protein and albumin labs low today (most recent C-RP was >8 in September) Pt with history of borderline low vitamin D of 32.3 oct Pt lives at home with he and dtr doing the food prep. I eat well. Suggested he avoid high added sugar high animal protein diet related to high uric acid levels. - educated on avoiding fructose except in whole fruits and trying some beans/lentils and other plant options instead of meat all the time. took food preferences offered. No teeth - manages well and orders appropriate textures at meals. Nutrition Dx: High refined CHO, added sugar, animal protein diet related to his food choices at home as evidenced by increased uric acid lab and diet interview/hx Intervention: -would recommend vitamin D lab due to borderline low last lab and does not supplement and at risk for deficiency -would recommend insulin therapy if glucose persistently at 180 or > -provided education and suggestions as above Time Spent in Nutritional Counseling and Treatment: 10 minutes
[2024-11-21] MEDS: Metoprolol 25 MG TAB PO ×3 (09:35→20:27)
[2024-11-21] MEDS: SODIUM FER. GLUC./SUC. 125 MG in Normal Saline 100 ML 110 MG IVPB ×2 (09:36→09:37)
[2024-11-21] MEDS: oxyCODONE 5 MG TAB PO (09:48)
--- NOTE | 2024-11-21 13:06 | CHAPLAIN ---
Lance was up in the chair visiting with a few family members when I stopped in. I didn't stay long, but explained my role and offered support. According to Care Management notes, Lance is well supported by his son and daughter who live near by him.
[2024-11-21] MEDS: Lidocaine 5% Patch 1 PATCH TP (14:12)
--- NOTE | 2024-11-21 14:13 | W.PM.PROGNOT ---
Date of Service Date of service: 11/21/24 Time of Service: 14:13 Assessment and Plan Assessment and plan (1) PAF (paroxysmal atrial fibrillation): Status: Chronic Assessment and plan: Now in chronic atrial fibrillation with poor rate control There was concern that daily metoprolol ER dosing was exposing tachycardia when levels low, discussed with [facility] cardiology 11/20 Dosing changed to tartrate metoprolol q6h, 12.5 PO q6h. Improved initially, but pulse remains high 11/21, titrating up dose Infection and anemia contributing, got IV iron, see below. Can transition back to metoprolol succinate BID dosing for discharge (2) MSSA bacteremia: Status: Acute Assessment and plan: MSSA bacteremia, started cefazolin. Stopped vancomycin 11/19. Unclear source, but it may be his left foot, MRI pending. Midline placed Nov 20, we may need to replace once cultures clear. Echocardiogram Nov 20 - no vegetations. With MSSA and AVR he will need TEMI He needs another set of cultures to confirm bacteremia clearing, ordered 11/21 Recommend ID consult to confirm treatment course once above resolved. Anticipate swing bed placement to complete prolonged abx (3) Pancytopenia: Status: Acute Assessment and plan: Anemic, thrombocytopenia, likely due to chemotherapy. Stable. Macrocytic anemia, B12 and folate normal. (4) Sepsis: Start date: 11/17/24 Status: Resolved Assessment and plan: Septic on admission, resolved by 11/18. See above. (5) KIA (acute kidney injury): Start date: 11/17/24 Status: Acute Assessment and plan: In setting of sepsis, has improved back to baseline CKD3, back on furosemide 11/19. (6) Elevated troponin level not due to acute coronary syndrome: Start date: 11/17/24 Status: Acute Assessment and plan: Troponins elevated after his fall with a stress of sepsis. This does not appear to be a primary cardiac event. He is already on Eliquis. Continue statin and beta-maddie Troponin trended down on Nov 17. (7) Asthma with COPD: Status: Chronic Assessment and plan: Received stress dose hydrocortisone with patient chronically on prednisone and having received Solu-Medrol in the ED, now back on 10mg prednisone/day. Patient improved bronchospasm with nebulizer treatments which will be continued. (8) Hypothyroidism: Status: Chronic Assessment and plan: TSH normal/stable, continue outpatient therapy. (9) Contusion of left foot: Start date: 11/17/24 Status: Acute Assessment and plan: Negative x-ray for fracture Appreciate podiatry consult. Concern for infection source or gout, urate ordered and MRI. Subjective Subjective Patient reports: tolerating a regular diet; denies diarrhea, nausea, vomiting or fever Interval history since last seen: Events: Tachycardic overnight, concern for VTAC but more c/w atrial fibrillation with aberrant conduction. He still has headache. Tylenol does not releive. Neck also still stiff since he came in. He doesn't have chest pain, but feels SOB with any exertion and feels tired. Not much appetite Exam Narrative Exam Narrative: General: This is a pleasant, obese man in no distress HEENT: Normocephalic, atraumatic. Edentulous. Neck supple, improved ROM CV: tachycardia, irregular rhythm. trace ankle edema Resp: Diffuse expiratory wheeze, no rales, mild increase SOB with movement even when sitting. Abd: soft, NTND EXT: bright red around 1st toe to MTP left, very tender, 1+ edema on that side Neuro: awake, alert, no focal deficits, no tremor Objective Last Vital Signs Temp 36.1 C L 11/21/24 12:35 Pulse 55 L 11/21/24 12:10 Resp 23 11/21/24 12:10 BP 116/78 11/21/24 12:10 Pulse Ox 98 11/21/24 12:10 Laboratory Results - last 24 hr 11/21/24 05:43 WBC 7.05 RBC 2.77 L Hgb 8.9 L Hct 27.9 L MCV 101 H MCH 32.1 MCHC 31.9 L RDW 16.9 H Plt Count 84 L MPV 11.9 H Immature Gran % 2.1 Neutrophils % 87.3 Lymphocytes % 6.7 Monocytes % 3.7 Eosinophils % 0.1 Basophils % 0.1 Nucleated RBC % 0.6 H Absolute Neutrophils 6.15 Absolute Lymphocytes 0.47 L Absolute Monocytes 0.26 Absolute Eosinophils 0.01 Absolute Basophils 0.01 RBC Morphology See Below Polychromasia Present Hypochromasia 1+ Sodium 145 Potassium 3.9 Chloride 109 H Carbon Dioxide 27.0 Anion Gap 9.0 BUN 40 H Creatinine 1.4 H Est GFR (CKD-EPI 2020) 49.25 Glucose 130 H Calcium 8.7 Magnesium 2.4 Total Bilirubin 0.3 AST 23 ALT 30 Alkaline Phosphatase 86 Total Protein 6.0 L Albumin 2.1 L Time Spent with Patient Time Spent with Patient: >50 minutes Time was spent: preparing to see the patient(eg.review tests), obtaining and/or reviewing separately otained hiistory, ordering medications,tests, procedures, referring, communicating with other health health care marketing specialist, indepentently interpreting results, counseling the patient and care coordination
[2024-11-21] MEDS: Metoprolol 5 MG/5 ML VIAL IVP (14:48)
[2024-11-21] MEDS: Gadoterate meglumine 20 ML SYRINGE IVP (15:48)
[2024-11-21] MEDS: MORPHine 4 MG/ML SYR (16:26)
--- NOTE | 2024-11-21 18:44 | DI.[facility]_ITS ---
PROCEDURE INFORMATION: Exam: MR Left Lower Extremity Other Than Joint Without and With Contrast; Foot Exam date and time: 11/21/2024 3:45 PM Age: 84 years old Clinical indication: Swelling, leg or foot and other: Redness; Left; Redness, pain and swelling mostly forefoot and extending back to hindfoot TECHNIQUE: Imaging protocol: Magnetic resonance imaging of the left lower extremity without and with contrast. Exam focused on the foot. Total images: 1444 Contrast material: DOTAREM; Contrast volume: 20 ml; Contrast route: INTRAVENOUS (IV); COMPARISON: CR XR FOOT LT LIMITED 11/20/2024 8:18 AM FINDINGS: Bones/joints: Patchy abnormal signal within the distal phalanx of the great toe characterized by T1 hypointensity and STIR hyperintensity but without significant bony enhancement. Large effusion of 1st metatarsal phalangeal joint without associated rim enhancement. Mild tenosynovitis involving flexor tendon of the 1st and 2nd digits. Soft tissues: Significant subcutaneous edema particularly in the dorsal aspect of the foot consistent with cellulitis. IMPRESSION: 1. No definite osteomyelitis but distal phalanx of the great toe at increased risk. 2. Large 1st metatarsal phalangeal joint effusion but without definitive evidence for septic arthritis. Dictated and Authenticated by: Lance Sepulveda MD. Orderin Gelacio Liu MD
[2024-11-22] VITALS (23 sets, daily range): BP systolic 111–147; BP diastolic 57–123; PULSE 53–123; RESP 8–25; TEMP 36.7; O2SAT 90–99
--- NOTE | 2024-11-22 | DI.CT_ITS ---
Exam(s) CT ABD AORTA CTA W RUNOFF EXAM: CT ABD AORTA CTA W RUNOFF CLINICAL HISTORY: ulcer/ abscess/ PAD/CLI.. TECHNIQUE: Imaging Protocol: Axial CT angiography was performed with multi- slice acquisition and multi-planar and/or 3D reconstructions. CONTRAST MATERIAL: Intravenous: Omnipaque 350 Contrast volume:150 ml Contrast route:IV - Oral: no COMPARISON: CT CT ABDOMEN PELVIS W from 09/12/2024 CR XR FOOT LT COMPLETE from 11/22/2024 FINDINGS: The exam is limited by streak artifact due to patient arm positioning. There are small bilateral pleural effusions. Mild dependent atelectasis. There is respiratory motion. The heart is mildly enlarged. TAVR present. Liver cysts and gallstones are again noted. No evidence of biliary dilatation or acute cholecystitis. The pancreas is somewhat atrophic. The adrenals, spleen and kidneys are unremarkable. There are few small parapelvic cysts. Diverticulosis is again noted of the descending and sigmoid colon. There is a sigmoid anastomosis which is unremarkable. There is a moderate quantity of stool. Prior appendectomy. Trabeculated urinary bladder. No visible mass or calculus. The prostate appears small. Stable appearance of multiple spinal compression fractures with Schmorl's nodes. There is mild to moderate calcification seen along the abdominal aorta and iliac arteries. There is no significant narrowing or evidence of aneurysm. The celiac axis, SMA and PETER show mild calcification proximally. There is irregular multifocal calcification along the common and superficial femoral arteries and popliteal arteries, without significant stenosis. The vessels of the lower leg arm show extensive irregular calcification multifocal mild areas of narrowing. No evidence of occlusion. The vessels of the ankle through foot are difficult to evaluate due to small caliber. Common appears to be multifocal stenoses involving the posterior tibial arteries at the level of the ankle.. There is soft tissue swelling of the dorsum of the left foot and ankle. There is a more focal swelling overlying the level of the 1st metatarsal head. There are few air bubbles. Swelling and a few air bubbles are also noted at the plantar aspect of the foot. No discrete drainable abscess. Bony detail is not adequate to exclude osteomyelitis. Soft tissue swelling is also noted in the subcutaneous fat along the posteromedial soft tissues of the calf. IMPRESSION: Atherosclerotic changes of the lower extremities, greatest at the lower leg through foot. No evidence of occlusion. Multifocal areas of [id number] narrowing distally. Soft tissue swelling greatest around the 1st metatarsal head. RADIATION DOSE DELIVERED: Total DLP DATA REPOSITORY: All CT scans at this facility are submitted to the National Radiology Data Registry (NRDR) Dose Index Registry (DIR) with the [employer] ([employer]). RADIATION OPTIMIZATION: All CT scans at this facility use at least one of these dose optimization techniques: automated exposure control; mA and/or kV adjustment per patient size (includes targeted exams where dose is matched to clinical indication); or iterative reconstruction.
[2024-11-22] MEDS: ceFAZolin 2 GM/50 ML BAG IVPB ×3 (00:39→16:38)
[2024-11-22] MEDS: Metoprolol 25 MG TAB PO ×4 (02:54→20:08)
[2024-11-22] MEDS: Acetaminophen 325 MG TAB 650 MG PO ×4 (03:24→17:25)
[2024-11-22] MEDS: oxyCODONE 5 MG TAB PO ×2 (03:29→17:25)
[2024-11-22] MEDS: MORPHine 2 MG/ML SYR IVP (05:32)
[2024-11-22] MEDS: Levothyroxine 125 MCG TAB PO (06:57)
[2024-11-22 07:04] LABS: Abs Immature Grans 0.34 10^3/uL (0.0-0.06); HCT 25.1 % (40.0-50.0); HGB 8.0 g/dL (13.5-17.5); Immature Grans % 4.4 %; MCH 31.6 pg (27.0-33.0); MCHC 31.9 % (32.0-36.0); MCV 99 fL (80-95); MPV 11.9 fL (8.0-11.0); Platelet Count 102 10^3/uL (130-400); RBC 2.53 10^6/uL (4.36-5.78); RDW 16.7 % (11.8-14.1); RDW-SD 61.6 fL; WBC 7.66 10^3/uL (4.4-10.8)
[2024-11-22 07:22] LABS: Uric Acid 10.2 mg/dL (3.5-7.2)
[2024-11-22] MEDS: Apixaban 5 MG TAB PO (07:45)
[2024-11-22] MEDS: Rosuvastatin 5 MG TAB PO (07:45)
[2024-11-22] MEDS: Pantoprazole 40 MG TABCR PO (07:46)
[2024-11-22] MEDS: Tamsulosin 0.4 MG CAPCR PO ×2 (07:46→11:48)
[2024-11-22] MEDS: Loratidine 10 MG TAB PO (07:46)
[2024-11-22] MEDS: Cyanocobalamin 500 MCG TAB 1000 MCG PO (07:46)
[2024-11-22] MEDS: Furosemide 40 MG TAB PO (07:46)
[2024-11-22] MEDS: Normal Saline Flush 10 ML SYR IVP ×4 (07:47→20:09)
[2024-11-22 07:51] LABS: Lab Add On Test DONE
[2024-11-22 08:09] LABS: Anion Gap 8.3 mmol/L (3-11); BUN 33 mg/dL (7-18); CO2 26.7 mmol/L (21.0-32.0); Calcium 8.2 mg/dL (8.5-10.1); Chloride 107 mmol/L (98-107); Estimated GFR 53.84 (mL/min/1.73m2); Glucose 113 mg/dL (74-106); Potassium 3.9 mmol/L (3.5-5.1); Sodium 142 mmol/L (136-145)
--- NOTE | 2024-11-22 08:40 | PDOC.CMPRO ---
Date of service: 11/22/24 Time of Service: 08:40 Care Management Progress Note Progress Note Text Progress Note Text: Tadeo, as Lance prefers to be called, was sitting up in bed visiting with his son Lance when CM met with him. He was awake, alert and oriented and easily engaged with CM. Lance was admitted with sepsis and PAF. He had blood cultures drawn which are growing MSSA and he will need care home IV antibiotic therapy. CM discussed the various ways the antibiotics can be given with Tadeo and his son. He is currently on Cefazolin every 8 hours. [facility] would not be able to accommodate that regimen. Tadeo had repeat blood cultures drawn yesterday. When those are finalized, the antibiotic choice, dose and duration of treatment can be established. Lance and Tadeo seemed to prefer home infusion if that is a viable option,although would be willing to transition to SB-1 if needed. Lance informed CM that Tadeo has a strong support system close by. He and his son live very close and his sister lives a couple of miles away. Lance indicated that all of them would be willing to help Tadeo with the home infusions and whatever else he needs. Discharge Potential Discharge Needs: PCP F/U Appt Anticipated Barriers to Discharge: None Identified Patient/Family Education Needs: Review discharge instructions, discuss Ask Me Three Transportation: Private vehicle Plan: Anticipate Lance will return home when medically stable with new home health services for PT. It is likely that he will need intermediate card tender IV antibiotics. If possible, Tadeo would prefer home infusions so HH RN would also be needed. Family will drive him home via private vehicle and he will follow up with his PCP and discharge plan of care. CM will follow and continue to assess for discharge needs. Social Determinants of Health Screening Will the Patient Participate in the Screening?: Declined to provide Health Related Social Needs Health related social needs details: Patient reports he is ok.
[2024-11-22] MEDS: Budesonide/Formoterol 160/4.5 6 GM 60 PUFF INH IH ×2 (08:46→19:50)
--- NOTE | 2024-11-22 10:55 | W.PM.PROGNOT ---
Date of Service Date of service: 11/22/24 Time of Service: 10:55 Assessment and Plan Assessment and plan (1) PAF (paroxysmal atrial fibrillation): Status: Chronic Assessment and plan: Now in chronic atrial fibrillation, poor rate control improved with increasing metoprolol dose. There was concern that daily metoprolol ER dosing was exposing tachycardia when levels low, [place] [facility] [place]20 Dosing changed to tartrate metoprolol q6h, 12.5 PO q6h, increased to 25mg 11/21 Infection and anemia contributing, got IV iron, see below. Can transition back to metoprolol succinate BID dosing for discharge (2) MSSA bacteremia: Status: Acute Assessment and plan: Started therapy 11/17, stopped vancomycin 11/19. Unclear source, but it may be his left foot, MRI pending. Midline placed Nov 20, we may need to replace once cultures clear. Echocardiogram Nov 20 - no vegetations. With MSSA and AVR he will need TEMI He needs another set of cultures to confirm bacteremia clearing, ordered 11/21 Will get ID consult to confirm treatment course once above resolved. Anticipate swing bed placement to complete prolonged abx (3) Elevated troponin level not due to acute coronary syndrome: Start date: 11/17/24 Status: Acute Assessment and plan: Troponins elevated after his fall with a stress of sepsis. This does not appear to be a primary cardiac event. He is already on Eliquis. Continue statin and beta-maddie Troponin trended down on Nov 17. (4) Asthma with COPD: Status: Chronic Assessment and plan: Received stress dose hydrocortisone with patient chronically on prednisone and having received Solu-Medrol in the ED, now back on 10mg prednisone/day. Patient had improved bronchospasm with nebulizer treatments which will be continued along with budesonide/fometerol. (5) Urinary retention: Status: Acute Assessment and plan: h/o LUTS on tamsulosin, now retaining more. Will increase dose, continue bladder scan with straight cath prn >500, if continues will need cisneros (6) Localized swelling of left foot: Status: Acute Assessment and plan: Started 2 days prior to admission after minor trauma. Negative x-ray for fracture on admission. Worsening redness and swelling since then Appreciate podiatry consult. Concern is that this is infection source. Gout also in ddx, urate is high but no history of this. MRI showing no clear osteo or septic arthritis but concerning. We may need arthrocentisis/wash out. (7) KIA (acute kidney injury): Start date: 11/17/24 Status: Acute Assessment and plan: In setting of sepsis, has resolved, improved back to baseline CKD3, back on furosemide 11/19. (8) Pancytopenia: Status: Acute Assessment and plan: Anemic, thrombocytopenia, likely due to chemotherapy. Stable. Macrocytic anemia, B12 and folate normal. Subjective Subjective Patient reports: feels better and tolerating a regular diet; denies diarrhea, nausea, vomiting or fever Interval history since last seen: Events: Seen by podiatry, MRI left foot, concern for worse color overnight by RN He is feeling a little better overall, but left 1st toe hurts a lot. This started a week ago after he stubbed toe. Has never had gout that he knows. Breathing is better, but still weak and tired. Eating, but not a lot. Exam Narrative Exam Narrative: General: This is a pleasant, obese man in no distress HEENT: Normocephalic, atraumatic. Edentulous. Neck supple, improved ROM CV: rate in 90s, irregular rhythm. trace ankle edema Resp: Course BS, no longer wheezing. Less OB with movement even when sitting. Abd: soft, NT/ND EXT: bright red around 1st toe to MTP left, very tender, trace edema on that side Neuro: awake, alert to self, place, and month/year but not day of week no focal deficits, no tremor Objective Last Vital Signs Temp 36.7 C 11/22/24 03:00 Pulse 80 11/22/24 09:07 Resp 16 11/22/24 09:07 BP 115/57 L 11/22/24 09:07 Pulse Ox 98 11/22/24 09:07 Laboratory Results - last 24 hr 11/22/24 11/22/24 06:12 07:49 WBC 7.66 RBC 2.53 L Hgb 8.0 L Hct 25.1 L MCV 99 H MCH 31.6 MCHC 31.9 L RDW 16.7 H Plt Count 102 L MPV 11.9 H Immature Gran % 4.4 Neutrophils % 83.5 Lymphocytes % 8.4 Monocytes % 2.9 Eosinophils % 0.7 Basophils % 0.1 Nucleated RBC % 0.7 H Absolute Neutrophils 6.40 Absolute Lymphocytes 0.64 L Absolute Monocytes 0.22 Absolute Eosinophils 0.05 Absolute Basophils 0.01 Sodium 142 Potassium 3.9 Chloride 107 Carbon Dioxide 26.7 Anion Gap 8.3 BUN 33 H Creatinine 1.3 Est GFR (CKD-EPI 2020) 53.84 Glucose 113 H Uric Acid 10.2 H Calcium 8.2 L Add-On Test Request DONE Time Spent with Patient Time Spent with Patient: 35-49 minutes Time was spent: preparing to see the patient(eg.review tests), obtaining and/or reviewing separately otained hiistory, ordering medications,tests, procedures, referring, communicating with other health childcare worker, indepentently interpreting results, counseling the patient and care coordination
--- NOTE | 2024-11-22 13:00 | DI.RAD_ITS ---
Exam(s) XR FOOT LT COMPLETE EXAM: XR FOOT LT COMPLETE CLINICAL HISTORY: Abscess left foot. TECHNIQUE: 2D digital imaging was performed. Three views. Exam was performed with the patient on a stretcher to due to limited patient range of motion. COMPARISON: MR MR LOWER EXTREMITY LT WO/W from 11/21/2024 FINDINGS: Limited positioning. Exam also limited by overlying gauze. BONES: No acute fracture is present. No gross bony destructive lesion is seen. JOINTS: No dislocation present. SOFT TISSUE: Soft tissue swelling greatest at dorsum of foot around the 1st metatarsal.. No gross evidence of foreign body. Vascular calcifications. IMPRESSION: Limited exam. Soft tissue swelling. No gross evidence of bony destruction. DATA REPOSITORY: RADIATION DOSE DELIVERED:
--- NOTE | 2024-11-22 13:12 | PGE_ITS ---
Date of Service Date of service: 11/22/24 Time of Service: 12:00 Assessment and Plan Assessment and plan (1) PAD (peripheral artery disease): Status: Acute (2) Localized swelling of left foot: Status: Acute (3) Gout: Status: Chronic (4) MSSA bacteremia: Status: Acute (5) Gram-positive bacteremia: Status: Acute (6) Contusion of left foot: Status: Acute (7) Abscess of left foot including toes: Status: Acute (8) CKD (chronic kidney disease): Status: Chronic (9) KIA (acute kidney injury): Status: Acute (10) Neuropathy: Status: Acute Assessment and plan: Patient was seen bedside today. There is worsening of the redness and swelling as well as pain. There is bogginess noted to the left first MPJ/left hallux. There is an area of soft tissue necrosis concerning for a deep abscess/infectious process. I discussed this with the patient in detail. I recommend joint aspiration. Patient consented and agreed. Patient was advised that he has nonpalpable pulses and therefore very high risk for nonhealing of these wounds. There is very high risk for amputation at this time. Patient consented. The left foot was anesthetized using 20 mL of lidocaine plain in a [place] block fashion after cleansing with alcohol. A puncture was made using an 18-gauge needle at the first metatarsophalangeal joint level, some bloody/gouty fluid collection was noted. An aspiration was then attempted just distally at the area of bogginess some brown-red fluid was aspirated along with gouty tophus material. Due to the color and amount of drainage, this area was highly concerning for an abscess. I recommended an incision and drainage for the wound. Patient was advised there is very high risk for an amputation given the current infection, low circulation and cool the feet. However this is a tough situation considering all of the above and bacteremia. Patient consented. Using a sterile #10 blade, a 1 to 2 cm linear longitudinal incision was made until purulent drainage was noted. Drainage was expressed. There is evidence for a hematoma at this site which is concerning for blunt trauma as well as an infectious process. Patient requires a more aggressive/deep incision and drainage of the left first metatarsophalangeal joint. He has nonpalpable pulses. I recommended and ordered a CTA. The results are pending. I recommended and ordered an x-ray. This was reviewed and there is no evidence for soft tissue emphysema at this time and no evidence for osteomyelitis. An MRI was ordered, taken and reviewed and no evidence for septic arthritis or osteomyelitis at the metatarsophalangeal joint. CTA is pending. He requires further incision and drainage. This will best be done at [facility] with vascular service on board. Unfortunately, we do not have vascular service here at an [facility]. I recommended transfer. Transfer is medically necessary to prevent limb loss. However, if we are unable to transfer him due to bed availability, we will plan for OR I&D to stabilize at this time. He will eventually need to transfer to [facility] for vascular service. This wound will most likely not heal without any vascular intervention. I have placed a call to [facility] to request transfer and discussed the above in detail. Patient to be n.p.o. midnight tonight Subjective Subjective Interval history since last seen: Patient was seen bedside today for left lower extremity redness swelling pain. Patient has bacteremia. I was reconsulted for possible joint aspiration to the left to help identify source for bacteremia. Patient was seen resting comfortably does continue to report pain to the left foot Exam Extrem Other: Bilateral lower extremities plan: Derm: To the dorsal aspect of the left great toe just distal to the metatarsophalangeal joint level, there is an area of blue-black discoloration with bogginess and concerning for an underlying abscess., Upon puncturing the abscess there is yellow pink-brown thick drainage and noted with some odor. At the metatarsophalangeal joint there is some pain swelling noted. Erythema, edema, pain noted to the left great toe as well as left first MPJ. slight white appearance noted to the medial eminence concerning for gouty tophi versus occlusive disease. MSK: Pain on palpation noted to the left great toe as well as left first MPJ. Prominent medial eminence to the left. Vascular: DP, PT pulses are nonpalpable nondopplerable to bilateral lower extremity. Significant pitting edema noted to the left lower extremity. Feet are cold distally. Varicosities and telangiectasias bilaterally. Hair growth is absent bilaterally. Objective Last Vital Signs Temp 98.1 F 11/22/24 03:00 Pulse 96 H 11/22/24 10:01 Resp 18 11/22/24 10:01 BP 126/64 10/15/25 10:01 Pulse Ox 96 11/22/24 10:01 Laboratory Results - last 24 hr 11/22/24 11/22/24 06:12 07:49 WBC 7.66 RBC 2.53 L Hgb 8.0 L Hct 25.1 L MCV 99 H MCH 31.6 MCHC 31.9 L RDW 16.7 H Plt Count 102 L MPV 11.9 H Immature Gran % 4.4 Neutrophils % 83.5 Lymphocytes % 8.4 Monocytes % 2.9 Eosinophils % 0.7 Basophils % 0.1 Nucleated RBC % 0.7 H Absolute Neutrophils 6.40 Absolute Lymphocytes 0.64 L Absolute Monocytes 0.22 Absolute Eosinophils 0.05 Absolute Basophils 0.01 Sodium 142 Potassium 3.9 Chloride 107 Carbon Dioxide 26.7 Anion Gap 8.3 BUN 33 H Creatinine 1.3 Est GFR (CKD-EPI 2020) 53.84 Glucose 113 H Uric Acid 10.2 H Calcium 8.2 L Add-On Test Request DONE Procedures Abscess I/D Site: foot (Left, dorsal first MPJ) Side (if applicable): left Sedation/analgesia: none Anesthetic used: lidocaine 1% (20 mL) Technique: needle aspiration (Needle aspiration to the metatarsophalangeal joint level. This revealed gouty tophi.) and incised with #11 blade (Incision site directly dorsally at the blue-black discoloration/bogginess area, red pink-brown drainage noted.) Amount of fluid (mL): 5 Irrigation: Yes (Normal saline) Packing used?: none (Dressings were applied with 4 x 4, Kerlix and an Jewel wrap) Time Spent with Patient Time Spent with Patient: >50 minutes Time was spent: preparing to see the patient(eg.review tests), obtaining and/or reviewing separately otained hiistory, ordering medications,tests, procedures, referring, communicating with other health home care coordinator, indepentently interpreting results, counseling the patient and care coordination
[2024-11-22] MEDS: Omnipaque 350 MG/ML 100 ML BTL IJ (13:32)
[2024-11-22] MEDS: Normal Saline - Diluent 50 ML VIAL IJ ×2 (13:32→13:43)
[2024-11-22] MEDS: Omnipaque 350 MG/ML 50 ML BTL IJ (13:47)
[2024-11-22] MEDS: Lidocaine 5% Patch 1 PATCH TP (14:31)
--- NOTE | 2024-11-22 16:41 | PCNE_ITS ---
Date of service: 11/22/24 Time of Service: 15:30 History of Present Illness Narrative: Mr. Piedra is an 84 y/o M currently hospitalized 2/2 MSSA bacteremia; PMHx sig for PAF, AVR, asthma COPD; Hospital Course: presented to ED on 11/17 s/p fall in home w/resulting neck pain and LLE toe pain, fever at home; ED found PAF w/tachycardia; triponins were elevated, are chronically, trended initially; UTI on UA; started on IVF d/t KIA concerns; admitted meeting sepsis criteria; cultures came back w/MSSA bacertemia, PICC line placed Wednesday, ECHO r/o any vegetations; on 11/20 had two events w/ A fib w/LBBB and runs of tachy, preceding both episodes was extreme LLE pain/resp distress, self resolved prior to requiring amiodarone/pressers; cardio recommend metoprolol tartrate 12.5mg 6h, uptitrated to 25mg q6h, plan for transition back to succinate on discharge; 11/20 consult w/podiatry LLE toe for gout vs cellulitis, recommend MRI, MRI non-confirmatory, podiatry today did take culture, also had repeat CT today; Tadeo agrees to short PC visit today; he is tired from a lot of visits and activty over the last 3 days he lives in [facility] alone, does not like depending on others, but is happy and well supported by his son Edmund and daughter Tamara who both live nearby; Edmund's son Balwinder also a support; He cared for his in a near vegetative state for several years, w/supports of hospice; he is not against hospice for himself, however does not feel quite there yet, too early in figuring out what is happening to make that decision He does not want to be kept alive in a vegetative state, he does not want CPR if his heart were to stop, he does not want intubation if his lungs were to fail; however, he would want all other treatments at this time to sustain his life, including treatment up until point of heart stopping, including pressers and ICU level of care, do everything but Unsure if he has ever completed an AD, he wants his son to be his HCA, reports he is already POA for everything does not want to do forms today w/o his son present; does not wish to call son to include today as he is already visited today Assessment and Plan Assessment and plan (1) Abscess of left foot including toes: Status: Acute Assessment and plan: culture obtained today gout vs cellulitis continue work up (2) Pancytopenia: Status: Acute Assessment and plan: of note - he is not on any chemotherapy r/t rheumatological disorder? (3) MSSA bacteremia: Status: Acute Assessment and plan: continue cefalozin PICC line placed Wednesday; ECHO reassuring for no vegetations likely will need 6wks abx therapy son/daughter supportive of home infusions, to be coordinated pending ID review (4) Urinary tract infection: Status: Acute (5) CKD (chronic kidney disease): Status: Chronic (6) KIA (acute kidney injury): Status: Acute Assessment and plan: resolved (7) Sepsis: Status: Resolved Assessment and plan: resolved (8) PMR (polymyalgia rheumatica): Status: Acute (9) Palliative care encounter: Status: Acute Assessment and plan: PC will continue to follow, anticipate discharge prior to next inpatient availability - will schedule outpatient visit, anticipate HV; soonest avail to continue to review AD/COLST as appropriate (10) ACP (advance care planning): Status: Acute Assessment and plan: reviewed DNR/I preferences - adamant would not want these interventions if heart or lungs were to stop/fail reviewed additional preferences - would want all other forms of LST, including ICU level care and pressers if needed; would not want to be kept alive in vegetative state reviewed believes son Edmund is already POA for all things, but unsure if health care agent; unsure if ever completed reviewed recommendation to complete DNR/I on COLST or HCA for formal documentation, defers until his son is present, both forms left in room; recommend if son present signing COLST, completed minus signatures reviewed current hospital course, current work up and treatments spent 20m w/ACP Review of Systems Narrative: as per HPI PFSH All Active Problems (Updated 11/22/24 @ 16:56 by Margoth Delgadillo NP) ACP (advance care planning) (Acute) Palliative care encounter (Acute) Abscess of left foot including toes (Acute) Localized swelling of left foot (Acute) Urinary retention (Acute) PAD (peripheral artery disease) (Acute) Gout (Chronic) Pancytopenia (Acute) MSSA bacteremia (Acute) Gram-positive bacteremia (Acute) Contusion of left foot (Acute) PAF (paroxysmal atrial fibrillation) (Chronic) Urinary tract infection (Acute) CKD (chronic kidney disease) (Chronic) KIA (acute kidney injury) (Acute) NSTEMI (non-ST elevation myocardial infarction) (Acute) Shortness of breath (Acute) Sepsis (Acute) Shock (Acute) Elevated troponin level not due to acute coronary syndrome (Acute) CKD (chronic kidney disease) (Chronic) KIA (acute kidney injury) (Acute) S/P TAVR (transcatheter aortic valve replacement) (Acute) Allergic rhinitis (Acute) Asthma with COPD (Chronic) Pain in right foot (Acute) Pain in left foot (Acute) Dystrophy of nail due to trauma (Acute) Onychomycosis (Acute) Neuropathy (Acute) Atherosclerosis of artery of both lower extremities (Acute) Disorder of kidney (Acute) Polyneuropathy (Acute) (HFpEF) heart failure with preserved ejection fraction (Chronic) Aortic stenosis (Chronic) PMR (polymyalgia rheumatica) (Acute) 03/01/23 on chronic prednisone RH [id number] kidney injury (Acute) Syncope (Chronic) Internal derangement of left knee (Acute) Depo-Medrol: 04/17/21 Osteoarthritis of right knee (Acute) Steroid injection: 12/19/2019 (40mg) Bilateral shoulder bursitis (Acute) Impingement syndrome of both shoulders (Acute) Adhesive capsulitis of both shoulders (Acute) Tendinitis of long head of biceps brachii of both shoulders (Acute) Nontraumatic tear of muscle or tendon of rotator cuff of both shoulders (Acute) Scapular dyskinesis (Acute) Peripheral neuropathy (Acute) Cervical spondylosis with myelopathy (Acute) Bilateral hip joint arthritis (Acute) Renal insufficiency (Chronic) Hypothyroidism (Chronic) Restless leg (Acute) Dyspnea on exertion (Acute) Asbestos exposure (Acute) Diverticulitis (Chronic) Cholelithiasis (Acute) Hyperlipidemia (Acute) Hypertension (Chronic) PSVT (paroxysmal supraventricular tachycardia) (Chronic) Right carpal tunnel syndrome (Acute) S/P ECTR: 09/05/2019 Spondylolisthesis, cervical region (Acute) Medical History H/O polymyalgia rheumatica Localized edema Anemia Surgical History Hx of colonoscopy History of back surgery History of bowel resection sigmoid resection S/P appendectomy Social History Smoking/Tobacco Use Status: Former Tobacco Use Smoking risk assessment performed?: Yes Alcohol Intake: current Alcohol Intake frequency: a few times a month Alcohol type: beer Drug use: Never Substance use type: does not use Details: ALCOHOL: T-2, BEER. PT. STATES HE DOES NOT REMEMBER WHEN HE QUIT SMOKING, 40 YEARS AGO Housing: house Current gender identity: male Do you feel safe at home: Yes Do you feel safe in your relationship?: Yes Exam Narrative Exam Narrative: General: older adult male, lying flat in ICU room, eyes closed but wakes easily to voice HEENT: hearing grossly WNL; normocephalic, atraumatic, MMM Resp: even and unlabored, speaks 4-5 sentences w/o SOB; no cough or audible wheeze Skin: scattered bruising throughout Psych: MS WNL, cooperative, pleasant, answers all questions appropriately; thought process loose association and normal; insight/judgment fair to good Results Last Vital Signs Temp 98.1 F 11/22/24 03:00 Pulse 106 H 11/22/24 16:02 Resp 18 11/22/24 16:02 BP 126/62 11/22/24 16:02 Pulse Ox 98 11/22/24 14:24 Labs 11/22/24 06:12 11/22/24 06:12 Labs: Laboratory Results - last 24 hr 11/22/24 11/22/24 11/22/24 06:12 07:49 12:55 WBC 7.66 RBC 2.53 L Hgb 8.0 L Hct 25.1 L MCV 99 H MCH 31.6 MCHC 31.9 L RDW 16.7 H Plt Count 102 L MPV 11.9 H Immature Gran % 4.4 Neutrophils % 83.5 Lymphocytes % 8.4 Monocytes % 2.9 Eosinophils % 0.7 Basophils % 0.1 Nucleated RBC % 0.7 H Absolute Neutrophils 6.40 Absolute Lymphocytes 0.64 L Absolute Monocytes 0.22 Absolute Eosinophils 0.05 Absolute Basophils 0.01 Sodium 142 Potassium 3.9 Chloride 107 Carbon Dioxide 26.7 Anion Gap 8.3 BUN 33 H Creatinine 1.3 Est GFR (CKD-EPI 2020) 53.84 Glucose 113 H Uric Acid 10.2 H Calcium 8.2 L Fluid Crystals See Comment Fluid Crystal Source L Toe Add-On Test Request DONE Time Spent Time Spent with Patient Time Spent(min): 60
[2024-11-23] VITALS (38 sets, daily range): BP systolic 107–144; BP diastolic 50–92; PULSE 56–142; RESP 8–29; TEMP 35.4–37.2; O2SAT 87–99
[2024-11-23] MEDS: ceFAZolin 2 GM/50 ML BAG IVPB ×3 (00:56→18:04)
[2024-11-23] MEDS: oxyCODONE 5 MG TAB PO ×3 (01:19→16:20)
[2024-11-23] MEDS: Patch Removal 1 EACH TP (01:55)
[2024-11-23] MEDS: Metoprolol 25 MG TAB PO ×4 (03:50→21:32)
[2024-11-23] MEDS: Acetaminophen 325 MG TAB 650 MG PO ×4 (03:50→21:31)
[2024-11-23 05:05] LABS: Abs Immature Grans 0.18 10^3/uL (0.0-0.06); HCT 25.2 % (40.0-50.0); HGB 8.0 g/dL (13.5-17.5); Immature Grans % 2.0 %; MCH 31.4 pg (27.0-33.0); MCHC 31.7 % (32.0-36.0); MCV 99 fL (80-95); MPV 11.3 fL (8.0-11.0); Platelet Count 111 10^3/uL (130-400); RBC 2.55 10^6/uL (4.36-5.78); RDW 16.9 % (11.8-14.1); RDW-SD 60.6 fL; WBC 8.87 10^3/uL (4.4-10.8)
[2024-11-23 05:49] LABS: Anion Gap 6.1 mmol/L (3-11); BUN 26 mg/dL (7-18); CO2 29.9 mmol/L (21.0-32.0); Calcium 8.3 mg/dL (8.5-10.1); Chloride 104 mmol/L (98-107); Estimated GFR 53.84 (mL/min/1.73m2); Glucose 142 mg/dL (74-106); Potassium 4.3 mmol/L (3.5-5.1); Sodium 140 mmol/L (136-145)
[2024-11-23] MEDS: Levothyroxine 125 MCG TAB PO (06:05)
--- NOTE | 2024-11-23 08:15 | BONE_PTH ---
PATIENT: Lance Hackett I LOC: U#:[id number] AGE/SX: 84/M ROOM: 215 RE11/17/[address]: Slava Garnica : 1940 BED: A DIS: 11/27/2024 SPEC #: [id number] RECD: 11/23/24 12:57 STATUS: SAE REQ #: [id number] MYRON: 11/23/24 08:[address]: Slava Garnica DEPT: Surgical Specimen RECD BY: Kaycee Navas ENTERED: 11/23/24 13:05 SP TYPE: Bone OTHR DR: Khadijah Henriquez Denis J Sara Zaidi, DPM InPatient David Nolan Tissues: 1 - BONE BX/CURRETTE NOT PATH FRACTURE 2 - BONE BX/CURRETTE NOT PATH FRACTURE Procedures: GROSS AND MICRO LEVEL 5 Comments: [id number]
[2024-11-23] MEDS: Lidocaine 1% Pres-Free 30 ML VIAL (08:37)
--- NOTE | 2024-11-23 08:48 | ROE_ITS ---
Operative Note Operative Note PRE-OP DIAGNOSIS: Abscess, cellulitis, gout, left foot POST-OP DIAGNOSIS: same Possible osteomyelitis PROCEDURE: Irrigation and debridement, left foot Bone biopsy left first metatarsophalangeal joint SURGEON: Alexa Brizuela ANESTHESIA TYPE: Local By Surgeon (20 mL 1% lidocaine plain preop) Refer to Anesthesia Record ESTIMATED BLOOD LOSS: 50 PATHOLOGY: other (1. soft tissue, left foot 2. Bone biopsy left first metatarsal head, 3. Bone biopsy proximal phalanx, great toe left foot) COMPLICATIONS: None Patient was transported to: PACU Patient's condition: stable Indications: 84-year-old male patient with acute redness, swelling and severe pain to the left first MPJ. Patient has been on IV antibiotics, redness and swelling persists. X-rays and MRIs were reviewed. I recommended I&D of the left foot for abscess. Discussed all the risks, benefits and possible complications of the procedure including but not limited to pain, nerve pain, CRPS, DVT, PE, stroke, heart attack or , need for further surgery or amputation. Findings: Worsening cellulitis, hemorrhagic changes noted laterally to the dorsal aspect o f the left foot around 3rd and 4th metatarsals. Purulent drainage, liquefactive necrosis left first metatarsophalangeal joint area Moreland-black appearance of the metatarsal head and base of the proximal phalanx left great toe Procedure Description: Patient was brought to the operating room placed on the operating table in supine position. The left lower extremity was anesthetized via an ankle block using 20 mL of 1% lidocaine plain after cleansing the skin with alcohol. The left lower extremity was then scrubbed, prepped and draped in the usual aseptic manner. Attention was directed to the dorsal aspect of the left first metatarsal phalangeal joint where an incision site from previous I&D was noted. Using a sterile #15 blade a full-thickness incision was made lateral to the EHL tendon and care was taken to avoid and not violate the EHL tendon. Purulence was noted immediately, this was fully expressed about 10 to 20 mL of purulence was noted. Heavy necrotic tissue was noted in the wound bed this was excisionally removed using a sterile #15 blade and rongeur. This was passed from the operative field and sent for cultures. Next, an incision was made through the joint capsule at the first metatarsophalangeal joint somewhat purulence was noted, the bone was noted to be black and moreland in appearance. A bone specimen was obtained from the head of the first metatarsal as well as base of the proximal phalanx and sent for cultures as well as biopsy. Additionally, extensive chalky white gouty tophus was noted at the first metatarsophalangeal joint. Attention was directed to the lateral aspect of the foot where ecchymotic/necrotic tissue was noted At the Dermis erythema was noted as well and an incision was made to explore the fourth interspace and incision was made using a sterile #15 blade measuring approximately 4 to 5 cm and a full-thickness incision was made there was mild necrotic tissue however, no purulence no odor. All necrotic nonviable tissue was removed using a sterile #15 blade and rongeur. This site was then irrigated with copious amounts of sterile saline and then reapproximated using 3-0 Prolene Attention was then directed to the left first metatarsophalangeal joint again, a pulse lavage was used again with 3 L saline bag. Further necrotic, nonviable tissue was then removed excisionally with a combination of sterile 15 blade and rongeur until healthy tissue was noted. Dressings were then applied with packing gauze to the left first metatarsophalangeal joint incision, 4 x 4, Kerlix and an Jewel wrap was applied. Patient tolerated the procedure well with vital signs stable and vascular status intact to left lower extremity. He did not report pain throughout the procedure. He was transferred to PACU for further monitoring. He was transferred back to the floor. Patient continue IV antibiotics. Will return to the OR for I&D versus delayed primary closure on Wednesday. Date of Procedure: 11/23/24
--- NOTE | 2024-11-23 09:12 | PDOC.CMPRO ---
Date of service: 11/23/24 Time of Service: 09:12 Care Management Progress Note Progress Note Text Progress Note Text: Tadeo was lying flat in bed when CM met with him. He had just returned from surgery where he had an I&D of his left foot. He was in obvious pain and informed CM that his nurse was getting more pain medicine for him. Tadeo is now non-weight bearing and crutches have been ordered. He was a bit tachypneic and tachycardic earlier today, however his vital signs are now stable and he remains afebrile. Tadeo had blood cultures drawn on 11/17/24 which grew MSSA. A wound culture from his toe done yesterday is growing S. aureus and on gram stain, cutures taken in the OR have gram positive cocci, consistent with S. aureus and MSSA. Per provider, Tadeo will require 6 weeks of IV Cefazolin for the bacteremia. While Tadeo would prefer to have home infusions for his IV antibiotics, at least initially he will likely require rehab as he will be NWB on crutches. Discharge Potential Discharge Needs: PCP F/U Appt and Surgical F/U Appt Anticipated Barriers to Discharge: Medical Status Patient/Family Education Needs: Review discharge instructions, discuss Ask Me Three Transportation: Private vehicle Plan: Anticipate Lance will return home when medically stable with new home health services for PT. It is likely that he will need assistant terminal manager IV antibiotics. If possible, Tadeo would prefer home infusions so HH RN would also be needed. Family will drive him home via private vehicle and he will follow up with his PCP and discharge plan of care. CM will follow and continue to assess for discharge needs. Social Determinants of Health Screening Will the Patient Participate in the Screening?: Declined to provide Health Related Social Needs Health related social needs details: Patient reports he is ok.
[2024-11-23] MEDS: Normal Saline Flush 10 ML SYR IVP ×2 (09:23→21:32)
[2024-11-23] MEDS: Tamsulosin 0.4 MG CAPCR 0.8 MG PO (09:24)
[2024-11-23] MEDS: Cyanocobalamin 500 MCG TAB 1000 MCG PO (09:24)
[2024-11-23] MEDS: Rosuvastatin 5 MG TAB PO (09:24)
[2024-11-23] MEDS: Furosemide 40 MG TAB PO (09:26)
[2024-11-23] MEDS: Pantoprazole 40 MG TABCR PO (09:26)
[2024-11-23] MEDS: Loratidine 10 MG TAB PO (09:26)
[2024-11-23] MEDS: Normal Saline 500 ML IV (09:29)
--- NOTE | 2024-11-23 12:45 | W.PM.PROGNOT ---
Date of Service Date of service: 11/23/24 Time of Service: 12:45 Assessment and Plan Assessment and plan (1) Septic arthritis of foot: Status: Acute Assessment and plan: In setting of MSSA bacteremia. Swelling started 2 days prior to admission after minor trauma. Negative x-ray for fracture on admission. Worsening redness and swelling since then, I&D 11/22 and surgical wash out 11/23, podiatry plans delayed primary closure after 48 hours GPC in clusters seen presumed MSSA. Also urate crystals. (2) MSSA bacteremia: Status: Acute Assessment and plan: Started therapy 11/17, stopped vancomycin 11/19 and transitioned to cefazolin. Will likely need 6 weeks. A/w septic joint as above, but unclear if this source or sequela of bacteremia. Midline placed Nov 20, we may need to replace once cultures clear. Echocardiogram Nov 20 - no vegetations. With MSSA and AVR he will need TEMI, plan down/back when stable. He needs another set of cultures to confirm bacteremia clearing, 11/21 blood cultures now NGTD Will get ID consult to confirm treatment course once above resolved. Anticipate swing bed placement to complete prolonged abx (3) PAF (paroxysmal atrial fibrillation): Status: Chronic Assessment and plan: Now in chronic atrial fibrillation, poor rate control initially, improved with increasing metoprolol dose. Metoprolol increased 11/21. Infection and anemia contributing, got IV iron, treating infection. Can transition back to metoprolol succinate BID dosing when stable. (4) Elevated troponin level not due to acute coronary syndrome: Start date: 11/17/24 Status: Acute Assessment and plan: No chest pain. Troponins elevated after his fall with a stress of sepsis. This does not appear to be a primary cardiac event. He is already on Eliquis. Continue statin and beta-maddie Troponin trended down on Nov 17. (5) Asthma with COPD: Status: Chronic Assessment and plan: Received stress dose hydrocortisone for 2 days after Solu-Medrol in the ED, then back on 10mg prednisone/day. Patient has ongoing wheezing despite budesonide/fometerol, could benefit from a few days stress steroid dosing at least orally, also may help gout component of arthritis. (6) Urinary retention: Status: Acute Assessment and plan: h/o LUTS on tamsulosin, retaining more. Increased dose, but still retaining s/p straight cath x 3, cisneros placed 11/22. (7) Pancytopenia: Status: Acute Assessment and plan: Anemic, thrombocytopenia, likely due to chemotherapy. Stable. Macrocytic anemia, B12 and folate normal. (8) Gout: Status: Chronic Assessment and plan: A/w acute infection, also some renal impairment. Giving short steroid burst Consider colcichine and allopurinol when clinically stable. Subjective Subjective Patient reports: tolerating a regular diet; denies diarrhea, nausea, vomiting or fever Interval history since last seen: Events: I&D 11/22, to OR for full I&D/irrigatoin 11/23 AM CTA/runoff of LE did not show significant PAD, reviewed with vascular Retaining urine, cisneros placed after 3rd post-void >500ml treated with straight cath Feeling okay after his surgery. Initially pain not bad, but now 11/17, throbbing. Still feels wheezey. He did eat after surgery. Exam Narrative Exam Narrative: General: This is a pleasant, obese man in no distress CV: rate around 100, irregular rhythm. Resp: Course BS, no longer wheezing. Less OB with movement even when sitting. Abd: soft, NT/ND EXT: Left toes/foot wrapped, cap refill <2 sec distally Neuro: awake, alert, no focal deficits, no tremor Objective Last Vital Signs Temp 37.2 C 11/23/24 11:51 Pulse 77 11/23/24 12:00 Resp 29 H 11/23/24 12:00 BP 132/92 H 11/23/24 10:01 Pulse Ox 95 11/23/24 10:01 Laboratory Results - last 24 hr 11/22/24 11/23/24 12:55 04:40 WBC 8.87 RBC 2.55 L Hgb 8.0 L Hct 25.2 L MCV 99 H MCH 31.4 MCHC 31.7 L RDW 16.9 H Plt Count 111 L MPV 11.3 H Immature Gran % 2.0 Neutrophils % 89.4 Lymphocytes % 6.2 Monocytes % 1.9 Eosinophils % 0.3 Basophils % 0.2 Nucleated RBC % 0.0 Absolute Neutrophils 7.92 H Absolute Lymphocytes 0.55 L Absolute Monocytes 0.17 Absolute Eosinophils 0.03 Absolute Basophils 0.02 Sodium 140 Potassium 4.3 Chloride 104 Carbon Dioxide 29.9 Anion Gap 6.1 BUN 26 H Creatinine 1.3 Est GFR (CKD-EPI 2020) 53.84 Glucose 142 H Calcium 8.3 L Fluid Crystals See Comment Fluid Crystal Source L Toe Time Spent with Patient Time Spent with Patient: >50 minutes Time was spent: preparing to see the patient(eg.review tests), obtaining and/or reviewing separately otained hiistory, ordering medications,tests, procedures, referring, communicating with other health healthcare market consultant, indepentently interpreting results, counseling the patient and care coordination
[2024-11-23] MEDS: HYDROmorphone 2 MG/ML SYR 0.5 MG IVP (13:30)
[2024-11-23] MEDS: predniSONE 20 MG TAB 40 MG PO ×2 (13:40→16:20)
[2024-11-23] MEDS: Lidocaine 5% Patch 1 PATCH TP (13:41)
[2024-11-23] MEDS: Budesonide/Formoterol 160/4.5 6 GM 60 PUFF INH IH (19:50)
[2024-11-23] MEDS: Apixaban 5 MG TAB PO (21:32)
[2024-11-24] VITALS (20 sets, daily range): BP systolic 121–150; BP diastolic 68–104; PULSE 52–139; RESP 8–22; TEMP 36.8; O2SAT 88–98
[2024-11-24] MEDS: ceFAZolin 2 GM/50 ML BAG IVPB ×3 (01:00→18:05)
[2024-11-24] MEDS: Metoprolol 25 MG TAB PO ×4 (03:30→20:04)
[2024-11-24] MEDS: Patch Removal 1 EACH TP (04:13)
[2024-11-24] MEDS: Levothyroxine 125 MCG TAB PO (06:19)
[2024-11-24] MEDS: Normal Saline Flush 10 ML SYR IVP ×2 (07:49→20:05)
[2024-11-24] MEDS: Rosuvastatin 5 MG TAB PO (07:49)
[2024-11-24] MEDS: predniSONE 20 MG TAB 40 MG PO (07:50)
[2024-11-24] MEDS: Furosemide 40 MG TAB PO (07:50)
[2024-11-24] MEDS: Tamsulosin 0.4 MG CAPCR 0.8 MG PO (07:50)
[2024-11-24] MEDS: Pantoprazole 40 MG TABCR PO (07:50)
[2024-11-24] MEDS: Apixaban 5 MG TAB PO ×2 (07:50→20:05)
[2024-11-24] MEDS: Loratidine 10 MG TAB PO (07:51)
[2024-11-24] MEDS: Cyanocobalamin 500 MCG TAB 1000 MCG PO (07:51)
[2024-11-24 07:56] LABS: HCT 26.6 % (40.0-50.0); HGB 8.4 g/dL (13.5-17.5); MCH 31.1 pg (27.0-33.0); MCHC 31.6 % (32.0-36.0); MCV 99 fL (80-95); MPV 11.3 fL (8.0-11.0); Platelet Count 141 10^3/uL (130-400); RBC 2.70 10^6/uL (4.36-5.78); RDW 16.7 % (11.8-14.1); RDW-SD 58.5 fL; WBC 10.67 10^3/uL (4.4-10.8)
[2024-11-24 08:07] LABS: Anion Gap 7.2 mmol/L (3-11); BUN 30 mg/dL (7-18); CO2 30.8 mmol/L (21.0-32.0); Calcium 8.7 mg/dL (8.5-10.1); Chloride 100 mmol/L (98-107); Estimated GFR 49.25 (mL/min/1.73m2); Glucose 161 mg/dL (74-106); Potassium 4.2 mmol/L (3.5-5.1); Sodium 138 mmol/L (136-145)
[2024-11-24] MEDS: Budesonide/Formoterol 160/4.5 6 GM 60 PUFF INH IH ×2 (08:31→19:26)
--- NOTE | 2024-11-24 08:38 | PGE_ITS ---
Date of Service Date of service: 11/24/24 Time of Service: 08:38 Assessment and Plan Assessment and plan (1) Septic arthritis of foot: Status: Acute Assessment and plan: In setting of MSSA bacteremia. Swelling started 2 days prior to admission after minor trauma. Negative x-ray for fracture on admission. Worsening redness and swelling since then, I&D 11/22 and surgical wash out 11/23, podiatry plans delayed primary closure 11/27. GPC in clusters, initial aspiration growing staph aureus, presumed MSSA. Also urate crystals, see gout. Try to mobilize more with PT as he improves (2) MSSA bacteremia: Status: Acute Assessment and plan: Started therapy 11/17, stopped vancomycin 11/19 and transitioned to cefazolin. Will likely need 6 weeks. A/w septic joint as above, but unclear if this source or sequela of bacteremia. Midline placed Nov 20, we may need to replace once cultures clear. Echocardiogram Nov 20 - no vegetations. With MSSA and AVR he will need TEMI, plan down/back when stable. Another set of cultures to confirm bacteremia clearing, 11/21 blood cultures still NGTD Will get ID consult to confirm treatment course once above resolved. Anticipate swing bed placement to complete prolonged abx (3) PAF (paroxysmal atrial fibrillation): Status: Chronic Assessment and plan: Now in chronic atrial fibrillation, poor rate control initially, improved with increasing metoprolol dose. Metoprolol increased 11/21. Infection and anemia contributing, got IV iron, treating infection. Transition back to metoprolol succinate BID dosing today as he has been stable (4) Elevated troponin level not due to acute coronary syndrome: Start date: 11/17/24 Status: Acute Assessment and plan: He never had chest pain chest pain. Troponins elevated after his fall with a stress of sepsis. Not c/w ACS. Troponins trended down. He is already on apixaban. Continue statin and beta-maddie, no change. (5) Asthma with COPD: Status: Chronic Assessment and plan: Received stress dose hydrocortisone for 2 days after Solu-Medrol in the ED, then back on 10mg prednisone/day. Patient has ongoing wheezing despite budesonide/fometerol, plan for another 3 day burst 11/23- to help with this and gout and stress of surgery. (6) Urinary retention: Status: Acute Assessment and plan: h/o LUTS on tamsulosin, retaining more. Increased dose to 0.8, but still retaining s/p straight cath x 3, cisneros placed 11/22. (7) Pancytopenia: Status: Acute Assessment and plan: Anemic, thrombocytopenia on admission. Thromobocytopenia was new, has resovled, likely related to staph infection Macrocytic anemia is more subacute/chronic, iron/tibc high with chronic disease pattern, B12 and folate normal. Follow every 2-3 days. (8) Gout: Status: Chronic Assessment and plan: A/w acute infection, also some renal impairment. Giving short steroid burst with clear improvement to pain. Start colcichine and allopurinol for more durable management. Subjective Subjective Patient reports: no new complaints, feels better and tolerating a regular diet; denies nausea, vomiting, shortness of breath or fever Interval history since last seen: Events: Started on prednisone burst to 40mg daily (up from 10mg) to treat gout and asthma He feels better today. Pain is better, only using APAP overnight. Appetite a little better. Exam Narrative Exam Narrative: General: This is a pleasant, obese man in no distress CV: rate in 90s, irregular rhythm. Resp: Good air movement, no rales, but some diffuse expiratory wheezing. Abd: soft, NT/ND EXT: Left toes/foot wrapped, cap refill <2 sec distally Neuro: awake, alert, no focal deficits, no tremor Objective Last Vital Signs Temp 36.8 C 11/23/24 17:15 Pulse 63 11/24/24 07:11 Resp 22 11/24/24 07:11 BP 121/72 11/24/24 07:11 Pulse Ox 93 11/24/24 06:01 Laboratory Results - last 24 hr 11/24/24 07:50 WBC 10.67 RBC 2.70 L Hgb 8.4 L Hct 26.6 L MCV 99 H MCH 31.1 MCHC 31.6 L RDW 16.7 H Plt Count 141 MPV 11.3 H Sodium 138 Potassium 4.2 Chloride 100 Carbon Dioxide 30.8 Anion Gap 7.2 BUN 30 H Creatinine 1.4 H Est GFR (CKD-EPI 2020) 49.25 Glucose 161 H Calcium 8.7 Time Spent with Patient Time Spent with Patient: 35-49 minutes Time was spent: preparing to see the patient(eg.review tests), obtaining and/or reviewing separately otained hiistory, ordering medications,tests, procedures, referring, communicating with other health sub acute care nurse, indepentently interpreting results, counseling the patient and care coordination
[2024-11-24] MEDS: Colchicine 0.6 MG TAB PO (08:45)
[2024-11-24] MEDS: Acetaminophen 325 MG TAB 650 MG PO ×2 (08:46→20:06)
--- NOTE | 2024-11-24 08:47 | PDOC.CMPRO ---
Date of service: 11/24/24 Time of Service: 08:47 Care Management Progress Note Progress Note Text Progress Note Text: Tadeo was asleep when CM attempted to meet with him. Per his nurse, he had been medicated for pain shortly before and needed to rest. Tadeo seems to be slowly improving. While he is still having pain at the surgical site (toe) he was able to get OOB into the chair. He has been using his walker as opposed to crutches as he is a bit unsteady at baseline. Tadeo's appetite is also better. He ate all of his breakfast and cleaned his plate' at lunchtime. Tadeo remains afebrile and his vital signs are stable. He is scheduled to return to the OR on Wednesday for secondary closure of his wound. Discharge Potential Discharge Needs: PCP F/U Appt and Surgical F/U Appt Anticipated Barriers to Discharge: Medical Status Patient/Family Education Needs: Review discharge instructions, discuss Ask Me Three Transportation: Private vehicle Plan: Anticipate Tadeo will return home when medically stable with new home health services for PT. 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 If possible, Tadeo would prefer home infusions so HH RN would also be needed. Family will drive him home via private vehicle and he will follow up with his PCP and discharge plan of care. CM will follow and continue to assess for discharge needs. Social Determinants of Health Screening Will the Patient Participate in the Screening?: Declined to provide Health Related Social Needs Health related social needs details: Patient reports he is ok.
[2024-11-24] MEDS: oxyCODONE 5 MG TAB PO ×2 (09:35→20:04)
[2024-11-24] MEDS: HYDROmorphone 2 MG/ML SYR 0.5 MG IVP ×3 (10:04→20:05)
--- NOTE | 2024-11-24 12:50 | PHA.REVIEW2 ---
Pharmacy Admission Review Admission Clinical Review Admission Pharmacy Review: Septic arthritis of foot (Acute) ACP (advance care planning) (Acute) Palliative care encounter (Acute) Abscess of left foot including toes (Acute) Localized swelling of left foot (Acute) Urinary retention (Acute) PAD (peripheral artery disease) (Acute) Pancytopenia (Acute) MSSA bacteremia (Acute) Gram-positive bacteremia (Acute) Contusion of left foot (Acute) Urinary tract infection (Acute) KIA (acute kidney injury) (Acute) Elevated troponin level not due to acute coronary syndrome (Acute) KIA (acute kidney injury) (Acute) Pain in left foot (Acute) Neuropathy (Acute) PMR (polymyalgia rheumatica) (Acute) No Known Allergies Allergy (Verified 11/16/24 23:44) Resuscitation Status DNR/DNI Height 5 ft 10 in Weight 108.6 kg Comments Comments/Follow Ups: POD #1 Irrigation and debridement, left foot and Bone biopsy left first metatarsophalangeal joint Pharmacy Admission Review Renal Dosing Renal Dosing: BUN 30 mg/dL (7-18) H 11/24/24 07:50 Creatinine 1.4 mg/dL (0.70-1.30) H 11/24/24 07:50 Medications needing adjustments: Reviewed (CrCl 47.6 mL/min, BUN increased from 26 and SCr increased from 1.3) List of meds needing interventions: Current medications are okay Anticoagulation Anticoagulation: Hgb 8.4 g/dL (13.5-17.5) L 11/24/24 07:50 Hct 26.6 % (40.0-50.0) L 11/24/24 07:50 Plt Count 141 10^3/uL (130-400) 11/24/24 07:50 INR 1.3 (0.9-1.1) H 11/16/24 23:45 Creatinine 1.4 mg/dL (0.70-1.30) H 11/24/24 07:50 DVT Prophylaxis: Reviewed (Hgb increased from 8) Medications: Apixaban (5mg PO BID) Opiate Usage Evaluate Pain Scale/Pains Meds: Reviewed (hydromorphone 0.5mg IVP q3h PRN - 1mg/24hrs + oxycodone 5mg PO q6h PRN - 10mg/24hrs) Scheduled Bowel Reg ordered if on Opiates?: No (PRN docusate/Miralax) Relevant Labs Relevant Labs: Sodium 138 mmol/L (136-145) 11/24/24 07:50 Potassium 4.2 mmol/L (3.5-5.1) 11/24/24 07:50 Chloride 100 mmol/L (98-107) 11/24/24 07:50 Magnesium 2.4 mg/dL (1.8-2.4) 11/21/24 05:43 Electrolytes, C-Reactive P, ESR: Reviewed Cardiac Review Cardiac Review: Troponin I 193 ng/L (<or=76) H* 11/20/24 10:10 NT-Pro-B Natriuret Pep 3660 pg/mL (<300) H 11/16/24 23:45 BP, HR, EF%: Reviewed (HR and BP WNL) List meds needing interventions: Has orders for furosemide 40mg daily and metoprolol 25mg q6h (retimed order to be on even hour per pharmacy protocol) QTc Review QTc: Reviewed (463 from 11/20/24) IV to PO Switch IV Medications: Reviewed (cefazolin and hydromorphone) Home Meds Home Med List reviewed: Reviewed Relevent Home Meds Not ordered & why?: albuterol (has PRN neb orders for Atrovent and Xopenex), lisinopril (on hold per H+P) Current Meds Current Medication Order Review: Intervened Comments: Changed timing of metoprolol to be on even hour per pharmacy protocol Pharmacy Antibiotic Review Relevant Labs: WBC 10.67 10^3/uL (4.4-10.8) 11/24/24 07:50 Microbiology 11/23/24 08:08 Surgical Culture - Preliminary Foot - Left Staphylococcus aureus Gram Stain - Final 11/23/24 08:05 Surgical Culture - Preliminary Foot - Left Staphylococcus aureus Gram Stain - Final 11/23/24 07:57 Surgical Culture - Preliminary Foot - Left Staphylococcus aureus Gram Stain - Final 11/23/24 08:04 Surgical Culture - Preliminary Foot - Left Staphylococcus aureus Gram Stain - Final 11/22/24 12:50 Anaerobic Culture - Preliminary Toe - Left Big Toe 11/22/24 12:50 Wound Culture - Preliminary Toe - Left Big Toe Staphylococcus aureus Gram Stain - Final 11/21/24 15:25 Blood Culture - Preliminary Blood NO GROWTH 48 HOURS 11/21/24 14:20 Blood Culture - Preliminary Blood NO GROWTH 48 HOURS Organism 1 Staphylococcus aureus Stap mango Result Gentamicin S Daptomycin S Erythromycin R Oxacillin S Vancomycin S Pharmacy Antibiotic Activity: C/S review and Reviewed, no change Comments: Patient is on cefazolin, day 7, for MSSA bacteremia/sepsis. Per progress note will likely need 6 weeks of antibiotics. Initial blood cultures form 11/17/24 grew Staph. aureus. Comments Comments/Follow Ups: POD #1 Irrigation and debridement, left foot and Bone biopsy left first metatarsophalangeal joint
[2024-11-24] MEDS: Lidocaine 5% Patch 1 PATCH TP (13:14)
[2024-11-25] VITALS (12 sets, daily range): BP systolic 113–152; BP diastolic 49–94; PULSE 57–86; RESP 12–31; O2SAT 93–98
[2024-11-25] MEDS: Metoprolol 25 MG TAB PO (02:30)
[2024-11-25] MEDS: Patch Removal 1 EACH TP ×2 (02:30→18:30)
[2024-11-25] MEDS: ceFAZolin 2 GM/50 ML BAG IVPB ×3 (02:30→17:40)
[2024-11-25] MEDS: Acetaminophen 325 MG TAB 650 MG PO ×4 (03:05→20:33)
[2024-11-25] MEDS: oxyCODONE 5 MG TAB PO ×3 (03:05→15:22)
[2024-11-25] MEDS: Levothyroxine 125 MCG TAB PO (06:20)
[2024-11-25] MEDS: Budesonide/Formoterol 160/4.5 6 GM 60 PUFF INH IH ×2 (08:03→19:45)
[2024-11-25] MEDS: Rosuvastatin 5 MG TAB PO (08:10)
[2024-11-25] MEDS: Colchicine 0.6 MG TAB PO (08:10)
[2024-11-25] MEDS: Furosemide 40 MG TAB PO (08:11)
[2024-11-25] MEDS: predniSONE 20 MG TAB 40 MG PO (08:11)
[2024-11-25] MEDS: Tamsulosin 0.4 MG CAPCR 0.8 MG PO (08:11)
[2024-11-25] MEDS: Loratidine 10 MG TAB PO (08:12)
[2024-11-25] MEDS: Cyanocobalamin 500 MCG TAB 1000 MCG PO (08:12)
[2024-11-25] MEDS: Allopurinol 100 MG TAB PO (08:12)
[2024-11-25] MEDS: Pantoprazole 40 MG TABCR PO (08:12)
[2024-11-25] MEDS: Apixaban 5 MG TAB PO ×2 (08:12→20:33)
[2024-11-25] MEDS: Normal Saline Flush 10 ML SYR IVP ×2 (08:20→20:31)
[2024-11-25] MEDS: Metoprolol CR 50 MG TABCR PO ×2 (08:24→20:33)
[2024-11-25] MEDS: Lisinopril 20 MG TAB 10 MG PO (08:24)
--- NOTE | 2024-11-25 13:38 | PGE_ITS ---
Date of Service Date of service: 11/25/24 Time of Service: 13:39 Assessment and Plan Assessment and plan (1) Septic arthritis of foot: Status: Acute Assessment and plan: In setting of MSSA bacteremia. Swelling started 2 days prior to admission after minor trauma. Negative x-ray for fracture on admission. Worsening redness and swelling since then, I&D 11/22 and surgical wash out 11/23, podiatry plans delayed primary closure 11/27. GPC in clusters, initial aspiration growing staph aureus, presumed MSSA. Also urate crystals, see gout. Try to mobilize more with PT as he improves, no change 11/25 (2) MSSA bacteremia: Status: Acute Assessment and plan: Started therapy 11/17, stopped vancomycin 11/19 and transitioned to cefazolin. Will likely need 6 weeks. A/w septic joint as above, but unclear if this source or sequela of bacteremia. Midline placed Nov 20, we may need to replace once cultures clear. Echocardiogram Nov 20 - no vegetations. With MSSA and AVR he will need TEMI, plan down/back when stable. Another set of cultures to confirm bacteremia clearing, 11/21 blood cultures still NGTD Called [facility] ID line 11/24, did not get return call. Anticipate swing bed placement to complete prolonged abx (3) PAF (paroxysmal atrial fibrillation): Status: Chronic Assessment and plan: Now in chronic atrial fibrillation, poor rate control initially, improved with increasing metoprolol dose. Metoprolol increased 11/21. Infection and anemia contributing, got IV iron, treating infection. Transitioned back to metoprolol succinate BID dosing 11/25 as he has been stable (4) Elevated troponin level not due to acute coronary syndrome: Start date: 11/17/24 Status: Acute Assessment and plan: He never had chest pain chest pain. Troponins elevated after his fall with a stress of sepsis. Not c/w ACS. Troponins trended down. He is already on apixaban. Continue statin and beta-maddie, no change. (5) Asthma with COPD: Status: Chronic Assessment and plan: Received stress dose hydrocortisone for 2 days after Solu-Medrol in the ED, then back on 10mg prednisone/day. Patient has ongoing wheezing despite budesonide/fometerol, plan for another 3 day burst 11/23- to help with this and gout and stress of surgery. (6) Urinary retention: Status: Acute Assessment and plan: h/o LUTS on tamsulosin, retaining more. Increased dose to 0.8, but still retaining s/p straight cath x 3, cisneros placed 11/22. Could consider voiding trial 11/29 or so when Sanchez back. (7) Pancytopenia: Status: Acute Assessment and plan: Anemic, thrombocytopenia on admission. Thromobocytopenia was new, has resovled, likely related to staph infection Macrocytic anemia is more subacute/chronic, iron/tibc high with chronic disease pattern, B12 and folate normal. Follow every 2-3 days. (8) Gout: Status: Chronic Assessment and plan: A/w acute infection, also some renal impairment. Giving short steroid burst with clear improvement to pain. Started colcichine and allopurinol for more durable management . Plan to titrate allopurinol as outpatient. Subjective Subjective Patient reports: no new complaints, feels better and tolerating a regular diet; denies nausea, vomiting, shortness of breath or fever Interval history since last seen: No events overnight. Managing pain with oral agents, oxycodone and acetaminophen. Feeling a little more energy. Exam Narrative Exam Narrative: General: This is a pleasant, obese man in no distress CV: rate in 90s, irregular rhythm. Resp: Good air movement, no rales, but some mild diffuse expiratory wheezing. Abd: soft, NT/ND EXT: Left toes/foot wrapped, cap refill <2 sec distally Neuro: awake, alert, no focal deficits, no tremor Objective Last Vital Signs Temp 36.8 C 11/24/24 19:40 Pulse 67 11/25/24 08:32 Resp 20 11/25/24 08:32 BP 152/73 H 11/25/24 08:32 Pulse Ox 96 11/25/24 06:01 Time Spent with Patient Time Spent with Patient: 35-49 minutes Time was spent: preparing to see the patient(eg.review tests), obtaining and/or reviewing separately otained hiistory, ordering medications,tests, procedures, referring, communicating with other health behavioral health care manager, indepentently in terpreting results, counseling the patient and care coordination
[2024-11-25] MEDS: Lidocaine 5% Patch 1 PATCH TP (13:44)
[2024-11-25] MEDS: HYDROmorphone 2 MG/ML SYR 0.5 MG IVP (20:31)
[2024-11-26] VITALS (16 sets, daily range): BP systolic 118–145; BP diastolic 58–63; PULSE 49–82; RESP 12–18; TEMP 36.7–37.2; O2SAT 96–99
[2024-11-26] MEDS: ceFAZolin 2 GM/50 ML BAG IVPB ×3 (02:04→18:28)
[2024-11-26] MEDS: oxyCODONE 5 MG TAB PO ×4 (02:04→19:24)
[2024-11-26 06:26] LABS: Anion Gap 5.5 mmol/L (3-11); BUN 34 mg/dL (7-18); CO2 30.5 mmol/L (21.0-32.0); Calcium 8.1 mg/dL (8.5-10.1); Chloride 100 mmol/L (98-107); Estimated GFR 45.34 (mL/min/1.73m2); Glucose 181 mg/dL (74-106); Potassium 4.7 mmol/L (3.5-5.1); Sodium 136 mmol/L (136-145)
[2024-11-26] MEDS: Levothyroxine 125 MCG TAB PO (06:49)
[2024-11-26] MEDS: Normal Saline Flush 10 ML SYR IVP ×2 (07:39→19:24)
[2024-11-26] MEDS: Pantoprazole 40 MG TABCR PO (07:40)
[2024-11-26] MEDS: Lisinopril 20 MG TAB 10 MG PO (07:40)
[2024-11-26] MEDS: Colchicine 0.6 MG TAB PO (07:40)
[2024-11-26] MEDS: Tamsulosin 0.4 MG CAPCR 0.8 MG PO (07:41)
[2024-11-26] MEDS: Cyanocobalamin 500 MCG TAB 1000 MCG PO (07:42)
[2024-11-26] MEDS: Rosuvastatin 5 MG TAB PO (07:42)
[2024-11-26] MEDS: Metoprolol CR 50 MG TABCR PO ×2 (07:43→19:24)
[2024-11-26] MEDS: Loratidine 10 MG TAB PO (07:43)
[2024-11-26] MEDS: Acetaminophen 325 MG TAB 650 MG PO ×3 (07:43→18:29)
[2024-11-26] MEDS: Allopurinol 100 MG TAB PO (07:43)
[2024-11-26] MEDS: Furosemide 40 MG TAB PO (07:43)
[2024-11-26] MEDS: Budesonide/Formoterol 160/4.5 6 GM 60 PUFF INH IH ×2 (07:50→19:33)
[2024-11-26] MEDS: Apixaban 5 MG TAB PO ×2 (07:54→19:24)
[2024-11-26] MEDS: HYDROmorphone 2 MG/ML SYR 0.5 MG IVP (09:17)
--- NOTE | 2024-11-26 11:08 | W.PM.PROGNOT ---
Date of Service Date of service: 11/26/24 Time of Service: 11:09 Assessment and Plan Assessment and plan (1) Septic arthritis of foot: Status: Acute Assessment and plan: -In setting of MSSA bacteremia. -Swelling started 2 days prior to admission after minor trauma. Negative x-ray for fracture on admission. -Worsening redness and swelling since then, I&D 11/22 and surgical wash out 11/23, -podiatry plans delayed primary closure 11/27. -GPC in clusters, initial aspiration growing staph aureus, presumed MSSA; Also urate crystals, see gout. -Try to mobilize more with PT as he improves, no change 11/25 (2) MSSA bacteremia: Status: Acute Assessment and plan: -Started therapy 11/17, stopped vancomycin 11/19 and transitioned to cefazolin. Will likely need 6 weeks. -A/w septic joint as above, but unclear if this source or sequela of bacteremia. -Midline placed Nov 20 -Echocardiogram Nov 20 - no vegetations, TEMI not needed given repeat cultures remain negative -Anticipate swing bed placement to complete prolonged abx (3) PAF (paroxysmal atrial fibrillation): Status: Chronic Assessment and plan: -Now in chronic atrial fibrillation, poor rate control initially, improved with increasing metoprolol dose. -Metoprolol increased 11/21. -Infection and anemia contributing, got IV iron, treating infection. -Transitioned back to metoprolol succinate BID dosing 11/25 as he has been stable (4) Elevated troponin level not due to acute coronary syndrome: Start date: 11/17/24 Status: Acute Assessment and plan: -He never had chest pain chest pain. -Troponins elevated after his fall with a stress of sepsis. -Not c/w ACS. Troponins trended down. -He is already on apixaban. -Continue statin and beta-maddie, no change. (5) Asthma with COPD: Status: Chronic Assessment and plan: -Received stress dose hydrocortisone for 2 days after Solu-Medrol in the ED, then back on 10mg prednisone/day. -Patient has ongoing wheezing despite budesonide/fometerol, plan for another 3 day burst 11/23- to help with this and gout and stress of surgery. (6) Urinary retention: Status: Acute Assessment and plan: -h/o LUTS on tamsulosin, retaining more. Increased dose to 0.8, but still retaining s/p straight cath x 3, cisneros placed 11/22. (7) Pancytopenia: Status: Acute Assessment and plan: -Anemic, thrombocytopenia on admission. -Thromobocytopenia was new, has resovled, likely related to staph infection --Macrocytic anemia is more subacute/chronic, iron/tibc high with chronic disease pattern, B12 and folate normal. Follow every 2-3 days. (8) Gout: Status: Chronic Assessment and plan: -A/w acute infection, also some renal impairment. Giving short steroid burst with clear improvement to pain. -Started colcichine and allopurinol for more durable management 11/24-. Plan to titrate allopurinol as outpatient. Subjective Subjective Interval history since last seen: Patient understands that he is improving though will need prolonged course of IV antibiotics. He has no complaints or concerns at this time. Exam Narrative Exam Narrative: Obese older gentleman laying in bed in no acute distress, A and O x 4, heart rate about 90, irregularly irregular, lungs good auscultation bilaterally, abdomen soft, nontender, nondistended, left foot wrapped without surrounding erythema or drainage Objective Last Vital Signs Temp 98.2 F 11/24/24 19:40 Pulse 57 L 11/26/24 08:02 Resp 12 11/26/24 00:00 BP 145/63 H 11/26/24 08:02 Pulse Ox 97 11/26/24 04:00 Laboratory Results - last 24 hr 11/26/24 05:55 Sodium 136 Potassium 4.7 Chloride 100 Carbon Dioxide 30.5 Anion Gap 5.5 BUN 34 H Creatinine 1.5 H Est GFR (CKD-EPI 2020) 45.34 Glucose 181 H Calcium 8.1 L Time Spent with Patient Time Spent with Patient: >50 minutes Time was spent: preparing to see the patient(eg.review tests), obtaining and/or reviewing separately otained hiistory, ordering medications,tests, procedures, referring, communicating with other health resident care coordinator, indepentently interpreting results, counseling the patient and care coordination
[2024-11-26] MEDS: Lidocaine 5% Patch 1 PATCH TP (13:27)
--- NOTE | 2024-11-26 23:01 | W.PC.ACHO ---
Registration Status: ADM IN Primary Language: Preferred Language: ED Information & Data Chief Complaint Fall/Non TraumaCriteria 11/16/24 23:51 Triage Note 2 days ago PT fell and hurt 11/16/24 23:29 his L big toe. PT has had sore throat, chills, SOB, and fever. PT states that he has neck pain that started tonight Medical / Surgical History (Last Reviewed 11/22/24 @ 16:52 by Margoth Delgadillo NP) H/O polymyalgia rheumatica Localized edema Anemia (Last Reviewed 11/22/24 @ 16:52 by Margoth Delgadillo NP) Hx of colonoscopy History of back surgery History of bowel resection S/P appendectomy Most Recent Vital Signs Temperature 36.9 C 11/26/24 19:01 Temperature Source Temporal Artery Scan 11/26/24 19:01 Pulse 63 11/26/24 18:00 Pulse Rhythm Irregular 11/17/24 05:55 Pulse 64 11/26/24 18:00 Respiratory Rate 14 11/26/24 18:00 Respiratory Effort Non-Labored 11/23/24 09:00 Respiratory Depth Shallow 11/23/24 09:00 Respiratory Pattern Normal 11/23/24 09:00 Blood Pressure 132/59 L 11/26/24 15:55 Blood Pressure Mean 80 11/26/24 15:55 Blood Pressure Position Supine 11/23/24 09:00 Pulse Oximetry 97 11/26/24 18:00 Oxygen Delivery Method Room Air 11/26/24 19:01 Oxygen Flow Rate 0 11/26/24 19:01 Pain Level 0 11/26/24 21:55 Comment rn notified 11/19/24 07:55 Allergies No Known Allergies Allergy (Verified 11/16/24 23:44) Active Medications Generic Name Dose Route Start Last Admin Trade Name Freq PRN Reason Stop Dose Admin Acetaminophen 650 mg 11/17/24 05:57 11/26/24 18:29 Acetaminophen 325 Mg Tab PO 650 mg Q4H PRN PRN Administration Allopurinol 100 mg 11/25/24 08:30 11/26/24 07:43 Allopurinol 100 Mg Tab PO 100 mg DAILY NUSRAT Administration Apixaban 5 mg 11/20/24 20:00 11/26/24 19:24 Apixaban 5 Mg Tab PO 5 mg BID NUSRAT Administration Budesonide/Formoterol Fumarate 2 puff 11/17/24 08:00 11/26/24 19:33 Budesonide/Formoterol 160/4.5 6 Gm 60 Puff Inh IH 2 puffs Q12H NUSRAT Administration Colchicine 0.6 mg 11/25/24 08:30 11/26/24 07:40 Colchicine 0.6 Mg Tab PO 0.6 mg DAILY NUSRAT Administration Cyanocobalamin 1,000 mcg 11/17/24 08:30 11/26/24 07:42 Cyanocobalamin 500 Mcg Tab PO 1,000 mcg DAILY NUSRAT Administration Furosemide 40 mg 11/19/24 08:30 11/26/24 07:43 Furosemide 40 Mg Tab PO 40 mg DAILY NUSRAT Administration Hydromorphone HCl 0.5 mg 11/23/24 12:41 11/26/24 09:17 Hydromorphone 2 Mg/Ml Syr IVP 0.5 mg Q3H PRN PRN Administration Sodium Chloride 500 mls @ 0 mls/hr 11/23/24 09:28 11/23/24 09:29 Saline 500ml Bag IV 1 mls/hr PRN PRN Administration As Directed Cefazolin Sodium/Dextrose 2 gm in 50 mls @ 100 mls/hr 11/24/24 10:00 11/26/24 19:43 Ancef Duplex IVPB Infused Q8H NUSRAT Infusion Ipratropium Alligator 0.25 mg 11/18/24 08:40 11/18/24 08:50 Ipratropium 0.5 Mg/2.5 Ml Upd Vial UPD 0.25 mg Q4H PRN PRN Administration Wheezing, Shortness of Breath Levalbuterol HCl 1.25 mg 11/18/24 08:29 11/21/24 03:32 Levalbuterol 1.25 Mg/3 Ml Upd Vial UPD 1.25 mg Q4H PRN PRN Administration Levothyroxine Sodium 125 mcg 11/18/24 06:00 11/26/24 06:49 Levothyroxine 125 Mcg Tab PO 125 mcg DAILY@0600 NUSRAT Administration Lidocaine 1 patch 11/17/24 14:00 11/26/24 13:27 Lidocaine 5% Patch TP 1 patch Q24H NUSRAT Administration Lisinopril 10 mg 11/25/24 08:30 11/26/24 07:40 Lisinopril 20 Mg Tab PO 10 mg DAILY NUSRAT Administration Loratadine 10 mg 11/17/24 08:30 11/26/24 07:43 Loratidine 10 Mg Tab PO 10 mg DAILY NUSRAT Administration Metoprolol Succinate 50 mg 11/25/24 08:30 11/26/24 19:24 Metoprolol Cr 50 Mg Tabcr PO 50 mg BID NUSRAT Administration Miscellaneous 1 each 11/18/24 02:00 11/25/24 18:30 Patch Removal TP 1 each DAILY@0200 NUSRAT Administration Oxycodone HCl 5 mg 11/21/24 09:13 11/26/24 19:24 Oxycodone 5 Mg Tab PO 5 mg Q6H PRN PRN Administration Pantoprazole Sodium 40 mg 11/18/24 07:30 11/26/24 07:40 Pantoprazole 40 Mg Tabcr PO 40 mg DAILY@0730 NUSRAT Administration Prednisone 10 mg 11/26/24 08:30 11/26/24 07:42 Prednisone 5 Mg Tab PO 10 mg DAILY NUSRAT Administration Rosuvastatin Calcium 5 mg 11/17/24 08:30 11/26/24 07:42 Rosuvastatin 5 Mg Tab PO 5 mg DAILY NUSRAT Administration Sodium Chloride 0 ml 11/17/24 01:25 11/22/24 13:07 Normal Saline Flush 10 Ml Syr IVP 100 ml PRN PRN Administration Sodium Chloride 0 ml 11/17/24 08:30 11/26/24 19:24 Normal Saline Flush 10 Ml Syr IVP 30 ml BID NUSRAT Administration Tamsulosin HCl 0.8 mg 11/23/24 08:30 11/26/24 07:41 Tamsulosin 0.4 Mg Capcr PO 0.8 mg DAILY NUSRAT Administration IV IV Catheter Type [Left Midline Mid-line Peripheral Line ] IV Catheter Type [Right Upper Saline Lock arm] IV Catheter Type [Left Peripheral IV Antecubital] IV Catheter Type [Right Saline Lock Antecubital] IV Catheter Gauge [Right Upper 20 arm] IV Catheter Gauge [Left 18 Antecubital] IV Catheter Gauge [Right 18 Antecubital] Diagnostics 11/26/24 Range/Units 05:55 Sodium 136 (136-145) mmol/L Potassium 4.7 (3.5-5.1) mmol/L Chloride 100 (98-107) mmol/L Carbon Dioxide 30.5 (21.0-32.0) mmol/L Anion Gap 5.5 (3-11) mmol/L BUN 34 H (7-18) mg/dL Creatinine 1.5 H (0.70-1.30) mg/dL Est GFR (CKD-EPI 2020) 45.34 (mL/min/1.73m2) Glucose 181 H (74-106) mg/dL Calcium 8.1 L (8.5-10.1) mg/dL 11/21/24 15:25 Blood Culture - Final Blood NO GROWTH 120 HOURS 11/21/24 14:20 Blood Culture - Final Blood NO GROWTH 120 HOURS 11/23/24 08:08 Surgical Culture - Preliminary Foot - Left Staphylococcus aureus Gram Stain - Final 11/23/24 08:04 Surgical Culture - Preliminary Foot - Left Staphylococcus aureus Gram Stain - Final 11/23/24 08:05 Surgical Culture - Preliminary Foot - Left Staphylococcus aureus Gram Stain - Final 11/23/24 07:57 Surgical Culture - Preliminary Foot - Left Staphylococcus aureus Gram Stain - Final 11/22/24 12:50 Anaerobic Culture - Preliminary Toe - Left Big Toe 11/22/24 12:50 Wound Culture - Preliminary Toe - Left Big Toe Staphylococcus aureus Gram Stain - Final [id number] Documentation Fingerstick Glucose Start: 11/20/24 09:23 Freq: Status: Complete Protocol: Activity Type Activity Date Activity User E-sign Co-sign Detail Recorded Client Recorded Date Recorded By Document 11/23/24 07:16 BKG DAEMON(3) [id number] 11/23/24 07:27 BKG DAEMON(4) Intake and Output - 24 Hour Total 11/16/24 23:25 thru 11/26/24 20:37 Intake Total 9869.666 Output Total 86996 Balance -5386.334 Weight 109 kg Intake: IV 4147.666 Oral 5722 Output: Urine 88865 Post Void Residual 1156 Other: Urine Color Yellow Urine Appearance Clear Sediment Urine Odor Strong Comment Patient scanned for 758mL, prompted patient to void, patient put out 100mL urine. Third instance of >500mL retention, provider contacted and cisneros ordered. Stool Size Moderate Stool Characteristics Formed Brown Urinary Catheter Urinary Catheter Date of 11/23/24 Insertion [Urethral (Cisneros)] Time of insertion [Urethral ( 06:16 Cisneros)] Falls Risk Assessment History of Falls Previous History 11/23/24 09:00 Contributing Factors Impairments,Medications 11/23/24 09:00 Ambulatory Aids Uses ambulatory device + 11/23/24 09:00 Tubes/Lines With any additional score 11/23/24 09:00 Gait Evaluation W/any additional score 11/23/24 09:00 Cognition No cognitive impairment 11/23/24 09:00 Fall Total Score 91 11/23/24 09:00 Level of Risk Maximum Risk 11/23/24 09:00 Problems (Last Reviewed 11/22/24 @ 16:52 by Margoth Delgadillo NP) Septic arthritis of foot (Acute) ACP (advance care planning) (Acute) Palliative care encounter (Acute) Abscess of left foot including toes (Acute) Localized swelling of left foot (Acute) Urinary retention (Acute) PAD (peripheral artery disease) (Acute) Gout (Chronic) Pancytopenia (Acute) MSSA bacteremia (Acute) Gram-positive bacteremia (Acute) Contusion of left foot (Acute) PAF (paroxysmal atrial fibrillation) (Chronic) Urinary tract infection (Acute) CKD (chronic kidney disease) (Chronic) KIA (acute kidney injury) (Acute) Elevated troponin level not due to acute coronary syndrome (Acute) CKD (chronic kidney disease) (Chronic) KIA (acute kidney injury) (Acute) Asthma with COPD (Chronic) Pain in left foot (Acute) Neuropathy (Acute) (HFpEF) heart failure with preserved ejection fraction (Chronic) PMR (polymyalgia rheumatica) (Acute) Hypothyroidism (Chronic) Hypertension (Chronic) Notes 11/17/24 07:15 Nursing Notes by Bina Zaldivar Nursing Note: Called pharmacy to verify orders in order to start IV fluid. Initialized on 11/17/24 07:15 - END OF NOTE v v v v v v v v v Sending and/or Receiving Nurses: Please use comment section below to note any information pertinent to the patient hand-off not included above. Information / Comments:Pt admit to med/surg rm 215 from ICU for 6 wks ABX therpy for septic arthritis in left foot. Pt Hx goute, Dx this visit for Sepsis, UTI, KIA w/ CKD, and elevated trops. Pt is non wt bearing on lft foot stand pivot w/ walker from bed to chair. Pt is anticoagulated w/ scattered bruising to upper extremities. Report received from:Deborah barbosa/ toby, [employer] PRACTICE NURSE PSYCHOTHERAPIST nurse around [id number].
[2024-11-27] VITALS (11 sets, daily range): BP systolic 90–138; BP diastolic 45–81; PULSE 55–96; RESP 12–20; TEMP 35.9–36.4; O2SAT 94–98
--- NOTE | 2024-11-27 | DI.RAD_ITS ---
Exam(s) XR PORTABLE CHEST AP EXAM: XR PORTABLE CHEST AP CLINICAL HISTORY: SOB TECHNIQUE: 2D digital imaging was performed. COMPARISON: CT CT CHEST PE CTA from 11/17/2024 FINDINGS: Exam is limited by suboptimal pulmonary inflation. LUNGS: Clear. No pleural abnormality seen. HEART: Normal size. AORTA: TAVR. Mildly tortuous. Pulmonary arteries are mildly prominent. BONES: Unremarkable for age. Soft tissues: Unremarkable. IMPRESSION: No acute findings. DATA REPOSITORY: RADIATION DOSE DELIVERED:
[2024-11-27] MEDS: ceFAZolin 2 GM/50 ML BAG IVPB ×3 (02:30→17:12)
[2024-11-27] MEDS: oxyCODONE 5 MG TAB PO ×2 (04:29→10:03)
[2024-11-27] MEDS: Acetaminophen 325 MG TAB 650 MG PO ×3 (04:29→16:08)
--- NOTE | 2024-11-27 05:00 | RT.EKG_ITS ---
APPROVED REPORT Exam: Resting ECG Reason for Exam: chest pain Patient Location: I HR:80 bpm ECG Measurements Heart Rate 80 AXIS [place] 179 P 45 QRSd 87 QRS -14 QT 423 T 100 QTc 488 Conclusion Sinus rhythm...normal P axis, V-rate 50- 99 Paired ventricular premature complexes...sequence of 2 V complexes Anteroseptal infarct, age indeterminate...Q >35mS, T neg, V1-V2 Baseline wander in lead(s) V1
[2024-11-27] MEDS: Ipratropium 0.5 MG/2.5 ML UPD VIAL 0.25 MG UPD (05:03)
[2024-11-27] MEDS: Levalbuterol 1.25 MG/3 ML UPD VIAL UPD (05:05)
--- NOTE | 2024-11-27 05:07 | W.EVENT ---
Date of service: 11/27/24 Time of Service: 05:07 Event Note: NS called to report pt with some SOB and malaise. Upon my arrival pt was sitting in chair receiving an updraft. At that time, pt denied any chest pain or sob. Pt was able to speak in complete sentences and had a mild right exp wheeze. 1plus LLEE. cisneros in place. Will order ekg/troponin/lasix 10mg iv x1. Monitor for improvement Time Spent with Patient Time spent in critical care(minutes): zero Time Spent Included: Chart review and Time at immediate bedside
[2024-11-27] MEDS: Furosemide 20 MG/2 ML VIAL 10 MG IVP (05:36)
[2024-11-27] MEDS: Levothyroxine 125 MCG TAB PO (05:36)
--- NOTE | 2024-11-27 05:45 | RESPIRATORY ---
Called for neb treatment due to diffuclty breahting. Pt. appeared to have mild expiratory wheezing with longer expiratory phase and diminished breath sound. Neb treatment given. Pt. stated much better post neb treatment. Pt. remained on RA, maintaining good O2 sats without significant respiratory distress and EKG done per MD.
[2024-11-27] MEDS: Pantoprazole 40 MG TABCR PO (07:25)
[2024-11-27] MEDS: Apixaban 5 MG TAB PO (08:17)
[2024-11-27] MEDS: Cyanocobalamin 500 MCG TAB 1000 MCG PO (08:17)
[2024-11-27] MEDS: Allopurinol 100 MG TAB PO (08:18)
[2024-11-27] MEDS: Furosemide 40 MG TAB PO (08:18)
[2024-11-27] MEDS: Loratidine 10 MG TAB PO (08:18)
[2024-11-27] MEDS: Tamsulosin 0.4 MG CAPCR 0.8 MG PO (08:18)
[2024-11-27] MEDS: Metoprolol CR 50 MG TABCR PO (08:18)
[2024-11-27] MEDS: Normal Saline Flush 10 ML SYR IVP ×3 (08:18→17:12)
[2024-11-27] MEDS: Rosuvastatin 5 MG TAB PO (08:18)
--- NOTE | 2024-11-27 08:36 | CMPROGNOTE_ITS ---
Date of service: 11/27/24 Time of Service: 08:36 Care Management Progress Note Progress Note Text Progress Note Text: Tadeo was dozing when CM went to meet with him, but he woke up when spoken to. He shared that he had a nice nap and is feeling better. Tadeo has been slowly improving. He is nearly ready to transition to SB-1 to continue working with PT and receiving IV antibiotics. CM asked if he would prefer to have home infusions and he thinks he would, but is not ready to go home yet. He is NWB on the infected foot and feels he needs more time with PT. When medically ready, he will be transitioned to SB-1 (likely tomorrow). If he is safe for discharge from a PT standpoint before his IVAB course is completed, he may be able to complete the course at home. Tadeo asked CM to discuss this with his son. CM called Mario but needed to leave a message. Discharge Potential Discharge Needs: PCP F/U Appt and Other (will likely need SB-1 for IV antibiotics) Anticipated Barriers to Discharge: Medical Status Patient/Family Education Needs: Review discharge instructions, discuss Ask Me Three Transportation: Private vehicle Plan: Anticipate Tadeo will return home when medically stable with new home health services for PT. 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 If possible, Tadeo would prefer home infusions so HH RN would also be needed. Family will drive him home via private vehicle and he will follow up with his PCP and discharge plan of care. CM will follow and continue to assess for discharge needs. Social Determinants of Health Screening Will the Patient Participate in the Screening?: Declined to provide Health Related Social Needs Health related social needs details: Patient reports he is ok.
[2024-11-27] MEDS: Budesonide/Formoterol 160/4.5 6 GM 60 PUFF INH IH (08:44)
[2024-11-27] MEDS: Colchicine 0.6 MG TAB PO (09:10)
--- NOTE | 2024-11-27 10:34 | W.ANESPRE ---
General Info Date of Service Date Performed: 11/27/24 Height: 5 ft 10 in Weight: 109 kg Body Mass Index (BMI): 34.4 Surgical Procedure: Operation Date: 11/23/24 07:40 Proposed Procedure Side Surgeon p Debridement Alexa Brizuela DPM Actual Procedure Side Surgeon p Irrigation + Debridement of Foot Left Alexa Brizuela DPM Pre-Op Diagnosis Post-Op Diagnosis Sepsis Left Foot Wound Sepsis Left Foot Wound Operation Date: 11/27/24 12:55 Proposed Procedure Side Surgeon p Delayed Primary Closure Left Alexa Brizuela DPM Meds Allergies and Home Medications Allergies Allergy/AdvReac Type Severity Reaction Status Date / Time No Known Allergies Allergy Verified 11/16/24 23:44 Home Medication ?Medication ?Instructions ?Recorded tamsulosin 0.4 mg capsule 0.4 mg PO DAILY 12/19/19 albuterol sulfate 90 mcg/actuation 2 inh inhalation Q4H PRN 03/09/23 aerosol inhaler (Ventolin HFA) rosuvastatin 5 mg tablet 5 mg PO DAILY 03/09/23 cyanocobalamin (vitamin B-12) 1,000 mcg PO DAILY 06/11/23 1,000 mcg tablet furosemide 40 mg tablet (Lasix) 40 mg PO DAILY 06/11/23 lisinopril 20 mg tablet 20 mg PO DAILY 06/11/23 metoprolol succinate 50 mg 50 mg PO DAILY 09/12/24 tablet,extended release 24 hr pantoprazole 40 mg tablet,delayed 40 mg PO DAILY 09/12/24 release budesonide-formoterol HFA 160 2 puff inhalation Q12H #10.2 grams 10/12/24 mcg-4.5 mcg/actuation aerosol inhaler (Breyna) loratadine 10 mg tablet (Allergy 10 mg PO DAILY 10/12/24 Relief (loratadine)) prednisone 1 mg tablet 1 mg PO DAILY 10/12/24 prednisone 5 mg tablet 5 mg PO DAILY PRN 10/12/24 apixaban 5 mg tablet (Eliquis) 5 mg PO BID 11/16/24 levothyroxine 125 mcg tablet 125 mcg PO DAILY 11/24/24 Current Visit Medications: Current Medications Generic Name Dose Route Start Last Admin Trade Name Freq PRN Reason Stop Dose Admin Acetaminophen 650 mg 11/17/24 05:57 11/27/24 09:10 Acetaminophen 325 Mg Tab PO 650 mg Q4H PRN PRN Administration Al Hydrox/Mg Hydrox/Simethicone 30 ml 11/17/24 05:57 Mylanta Suspension 30 Ml Cup PO Q2H PRN PRN Allopurinol 100 mg 11/25/24 08:30 11/27/24 08:18 Allopurinol 100 Mg Tab PO 100 mg DAILY NUSRAT Administration Apixaban 5 mg 11/20/24 20:00 11/27/24 08:17 Apixaban 5 Mg Tab PO 5 mg BID NUSRAT Administration Budesonide/Formoterol Fumarate 2 puff 11/17/24 08:00 11/27/24 08:44 Budesonide/Formoterol 160/4.5 6 Gm 60 Puff Inh IH 2 puffs Q12H NUSRAT Administration Colchicine 0.6 mg 11/25/24 08:30 11/27/24 09:10 Colchicine 0.6 Mg Tab PO 0.6 mg DAILY NUSRAT Administration Cyanocobalamin 1,000 mcg 11/17/24 08:30 11/27/24 08:17 Cyanocobalamin 500 Mcg Tab PO 1,000 mcg DAILY NUSRAT Administration Docusate Sodium 100 mg 11/17/24 05:57 Docusate Sodium 100 Mg Cap PO TID PRN PRN Furosemide 40 mg 11/19/24 08:30 11/27/24 08:18 Furosemide 40 Mg Tab PO 40 mg DAILY NUSRAT Administration Hydromorphone HCl 0.5 mg 11/23/24 12:41 11/26/24 09:17 Hydromorphone 2 Mg/Ml Syr IVP 0.5 mg Q3H PRN PRN Administration Sodium Chloride 500 mls @ 0 mls/hr 11/23/24 09:28 11/23/24 09:29 Saline 500ml Bag IV 1 mls/hr PRN PRN Administration As Directed Cefazolin Sodium/Dextrose 2 gm in 50 mls @ 100 mls/hr 11/24/24 10:00 11/27/24 10:03 Ancef Duplex IVPB 100 mls/hr Q8H NUSRAT Administration IV Miscellaneous Supplies 1 each 11/17/24 05:57 Iv Access IV DIRECTED NUSRAT Ipratropium [place] 0.25 mg 11/18/24 08:40 11/27/24 05:03 Ipratropium 0.5 Mg/2.5 Ml Upd Vial UPD 0.25 mg Q4H PRN PRN Administration Wheezing, Shortness of Breath Levalbuterol HCl 1.25 mg 11/18/24 08:29 11/27/24 05:05 Levalbuterol 1.25 Mg/3 Ml Upd Vial UPD 1.25 mg Q4H PRN PRN Administration Levothyroxine Sodium 125 mcg 11/18/24 06:00 11/27/24 05:36 Levothyroxine 125 Mcg Tab PO 125 mcg DAILY@0600 NUSRAT Administration Lidocaine 1 patch 11/17/24 14:00 11/26/24 13:27 Lidocaine 5% Patch TP 1 patch Q24H NUSRAT Administration Lisinopril 10 mg 11/25/24 08:30 11/27/24 07:54 Lisinopril 20 Mg Tab PO Not Given DAILY NUSRAT Loratadine 10 mg 11/17/24 08:30 11/27/24 08:18 Loratidine 10 Mg Tab PO 10 mg DAILY NUSRAT Administration Magnesium Hydroxide 30 ml 11/17/24 05:57 Milk Of Magnesia 30 Ml Cup PO DAILY PRN PRN Metoprolol Succinate 50 mg 11/25/24 08:30 11/27/24 08:18 Metoprolol Cr 50 Mg Tabcr PO 50 mg BID NUSRAT Administration Miscellaneous 1 each 11/18/24 02:00 11/27/24 02:31 Patch Removal TP Not Given DAILY@0200 NUSRAT Oxycodone HCl 5 mg 11/21/24 09:13 11/27/24 10:03 Oxycodone 5 Mg Tab PO 5 mg Q6H PRN PRN Administration Pantoprazole Sodium 40 mg 11/18/24 07:30 11/27/24 07:25 Pantoprazole 40 Mg Tabcr PO 40 mg DAILY@0730 NUSRAT Administration Polyethylene Glycol 17 gm 11/17/24 05:57 Polyethylene Glycol 3350 17 Gm Packet PO DAILY PRN PRN Constipation Prednisone 10 mg 11/26/24 08:30 11/27/24 08:18 Prednisone 5 Mg Tab PO 10 mg DAILY NUSRAT Administration Rosuvastatin Calcium 5 mg 11/17/24 08:30 11/27/24 08:18 Rosuvastatin 5 Mg Tab PO 5 mg DAILY NUSRAT Administration Sodium Chloride 0 ml 11/17/24 01:25 11/22/24 13:07 Normal Saline Flush 10 Ml Syr IVP 100 ml PRN PRN Administration Sodium Chloride 0 ml 11/17/24 08:30 11/27/24 08:18 Normal Saline Flush 10 Ml Syr IVP 10 ml BID NUSRAT Administration Sodium Chloride 0 ml 11/17/24 05:57 Normal Saline 10 Ml Vial IJ DIRECTED PRN Tamsulosin HCl 0.8 mg 11/23/24 08:30 11/27/24 08:18 Tamsulosin 0.4 Mg Capcr PO 0.8 mg DAILY NUSRAT Administration PFSH Active Problems Active Problems: Problem Status Onset Code Septic arthritis of foot Acute M00.9 ACP (advance care planning) Acute Z71.89 Palliative care encounter Acute Z51.5 Abscess of left foot including toes Acute L02.612 Localized swelling of left foot Acute R22.42 Urinary retention Acute R33.9 PAD (peripheral artery disease) Acute I73.9 Gout Chronic M10.9 Pancytopenia Acute D61.818 MSSA bacteremia Acute R78.81, B95.61 Gram-positive bacteremia Acute R78.81 Contusion of left foot Acute S90.32XA PAF (paroxysmal atrial fibrillation) Chronic I48.0 Urinary tract infection Acute N39.0 CKD (chronic kidney disease) Chronic N18.9 KIA (acute kidney injury) Acute N17.9 NSTEMI (non-ST elevation myocardial infarction) Acute I21.4 Shortness of breath Acute R06.02 Sepsis Acute A41.9 Shock Acute R57.9 Elevated troponin level not due to acute coronary syndrome Acute R79.89 CKD (chronic kidney disease) Chronic N18.9 KIA (acute kidney injury) Acute N17.9 Sepsis Resolved A41.9 S/P TAVR (transcatheter aortic valve replacement) Acute Z95.2 Allergic rhinitis Acute J30.9 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 Pain in right foot Acute M79.671 Pain in left foot Acute M79.672 Dystrophy of nail due to trauma Acute L60.3 Onychomycosis Acute B35.1 Neuropathy Acute G62.9 Atherosclerosis of artery of both lower extremities Acute I70.203 Disorder of kidney Acute N28.9 Polyneuropathy Acute G62.9 (HFpEF) heart failure with preserved ejection fraction Chronic I50.30 Aortic stenosis Chronic I35.0 PMR (polymyalgia rheumatica) Acute M35.3 Urinary tract infection Resolved N39.0 [id number] kidney injury Acute N17.9, N18.9 Syncope Chronic R55 Internal derangement of left knee Acute M23.92 Osteoarthritis of right knee Acute M17.11 Bilateral shoulder bursitis Acute M75.51, M75.52 Impingement syndrome of both shoulders Acute M75.41, M75.42 Adhesive capsulitis of both shoulders Acute M75.01, M75.02 Tendinitis of long head of biceps brachii of both shoulders Acute M75.21, M75.22 Nontraumatic tear of muscle or tendon of rotator cuff of both shoulders Acute M75.101, M75.102 Scapular dyskinesis Acute G25.89 Peripheral neuropathy Acute G62.9 Cervical spondylosis with myelopathy Acute M47.12 Bilateral hip joint arthritis Acute M16.0 Renal insufficiency Chronic N28.9 Hypothyroidism Chronic E03.9 Restless leg Acute G25.81 Dyspnea on exertion Acute R06.09 Asbestos exposure Acute Z77.090 Diverticulitis Chronic K57.92 Cholelithiasis Acute K80.20 Hyperlipidemia Acute E78.5 Hypertension Chronic I10 PSVT (paroxysmal supraventricular tachycardia) Chronic I47.1 Right carpal tunnel syndrome Acute G56.01 Spondylolisthesis, cervical region Acute M43.12 Medical History Medical History H/O polymyalgia rheumatica Localized edema Anemia Surgical History Surgical History Hx of colonoscopy History of back surgery History of bowel resection sigmoid resection S/P appendectomy Tobacco Smoking/Tobacco Use Status: Former Tobacco Use Alcohol Alcohol Intake: current Alcohol intake frequency: a few times a month Alcohol type: beer Substance Use Substance use: Never Substance use type: does not use Details: ALCOHOL: T-2, BEER. PT. STATES HE DOES NOT REMEMBER WHEN HE QUIT SMOKING, 40 YEARS AGO Vital Signs and Lab Results Vital Signs Most Recent Vital Signs in EMR: Most Recent Vital Signs Temp Pulse Resp BP Pulse Ox 36.4 C L 89 18 105/50 L 98 11/27/24 07:37 11/27/24 07:37 11/27/24 07:37 11/27/24 07:37 11/27/24 08:45 Point of Care Results Point of Care Results: Finger Stick Blood Glucose 138 11/23/24 07:16 Lab Results 11/24/24 07:50 11/26/24 05:55 Complete Blood Count: WBC, (4.4-10.8) 10.67 10^3/uL 11/24/24, 07:50 RBC, (4.36-5.78) 2.70 10^6/uL L 11/24/24, 07:50 Hgb, (13.5-17.5) 8.4 g/dL L 11/24/24, 07:50 Hct, (40.0-50.0) 26.6 % L 11/24/24, 07:50 Plt Count, (130-400) 141 10^3/uL 11/24/24, 07:50 VBG Lactate, (<or=2.0) 1.8 mmol/L 11/20/24, 06:49 Complete Metabolic Panel: Sodium, (136-145) 136 mmol/L 11/26/24, 05:55 Potassium, (3.5-5.1) 4.7 mmol/L 11/26/24, 05:55 Chloride, (98-107) 100 mmol/L 11/26/24, 05:55 Carbon Dioxide, (21.0-32.0) 30.5 mmol/L 11/26/24, 05:55 BUN, (7-18) 34 mg/dL H 11/26/24, 05:55 Creatinine, (0.70-1.30) 1.5 mg/dL H 11/26/24, 05:55 Est GFR (CKD-EPI 2020), (mL/min/1.73m2) 45.34 11/26/24, 05:55 Magnesium, (1.8-2.4) 2.4 mg/dL 11/21/24, 05:43 Calcium, (8.5-10.1) 8.1 mg/dL L 11/26/24, 05:55 Albumin, (3.4-5.0) 2.1 g/dL L 11/21/24, 05:43 Glucose, (74-106) 181 mg/dL H 11/26/24, 05:55 Liver Function Panel: ALT, (16-63) 30 U/L 11/21/24, 05:43 AST, (15-37) 23 U/L 11/21/24, 05:43 Coagulation Panel: INR, (0.9-1.1) 1.3 H 11/16/24, 23:45 PT, (9.1-11.1) 13.2 sec H 11/16/24, 23:45 APTT, (20.6-30.2) 34.2 sec H 11/16/24, 23:45 Cardiac Panel: Troponin I, (<or=76) 193 ng/L H* 11/20/24 NT-Pro-B Natriuret Pep, (<300) 3660 pg/mL H 11/16/24 Venous Blood Gas: VBG pH, (7.31-7.41) 7.35 11/16/24, 23:45 VBG pO2 24 mmHg 11/16/24, 23:45 VBG pCO2, (41-51) 43 mmHg 11/16/24, 23:45 VBG O2 Saturation 31 % 11/16/24, 23:45 VBG HCO3, (23-28) 24 mmol/L 11/16/24, 23:45 VBG Base Excess, (-2-3) -2 mmol/L 11/16/24, 23:45 VBG Total CO2, (24-29) 23 mmol/L L 11/16/24, 23:45 Thyroid Panel: TSH, (0.36-3.74) 0.94 uIU/mL 11/17/24, 06:04 Infectious Disease: SARS-CoV-2 (PCR), (Negative) Negative 11/17/24, 00:07 COVID-19 Source Nasopharynx 11/17/24, 00:07 Influenza Type A (PCR), (Negative) Negative 11/17/24, 00:07 Influenza Type B (PCR), (Negative) Negative 11/17/24, 00:07 RSV (PCR), (Negative) Negative 11/17/24, 00:07 Imaging and Studies Imaging and Studies Study information below may be from another EMR and interpreted by another provider. Please see original notes in EMR for more complete details. Pulmonary Function Summary: 01/27/22 Indications: MARISCAL Interpretation Spirometry: There is mild airflow limitation. There is no significant bronchodilator effect. Lung Volumes: There is evidence of air trapping. Diffusion Capacity: Diffusion is normal. Airway Pressure: There is increased airway resistance. Impression Mild airflow obstruction with air trapping and a normal diffusion. In the correct clinical setting this could represent chronic bronchitis (COPD) or uncontrolled asthma. Clinical Correlation therefore is recommended.
[2024-11-27] MEDS: Mylanta Suspension 30 ML CUP PO (11:09)
--- NOTE | 2024-11-27 11:23 | W.PM.PROGNOT ---
Date of Service Date of service: 11/27/24 Time of Service: 11:23 Assessment and Plan Assessment and plan (1) Septic arthritis of foot: Status: Acute Assessment and plan: -In setting of MSSA bacteremia. -Swelling started 2 days prior to admission after minor trauma. Negative x-ray for fracture on admission. -Worsening redness and swelling since then, I&D 11/22 and surgical wash out 11/23, -podiatry plans delayed primary closure 11/27. -GPC in clusters, initial aspiration growing staph aureus, presumed MSSA; Also urate crystals, see gout. -Try to mobilize more with PT as he improves, no change 11/25 (2) MSSA bacteremia: Status: Acute Assessment and plan: -Started therapy 11/17, stopped vancomycin 11/19 and transitioned to cefazolin. Will likely need 6 weeks. -A/w septic joint as above, but unclear if this source or sequela of bacteremia. -Midline placed Nov 20 -Echocardiogram Nov 20 - no vegetations, TEMI not needed given repeat cultures remain negative -Anticipate swing bed placement to complete prolonged abx (3) PAF (paroxysmal atrial fibrillation): Status: Chronic Assessment and plan: -Now in chronic atrial fibrillation, poor rate control initially, improved with increasing metoprolol dose. -Metoprolol increased 11/21. -Infection and anemia contributing, got IV iron, treating infection. -Transitioned back to metoprolol succinate BID dosing 11/25 as he has been stable (4) Elevated troponin level not due to acute coronary syndrome: Start date: 11/17/24 Status: Acute Assessment and plan: -He never had chest pain chest pain. -Troponins elevated after his fall with a stress of sepsis. -Not c/w ACS. Troponins trended down. -He is already on apixaban. -Continue statin and beta-maddie, no change. (5) Asthma with COPD: Status: Chronic Assessment and plan: -Received stress dose hydrocortisone for 2 days after Solu-Medrol in the ED, then back on 10mg prednisone/day. -Patient has ongoing wheezing despite budesonide/fometerol, plan for another 3 day burst 11/23- to help with this and gout and stress of surgery. (6) Urinary retention: Status: Acute Assessment and plan: -h/o LUTS on tamsulosin, retaining more. Increased dose to 0.8, but still retaining s/p straight cath x 3, cisneros placed 11/22. (7) Pancytopenia: Status: Acute Assessment and plan: -Anemic, thrombocytopenia on admission. -Thromobocytopenia was new, has resovled, likely related to staph infection -Macrocytic anemia is more subacute/chronic, iron/tibc high with chronic disease pattern, B12 and folate normal. Follow every 2-3 days. (8) Gout: Status: Chronic Assessment and plan: -A/w acute infection, also some renal impairment. Giving short steroid burst with clear improvement to pain. -Started colcichine and allopurinol for more durable management 11/24-. Plan to titrate allopurinol as outpatient. Subjective Subjective Interval history since last seen: Patient states he is doing well today. Did report having episode of chest pain earlier this morning that resolved on its own. He is aware his EKG was negative. Otherwise he understands we are working on a game plan for his prolonged antibiotic therapy. He has no complaints or concerns at this time. Exam Narrative Exam Narrative: Obese older gentleman laying in bed in no acute distress, A and O x 4, heart rate about 90, irregularly irregular, lungs good auscultation bilaterally, abdomen soft, nontender, nondistended, left foot wrapped without surrounding erythema or drainage Objective Last Vital Signs Temp 97.5 F L 11/27/24 07:37 Pulse 89 11/27/24 07:37 Resp 18 11/27/24 07:37 BP 105/50 L 11/27/24 07:37 Pulse Ox 98 11/27/24 08:45 Time Spent with Patient Time Spent with Patient: >50 minutes Time was spent: preparing to see the patient(eg.review tests), obtaining and/or reviewing separately otained hiistory, ordering medications,tests, procedures, referring, communicating with other health pharmacy care coordinator, indepentently interpreting results, counseling the patient and care coordination
--- NOTE | 2024-11-27 12:15 | RT.EKG_ITS ---
APPROVED REPORT Exam: Resting ECG Reason for Exam: SOB Patient Location: I HR:94 bpm ECG Measurements Heart Rate 94 AXIS AZ [id number] P [id number] QRSd 82 QRS -16 QT 393 T 108 QTc 492 Conclusion Atrial fibrillation...V-rate 62-109, irreg A-activity Paired ventricular premature complexes...sequence of 2 V complexes Borderline left axis deviation...QRS axis (-15,-29) Nonspecific repol abnormality, lateral leads...ST dep, T neg, I aVL V5 V6
--- NOTE | 2024-11-27 12:36 | PGE_ITS ---
Date of Service Date of service: 11/27/24 Time of Service: 11:30 Assessment and Plan Assessment and plan (1) PAD (peripheral artery disease): Status: Acute (2) Localized swelling of left foot: Status: Acute (3) Gout: Status: Chronic (4) MSSA bacteremia: Status: Acute (5) Gram-positive bacteremia: Status: Acute (6) Contusion of left foot: Status: Acute (7) Abscess of left foot including toes: Status: Acute (8) CKD (chronic kidney disease): Status: Chronic (9) KIA (acute kidney injury): Status: Acute (10) Neuropathy: Status: Acute Assessment and plan: Incision site appears to be with further soft tissue necrosis no abscess noted however. Lateral incision remains well coapted. Erythema persists. Edema persists no malodor noted. No proximal streaking. At this time, we were plan nancy on delayed primary closure of the left foot ulceration. At this time, there is tendon exposed along with further soft tissue necrosis. This appears to be thrombotic secondary to bacterial infection as well as microvascular disease. I reviewed the CTA and there appears to be some stenosis along the posterior tibial arteries. I do not believe that we have enough circulation to heal these wounds as it is evident from worsening of the wound post debridement. Patient requires vascular service. We have attempted this in the past however vascular denied. Will try again. We had to postpone planned OR procedure today for now since patient feels short of breath and reports indigestion and severe pain to his abdomen. Will have him further evaluated by the hospitalist. Will continue to monitor. DAYANA pending Subjective Subjective Interval history since last seen: Patient seen bedside reports stomach pain, indigestion and shortness of breath. Reports severe pain. Exam Extrem Other: Bilateral lower extremities plan: Derm: Incision site noted to the dorsal aspect of the left first metatarsophalangeal joint with further soft tissue necrosis, EHL tendon exposed and necrotic appearing, no purulence no malodor, surrounding erythema persists. L lateral ulceration noted to be well coapted without complete healing. Cyanosis and ischemia noted to the dorsal aspect of the left hallux IPJ as well as midfoot. MSK: Pain on palpation noted to the left great toe as well as left first MPJ. Prominent medial eminence to the left. Vascular: DP, PT pulses are nonpalpable nondopplerable to bilateral lower extremity. Significant pitting edema noted to the left lower extremity. Feet are cold distally. Varicosities and telangiectasias bilaterally. Hair growth is absent bilaterally. Objective Last Vital Signs Temp 97.5 F L 11/27/24 11:25 Pulse 96 H 11/27/24 11:25 Resp 17 11/27/24 11:25 BP 100/60 11/27/24 11:36 Pulse Ox 97 11/27/24 11:25 Time Spent with Patient Time Spent with Patient: >50 minutes Time was spent: preparing to see the patient(eg.review tests), obtaining and/or reviewing separately otained hiistory, referring, communicating with other health career services representative, indepentently interpreting results, counseling the patient and care coordination
[2024-11-27] MEDS: Ondansetron 4 MG/2 ML VIAL IVP (12:40)
[2024-11-27] MEDS: MAGNESIUM SULFATE 2 GM/50 ML BAG IV_INF (12:40)
[2024-11-27 13:16] LABS: Magnesium 2.2 mg/dL (1.8-2.4)
[2024-11-27 13:29] LABS: Troponin I 34 ng/L (<or=76)
[2024-11-27 13:34] LABS: NT-proBNP 1744 pg/mL (<300)
--- NOTE | 2024-11-27 16:40 | DSE_ITS ---
Date of service: 11/27/24 Time of Service: 16:40 DS: Diagnosis Discharge Diagnosis (1) PAD (peripheral artery disease): Status: Acute (2) Localized swelling of left foot: Status: Acute (3) Gout: Status: Chronic (4) MSSA bacteremia: Status: Acute (5) Gram-positive bacteremia: Status: Acute (6) Contusion of left foot: Status: Acute (7) Abscess of left foot including toes: Status: Acute (8) CKD (chronic kidney disease): Status: Chronic (9) KIA (acute kidney injury): Status: Acute (10) Neuropathy: Status: Acute Discharge Plan Disposition Patient Disposition: Transfer-Acute Inpatient Care Specific Acute Inpt Facility: [place] Condition: Fair Discharge Details Reason For Visit: Sepsis, UTI, KIA with CKD, Elevated Troponin Admit Date/Time: 11/17/24 04:28 Admit Provider: Slava Garnica Attending Provider: Slava Garnica Primary Care Provider: Khadijah Henriquez V Hospital Course Hospital Course: Patient initially presented to the hospital on 11/17/2024 was found to have sepsis initially thought to have been an an abscess of the left foot and toe along with MSSA bacteremia. Patient was seen by podiatry who performed irrigation and debridement of the left foot as well as a bone biopsy of the left first metatarsal joint on 11/23/2024. Culture results showed osteomyelitis and patient was put on cefazolin. However, upon further review his CTA aorta with runoff showed that common appears to be multifocal stenosis involving posterior tibial arteries at the level of the ankle). Additionally, DAYANA was unable to be performed as machine could not read pulse in his ankle. Special Education Teaching Assistant Dr. Brizuela thought patient would benefit from vascular surgery intervention, and ultimately patient accepted to [facility] for vascular intervention. Home Meds and New Rx's Prescriptions: No Action prednisone 5 mg tablet 5 mg PO DAILY PRN prednisone 1 mg tablet 1 mg PO DAILY tamsulosin 0.4 mg capsule 0.4 mg PO DAILY rosuvastatin 5 mg tablet 5 mg PO DAILY albuterol sulfate [Ventolin HFA] 90 mcg/actuation HFA aerosol inhaler 2 inh inhalation Q4H PRN cyanocobalamin (vitamin B-12) 1,000 mcg tablet 1,000 mcg PO DAILY furosemide [Lasix] 40 mg tablet 40 mg PO DAILY lisinopril 20 mg tablet 20 mg PO DAILY loratadine [Allergy Relief (loratadine)] 10 mg tablet 10 mg PO DAILY budesonide-formoterol [Breyna] 160-4.5 mcg/actuation HFA aerosol inhaler 2 puff inhalation Q12H Qty: 10.2 3RF pantoprazole 40 mg tablet,delayed release (DR/EC) 40 mg PO DAILY metoprolol succinate 50 mg tablet extended release 24 hr 50 mg PO DAILY Patient Comments: TAKE ONE TABLET BY MOUTH EVERY DAY Eliquis 5 mg tablet 5 mg PO BID levothyroxine 125 mcg tablet 125 mcg PO DAILY Patient Comments: TAKE ONE TABLET BY MOUTH EVERY DAY Discharge Instructions Activity:: Activity as Tolerated Equipment/Supplies:: No Equipment Needed Diet:: As Tolerated DS: Summary Time Spent with Patient providing and/or coordinating discharge services: Greater than 30 minutes Status at Discharge Functional status at discharge: uses cane/walker Overall status at discharge: patient is back to baseline Mental Status: mental status grossly normal Speech and Movement: speech and movement normal Mood: congruent mood Affect: normal affect Quality:SDOH Health Related Social Needs: Health related social needs details Patient reports he is ok. Health related social needs details: Patient reports he is ok. Exam Narrative Exam Narrative: Obese older gentleman laying in bed in no acute distress, A and O x 4, heart rate about 90, irregularly irregular, lungs good auscultation bilaterally, abdomen soft, nontender, nondistended, left foot wrapped without surrounding erythema or drainage Psych Mental Status: mental status grossly normal Speech and Movement: speech and movement normal Mood: congruent mood Affect: normal affect DS: Data Vitals/I&O Vitals and I&O: Vital Signs Temperature 96.6 F L 11/27/24 14:56 Temperature Source Temporal Artery Scan 11/27/24 14:56 Pulse 76 11/27/24 14:56 Pulse Rhythm Irregular 11/17/24 05:55 Pulse 73 11/27/24 13:19 Respiratory Rate 16 11/27/24 14:56 Respiratory Effort Non-Labored 11/23/24 09:00 Respiratory Depth Shallow 11/23/24 09:00 Respiratory Pattern Normal 11/23/24 09:00 Blood Pressure 138/81 11/27/24 14:56 Blood Pressure Mean 100 11/27/24 14:56 Blood Pressure Position Supine 11/23/24 09:00 Pulse Oximetry 94 11/27/24 14:56 Oxygen Delivery Method Room Air 11/27/24 14:56 Oxygen Flow Rate 0 11/27/24 14:56 Pain Level 5 11/27/24 16:08 Comment Pt reports feeling dizzy laying down. 11/27/24 04:22 Intake & Output 11/26/24 11/27/24 11/27/24 17:59 05:59 17:59 Intake Total 50 / 50 330 / 380 50 / 50 Output Total 1350 / 1350 1400 / 2750 Balance -1300 / -1300 -1070 / -2370 50 / 50 Weight 182 lb 12.211 oz Intake: IV 50 / 50 110 / 160 50 / 50 Oral 220 / 220 Output: Urine 1350 / 1350 1400 / 2750 Other: Urine Color Pale Pale Yellow Urine Appearance Clear Clear Stool Size Large Smear Smear Stool Characteristics Soft Soft Brown Brown Data Completed and Pending Labs on day of discharge: Labs from last 24 hours 11/27/24 12:30 Magnesium 2.2 Troponin I 34 NT-Pro-B Natriuret Pep 1744 H Preliminary micro results at discharge 11/23/24 08:08 Foot - Left Anaerobic Culture - Preliminary 11/23/24 08:04 Foot - Left Anaerobic Culture - Preliminary 11/23/24 08:05 Foot - Left Anaerobic Culture - Preliminary 11/23/24 07:57 Foot - Left Anaerobic Culture - Preliminary 11/23/24 08:04 Foot - Left Surgical Culture - Preliminary Staphylococcus aureus 11/23/24 08:05 Foot - Left Surgical Culture - Preliminary Staphylococcus aureus 11/23/24 08:08 Foot - Left Surgical Culture - Preliminary Staphylococcus aureus 11/23/24 07:57 Foot - Left Surgical Culture - Preliminary Staphylococcus aureus 11/22/24 12:50 Toe - Left Big Toe Wound Culture - Preliminary Staphylococcus aureus 11/22/24 12:50 Toe - Left Big Toe Anaerobic Culture - Preliminary PFSH All Active Problems (Updated 11/23/24 @ 13:06 by Lonnie Ruggiero) Septic arthritis of foot (Acute) ACP (advance care planning) (Acute) Palliative care encounter (Acute) Abscess of left foot including toes (Acute) Localized swelling of left foot (Acute) Urinary retention (Acute) PAD (peripheral artery disease) (Acute) Gout (Chronic) Pancytopenia (Acute) MSSA bacteremia (Acute) Gram-positive bacteremia (Acute) Contusion of left foot (Acute) PAF (paroxysmal atrial fibrillation) (Chronic) Urinary tract infection (Acute) CKD (chronic kidney disease) (Chronic) KIA (acute kidney injury) (Acute) NSTEMI (non-ST elevation myocardial infarction) (Acute) Shortness of breath (Acute) Sepsis (Acute) Shock (Acute) Elevated troponin level not due to acute coronary syndrome (Acute) CKD (chronic kidney disease) (Chronic) KIA (acute kidney injury) (Acute) S/P TAVR (transcatheter aortic valve replacement) (Acute) Allergic rhinitis (Acute) Asthma with COPD (Chronic) Pain in right foot (Acute) Pain in left foot (Acute) Dystrophy of nail due to trauma (Acute) Onychomycosis (Acute) Neuropathy (Acute) Atherosclerosis of artery of both lower extremities (Acute) Disorder of kidney (Acute) Polyneuropathy (Acute) (HFpEF) heart failure with preserved ejection fraction (Chronic) Aortic stenosis (Chronic) PMR (polymyalgia rheumatica) (Acute) 03/01/23 on chronic prednisone RH [id number] kidney injury (Acute) Syncope (Chronic) Internal derangement of left knee (Acute) Depo-Medrol: 04/17/21 Osteoarthritis of right knee (Acute) Steroid injection: 12/19/2019 (40mg) Bilateral shoulder bursitis (Acute) Impingement syndrome of both shoulders (Acute) Adhesive capsulitis of both shoulders (Acute) Tendinitis of long head of biceps brachii of both shoulders (Acute) Nontraumatic tear of muscle or tendon of rotator cuff of both shoulders (Acute) Scapular dyskinesis (Acute) Peripheral neuropathy (Acute) Cervical spondylosis with myelopathy (Acute) Bilateral hip joint arthritis (Acute) Renal insufficiency (Chronic) Hypothyroidism (Chronic) Restless leg (Acute) Dyspnea on exertion (Acute) Asbestos exposure (Acute) Diverticulitis (Chronic) Cholelithiasis (Acute) Hyperlipidemia (Acute) Hypertension (Chronic) PSVT (paroxysmal supraventricular tachycardia) (Chronic) Right carpal tunnel syndrome (Acute) S/P ECTR: 09/05/2019 Spondylolisthesis, cervical region (Acute) Medical History H/O polymyalgia rheumatica Localized edema Anemia Surgical History Hx of colonoscopy History of back surgery History of bowel resection sigmoid resection S/P appendectomy Social History Smoking/Tobacco Use Status: Former Tobacco Use Smoking risk assessment performed?: Yes Alcohol Intake: current Alcohol Intake frequency: a few times a month Alcohol type: beer Drug use: Never Substance use type: does not use Details: ALCOHOL: T-2, BEER. PT. STATES HE DOES NOT REMEMBER WHEN HE QUIT SMOKING, 40 YEARS AGO Housing: house Current gender identity: male Do you feel safe at home: Yes Do you feel safe in your relationship?: Yes Time Spent with Patient Time Spent with Patient: <45 minutes Time was spent: preparing to see the patient(eg.review tests), obtaining and/or reviewing separately otained hiistory, ordering medications,tests, procedures, referring, communicating with other health child care sitter, indepentently interpreting results, counseling the patient and care coordination
--- NOTE | 2024-11-27 18:14 | NUR.NOTE ---
report caled to [facility] RN @ [phone]. Awaiting EMS for transportation Nursing Note:
== END 2024-11-27 18:18 | disposition short-term general hospital (02) | DRG 854 ==
LOC: ER 11-17 05:13 → MS 11-17 05:54 → ICU 11-20 10:14 → MS 11-26 22:14
PROVIDERS: Family Medicine; Podiatrist; Admitting Provider Family Medicine; Emergency Provider Student in an Organized Health Care Education/Training Program; PCP Family Medicine; Responsible Provider Family Medicine; Visit Provider Family Medicine
PROC: 0S9N0ZZ Drainage of Left Metatarsal-Phalangeal Joint, Open Approach (ICD-10-PCS; CPT 28052; principal; 2024-11-23 07:30)
DX: A41.01 Sepsis due to Methicillin susceptible Staphylococcus aureus (principal); N17.9 Acute kidney failure, unspecified; N18.32 Chronic kidney disease, stage 3b; J44.9 Chronic obstructive pulmonary disease, unspecified; I13.0 Hypertensive heart and chronic kidney disease with heart failure and stage 1 through stage 4 chronic kidney disease, or unspecified chronic kidney disease; E03.9 Hypothyroidism, unspecified; D61.818 Other pancytopenia; R33.9 Retention of urine, unspecified; R60.0 Localized edema; L02.612 Cutaneous abscess of left foot; G62.9 Polyneuropathy, unspecified; M35.3 Polymyalgia rheumatica; M00.072 Staphylococcal arthritis, left ankle and foot; L03.116 Cellulitis of left lower limb; M47.12 Other spondylosis with myelopathy, cervical region; I47.10 Supraventricular tachycardia, unspecified; E87.20 Acidosis, unspecified; I50.32 Chronic diastolic (congestive) heart failure; I48.20 Chronic atrial fibrillation, unspecified; L97.528 Non-pressure chronic ulcer of other part of left foot with other specified severity; M86.172 Other acute osteomyelitis, left ankle and foot; B95.61 Methicillin susceptible Staphylococcus aureus infection as the cause of diseases classified elsewhere; M1A.0721 Idiopathic chronic gout, left ankle and foot, with tophus (tophi); Z66 Do not resuscitate; R74.8 Abnormal levels of other serum enzymes; Z79.01 Long term (current) use of anticoagulants; S90.32XA Contusion of left foot, initial encounter; W01.0XXA Fall on same level from slipping, tripping and stumbling without subsequent striking against object, initial encounter; Z95.4 Presence of other heart-valve replacement; I25.2 Old myocardial infarction; B95.1 Streptococcus, group B, as the cause of diseases classified elsewhere; G25.81 Restless legs syndrome; E78.5 Hyperlipidemia, unspecified; Z79.899 Other long term (current) drug therapy; Z79.52 Long term (current) use of systemic steroids; N40.0 Benign prostatic hyperplasia without lower urinary tract symptoms; E86.0 Dehydration; I44.7 Left bundle-branch block, unspecified; R51.9 Headache, unspecified; M43.6 Torticollis; D53.8 Other specified nutritional anemias; D69.6 Thrombocytopenia, unspecified; I70.245 Atherosclerosis of native arteries of left leg with ulceration of other part of foot; I70.201 Unspecified atherosclerosis of native arteries of extremities, right leg
CPT/HCPCS: 36410; 10060; 28052; 11043; 00123; 11403; 20612; 28008; 36415; 36592; 62270; 71275; 75635; 80048; 80053; 82805; 82945; 85027; 87040; 87077; 87483; 87637; 89050; 89051; 93005; 94640; 94761; 96365; 96366; 96367; 96368; 96375; 97162; 97530; 99222; 99233; 99291; 70450; 71045; 72125; 73610; 73620; 73630; 73660; 73720; 80202; 81003; 81015; 82272; 82607; 82728; 82746; 83540; 83550; 83605; 83735; 83880; 84157; 84443; 84484; 84550; 85025; 85610; 85730; 87070; 87075; 87086; 87186; 87205; 88304; 88307; 89060; 93010; 93306; 94660; 94664; 94760; 99223; 99231; 99232; 99238; J0290; J0690; J0696; J1100; J1171; J1720; J1938; J2270; J2405; J2916; J2919; J3373; J3475; J3490; J7512; J7614; J7620; J7644; Q9967